=== PATIENT | male | born 1950 | race Caucasian/White ===

== ENCOUNTER 2019-02-23 10:05 | Outpatient (CLI) | payer MEDICARE, SELFPAY ==
[2019-02-23 10:24] LABS: Abs Immature Grans 0.06 k/cumm (0.0-0.09); HCT 46.5 % (40.0-50.0); HGB 15.5 g/dL (13.5-17.5); Mean Corp. HGB Concentration 33.3 g/dL (32.0-36.0); Mean Corpuscular Hemoglobin 32.2 pg (27.0-33.0); Mean Corpuscular Volume 96.5 fL (80-95); Mean Platelet Volume 10.8 fL (8.0-11.0); Platelet Count 166 x1000/uL (130-400); RBC 4.82 m/cumm (4.50-6.00); RBC Distribution Width 13.3 % (11.8-14.1)
[2019-02-23 10:48] LABS: ALT 29 U/L (12-78); AST 16 U/L (15-37); Albumin 3.5 g/dL (3.4-5.0); Alkaline Phosphatase 45 U/L (46-116); Anion Gap 8.6 mmol/L (3-11); BUN 14 mg/dL (7-18); Bilirubin, Total 0.4 mg/dL (0.2-1.0); CO2 28.4 mmol/L (21.0-32.0); CREATININE 1.06 mg/dL (0.70-1.30); Calcium 9.4 mg/dL (8.5-10.1); Chloride 103 mmol/L (98-107); Glucose 109 mg/dL (70-100); LDH 144 U/L (85-227); Potassium 4.2 mmol/L (3.5-5.1); Sodium 140 mmol/L (136-145); Total Protein 6.7 g/dL (6.4-8.2)
[2019-02-23 11:02] LABS: Absolute Eosinophil Count 0.74 k/cumm (0.0-0.7); Absolute Lymphocyte Count 16.06 k/cumm (1.2-3.4); Absolute Monocyte Count 1.48 k/cumm (0.11-0.7); Absolute Neutrophil Count 6.42 k/cumm (1.2-6.7); Atypical Lymphocytes % 3
[2019-02-23 11:03] LABS: Diff Comment Manual Differential; RBC Morphology Normal
== END 2019-02-23 10:25 ==
PROVIDERS: PCP Physician Assistant Medical; Visit Provider Internal Medicine Hematology & Oncology
DX: C91.90 Lymphoid leukemia, unspecified not having achieved remission (principal)
CPT/HCPCS: 36415; 80053; 83615; 85025

== ENCOUNTER 2020-03-28 11:28 | Outpatient (CLI) | payer MEDICARE, SELFPAY ==
[2020-03-28 11:53] LABS: Abs Immature Grans 0.11 k/cumm (0.0-0.09); HCT 46.6 % (40.0-50.0); HGB 15.7 g/dL (13.5-17.5); Mean Corp. HGB Concentration 33.7 g/dL (32.0-36.0); Mean Corpuscular Hemoglobin 32.3 pg (27.0-33.0); Mean Corpuscular Volume 95.9 fL (80-95); Mean Platelet Volume 10.2 fL (8.0-11.0); Platelet Count 249 x1000/uL (130-400); RBC 4.86 m/cumm (4.50-6.00); RBC Distribution Width 13.3 % (11.8-14.1)
[2020-03-28 12:13] LABS: ALT 35 U/L (16-63); AST 23 U/L (15-37); Albumin 3.5 g/dL (3.4-5.0); Alkaline Phosphatase 43 U/L (46-116); Anion Gap 7.9 mmol/L (3-11); BUN 13 mg/dL (7-18); Bilirubin, Total 0.4 mg/dL (0.2-1.0); CO2 28.1 mmol/L (21.0-32.0); CREATININE 1.34 mg/dL (0.70-1.30); Calcium 9.4 mg/dL (8.5-10.1); Chloride 103 mmol/L (98-107); Glucose 106 mg/dL (74-106); LDH 141 U/L (85-227); Sodium 139 mmol/L (136-145); Total Protein 6.7 g/dL (6.4-8.2)
[2020-03-28 12:14] LABS: Absolute Lymphocyte Count 22.16 k/cumm (1.2-3.4); Absolute Neutrophil Count 8.18 k/cumm (1.2-6.7)
[2020-03-28 12:15] LABS: Absolute Monocyte Count 2.05 k/cumm (0.11-0.7)
[2020-03-28 12:16] LABS: Diff Comment Manual Differential; Macrocytosis 1+
[2020-03-28 12:18] LABS: White Blood Cell Count 34.09 k/cumm (4.4-10.8)
[2020-03-29 10:01] LABS: IgA 183 mg/dL (85-499); IgG 393 mg/dL (610-1,616); IgM 32 mg/dL (35-242)
== END 2020-03-28 11:48 ==
PROVIDERS: Visit Provider Internal Medicine Hematology & Oncology
DX: C91.90 Lymphoid leukemia, unspecified not having achieved remission (principal)
CPT/HCPCS: 36415; 80053; 82784; 83615; 85025

== ENCOUNTER 2020-10-31 09:16 | Outpatient (CLI) | payer MEDICARE, SELFPAY ==
[2020-10-31 09:58] LABS: Abs Immature Grans 0.11 10^3/uL (0.0-0.06); Absolute Monocyte Count 2.37 10^3/uL (0.1-0.8); Basophils % 0.4; Eosinophils % 1.4; HCT 45.2 % (40.0-50.0); HGB 15.1 g/dL (13.5-17.5); Immature Grans % 0.3; MCHC 33.4 % (32.0-36.0); MCV 95.8 fL (80-95); MPV 10.4 fL (8.0-11.0); Monocytes % 7.1; Neutrophils % 18.6; Nucleated RBC 0 %; Platelet Count 195 10^3/uL (130-400); RBC 4.72 10^6/uL (4.36-5.78); RDW 13.3 % (11.8-14.1); RDW-SD 46.5 fL
[2020-10-31 10:02] LABS: Absolute Basophil Count 0.13 10^3/uL (0.0-0.2); Absolute Eosinophil Count 0.47 10^3/uL (0.0-0.7)
[2020-10-31 10:09] LABS: ALT 37 U/L (16-63); AST 22 U/L (15-37); Albumin 3.6 g/dL (3.4-5.0); Alkaline Phosphatase 52 U/L (46-116); Anion Gap 8.8 mmol/L (3-11); BUN 11 mg/dL (7-18); Bilirubin, Total 0.5 mg/dL (0.2-1.0); CO2 28.2 mmol/L (21.0-32.0); CREATININE 1.1 mg/dL (0.70-1.30); Calcium 9.3 mg/dL (8.5-10.1); Chloride 105 mmol/L (98-107); Glucose 110 mg/dL (74-106); LDH 155 U/L (85-227); Potassium 4.2 mmol/L (3.5-5.1); Sodium 142 mmol/L (136-145); Total Protein 6.5 g/dL (6.4-8.2)
[2020-10-31 10:32] LABS: Diff Comment Agrees w/ Instrument; RBC Morphology Normal
[2020-10-31 10:33] LABS: Lymphocytes % 72.2
[2020-10-31 10:39] LABS: WBC 33.38 10^3/uL (4.4-10.8)
[2020-10-31 10:40] LABS: Absolute Neutrophil Count 6.21 10^3/uL (1.2-6.7)
[2020-10-31 17:53] LABS: PSA, Screening 5.6 ng/mL (0.0-6.5)
[2020-11-01 09:07] LABS: IgA 186 mg/dL (85-499); IgG 428 mg/dL (610-1,616); IgM 34 mg/dL (35-242)
== END 2020-10-31 09:17 | disposition home or self-care (01) ==
LOC: LBO 09:19
PROVIDERS: PCP Physician Assistant Medical; Visit Provider Internal Medicine Hematology & Oncology
DX: C91.10 Chronic lymphocytic leukemia of B-cell type not having achieved remission (principal); Z12.5 Encounter for screening for malignant neoplasm of prostate
CPT/HCPCS: 36415; 80053; 82784; 84153; 83615; 85025

== ENCOUNTER 2024-11-02 01:17 | Outpatient (CLI) | payer MEDICARE, SELFPAY ==
--- OUTSIDE RECORDS SUMMARY | 2024-11-02 01:55 | XMS_ITS | Continuity of Care Document ---
Author Organization [facility] Address [address] [place] [address] Care Team Providers Care Forging Roll Operator Name Role Phone BRADLEY HYATT Primary Care Physician Encounter [facility] NBR [id number] Date(s): 09/02/22 - 09/02/[address] [address]- Discharge Disposition: Home or Self Care Attending Physician: Fabrizio Echavarria MD Admitting Physician: Fabrizio Echavarria MD Allergies, Adverse Reactions, Alerts No Known Allergies Assessment and Plan Future Scheduled Tests Radiology* MRI Shoulder w/o Contrast Left 09/02/22 Medications albuterol 0 Refill(s) Start Date: 09/02/22 Status: Ordered Allergy Relief 0 Refill(s) Start Date: 09/02/22 Status: Ordered calcium (as calcium citrate) 250 mg oral tablet 0 Refill(s) Start Date: 09/02/22 Status: Ordered diclofenac 0 Refill(s) Start Date: 09/02/22 Status: Ordered gabapentin 300 mg oral capsule 0 Refill(s) Start Date: 09/02/22 Status: Ordered losartan 0 Refill(s) Start Date: 09/02/22 Status: Ordered multivitamin adult, oral tablet 0 Refill(s) Start Date: 09/02/22 Status: Ordered omeprazole 0 Refill(s) Start Date: 09/02/22 Status: Ordered tamsulosin 0.4 mg oral capsule 0 Refill(s) Start Date: 09/02/22 Status: Ordered Trelegy Ellipta 0 Refill(s) Start Date: 09/02/22 Status: Ordered triamcinolone 0.025% topical cream 0 Refill(s) Start Date: 09/02/22 Status: Ordered Turmeric 0 Refill(s) Start Date: 09/02/22 Status: Ordered Vitamin D3 0 Refill(s) Start Date: 09/02/22 Status: Ordered Problem List Condition Confirmation Course Effective Dates Status Health St [facility] Informant Asthma Confirmed Active High blood pressure Confirmed Active Procedures Procedure Date Related Diagnosis Body Site Status Arthroscopy, shoulder, surgi augustina; biceps tenodesis Completed Results Radiology Reports * Exam Date Time Procedure Performing Provider Status 09/02/22 10:12 AM XR Shoulder Complete 2+ Views Left Coleman Dennison; Auth (Verified) Notes: (XR Shoulder Complete 2+ Views Left) Reason For Exam: Left shoulder pain XR Shoulder Complete 2+ Views Left EXAM DESCRIPTION: XR Shoulder Complete 2+ Views Left 09/02/2022 INDICATION: LEFT SHOULDER PAIN COMPARISON: None IMPRESSION: No acute fracture or dislocation AC joint osteoarthritic changes with joint space narrowing and osteophyte formation No focal lytic or sclerotic lesion. JOB #: [id number] Final Signed by: Roger Alvarez MD Signed (Electronic Signature): 09/02/2022 10:17 am Social History Social History Type Response Tobacco Never tobacco user T obacco Use:. Sex Male XR Shoulder - left GE 2 Views * Roger Alvarez MD: VERIFY, VERIFY Event Display: Report EXAM DESCRIPTION: XR Shoulder Complete 2+ Views Left 09/02/2022 INDICATION: LEFT SHOULDER PAIN COMPARISON: None IMPRESSION: No acute fracture or dislocation AC joint osteoarthritic changes with joint space narrowing and osteophyte formation No focal lytic or sclerotic lesion. JOB #: [id number] Final Signed by: Roger Alvarez MD Signed (Electronic Signature): 09/02/2022 10:17 am Patient Care team information Personnel Name: BRADLEY HYATT Address: Address: [address] [place] [id number]
--- OUTSIDE RECORDS SUMMARY | 2024-11-02 01:55 | XMS_ITS | Continuity of Care Document ---
Author Organization [facility] Address [address] [place] [address] Care Team Providers Care Cafe Cook Name Role Phone BRADLEY LANG Primary Care Physician Encounter [facility] NBR [id number] Date(s): 01/06/23 - 01/06/23 [facility] [address] [place] [address] [place] Encounter Diagnosis Biceps tendinitis of left shoulder(Discharge Diagnosis) - 01/07/23 Complete rotator cuff tear of left shoulder(Discharge Diagnosis) - 01/07/23 Subacromial impingement of left shoulder(Discharge Diagnosis) - 01/07/23 Discharge Disposition: Home or Self Care Attending Physician: MIHIR Ruffin Allergies, Adverse Reactions, Alerts No Known Allergies Assessment and Plan Future Appointments Future Scheduled Tests Radiology* MRI Shoulder w/o Contrast Left 09/02/22 Functional Status 01/06/23 Other exposure to Infectious Disease Non e Medications albuterol 0 Refill(s) Start Date: 09/02/22 Status: Ordered albuterol 90 mcg/inh aerosol inhaler INHALE 2 PUFFS BY MOUTH USING INHALER EVERY 4 TO 6 HOURS NEEDED Start Date: 11/03/22 Status: Ordered Allergy Relief 0 Refill(s) Start Date: 09/02/22 Status: Ordered aspirin 325 mg =, Oral, Daily, 0 Refill(s) Start Date: 11/25/22 Status: Ordered calcium (as calcium citrate) 250 mg oral tablet 0 Refill(s) Start Date: 09/02/22 Status: Ordered gabapentin 300 mg oral capsule TAKE 3 CAPSULES BY MOUTH AT BEDTIME Start Date: 11/03/22 Status: Ordered losartan 50 mg oral tablet TAKE 1 TABLET BY MOUTH ONCE DAILY Start Date: 11/03/22 Status: Ordered multivitamin adult, oral tablet 0 Refill(s) Start Date: 09/02/22 Status: Ordered omeprazole 20 mg =, Oral, Daily, 0 Refill(s) Start Date: 09/02/22 Status: Ordered tamsulosin 0.4 mg oral capsule TAKE 1 CAPSULE BY MOUTH AT BEDTIME Start Date: 11/03/22 Status: Ordered Trelegy Ellipta Inhale, Daily, 0 Refill(s) Start Date: 09/02/22 Status: Ordered triamcinolone 0.025% topical cream 0 Refill(s) Start Date: 09/02/22 Status: Ordered Turmeric 0 Refill(s) Start Date: 09/02/22 Status: Ordered Vitamin D3 0 Refill(s) Start Date: 09/02/22 Status: Ordered Problem List Condition Confirmation Course Effective Dates Status H ealth Status Informant Asthma Confirmed Active Claudication Confirmed Active CLL - Chronic lymphocytic leukemia Confirmed Active COPD - Chronic obstructive pulmonary disease Confirmed Active Diastasis recti Confirmed Active Eczema Confirmed Active Hearing impaired Confirmed Active Hemorrhoid management system Confirmed Active High blood pressure Confirmed Active History of syncope 1 Confirmed Active HLD - Hyperlipidemia Confirmed Active IgG subclass deficiency Confirmed Active Neuropathy 2 Confirmed Active Osteoarthritis Confirmed Active SVT - Supraventricular tachycardia 3 Confirmed Active 1x2 negative ziopatch 2bilat feet 3occ 5 beat runs on ziopatch Procedures Procedure Date Related Diagnosis Body Site Status Arthroscopy Shoulder with AD SLAP RCR (Left) 1 11/10/22 Completed Tenodesis Biceps (Left) 2 11/10/22 Completed Arthroscopy, shoulder, surgi augustina; biceps tenodesis Completed CTR - carpal tunnel release Completed Repair of bilateral inguinal hernias 3 Completed Reverse shoulder replacement 4 Completed 1auto-populated from documented surgical case 2auto-populated from documented surgical case 3with mesh 4with revision x2 Vital Signs Most recent to oldest [Reference Range]: 1 Peripheral Pulse Rate [60-100 bpm] 71 bp m (01/06/23 12:41 PM) Blood Pressure [90-140/60-90 mmHg] 108/7 0mmHg (01/06/23 12:41 PM) Social History Social History Type Response Tobacco Never tobacco user T obacco Use:. Sex Male Implantable Device List Procedure Provider Procedure Date Device Type Site Tenodesis of long tendon of biceps Fabrizio Echavarria MD 11/10/22 Non Biological Shoulder L Device Identifier Serial Number Lot or Batch Number Manufacturing Date Expiration Date Distinct Identification Code MRI Safety Implantable Status Assigning Authority Unknown Unknown [id number] Unknown 03/26/25 Unknown Unknown Active Unk nown Unknown Unknown [id number] Unknown 07/27/25 Unknown Unknown Active Un known Physician Outpatient Note * MIHIR Ruffin: PERFORM Event Display: Office Clinic Note Physician Authored Date: [id number] IMANI ROSS :1950 Age:72 years Sex:Male Visit Date:01/06/2023 Primary Care Physician: BRADLEY LANG Chief Complaint Left Shoulder History of Present Illness The patient comes in today status post surgery on 11/10/2022. ??He had a??left shoulder RCR, GRABIEL, arthroscopic biceps tenodesis,??and extensive debridement. ??He was wondering today if he can start on his diclofenac for his??arthritis in other joints,??mainly his foot.?? He is going to physical therapy. ??He has been wearing his sling. ??He denies any increased pain numbness or tingling. Review of Systems Unremarkable Physical Exam Vitals & Measurements HR:??71??(Peripheral)?? BP:??108/70?? SpO2:??95%?? General: Alert and oriented x3, pleasant cooperative, in no acute distress, appears to be their stated age, is generally fit appearing.? Left shoulder:??Range of motion with forward elevation is to about 160 degrees. ??External rotation is to 35.?? Internal rotation is to his PSIS. ??Well-healed postoperative incisions. ??Full range of motion of his elbow wrist and hand. ??Skin distally is pink warm and dry. Assessment/Plan 1.??Biceps tendinitis of left shoulder??M75.22 2.??Complete rotator cuff tear of left shoulder??M75.122 3.??Subacromial impingement of left shoulder??M75.42 The patient comes in today status post a forementioned procedure. ??I counseled him it would be best if should be able to wait for another 5 weeks before starting back on his diclofenac. ??He is in understanding of this. ??He can discontinue his full daily aspirin and go back to his baby aspirin.??He will continue with physical therapy and he can discontinue his sling. ??We will see him back in 6 weeks. Problem List/Past Medical History Ongoing Asthma Claudication CLL - Chronic lymphocytic leukemia COPD - Chronic obstructive pulmonary disease Diastasis recti Eczema Hearing impaired Hemorrhoid management system High blood pressure History of syncope HLD - Hyperlipidemia IgG subclass deficiency Neuropathy Osteoarthritis SVT - Supraventricular tachycardia Historical No qualifying data Procedure/Surgical History ???Arthroscopy Shoulder with GRABIEL SLAP RCR (Left) (11/10/2022)???Tenodesis Biceps (Left) (11/10/2022)???Arthroscopy, shoulder, surgical; biceps tenodesis???CTR - carpal tunnel release???Repair of bilateral inguinal hernias???Reverse shoulder replacement Medications albuterol albuterol 90 mcg/inh aerosol inhaler Allergy Relief aspirin, 325 mg, Oral, Daily calcium (as calcium citrate) 250 mg oral tablet gabapentin 300 mg oral capsule losartan 50 mg oral tablet multivitamin adult, oral tablet omeprazole, 20 mg, Oral, Daily tamsulosin 0.4 mg oral capsule Trelegy Ellipta, Inhale, Daily triamcinolone 0.025% topical cream Turmeric Vitamin D3 Allergies No Known Allergies No Known Medication Allergies Social History Alcohol Current, Beer- Comments: 2 -3 TIMES A WEEK Electronic Cigarette/Vaping Electronic Cigarette Use: Never. Employment/School Retired Substance Use Never Tobacco Never tobacco user Tobacco Use:. Electronically Signed on 01/07/23 07:24 AM MIHIR Ruffin Patient Care team information Care Team Personnel Name: BRADLEY LANG Position: No Access Member Role: Primary Care Physician Address: Address: [address] [place] [id number]- Care Team Related Persons Name: AHMET ROSS Address: Home [address] [facility] [place], [address] [facility]
--- OUTSIDE RECORDS SUMMARY | 2024-11-02 01:55 | XMS_ITS | Continuity of Care Document ---
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 Name Role Phone BRADLEY LANG Primary Care Physician Encounter [facility] NBR [id number] Date(s): 04/02/23 - 04/02/23 [facility] [address] [place] [address] [place] Encounter Diagnosis Biceps tendinitis of left shoulder(Discharge Diagnosis) - 04/02/23 Complete rotator cuff tear of left shoulder(Discharge Diagnosis) - 04/02/23 Subacromial impingement of left shoulder(Discharge Diagnosis) - 04/02/23 Discharge Disposition: Home or Self Care Attending Physician: MIHIR Ruffin Referring Physician: BRADLEY LANG Allergies, Adverse Reactions, Alerts No Known Allergies Assessment and Plan Future Appointments Future Scheduled Tests Radiology* MRI Shoulder w/o Contrast Left 09/02/22 Functional Status 04/02/23 Other exposure to Infectious Disease Non e Medications albuterol 0 Refill(s) Start Date: 09/02/22 Status: Ordered Albuterol (Eqv-Ventolin HFA) 90 mcg/inh inhalation aerosol 18 g, INHALE 2 PUFFS BY MOUTH USING INHALER EVERY 4 TO 6 HOURS NEEDED, 0 Refill(s) Start Date: 02/16/23 Status: Ordered albuterol 90 mcg/inh aerosol inhaler INHALE 2 PUFFS BY MOUTH USING INHALER EVERY 4 TO 6 HOURS NEEDED Start Date: 11/03/22 Status: Ordered Allergy Relief 0 Refill(s) Start Date: 09/02/22 Status: Ordered aspirin 325 mg =, Oral, Daily, 0 Refill(s) Start Date: 11/25/22 Status: Ordered calcium (as calcium citrate) 250 mg oral tablet 0 Refill(s) Start Date: 09/02/22 Status: Ordered cyclobenzaprine 5 mg oral tablet 20 EA, 0 Refill(s) Start Date: 02/16/23 Status: Ordered diclofenac potassium 50 mg oral tablet 180 EA, TAKE 1 TABLET BY MOUTH TWICE DAILY, 0 Refill(s) Start Date: 02/16/23 Status: Ordered gabapentin 300 mg oral capsule TAKE 3 CAPSULES BY MOUTH AT BEDTIME Start Date: 11/03/22 Status: Ordered losartan 50 mg oral tablet TAKE 1 TABLET BY MOUTH ONCE DAILY Start Date: 11/03/22 Status: Ordered multivitamin adult, oral tablet 0 Refill(s) Start Date: 09/02/22 Status: Ordered omeprazole 20 mg =, Oral, Daily, 0 Refill(s) Start Date: 09/02/22 Status: Ordered omeprazole 20 mg oral delayed release capsule 120 EA, TAKE 1 CAPSULE BY MOUTH TWICE DAILY FOR 2 MONTHS THEN DECREASE TO ONCE DAILY, 0 Refill(s) Start Date: 02/16/23 Status: Ordered oxyCODONE 5 mg oral tablet 20 EA, 0 Refill(s) Start Date: 02/16/23 Status: Ordered Phenergan 25 mg oral tablet 5 EA, 0 Refill(s) Start Date: 02/16/23 Status: Ordered sildenafil 100 mg oral tablet 12 EA, TAKE 1 TABLET BY MOUTH ONCE DAILY NEEDED IF NEEDED 1 HOUR PRIOR TO INTERCOURSE, 0 Refill(s) Start Date: 02/16/23 Status: Ordered tamsulosin 0.4 mg oral capsule [...] H ealth Status Informant Asthma Confirmed Active Biceps tendinitis of left shoulder Confirmed Active Claudication Confirmed Active CLL - Chronic lymphocytic leukemia Confirmed Active COPD - Chronic obstructive pulmonary disease Confirmed Active Diastasis recti Confirmed Active Eczema Confirmed Active Complete rotator cuff tear of left shoulder Confirmed Active Hearing impaired Confirmed Active Hemorrhoid management system Confirmed Active High blood pressure Confirmed Active History of syncope 1 Confirmed Active HLD - Hyperlipidemia Confirmed Active IgG subclass deficiency Confirmed Active Neuropathy 2 Confirmed Active Osteoarthritis Confirmed Active Subacromial impingement of left shoulder Confirmed Active SVT - Supraventricular tachycardia 3 [...] Range]: 1 Peripheral Pulse Rate [60-100 bpm] 76 bp m (04/02/23 1:52 PM) Blood Pressure [90-140/60-90 mmHg] 142/7 8mmHg *HI* (04/02/23 1:52 PM) Weight 99.79 kg (04/02/23 1:52 PM) Weight Measured (lbs) 219.999 lb (04/02/23 1:52 PM) Height 172.72 cm (04/02/23 1:52 PM) Height/Length Measured (inches) 68 inch (04/02/23 1:52 PM) BSA Measured 2.19 m2 (04/02/23 1:52 PM) Body Mass Index 33.45 kg/m2 (04/02/23 1:52 PM) Social History Social History Type Response Tobacco Never tobacco user T obacco Use:. Sex Male Implantable Device List Procedure Provider Procedure Date Device Type Site Tenodesis of long tendon of biceps Fabrizio Echavarria MD 11/10/22 Non Biological Shoulder L Device Identifier Serial Number Lot or Batch Number Manufacturing Date Expiration Date Distinct Identification Code MRI Safety Implantable Status Assigning Authority Unknown Unknown [id number] Unknown 03/26/25 Unknown Unknown Active Unk nown Unknown Unknown [id number] Unknown 07/27/25 Unknown Unknown Active Un known Physician Outpatient Note * MIHIR Ruffin: PERFORM Event Display: Office Clinic Note Physician Authored Date: [id number] IMANI ROSS :1950 Age:72 years Sex:Male Visit Date:04/02/2023 Primary Care Physician: BRADLEY LANG Chief Complaint LEFT SHOULDER History of Present Illness The patient comes in today??status post surgery on 11/10/2022. ??He had a right shoulder RCR, GRABIEL, arthroscopic bicep tenodesis, and debridement.?? He still little bit weak. ??He also has a catch when he forward elevates to about 120 degrees. ??He ran out of physical therapy visits. ??He states he is able to lift about 2 pounds at home. ??He is trying to do the exercises at home himself at this point. Review of Systems Other than the HPI is significant for GERD??and asthma. Physical Exam Vitals & Measurements HR:??76??(Peripheral)?? BP:??142/78?? SpO2:??99%?? HT:??172.72??cm?? WT:??99.79??kg?? BMI:??33.45?? BSA:??2.19?? General: Alert and oriented x3, pleasant cooperative, in no acute distress, appears to be their stated age, is generally fit appearing.? Left shoulder:??Full active motion although he catches about 120 degrees of forward elevation. ??External rotation is full. ??Internal rotation is lacking 2 vertebral levels.?? Positive Neer's andHawkins testing.?? 5- out of 5 strength of forward elevation. ??5-5 strength external and internal rotation. Assessment/Plan 1.??Biceps tendinitis of left shoulder??M75.22 2.??Complete rotator cuff tear of left shoulder??M75.122 3.??Subacromial impingement of left shoulder??M75.42 Patient is doing well status post the aforementioned procedure although is still in need of strengthening and conditioning. ??Unfortunately??his insurance will not allow him to continue to go??as he has reached his maximum number of visits.?? He will continue to do a prescribed home exercise program. ??We will see him back in 2 months for follow-up. ??If he is doing well at that point we will likely??see him back only as needed. Problem List/Past Medical History Ongoing Asthma Biceps tendinitis of left shoulder Claudication CLL - Chronic lymphocytic leukemia Complete rotator cuff tear of left shoulder COPD - Chronic obstructive pulmonary disease Diastasis recti Eczema Hearing impaired Hemorrhoid management system High blood pressure History of syncope HLD - Hyperlipidemia IgG subclass deficiency Neuropathy Osteoarthritis Subacromial impingement of left shoulder SVT - Supraventricular tachycardia Historical No qualifying data Procedure/Surgical History ???Arthroscopy Shoulder with GRABIEL SLAP RCR (Left) (11/10/2022)???Tenodesis Biceps (Left) (11/10/2022)???Arthroscopy, shoulder, surgical; biceps tenodesis???CTR - carpal tunnel release???Repair of bilateral inguinal hernias???Reverse shoulder replacement Medications albuterol Albuterol (Eqv-Ventolin HFA) 90 mcg/inh inhalation aerosol albuterol 90 mcg/inh aerosol inhaler Allergy Relief aspirin, 325 mg, Oral, Daily calcium (as calcium citrate) 250 mg oral tablet cyclobenzaprine 5 mg oral tablet diclofenac potassium 50 mg oral tablet gabapentin 300 mg oral capsule losartan 50 mg oral tablet multivitamin adult, oral tablet omeprazole, 20 mg, Oral, Daily omeprazole 20 mg oral delayed release capsule oxyCODONE 5 mg oral tablet Phenergan 25 mg oral tablet sildenafil 100 mg oral tablet tamsulosin 0.4 mg oral capsule Trelegy Ellipta, Inhale, Daily triamcinolone 0.025% topical cream Turmeric Vitamin D3 Allergies No Known Allergies No Known Medication Allergies Social History Alcohol Current, Beer- Comments: 2 -3 TIMES A WEEK Electronic Cigarette/Vaping Electronic Cigarette Use: Never. Employment/School Retired Substance Use Never Tobacco Never tobacco user Tobacco Use:. Electronically Signed on 04/02/23 03:23 PM MIHIR Ruffin Patient Care team information Care Team Personnel Name: BRADLEY LANG Position: No Access Member Role: Primary Care Physician Address: Address: [address] [place] [address]- Care Team Related Persons Name: AHMET ROSS Address: Home [address] [place], [address] [place]
--- OUTSIDE RECORDS SUMMARY | 2024-11-02 01:55 | XMS_ITS | Continuity of Care Document ---
Author Organization [facility] Address [address] [place] [address] Care Team Providers Care Button Sewer Name Role Phone BRADLEY HYATT Primary Care Physician Encounter [facility] NBR [id number] Date(s): 08/08/22 - 08/08/22 [facility] [address] [place] [address]- [place] Social History Social History Type Response Sex Male Patient Care team information Care Team Personnel Name: BRADLEY HYATT Position: No Access Member Role: Primary Care Physician Address: Address: [address] [place] [id number]
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
--- OUTSIDE RECORDS SUMMARY | 2024-11-02 01:55 | XMS_ITS | Continuity of Care Document ---
Author Organization [facility] Address [address] [place] [address] Care Team Providers Care Hot Metal Mixer Operator Name Role Phone BRADLEY LANG Primary Care Physician [phone] Encounter [facility] NBR [id number] Date(s): 05/26/23 - 05/26/23 [facility] [address] [place] [address] us Encounter Diagnosis Biceps tendinitis of left shoulder(Discharge Diagnosis) - 05/26/23 Subacromial impingement of left shoulder(Discharge Diagnosis) - 05/26/23 Complete rotator cuff tear of left shoulder(Discharge Diagnosis) - 05/26/23 Discharge Disposition: Home or Self Care Attending Physician: Fabrizio Echavarria MD Referring Physician: BRADLEY LANG Allergies, Adverse Reactions, [...] 0 Refill(s) Start Date: 02/16/23 Status: Ordered omeprazole 40 mg oral delayed release capsule 90 EA, 0 Refill(s), TAKE 1 CAPSULE BY MOUTH TWICE DAILY FOR 2 MONTHS, THEN DECREASE TO ONCE DAILY, 0 Refill(s) Start Date: 05/26/23 Status: Ordered oxyCODONE 5 mg oral tablet [...] Range]: 1 Peripheral Pulse Rate [60-100 bpm] 77 bp m (05/26/23 1:41 PM) Blood Pressure [90-140/60-90 mmHg] 145/8 5mmHg *HI* (05/26/23 1:41 PM) Weight 90.72 kg (05/26/23 1:41 PM) Weight Measured (lbs) 200.003 lb (05/26/23 1:41 PM) Height 172.72 cm (05/26/23 1:41 PM) Height/Length Measured (inches) 68 inch (05/26/23 1:41 PM) BSA Measured 2.09 m2 (05/26/23 1:41 PM) Body Mass Index 30.41 kg/m2 (05/26/23 1:41 PM) Social History Social History Type Response Tobacco Never tobacco user T obacco Use:. Sex Male Implantable Device List Procedure Provider Procedure Date Device Type Site Tenodesis of long tendon of biceps Fabrizio Echavarria MD 11/10/22 Non Biological Shoulder L Device Identifier Serial Number Lot or Batch Number Manufacturing Date Expiration Date Distinct Identification Code MRI Safety Implantable Status Assigning Authority Unknown Unknown [id number] Unknown 03/26/25 Unknown Unknown Active Unk nown Unknown Unknown [id number] Unknown 07/27/25 Unknown Unknown Active Un known Hospital Discharge Instructions Follow Up Care 04/02/2023 14:21:43 With:Patient to call as needed Address: When: Unknown Physician Outpatient Note * Fabrizio Echavarria MD: PERFORM Event Display: Office Clinic Note Physician Authored Date: [id number] IMANI ROSS :1950 Age:73 years Sex:Male Visit Date:05/26/2023 Primary Care Physician: BRADLEY LANG Chief Complaint LEFT SHOULDER History of Present Illness The patient presents for follow-up of his left shoulder status post RCR, GRABIEL, and arthroscopic biceps tenodesis on 11/10/2022. ??He finished physical therapy and has been working on an HEP.?? He states that he is doing well and has regained function of his left shoulder. ??He states that with abduction he has no pain, although he continues with pain with forward elevation terminally.?? He denies weakness. ??He has been using his left upper extremity in increasing fashion around the house. ??He denies numbness or tingling. ??His shoulder is??occasionally waking him at night??if he rolls onto it. ??He has been taking acetaminophen to address this. Physical Exam Vitals & Measurements HR:??77??(Peripheral)?? BP:??145/85?? SpO2:??98%?? HT:??172.72??cm?? WT:??90.72??kg?? BMI:??30.41?? Pain Score:??7?? BSA:??2.09?? The patient's left??upper??extremity is neurovascularly intact. ??Sensation and motor exam are intact distally. ??All digits are warm and pink.?? Surgical wounds are well-healed. ??No Mike deformity is present. ??Active range of motion is??full but with pain on terminal elevation. ??Neer and Bardales signs are mildly positive. ??Drop arm test negative. ??Strength is 5 out of 5 in all planes. ??No focal tenderness is present about the shoulder. Assessment/Plan 1.??Biceps tendinitis of left shoulder??M75.22 2.??Subacromial impingement of left shoulder??M75.42 3.??Complete rotator cuff tear of left shoulder??M75.122 The patient appears to be doing well status post the above procedure, albeit with??pain on terminalelevation which is felt to be secondary to persistent/recurrent inflammation. ??The treatment options were discussed with the patient??who believes he is gradually improving. ??I did discuss the possi bility of a corticosteroid injection but he would like to hold off for now. ??He will continue withhis HEP and agrees to be compliant with this. ??We had a discussion about??return to activities andminimization of risk of reinjury.?? The patient will contact us with any questions??or concerns, orif??he wishes to have a corticosteroid injection. ??Otherwise, we will see him on an as needed basis. ??All questions were answered. Follow Up Instructions With When Contact Information Patient to call as needed Additional Instructions: Problem List/Past Medical History Ongoing Asthma Biceps [...] omeprazole 20 mg oral delayed release capsule omeprazole 40 mg oral delayed release capsule oxyCODONE 5 [...] tobacco user Tobacco Use:. Electronically Signed on 05/26/23 02:26 PM Fabrizio Echavarria MD Patient Care team information Care Team Personnel Name: BRADLEY LANG Position: No Access Member Role: Primary Care Physician Address: Address: [address] [place] [id number]- Care Team Related Persons Name: AHMET ROSS Address: Home [address] [place] [address] [facility]
--- OUTSIDE RECORDS SUMMARY | 2024-11-02 01:55 | XMS_ITS | Continuity of Care Document ---
Author Organization [facility] Address [address] [place] [phone] Care Team Providers Care Customer Service Advocate Name Role Phone BRADLEY LANG Primary Care Physician [phone] Encounter [facility] NBR [id number] Date(s): 11/10/22 - 11/10/[address] [address] Encounter Diagnosis Biceps tendinitis of left shoulder(Discharge Diagnosis) - 11/05/22 Complete rotator cuff tear of left shoulder(Discharge Diagnosis) - 11/05/22 Left rotator cuff tear(Discharge Diagnosis) - 11/05/22 Discharge Disposition: Home f/u External Provider Attending Physician: Fabrizio Echavarria MD Admitting Physician: Fabrizio Echavarria MD Allergies, Adverse Reactions, Alerts No Known Allergies Assessment and Plan Future Appointments Future Scheduled Tests Radiology* MRI Shoulder w/o Contrast Left 09/02/22 Functional Status 11/10/22 Home Equipment Other: immobilibzer sling 11/10/22 Living Environment Home Environment No qualifying data available Prior ADL Status Independent Prior Mobility Status Independent Prior Instrumental ADL Level Independent Prior Cognitive-Communication Skills Ind ependent 11/10/22 Orthopedic/Preventive Devices Immobilize rs, Sling Orthopedic Device Cares Performed Yes 11/10/22 Anti-Embolism Device Activity: In place Anti-Embolism Site Condition: No complic ations 11/10/22 ADLs Independent Antiembolism Device Graduated compressio n stockings, knee high, bilateral, Intermittent pneumatic compression devices, knee high, bilat Other exposure to Infectious Disease Non e [...] Most recent to oldest [Reference Range]: 1 2 3 Temperature Temporal Artery [36-38 Deg C] 36.3 Deg C (11/10/22 5:00 PM) 36.8 Deg C (11/10/22 2:05 PM) 36 Deg C (11/10/22 1:48 PM) Temperature Temporal Artery (DegF) [97.3-100 Deg F] 97.34 Deg F (11/10/22 5:00 PM) 98.24 Deg F (11/10/22 2:05 PM) 96.8 Deg F *LOW* (11/10/22 1:48 PM) Peripheral Pulse Rate [60-100 bpm] 79 bpm (11/10/22 5:00 PM) 81 bpm (11/10/22 4:45 PM) 87 bpm (11/10/22 4:30 PM) Heart Rate Monitored [60-100 bpm] 66 bpm (11/10/22 9:05 AM) Respiratory Rate [12-24 br/min] 19 br/min (11/10/22 1:50 PM) 17 br/min (11/10/22 9:05 AM) Blood Pressure [90-140/60-90 mmHg] 142/89mmHg *HI* (11/10/22 5:00 PM) 143/72mmHg *HI* (11/10/22 4:45 PM) 124/87mmHg (11/10/22 4:30 PM) Mean Arterial Pressure, Cuff [65-140 mmHg] 107 mmHg (11/10/22 5:00 PM) 96 mmHg (11/10/22 4:45 PM) 99 mmHg (11/10/22 4:30 PM) Mean Arterial Pressure Cuff 105 mmHg (11/10/22 5:00 PM) 93 mmHg (11/10/22 4:45 PM) 99 mmHg (11/10/22 4:30 PM) Blood Pressure Location Right arm (11/10/22 1:50 PM) Weight 100.000 kg (11/05/22 10:06 AM) Weight Dosing 100.000 kg (11/05/22 10:06 AM) Height 173.000 cm (11/05/22 10:06 AM) Height/Length Dosing 173.000 cm (11/05/22 10:06 AM) Social History Social History Type Response Tobacco Never tobacco user T obacco Use:. Sex Male Implantable Device List Procedure Provider Procedure Date Device Type Site Tenodesis of long tendon of biceps Fabrizio Echavarria, MD 11/10/22 Non Biological Shoulder L Device Identifier Serial Number Lot or Batch Number Manufacturing Date Expiration Date Distinct Identification Code MRI Safety Implantable Status Assigning Authority Unknown Unknown [id number] Unknown 03/26/25 Unknown Unknown Active Unk nown Unknown Unknown [id number] Unknown 07/27/25 Unknown Unknown Active Un known Patient Care team information Care Team Personnel Name: BRADLEY LANG Position: No Access Member Role: Primary Care Physician Address: Address: [address] [place] [id number]- Care Team Related Persons Name: AHMET ROSS Address: Home [address] [facility] [address] [facility]
--- OUTSIDE RECORDS SUMMARY | 2024-11-02 01:55 | XMS_ITS | Continuity of Care Document ---
Author Organization [facility] Address [address] [place] [address] Care Team Providers Care Benefits Counselor Name Role Phone BRADLEY LANG Primary Care Physician [phone] Encounter [facility] NBR [id number] Date(s): 11/25/22 - 11/25/22 [facility] [address] [place] [address] us Encounter Diagnosis Biceps tendinitis of left shoulder(Discharge Diagnosis) - 11/25/22 Complete rotator cuff tear of left shoulder(Discharge Diagnosis) - 11/25/22 Left rotator cuff tear(Discharge Diagnosis) - 11/25/22 Discharge Disposition: Home or Self Care Attending Physician: MIHIR Ruffin Allergies, Adverse Reactions, Alerts No Known Allergies Assessment and Plan Future Appointments Future Scheduled Tests Radiology* MRI Shoulder w/o Contrast Left 09/02/22 Functional Status 11/25/22 Other exposure to Infectious Disease Non e [...] Pulse Rate [60-100 bpm] 77 bp m (11/25/22 12:29 PM) Blood Pressure [90-140/60-90 mmHg] 108/6 8mmHg (11/25/22 12:29 PM) Weight 99.34 kg (11/25/22 12:29 PM) Weight Measured (lbs) 219.007 lb (11/25/22 12:29 PM) Height 172.72 cm (11/25/22 12:29 PM) Height/Length Measured (inches) 68 inch (11/25/22 12:29 PM) BSA Measured 2.18 m2 (11/25/22 12:29 PM) Body Mass Index 33.3 kg/m2 (11/25/22 12:29 PM) Social History Social History Type Response Tobacco Never tobacco user T obacco Use:. Sex Male Implantable Device List Procedure Provider Procedure Date Device Type Site Tenodesis of long tendon of biceps Fabrizio Echavarria MD 11/10/22 Non Biological Shoulder L Device Identifier Serial Number Lot or Batch Number Manufacturing Date Expiration Date Distinct Identification Code MRI Safety Implantable Status Assigning Authority Unknown Unknown [id number] Unknown 03/26/25 Unknown Unknown Active Unk nown Unknown Unknown [id number] Unknown 07/27/25 Unknown Unknown Active Un known Physician Outpatient Note * MIHIR Ruffin: PERFORM Event Display: Office Clinic Note Physician Authored Date: [id number] CODYYULIA GREENEKARENA Oconnor :1950 Age:72 years Sex:Male Visit Date:11/25/2022 Primary Care Physician: BRADLEY LANG Chief Complaint LEFT SHOULDER 1ST POV History of Present Illness The patient comes in today with left shoulder pain status post surgery on 11/10/2022. ??He had a left shoulder RCR, GRABIEL,??arthroscopic biceps tenodesis, and extensive debridement.?? Overall he is doing well. ??He states he is not in need of any refills. ??He has been using Tylenol.?? He has been taking his aspirin and wearing his sling. ??He has been doing the exercises.?? The patient denies any fevers, chills, chest pain, shortness of breath, numbness or tingling.?? Physical Exam Vitals & Measurements HR:??77??(Peripheral)?? BP:??108/68?? SpO2:??93%?? HT:??172.72??cm?? WT:??99.34??kg?? BMI:??33.3?? BSA:??2.18?? General: AAOx3, in no acute distress, appears to be their stated age, is generally fit appearing ?? Left??shoulder: Mild effusion, mild edema. Well approximated incisions. No signs of bleeding, discharge or infection. Motor sensory reflex exam distally is intact. Range of motion of the elbow wrist and hand is full. Able do demonstrate exercises appropriately after counseling. Range of motion of the shoulder is passive FE to 70, ER to 10, IR to chest wall.?? Assessment/Plan 1.??Biceps tendinitis of left shoulder??M75.22 2.??Complete rotator cuff tear of left shoulder??M75.122 3.??Left rotator cuff tear??M75.102 The patient is doing well status post aforementioned procedure. ??I will send him to??physical therapy prior to his trip to [place]. ??He will return towards the end of November.?? I instructed him to stop every couple of hours to walk around and continue with his aspirin.?? I did certified alcohol drug counselor him on not taking any anti-inflammatories until 3 months postoperatively as it can inhibit healing.?? He will continue with Tylenol, ice, heat, his exercises,??and his aspirin. ??We will see him back in 6 [...] tobacco user Tobacco Use:. Electronically Signed on 11/25/22 12:47 PM MIHIR Ruffin Patient Care team information Care Team Personnel Name: BRADLEY LANG Position: No Access Member Role: Primary Care Physician Address: Address: [address] [place] [id number]- Care Team Related Persons Name: AHMET ROSS Address: Home [address] [facility], [address] [place]
--- OUTSIDE RECORDS SUMMARY | 2024-11-02 01:55 | XMS_ITS | Continuity of Care Document ---
Author Organization [facility] Address [address] [place] [address] Care Team Providers Care Pet Caretaker Name Role Phone BRADLEY LANG Primary Care Physician Encounter [facility] NBR [id number] Date(s): 02/17/23 - 02/17/23 [facility] [address] [place] [address] us Encounter Diagnosis Complete rotator cuff tear of left shoulder(Discharge Diagnosis) - 02/17/23 Subacromial impingement of left shoulder(Discharge Diagnosis) - 02/17/23 Biceps tendinitis of left shoulder(Discharge Diagnosis) - 02/17/23 Discharge Disposition: Home or Self Care Attending Physician: Fabrizio Echavarria MD Allergies, Adverse Reactions, Alerts No Known Allergies Assessment and Plan Future Appointments Future Scheduled Tests Radiology* MRI Shoulder w/o Contrast Left 09/02/22 Functional Status 02/17/23 Other exposure to Infectious Disease Non e [...] Pulse Rate [60-100 bpm] 76 bp m (02/17/23 12:02 PM) Blood Pressure [90-140/60-90 mmHg] 140/7 0mmHg (02/17/23 12:02 PM) Weight 95.25 kg (02/17/23 12:02 PM) Weight Measured (lbs) 209.99 lb (02/17/23 12:02 PM) Height 172.72 cm (02/17/23 12:02 PM) Height/Length Measured (inches) 68 inch (02/17/23 12:02 PM) BSA Measured 2.14 m2 (02/17/23 12:02 PM) Body Mass Index 31.93 kg/m2 (02/17/23 12:02 PM) Social History Social History Type Response Tobacco Never tobacco user T obacco Use:. Sex Male Implantable Device List Procedure Provider Procedure Date Device Type Site Tenodesis of long tendon of biceps Fabrizio Echavarria MD 11/10/22 Non Biological Shoulder L Device Identifier Serial Number Lot or Batch Number Manufacturing Date Expiration Date Distinct Identification Code MRI Safety Implantable Status Assigning Authority Unknown Unknown [id number] Unknown 03/26/25 Unknown Unknown Active Unk nown Unknown Unknown [id number] Unknown 07/27/25 Unknown Unknown Active Un known Hospital Discharge Instructions Follow Up Care 11/24/2022 09:00:51 With:Follow up with Orthopedic Address: When:Within 6 Week(s) Physician Outpatient Note * Fabrizio Echavarria MD: PERFORM Event Display: Office Clinic Note Physician Authored Date: [id number] IMANI ROSS :1950 Age:72 years Sex:Male Visit Date:02/17/2023 Primary Care Physician: BRADLEY LANG Chief Complaint LEFT SHOULDER 3RD POV History of Present Illness The patient presents for follow-up of his left shoulder status post RCR, GRABIEL,??arthroscopic bicepstenodesis, and debridement on 11/10/2022. ??He has been in physical therapy and has been working on strength. ??He feels that he is doing well??and has been using his left upper extremity and gradually increasing fashion around the house.?? He still has not achieved full active forward elevation secondary to weakness. ??When he performs his exercises he has experienced some lateral sided shoulder pain. ??He otherwise denies night pain, numbness, or tingling. ??He has been taking aspirin to address his shoulder as necessary. Physical Exam Vitals & Measurements HR:??76??(Peripheral)?? BP:??140/70?? SpO2:??98%?? HT:??172.72??cm?? WT:??95.25??kg?? BMI:??31.93?? BSA:??2.14?? The patient's left??upper??extremity is neurovascularly intact. ??Sensation and motor exam are intact distally. ??All digits are warm and pink.?? No Mike deformity is present. ??Surgical wounds arewell-healed. ??Active forward elevation lacks 20 degrees??of terminal??motion. ??Passively, he demonstrates full forward elevation and from this point is able to hold it in this position and lower??under control??to neutral.?? External rotation is to 20 degrees. ??Internal rotation behind the back??is to L3.?? Strength is 4 out of 5 to elevation, 5- out of 5 to external rotation, 5 out of 5 to internal rotation testing. ??No focal tenderness is present at the shoulder. Assessment/Plan 1.??Complete rotator cuff tear of left shoulder??M75.122 2.??Subacromial impingement of left shoulder??M75.42 3.??Biceps tendinitis of left shoulder??M75.22 The patient appears to be doing well status post the above procedure, albeit with??need for continued strengthening.?? The patient will continue with physical therapy and agrees to be compliant with his HEP. ??He was counseled to??increase use of his left upper extremity in??incremental fashion.?? The patient??was counseled to perform exercises in which he passively fully forward elevates his shoulder??and then slowly lowers it under control. ??The patient agreed to be compliant with this. ??I would like to see the patient in 6 weeks for follow-up??at which time if he is doing well we will consider discharging him. ??The patient verbalized understanding and agreed with the above plan. ??Allquestions were answered. Follow Up Instructions With When Contact Information Follow up with Orthopedic In 6 weeks Additional Instructions: Problem List/Past Medical History Ongoing [...] tobacco user Tobacco Use:. Electronically Signed on 02/17/23 12:18 PM Fabrizio Echavarria MD Patient Care team information Care Team Personnel Name: BRADLEY LANG Position: No Access Member Role: Primary Care Physician Address: Address: [address] [place] [address]- Care Team Related Persons Name: AHMET ROSS Address: Home [address] [facility] [address] [facility]
--- OUTSIDE RECORDS SUMMARY | 2024-11-02 01:55 | XMS_ITS | Continuity of Care Document ---
Author Organization [facility] Address [address] [place] [address] Care Team Providers Care Last Greaser Name Role Phone BRADLEY LANG Primary Care Physician Encounter [facility] NBR [id number] Date(s): 10/23/22 - 10/23/22 [facility] [address] [place] [address] us Encounter Diagnosis Subacromial impingement of left shoulder(Discharge Diagnosis) - 10/23/22 Complete rotator cuff tear of left shoulder(Discharge Diagnosis) - 10/23/22 Biceps tendinitis of left shoulder(Discharge Diagnosis) - 10/23/22 Discharge Disposition: Home or Self Care Attending Physician: MIHIR Ruffin Allergies, Adverse Reactions, Alerts No Known Allergies Assessment and Plan Future Appointments Future Scheduled Tests Radiology* MRI Shoulder w/o Contrast Left 09/02/22 Functional Status 10/23/22 Other exposure to Infectious Disease Non e [...] Arthroscopy, shoulder, surgi augustina; biceps tenodesis Completed Vital Signs Most recent to oldest [Reference Range]: 1 Peripheral Pulse Rate [60-100 bpm] 70 bp m (10/23/22 10:49 AM) Blood Pressure [90-140/60-90 mmHg] 132/7 2mmHg (10/23/22 10:49 AM) Weight 99.79 kg (10/23/22 10:49 AM) Weight Measured (lbs) 219.999 lb (10/23/22 10:49 AM) Height 172.72 cm (10/23/22 10:49 AM) Height/Length Measured (inches) 68 inch (10/23/22 10:49 AM) BSA Measured 2.19 m2 (10/23/22 10:49 AM) Body Mass Index 33.45 kg/m2 (10/23/22 10:49 AM) Social History Social History Type Response Tobacco Never tobacco user T obacco Use:. Sex Male Physician Outpatient Note * MIHIR Ruffin: PERFORM Event Display: Office Clinic Note Physician Authored Date: [id number] IMANI ROSS :1950 Age:72 years Sex:Male Visit Date:10/23/2022 Primary Care Physician: BRADLEY LANG Chief Complaint LEFT SHOULDER PAIN SX 2 History of Present Illness Patient comes in today??with left shoulder pain due to??chronic subacromial impingement syndrome, aknown??rotator cuff tear, and proximal biceps tendinitis.?? He has been through a course of nonoperative management. ??His??shoulder has increased pain,??weakness, and difficulty with ADLs. ??He has elected for left shoulder surgery. Physical Exam Vitals & Measurements HR:??70??(Peripheral)?? BP:??132/72?? SpO2:??94%?? HT:??172.72??cm?? WT:??99.79??kg?? BMI:??33.45?? BSA:??2.19?? General: Alert and oriented x3, pleasant cooperative, in no acute distress, appears to be their stated age, is generally fit appearing. ? Left shoulder:??The patient's left??upper??extremity is neurovascularly intact. ??Sensation and motor exam are intact distally. ??All digits are warm and pink.?? No Mike deformity or obvious atrophy is present. ??Active forward elevation is full but tentative to 155 degrees??at which point he experiences reproduction of pain. ??External rotation is to 35 degrees as compared with 30 degrees for the right side. ??Internal rotation behind the back is to L1??for the left side as compared with the PSIS for the right side. ??Neer and Bard[place] signs are positive. ??Drop arm test negative. ??Strength is 3 out of 5 to elevation and external rotation, and 4 out of 5 to internal rotation testing.?? The AC joint is hypertrophic but nontender. ??He has dramatic tenderness about the??the proximal bicipital groove. ??He has tenderness about the subacromial space and greater tuberosity.?? Assessment/Plan The patient demonstrates evidence of left shoulder pain and weakness secondary to chronic subacromial impingement syndrome,??a full-thickness??insertional tear of the supraspinatus and infraspinatus,and chronic proximal biceps tendinosis. ??As he has been on a course of nonoperative management, wediscussed surgery. ??This will include left shoulder arthroscopy, GRABIEL, RCR, and OBT.?? The benefits, risk, complications, and postoperative course were described at length to the patient. ??All of his questions were answered and he wishes to proceed. ?? We went over use of narcotics postoperatively. ??We will use the smallest dose for the shortest period of time for their acute postoperative pain only. ??This will be in addition to icing, Tylenol, physical therapy, and bracing. ??We will obtain consent and do a risk assessment tool. ??We will also need to check the PDMP as needed. Problem List/Past Medical History Ongoing Asthma High blood pressure Historical No qualifying data Procedure/Surgical History ???Arthroscopy, shoulder, surgical; biceps tenodesis Medications albuterol Allergy Relief calcium (as calcium citrate) 250 mg oral tablet diclofenac gabapentin 300 mg oral capsule losartan multivitamin adult, oral tablet omeprazole tamsulosin 0.4 mg oral capsule Trelegy Ellipta triamcinolone 0.025% topical cream Turmeric Vitamin D3 Allergies No Known Allergies No Known Medication Allergies Social History Alcohol Current, Beer- Comments: 2 -3 TIMES A WEEK Electronic Cigarette/Vaping Electronic Cigarette Use: Never. Employment/School Retired Tobacco Never tobacco user Tobacco Use:. Diagnostic Results Diagnostic Study Interpretation: MRI of the patient's left shoulder obtained on 09/02/2022 demonstrates a 22 x 20 mm U-shaped full-thickness rotator cuff tear involving the infraspinatus and into the supraspinatus insertion in the setting of a PASTA lesion.?? Tendinosis of the long head of the proximal biceps tendon is present.?? Advanced acromioclavicular osteoarthritis is present. ??Small??osteophytes are present about the humeral head. Electronically Signed on 10/23/22 02:32 PM MIHIR Ruffin Patient Care team information Personnel Name: OLENA ASH, BRADLEY Mott Address: Address: [address] [place] [address]
--- OUTSIDE RECORDS SUMMARY | 2024-11-02 01:55 | XMS_ITS | Continuity of Care Document ---
Author Organization [facility] Address [address] [place] [address] Care Team Providers Care Sales Commissions Analyst Name Role Phone BRADLEY KAUR Primary Care Physician Encounter [facility] NBR [id number] Date(s): 09/02/22 - 09/02/22 [facility] [address] [place], [place] [address] Encounter Diagnosis Subacromial impingement of left shoulder(Discharge Diagnosis) - 09/02/22 Osteoarthritis of left acromioclavicular joint(Discharge Diagnosis) - 09/02/22 Biceps tendinitis of left shoulder(Discharge Diagnosis) - 09/02/22 Discharge Disposition: Home or Self Care Attending Physician: Fabrizio Echavarria MD Allergies, Adverse Reactions, Alerts No Known Allergies Assessment and Plan Future Scheduled Tests Radiology* MRI Shoulder w/o Contrast Left 09/02/22 Functional Status 09/02/22 Other exposure to Infectious Disease Non e [...] Range]: 1 Peripheral Pulse Rate [60-100 bpm] 80 bp m (09/02/22 10:12 AM) Blood Pressure [90-140/60-90 mmHg] 140/7 0mmHg (09/02/22 10:12 AM) Weight 97.98 kg (09/02/22 10:12 AM) Weight Measured (lbs) 216.009 lb (09/02/22 10:12 AM) Height 172.72 cm (09/02/22 10:12 AM) Height/Length Measured (inches) 68 inch (09/02/22 10:12 AM) BSA Measured 2.17 m2 (09/02/22 10:12 AM) Body Mass Index 32.84 kg/m2 (09/02/22 10:12 AM) Social History Social History Type Response Tobacco Never tobacco user T obacco Use:. Sex Male Hospital Discharge Instructions Follow Up Care 08/25/2022 15:28:09 With:MRI Address: When: Unknown Physician Outpatient Note * Fabrizio Echavarria MD: PERFORM Event Display: Office Clinic Note Physician Authored Date: [id number] IMANI ROSS :1950 Age:72 years Sex:Male Visit Date:09/02/2022 Primary Care Physician: BRADLEY KAUR Chief Complaint left shoulder pain History of Present Illness Please send a copy of this note to Bradley Kaur PA-C. ?? 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 ??The patient states that a couple of months ago??he??slipped off a step ladder and caught his left shoulder.?? He states that he dislocated his shoulder at the time??but about a week or so later he felt it reduced. ??The patient has??since ??complained of anterior and lateral shoulder pain. ??He underwent??right shoulder replacement by Dr. Nelson at [facility] in 2014 which he states??did not go well.?? He believes that he has since??been overusing his left upper extremity and has had??some mild pain??until his incident a couple of months ago when his pain became dramatically worse.?? He is subjectively weak with lifting his shoulder.?? He??has not experienced recurrent instability since the incident. ??He has occasional numbness and tingling in the hand. ??His shoulder has been waking him, although he is careful to note that his right shoulder wakes him up more. ??He has been taking diclofenac to address the pain. Physical Exam Vitals & Measurements HR:??80??(Peripheral)?? BP:??140/70?? SpO2:??96%?? HT:??172.72??cm?? WT:??97.98??kg?? BMI:??32.84?? Pain Score:??4?? BSA:??2.17?? The patient's left??upper??extremity is neurovascularly intact. ??Sensation [...] tenderness about the subacromial space and greater tuberosity. Assessment/Plan 1.??Subacromial impingement of left shoulder??M75.42 Ordered: MRI Shoulder w/o Contrast Left, 09/02/22, Routine, Reason: Left shoulder pain and weakness status post traumatic dislocation, No, Yes, Transport Mode: Ambulatory, Subacromial impingement of left shoulder Osteoarthritis of left acromioclavicular joint Biceps tendinitis of left sh... ?? 2.??Osteoarthritis of left acromioclavicular joint??M19.012 Ordered: MRI Shoulder w/o Contrast Left, 09/02/22, Routine, Reason: Left shoulder pain and weakness status post traumatic dislocation, No, Yes, Transport Mode: Ambulatory, Subacromial impingement of left shoulder Osteoarthritis of left acromioclavicular joint Biceps tendinitis of left sh... ?? 3.??Biceps tendinitis of left shoulder??M75.22 Ordered: MRI Shoulder w/o Contrast Left, 09/02/22, Routine, Reason: Left shoulder pain and weakness status post traumatic dislocation, No, Yes, Transport Mode: Ambulatory, Subacromial impingement of left shoulder Osteoarthritis of left acromioclavicular joint Biceps tendinitis of left sh... ?? The patient demonstrates evidence of left shoulder pain and weakness secondary to??subacromial impingement syndrome,??proximal biceps pain, asymptomatic acromioclavicular osteoarthritis, and a??single episode of traumatic instability??without further instability??following??reduction.?? I am concerned that??he has a rotator cuff injury??and that??it may be large to massive??given his weakness in multiple planes.?? The treatment options were discussed with the patient and an MRI will be ordered.?? The patient verbalized understanding and agreed with the above plan. ??We will see the patient back for discussion of the results. ?? I personally reviewed the patient's referral, outside consultation notes, previous radiographic images and results, and relevant tests. ?? Thank you for the courtesy of this referral. Future Orders MRI Shoulder w/o Contrast Left, 09/02/22, Routine, Reason: Left shoulder pain and weakness status post traumatic dislocation, No, Yes, Transport Mode: Ambulatory, Subacromial impingement of left shoulder Osteoarthritis of left acromioclavicular joint Biceps tendinitis of left sh... Follow Up Instructions With When Contact Information MRI Additional Instructions: Problem List/Past Medical History Ongoing Asthma High [...] Allergies No Known Medication Allergies Social History Electronic Cigarette/Vaping Electronic Cigarette Use: Never. Tobacco Never tobacco user Tobacco Use:. Diagnostic Results Diagnostic Study Interpretation: Indication for study: Left shoulder pain and weakness Views: 3 views of the left shoulder ?? I personally viewed and interpreted the radiographs in the generation of this report. ?? Findings: No fracture or dislocation is observed. ??The glenohumeral joint is preserved. ??No osacromiale is present. ??A type III acromion is present. ??Severe AC DJD is present. ??Visualized portions of the left lung field demonstrate no evidence of discrete masses. Electronically Signed on 09/02/22 10:33 AM Fabrizio Echavarria MD Patient Care team information Personnel Name: BRADLEY KAUR Address: Address: [address] [place] [address] [address]
--- OUTSIDE RECORDS SUMMARY | 2024-11-02 01:55 | XMS_ITS | Continuity of Care Document ---
Author Organization [facility] Address [address] [place] [address] Care Team Providers Care Fine Artist Name Role Phone BRADLEY LANG Primary Care Physician [phone] Encounter [facility] NBR [id number] Date(s): 09/16/22 - 09/16/22 [facility] [address] [place] [address]- [place] Encounter Diagnosis Subacromial impingement of left shoulder(Discharge Diagnosis) - 09/16/22 Left rotator cuff tear(Discharge Diagnosis) - 09/16/22 Biceps tendinitis of left shoulder(Discharge Diagnosis) - 09/16/22 Instability of left shoulder joint(Discharge Diagnosis) - 09/16/22 Discharge Disposition: Home or Self Care Attending Physician: Fabrizio Echavarria MD Allergies, Adverse Reactions, Alerts No Known Allergies Assessment and Plan Future Scheduled Tests Radiology* MRI Shoulder w/o Contrast Left 09/02/22 Functional Status 09/16/22 Other exposure to Infectious Disease Non e [...] Pulse Rate [60-100 bpm] 70 bp m (09/16/22 9:24 AM) Blood Pressure [90-140/60-90 mmHg] 135/8 0mmHg (09/16/22 9:24 AM) Weight 102.06 kg (09/16/22 9:24 AM) Weight Measured (lbs) 225.004 lb (09/16/22 9:24 AM) Height 172.72 cm (09/16/22 9:24 AM) Height/Length Measured (inches) 68 inch (09/16/22 9:24 AM) BSA Measured 2.21 m2 (09/16/22 9:24 AM) Body Mass Index 34.21 kg/m2 (09/16/22 9:24 AM) Social History Social History Type Response Tobacco Never tobacco user T obacco Use:. Sex Male Hospital Discharge Instructions Follow Up Care 09/09/2022 10:30:00 With:Surgery Address: When: Unknown Physician Outpatient Note * Fabrizio Echavarria MD: PERFORM Event Display: Office Clinic Note Physician Authored Date: [id number] IMANI ROSS :1950 Age:72 years Sex:Male Visit Date:09/16/2022 Primary Care Physician: BRADLEY LANG Chief Complaint Left shoulder pain History of Present Illness The patient is a 72-year-old male who has been followed for left shoulder pain and weakness secondary to chronic subacromial impingement syndrome, proximal biceps pain, asymptomatic AC DJD, and possible rotator cuff tear. ??He also experienced a single episode of left shoulder instability without evidence of recurrence. ??He??reports??continued soreness about the lateral aspect of his shoulder that is worse with forward elevation and abduction type activities, particularly those above the horizontal.?? He has had occasional tingling into his left hand at night. ??His shoulder continues to wake him.?? He has been taking aspirin to address this. ??Because of??persistent symptoms despite a cons ervative course, an MRI was obtained and the patient now presents for follow-up. Physical Exam Vitals & Measurements HR:??70??(Peripheral)?? BP:??135/80?? SpO2:??98%?? HT:??172.72??cm?? WT:??102.06??kg?? BMI:??34.21?? BSA:??2.21?? The patient's left??upper??extremity is neurovascularly intact. ??Sensation [...] the subacromial space and greater tuberosity.?? Assessment/Plan 1.??Subacromial impingement of left shoulder??M75.42 2.??Left rotator cuff tear??M75.102 3.??Biceps tendinitis of left shoulder??M75.22 4.??Instability of left shoulder joint??M25.312 The patient demonstrates evidence of left shoulder pain and weakness secondary to chronic subacromial impingement syndrome,??a full-thickness??insertional tear of the supraspinatus and infraspinatus,and chronic proximal biceps tendinosis. ??This is in the setting of a single episode of??left shoulder glenohumeral instability without recurrence, asymptomatic acromioclavicular osteoarthritis,??andasymptomatic mild osteoarthritis of the glenohumeral joint. ??The treatment options were discussed with the patient who has been on a course of conservative treatment without relief.?? The patient opted to proceed with surgical management. ??The procedure of left shoulder arthroscopy, GRABIEL, RCR, and OBT was described in detail to the patient as well as the associated risks, benefits, alternatives, possible complications, and postoperative course. ??We will proceed with medical optimization. ??The patient verbalized understanding and all questions were answered. ?? We went over use of narcotics postoperatively. ??We will use the smallest dose for the shortest period of time for their acute postoperative pain only. ??This will be in addition to icing, Tylenol, physical therapy, and bracing. ??We will obtain consent and do a risk assessment tool. ??We will also need to check the PDMP as needed. Follow Up Instructions With When Contact Information Surgery Additional Instructions: Problem List/Past Medical History Ongoing [...] Tobacco Use:. Diagnostic Results Diagnostic Study Interpretation: is MRI of the patient's left shoulder obtained on 09/02/2022 demonstrates a 22 x 20 mm U-shaped full-thickness rotator cuff tear involving the infraspinatus and into the supraspinatus insertion in thesetting of a PASTA lesion.?? Tendinosis of the long head of the proximal biceps tendon is present.?? Advanced acromioclavicular osteoarthritis is present. ??Small??osteophytes are present about the humeral head. Electronically Signed on 09/16/22 04:18 PM Fabrizio Echavarria MD Patient Care team information Personnel Name: BRADLEY LANG Address: Address: [address] [place] [id number]
--- OUTSIDE RECORDS SUMMARY | 2024-11-02 01:55 | XMS_ITS | Encounter Summary ---
Author Organization [facility] [place] [address] Care Team Providers Care Envelope Machine Adjuster Name Role Phone Maria Victoria Kaur Primary Care Provider [phone] Reason for Visit * Reason Onset Date Comments Abnormal Lab 10/13/2023 Encounter Details Date Type Department Care Team (Late Contact Info) Description 10/13/2023 Telephone Hematology/Oncology at [address] [phone] Pascale Singh RN Abnormal Lab Social History Tobacco Use Types Packs/Day Years [...] on file documented as of this encounter Miscellaneous Notes * Telephone Encounter - Pascale Singh RN - 10/13/2023 11:06 AM EST Critical WBC 36.77 called from [facility] lab. Still doing the differential. FUV with Dr. Beck 11/04/23. documented in this encounter Plan of Treatment Upcoming Encounters Date Type Department Care Team (Late Contact Info) Description 11/02/2024 1:00 PM EST Office Visit Hematology/Oncology at [address] [phone] Gloria Beck MD [facility] HEMATOLOGY [place] [address] [address] Cisneros APRN [facility] HEMATOLOGY [place] [address] documented as of this encounter Visit Diagnoses Not on filedocumented in this encounter Care Teams Envelope Machine Adjuster Relationship Specialty Start Date End Date Maria Victoria Kaur PA [address] [place] [address] PCP - General Family Medicine 05/19/23 documented as of this encounter
--- OUTSIDE RECORDS SUMMARY | 2024-11-02 01:55 | XMS_ITS | Clinical Summary ---
Author Organization [facility] Address [facility] [place] [address] Care Team Providers Care Property Underwriter Name Role Phone Maria Victoria Kaur Primary Care Provider [phone] Allergies No known active allergies Medications Medication Sig Dispensed Refills Start Date End Date Status vitamin E 400 unit capsule Take 400 Units by mouth daily. Active omeprazole (PRILOSEC) 10 mg capsule Take 10 mg by mouth daily as needed. Active melatonin 5 mg Tablet Take 10 mg by mouth nightly. Active Calcium Carbonate 600 mg calcium (1,500 mg) Tablet Take 1 tablet by mouth daily. Active multivitamin (THERAGRAN) Tablet Take 1 tablet by mouth daily. Active UNABLE TO FIND Tumeric daily Active losartan (Cozaar) 25 mg Tablet Take 50 mg by mouth daily. Active albuteroL 90 mcg/actuation HFA Aerosol Inhaler Inhale 2 puffs into the lungs every 4 hours as needed for Wheezing. Use with spacer Active acetaminophen (Tylenol) 500 mg Tablet Take 500 mg by mouth every 6 hours as needed for Pain. Active fluticasone/umeclidin /vilanter (TRELEGY ELLIPTA INHL) Inhale into the lungs daily. Active diclofenac (VOLTAREN) 50 mg Tablet, Delayed Release (E.C.) Take 50 mg by mouth 2 times daily. Active potassium (POTASSIMIN ORAL) Take by mouth. Active psyllium husk (METAMUCIL ORAL) Take by mouth. Acti ve tamsulosin (Flomax) 0.4 mg Capsule Take 0.4 mg by mouth daily. Active vitamin D3-folic acid 125 mcg (5,000 unit)-1 mg Tablet Take by mouth. Act august gabapentin (Neurontin) 300 mg Capsule Take 300 mg by mouth 2 times daily. Active triamcinolone (KENALOG) 0.025 % Cream Apply topically 2 times daily. Active furosemide (Lasix) 20 mg tablet Take 1 tablet by mouth Daily at Noon. 09/08/2023 Active carbidopa-levodopa (Sinemet) 25-100 mg tablet 4 times daily. 09/07/2023 Active Active Problems Problem Noted Date Diagnosed Date CLL (chronic lymphocytic leukemia) 08/17/2016 Overview (10/31/2020): Dx incidentally in 05/2015, CD38 and zap 70 negative. Cytogenetics have not been done. 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 Overview (02/26/2015): Followed by neurosurgery at [facility], stable, no surgery Lymphocytosis 02/26/2015 Hand numbness 05/08/2014 Overview (02/26/2015): Carpal tunnel Glenohumeral arthritis 04/20/2014 Herniation of intervertebral disc between L4 and L5 Overview (03/17/2014): with surgical intervention Family History Medical History Relation Comments Coronary Artery Disease Father Alzheimer Disease Mother Heart Disease Sister Relation Status Comments Father Mother Sister Social History Tobacco Use Types Packs/Day Years Used Date Smoking Tobacco: Former Cigarettes Q uit: 08/06/2014 Cigars Smokeless Tobacco: Never Tobacco Cessation:Ready to Q uit: Yes; Counseling Given: Yes Alcohol Use Standard Drinks/Week Comments Yes 12 (1 standard drink = 0.6 oz pu re alcohol) weekly Sex and Gender Information Value Date Recorded Sex Assigned at Not on file Gender Identity Not on file Sexual Orientation Not on file Last Filed Vital Signs Vital Sign Reading [...] Mass Index 36.32 11/04/2023 11:49 AM EST Plan of Treatment Upcoming Encounters Date Type Department Care Team (Late st Contact Info) Description 11/02/2024 1:00 PM EST Office Visit Hematology/Oncology at [address] [phone] Gloria Beck MD [facility] DR HEMATOLOGY [place] [address] [address] APRN [facility] [place]EMATOLOGY [place] [address] Health Maintenance Due Date Last Done Comments CT Colonography 1950 Colonoscopy 1950 Colorectal Cancer Screening 1950 FIT DNA 1950 FIT 1950 Sigmoidoscopy (10 year) with FIT yearly 1950 Sigmoidoscopy 1950 Lipid Screening 1967 Pneumoccocal Vaccine: 50+ (1 of 2 - PCV) 1968 Tetanus/Diphtheria/Pertussis Vaccines (1 - Tdap) 04/17 Zoster vaccine (1 of 2) 1968 Advance Directive 2004 AAA Screen 2014 RSV Vaccine (1 - 1-dose 75+ series) 2024 Covid-19 Vaccine (1 - season) 2024 Influenza (Flu) vaccine (1 o f 1 - Influenza standard series) 05/29/2024 Hepatitis C Screening Completed 01/16/2015 Medical Devices Implanted Type Area Sand Hauler Device Identifier Shelf Expiration Date Model / Serial / Lot Plate,L,6h ([id number]) - [id number] Implanted:Qty : 1 on 03/22/2014 by Stephen Kinney MD at [facility] IMPLANTS N/A: Mouth DO NOT USE [employer] - [id number] / / Plate,Mf,L,10 0d,6h,8mm,Rt ([id number]) - [id number] Implanted:Qty : 1 on 03/22/2014 by Stephen Kinney MD at [facility] IMPLANTS DO NOT USE [employer] - [id number] / / Screw,David,Xp in,Stap,1.7x3 mm ([id number]) - [id number] Implanted:Qty : 5 on 03/22/2014 by Stephen Kinney MD at [facility] IMPLANTS N/A: Mouth DO NOT USE [employer] - [id number] / / Screw,David,Xp in,Stap,Er,1. 9x3 ([id number]) - [id number] Implanted:Qty : 1 on 03/22/2014 by Stephen Kinney MD at [facility] IMPLANTS N/A: Mouth DO NOT USE [employer] - [id number] / / Screw,David,Xp in,Stap,1.7x4 mm ([id number]) - [id number] Implanted:Qty : 5 on 03/22/2014 by Stephen Kinney MD at [facility] IMPLANTS N/A: Mouth DO NOT USE [employer] - [id number] / / Procedures Procedure Name Priority Date/Time Associated Diagnosis Comments HEPATITIS C ANTIBODY Routine 01/16/2015 10:40 AM EDT Liver lesion from Last 3 Months or Most Recently Relevant to Health Maintenance Results * Hepatitis C Antibody (01/16/2015 10:40 AM EDT) Hepatitis C Antibody Negative Negative [facility] Blood specimen (specimen) 01/16/2015 10:40 AM EDT 01/16/2015 10:53 AM EDT Narrative Resulting Agency Comment Spec In Lab Kaylee Heaton MD CHEMISTRY ORDERABLES [facility] [employer] [facility] from Last 3 Months or Most Recently Relevant to Health Maintenance Advance Directives * Full Code (Latest Code Status on File) Date Activated Date Inactivated Comments 03/17/2014 1:42 AM 03/17/2014 8:07 PM Question Answer Comments Order Status: Initial Order Does patient have decision m aking capacity? Yes, Order is based on Patients wishes. Care Teams Property Underwriter Relationship Specialty Start Date End Date Maria Victoria Kaur PA [address] [place] [address] PCP - General Family Medicine 05/19/23
--- OUTSIDE RECORDS SUMMARY | 2024-11-02 01:55 | XMS_ITS | Encounter Summary ---
Author Organization [facility] [place] [address] Care Team Providers Care Envelope Machine Adjuster Name Role Phone Maria Victoria Kaur Primary Care Provider [phone] Encounter Details Date Type Department Care Team (Latest Contact Info) Description 11/04/2023 Travel Social History Tobacco Use Types Packs/Day Years [...] on file documented as of this encounter Plan of Treatment Upcoming Encounters Date Type Department Care Team (Late st Contact Info) Description 11/02/2024 1:00 PM EST Office Visit Hematology/Oncology at [address] [phone] Gloria Beck MD [facility] DR HEMATOLOGY [place] [address] [address] Cisneros APRN [facility] HEMATOLOGY [place] [address] documented as of this encounter Visit Diagnoses Not on filedocumented in this encounter Care Teams Envelope Machine Adjuster Relationship Specialty Start Date End Date Maria Victoria Kaur PA [address] [place] [address] PCP - General Family Medicine 05/19/23 documented as of this encounter
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
--- OUTSIDE RECORDS SUMMARY | 2024-11-02 01:56 | XMS_ITS | Encounter Summary ---
Author Organization [facility] Address [facility] [place] [address] Care Team Providers Care Prorate Clerk Name Role Phone Nissa Wise MD Primary Care Provider [phone] Encounter Details Date Type Department Care Team (Late Contact Info) Description 06/18/2015 Orders Only [place] [address] Ramon Fitzgerald Jr., MD [facility] [address] [place] [address] CLL (chronic lymphocytic leukemia) Social History Tobacco Use Types Packs/Day Years Used Date Smoking Tobacco: Former Cigarettes Q uit: 08/06/2014 Cigars Smokeless Tobacco: Never Comments:started back lightl y Alcohol Use Standard Drinks/Week Comments Yes 12 [...] 1:00 PM EST Office Visit Hematology/Oncology at [address] [phone] Gloria Beck MD [facility] [address] [place] [address] [address] Cisneros APRN [facility] [address] [place] [address] Scheduled Orders Name Type Priority Associated Diagnoses Orde r Schedule CBC (with Diff) Lab STAT CLL (chronic lymphocytic leukemia) Expected: 10/12/2015 (Approximate), Expires: 06/18/2016 documented as of this encounter Results * Lactate Dehydrogenase (10/12/2015 2:20 PM EST) Lactate Dehydrogenase 145 110 - 220 unit/L CERNER MILLENNIUM Blood specimen (specimen) 10/12/2015 2:20 PM EST 10/12/2015 2:23 PM EST Narrative Resulting Agency Comment Spec In Lab Ramon Fitzgerald Jr., MD CHEMISTRY ORDERABLES CERNER MILLENNIUM * Comprehensive metabolic panel (non-fasting) (10/12/2015 2:20 PM EST) Glucose 111 65 - 199 mg/dL CERNER MILLENNIUM Comment:Diabetes: >=200 mg/d L plus symptoms Blood Urea Nitrogen 16 10 - 20 mg/dL CERNER MILLENNIUM Creatinine 0.97 0.80 - 1.50 mg/dL CERNER MILLENNIUM Comment: Please note that the pediatric reference intervals supplied above were not validated at [facility]. Results from pediatric patients should be interpreted in conjunction to the patient's age, height and muscle mass. Sodium 143 135 - 145 mmol/L CERNER MILLENNIUM Potassium 4.3 3.5 - 5.0 mmol/L CERNER MILLENNIUM Comment: Please note: ??Patients with WBC >100,000 may have falsely elevated Potassium levels. ??For accurate Potassium quantification in these patients send serum separator tube (gold top) for subsequent determinations. ??Contact the Clinical Chemistry Laboratory if there are any questions. Chloride 105 98 - 107 mmol/L CERNER MILLENNIUM Carbon Dioxide 25 22 - 31 mmol/L CERNER MILLENNIUM Anion Gap 13 5 - 15 mmol/L CERNER MILLENNIUM Calcium 9.5 8.5 - 10.5 mg/dL CERNER MILLENNIUM Protein, Total 7.0 6.1 - 8.0 gm/dL CERNER MILLENNIUM Albumin 4.2 3.2 - 5.2 gm/dL CERNER MILLENNIUM Aspartate Aminotransferase 18 0 - 39 unit/L CERNER MILLENNIUM Alanine Aminotransferase 13 0 - 55 unit/L CERNER MILLENNIUM Alkaline Phosphatase 52 40 - 120 unit/L CERNER MILLENNIUM Bilirubin, Total 0.4 0.2 - 1.3 mg/dL CERNER MILLENNIUM Bilirubin, Direct 0.1 0.0 - 0.3 mg/dL CERNER MILLENNIUM Est Glomerular Filtration Rate >60 >=60 CERNER MILLENNIUM Comment: This estimated GFR (eGFR) value was calculated using the MDRD equation which has been validated on patients between the ages of 18 and 70. The MDRD should not be used to assess kidney function in patients < 18 years of age or in patients with extremes of body mass, or in patients with acute kidney failure. This value should be multiplied by 1.2 for patients. For further information please copy and paste the following links into your internet browser. [email or web address] Blood specimen (specimen) 10/12/2015 2:20 PM EST 10/12/2015 2:23 PM EST Narrative Resulting Agency Comment Spec In Lab Ramon Fitzgerald Jr., MD [facility] documented in this encounter Visit Diagnoses Diagnosis CLL (chronic lymphocytic leukemia) Chronic lymphoid leukemia, without mention of having achieved remission documented in this encounter Care Teams Prorate Clerk Relationship Specialty Start Date End Date Nissa Wise MD [address] [place] [address] PCP - General 03/17/14 02/14/16 documented as of this encounter
--- OUTSIDE RECORDS SUMMARY | 2024-11-02 01:56 | XMS_ITS | Encounter Summary ---
Author Organization [facility] Address [facility] [place] [address] Care Team Providers Care Catalytic Case Operator Name Role Phone Maria Victoria Kaur Primary Care Provider [phone] Encounter Details Date Type Department Care Team (Latest Contact Info) Description 02/06/2022 9:19 PM EDT - 02/06/2022 11:59 PM EDT Hospital [place] [phone] Discharge Disposition: Home Social History Tobacco Use Types Packs/Day Years [...] on file documented as of this encounter Medications at Time of Discharge Medication Sig Dispensed Refills Start Date End Date tamsulosin (Flomax) 0.4 mg Capsule Take 0.4 mg by mouth daily. potassium (POTASSIMIN ORAL) Take by mouth. psyllium husk (METAMUCIL ORAL) Take by mouth. fluticasone/umeclidin/vi lanter (TRELEGY ELLIPTA INHL) Inhale into the lungs daily. diclofenac (VOLTAREN) 50 mg Tablet, Delayed Release (E.C.) Take 50 mg by mouth 2 times daily. UNABLE TO FIND Tumeric daily losartan (Cozaar) 25 mg Tablet Take 50 mg by mouth daily. albuteroL 90 mcg/actuation HFA Aerosol Inhaler Inhale 2 puffs into the lungs every 4 hours as needed for Wheezing. Use with spacer acetaminophen (Tylenol) 500 mg Tablet Take 500 mg by mouth every 6 hours as needed for Pain. Calcium Carbonate 600 mg calcium (1,500 mg) Tablet Take 1 tablet by mouth daily. multivitamin (THERAGRAN) Tablet Take 1 tablet by mouth daily. melatonin 5 mg Tablet Take 10 mg by mouth nightly. vitamin E 400 unit capsule Take 400 Units by mouth daily. omeprazole (PRILOSEC) 10 mg capsule Take 10 mg by mouth daily as needed. ergocalciferol, vitamin D2, (VITAMIN D ORAL) Take by mouth. 11/03 documented as of this encounter Plan of Treatment Upcoming Encounters Date Type Department Care Team (Late st Contact Info) Description 11/02/2024 1:00 PM EST Office Visit Hematology/Oncology at [address] [phone] Gloria Beck MD [facility] DR HEMATOLOGY [place] [address] Ave Cisneros, APRIL [facility] DR HEMATOLOGY [place] [address] documented as of this encounter Procedures Procedure Name Priority Date/Time Associated Diagnosis Comments SURGICAL PATHOLOGY REPORT Routine 02/06/2022 1:08 PM EDT documented in this encounter Results * Surgical Pathology Report (02/06/2022 1:08 PM EDT) Final Diagnosis [id number] ? Location: [facility] The signing pathologist has (i) examined the relevant preparation(s) for the specimen(s) and (ii) rendered or confirmed the diagnosis(es). . ?Surgical Pathology DIAGNOSIS A - RIGHT BASE LATERAL: ?- Benign prostatic tissue. B - RIGHT BASE: ?- Benign prostatic tissue. C - RIGHT MID LATERAL: ?- Benign prostatic tissue. D - RIGHT MID: ?- Benign prostatic tissue. E - RIGHT APEX LATERAL: ?- Benign prostatic tissue. F - RIGHT APEX: ?- Focal glandular atypia, favor benign atrophy. ??(see Discussion.) G - LEFT BASE LATERAL: ?- Benign prostatic tissue. H - LEFT BASE: ?- Benign prostatic tissue. I - LEFT MID LATERAL: ?- Benign prostatic tissue. J - LEFT MID: ?- Benign prostatic tissue. K - LEFT APEX LATERAL: ?- Benign prostatic tissue. L - LEFT APEX: ?- Benign prostatic tissue. Electronically signed by: ?MD Porter, Chong Shah Verified: ??02/13/2022 15:37 ??Pathologist Performed at: ??-[facility] Dept. of Pathology, [place], [place] DISCUSSION Part F - ??An immunostain cocktail for [id number], p63, and P504S is supportive of the diagnosis. ADDITIONAL STUDIES Whole slide scan: sales representative girls' apparel slide(s) SPECIMEN(S) SUBMITTED A - RIGHT BASE LATERAL B - RIGHT BASE . SPECIMEN(S) SUBMITTED C - RIGHT MID LATERAL D - RIGHT MID E - RIGHT APEX LATERAL F - RIGHT APEX G - LEFT BASE LATERAL H - LEFT BASE I - LEFT MID LATERAL J - LEFT MID K - LEFT APEX LATERAL L - LEFT APEX Referring Identifier: ??[id number] CLINICAL INFORMATION Elevated PSA SPECIMEN PROCESSING A - Labeled/Fixative: Right base lateral, formalin. Quantity/Size: Single, 1.1 x 0.1 cm Tissue Description: White needle core biopsy. Sections/Processi ng: Entirely submitted in 1 cassette labeled A1. B - Labeled/Fixative: Right base, formalin. Quantity/Size: Single, 1.7 x 0.1 cm Tissue Description: Richardson-white needle core biopsy. Sections/Processi ng: Entirely submitted in 1 cassette labeled B1. C - Labeled/Fixative: Right mid lateral, formalin. Quantity/Size: Two, 0.2 x 0.1 cm and 0.5 x 0.1 cm Tissue Description: Richardson-white needle core biopsies. Sections/Processi ng: Entirely submitted in 1 cassette labeled C1. D - Labeled/Fixative: Right mid, formalin. Quantity/Size: Single, 1.5 x 0.1 cm Tissue Description: Richardson needle core biopsy. Sections/Processi ng: Entirely submitted in 1 cassette labeled D1. E - Labeled/Fixative: Right apex lateral, formalin. Quantity/Size: Single, 0.8 x 0.1 cm Tissue Description: Richardson needle core biopsy. Sections/Processi ng: Entirely submitted in 1 cassette labeled 1. F - Labeled/Fixative: Right apex, formalin. Quantity/Size: Single, 1.5 x 0.1 cm Tissue Description: Richardson-white needle core biopsy. Sections/Processi ng: Entirely submitted in 1 cassette labeled F1. G - Labeled/Fixative: Left base lateral, formalin. . SPECIMEN PROCESSING Quantity/Size: Single, 1.6 x 0.1 cm Tissue Description: Richardson-white needle core biopsy. Sections/Processi ng: Entirely submitted in 1 cassette labeled G1. H - Labeled/Fixative: Left base, formalin. Quantity/Size: Single, 1.8 x 0.1 cm Tissue Description: Richardson needle core biopsy. Sections/Processi ng: Entirely submitted in 1 cassette labeled H1. I - Labeled/Fixative: Left mid lateral, formalin. Quantity/Size: Single, 1.9 x 0.1 cm Tissue Description: Richardson-white needle core biopsy. Sections/Processi ng: Entirely submitted in 1 cassette labeled I1. J - Labeled/Fixative: Left mid, formalin. Quantity/Size: Four, ranging from 0.2 x 0.1 cm to 1.5 x 0.1 cm Tissue Description: Richardson needle core biopsies. Sections/Processi ng: Entirely submitted in 2 cassettes labeled J1-J2. K - Labeled/Fixative: Left apex lateral, formalin. Quantity/Size: Single, 1.5 x 0.1 cm Tissue Description: Richardson needle core biopsy. Sections/Processi ng: Entirely submitted in 1 cassette labeled K1. L - Labeled/Fixative: Left apex, formalin. Quantity/Size: Single, 1.5 x 0.1 cm Tissue Description: Richardson needle core biopsy. Sections/Processi ng: Entirely submitted in 1 cassette labeled L1. ??sns 02/13/2022 3:37 PM EDT [facility] PROSTATIC STRUCTURE / Unknown 02/06/2022 1:08 PM EDT 02/06/2022 1:08 PM EDT PROSTATIC STRUCTURE / Unknown 02/06/2022 1:08 PM EDT 02/06/2022 1:08 PM EDT PROSTATIC STRUCTURE / Unknown 02/06/2022 1:08 PM EDT 02/06/2022 1:08 PM EDT PROSTATIC STRUCTURE / Unknown 02/06/2022 1:08 PM EDT 02/06/2022 1:08 PM EDT PROSTATIC STRUCTURE / Unknown 02/06/2022 1:08 PM EDT 02/06/2022 1:08 PM EDT PROSTATIC STRUCTURE / Unknown 02/06/2022 1:08 PM EDT 02/06/2022 1:08 PM EDT PROSTATIC STRUCTURE / Unknown 02/06/2022 1:08 PM EDT 02/06/2022 1:08 PM EDT PROSTATIC STRUCTURE / Unknown 02/06/2022 1:08 PM EDT 02/06/2022 1:08 PM EDT PROSTATIC STRUCTURE / Unknown 02/06/2022 1:08 PM EDT 02/06/2022 1:08 PM EDT PROSTATIC STRUCTURE / Unknown 02/06/2022 1:08 PM EDT 02/06/2022 1:08 PM EDT PROSTATIC STRUCTURE / Unknown 02/06/2022 1:08 PM EDT 02/06/2022 1:08 PM EDT PROSTATIC STRUCTURE / Unknown 02/06/2022 1:08 PM EDT 02/06/2022 1:08 PM EDT Narrative Resulting Agency Comment Spec In Lab / [facility] Corona Rosario MD PATHOLOGY/CYTOLOGY O RDERABLES [facility] [place] [address] documented in this encounter Visit Diagnoses Not on filedocumented in this encounter Care Teams Catalytic Case Operator Relationship Specialty Start Date End Date Maria Victoria Kaur PA PCP - General Family Medicine 02/15/16 05/18/23 documented as of this encounter
--- OUTSIDE RECORDS SUMMARY | 2024-11-02 01:56 | XMS_ITS | Encounter Summary ---
Author Organization [facility] [place] [place] [address] Care Team Providers Care Mica Washer Gluer Name Role Phone Maria Victoria Kaur Primary Care Provider [phone] Encounter Details Date Type Department Care Team (Latest Contact Info) Description 02/15/2016 2:35 PM EDT - 02/15/2016 11:59 PM EDT Hospital Encounter [place]ematology [place] [phone] Chronic lymphocytic leukemia not having achieved remission Discharge Disposition: Home Social History Tobacco Use Types Packs/Day Years Used Date Smoking Tobacco: Former Cigarettes Q uit: 08/06/2014 Cigars Smokeless Tobacco: Never Comments:started back smokes 1 pack every other day Alcohol Use Standard Drinks/Week Comments Yes 12 (1 standard drink = 0.6 oz pu re alcohol) weekly Sex and Gender Information Value Date Recorded Sex Assigned at Not on file Gender Identity Not on file Sexual Orientation Not on file documented as of this encounter Medications at Time of Discharge Medication Sig Dispensed Refills Start Date End Date melatonin 5 mg Tablet Take 10 mg by mouth nightly. vitamin E 400 unit capsule Take 400 Units by mouth daily. omeprazole (PRILOSEC) 10 mg capsule Take 10 mg by mouth daily as needed. aspirin 81 mg Tablet, Delayed Release (E.C.) Take 81 mg by mouth daily. 06/05/2021 fluticasone (FLONASE) 50 mcg/actuation [place], Suspension 1 spray as needed for Rhinitis. 03/28/2020 Ascorbic Acid 500 mg Chew Take by mouth daily. 02/23/2019 ibuprofen (ADVIL;MOTRIN) 200 mg tablet Take 200 mg by mouth every 6 hours as needed. 03/28/2020 documented as of this encounter Plan of Treatment Upcoming Encounters Date Type Department Care Team (Late st Contact Info) Description 11/02/2024 1:00 PM EST Office Visit Hematology/Oncology at [address] [phone] Gloria Beck MD [facility] HEMATOLOGY [place] [address] [address] Cisner[address] APRN [facility] HEMATOLOGY [place] [address] documented as of this encounter Procedures Procedure Name Priority Date/Time Associated Diagnosis Comments SCAN, PERIPHERAL BLOOD STAT 6 2:51 PM EDT HEMOGRAM STAT 02/15/2016 2:51 PM EDT Chronic lymphocytic leukemia not having achieved remission DIFFERENTIAL, AUTOMATED STAT 02/15/2016 2:51 PM EDT Chronic lymphocytic leukemia not having achieved remission CBC (WITH DIFF) STAT 02/15/2016 2:51 PM EDT Chronic lymphocytic leukemia not having achieved remission LACTATE DEHYDROGENASE Routine 02/15/2016 2:51 PM EDT Chronic lymphocytic leukemia not having achieved remission COMPREHENSIVE METABOLIC PANEL STAT 02/15/2016 2:51 PM EDT Chronic lymphocytic leukemia not having achieved remission documented in this encounter Results * Scan, Peripheral Blood (02/15/2016 2:51 PM EDT) Plat estimate Normal [facility] RBC Morphology Normal [facility] Smudge cell Present [facility] Blood specimen (specimen) 02/15/2016 2:51 PM EDT 02/15/2016 3:01 PM EDT Narrative Resulting Agency Comment Spec In Lab Ramon Fitzgerald Jr., MD HEMATOLOGY ORDERABLE S Performing Organization Address City/[facility]/ZIP Co de Phone Number [facility] [place] [address] * (ABNORMAL) Differential, Automated (02/15/2016 2:51 PM EDT) Neutrophil % 33.7 % [facility] Neutrophil Absolute 6.12 1.50 - 6.30 x10(3)/ L [facility] Lymph % 57.2 % [facility] Lymphocytes Abs 10.4(H) 1.0 - 3.6 x10(3)/[facility] Monocyte % 7.0 % [facility] Monocyte Abs 1.3(H) 0.2 - 1.0 x10(3)/[facility] Eos % 1.7 % [facility] Eosinophils Abs 0.3 0.0 - 0.5 x10(3)/[facility] Basophil % 0.2 % [facility] Baso Absolute 0.0 0.0 - 0.2 x10(3)/[facility] Immature Gran % 0.20 % [facility] Comment: Immature granulocytes(IG's)percentage and absolute count will include metamyelocytes, myelocytes, and promyelocytes. Blood smears from CBCs yielding IG's will be scanned manually for concordance. If this scan disagrees with the automated IG or if promyelocytes are noted, a manual differential will be performed. Immature Gran Absolute 0.04 0.00 - 0.05 x10(3)/ L [facility] Blood specimen (specimen) 02/15/2016 2:51 PM EDT 02/15/2016 3:01 PM EDT Narrative Resulting Agency Comment Spec In Lab Ramon Fitzgerald Jr., MD HEMATOLOGY ORDERABLE S Performing Organization Address City/[facility]/ZIP Co de Phone Number [facility] [place] [address] * (ABNORMAL) Hemogram (02/15/2016 2:51 PM EDT) White Blood Cell 18.1(H) 4.0 - 10.0 x10(3)/mc L [facility] Red Blood Cell 4.91 4.63 - 6.08 x10(6)/mc L [facility] Hemoglobin 15.8 13.7 - 17.5 gm/dL [facility] Hematocrit 46.4 40.0 - 51.0 % [facility] Mean Cell Volume 94.5(H) 79.0 - 92.0 fL [facility] Mean Cell Hemoglobin 32.2 25.6 - 32.2 pg [facility] Mean Cell Hemoglobin Concentration 34.1 32.0 - 36.5 gm/dL [facility] Platelet 256 145 - 370 x10(3)/mc L [facility] RDW Standard Deviation 49.5(H) 35.0 - 46.0 fL [facility] RDW coefficient of variation 14.4 10.9 - 14.4 % [facility] Mean Platelet Volume 10.8 9.0 - 12.0 fL [facility] Blood specimen (specimen) 02/15/2016 2:51 PM EDT 02/15/2016 3:01 PM EDT Narrative Resulting Agency Comment Spec In Lab Ramon Fitzgerald Jr., MD HEMATOLOGY ORDERABLE S [facility] [place] [address] * Lactate Dehydrogenase (02/15/2016 2:51 PM EDT) Lactate Dehydrogenase 126 110 - 220 unit/L [facility] Blood specimen (specimen) 02/15/2016 2:51 PM EDT 02/15/2016 3:01 PM EDT Narrative Resulting Agency Comment Spec In Lab Ramon Fitzgerald Jr., MD CHEMISTRY ORDERABLES [facility] [place] [address] * Comprehensive metabolic panel (non-fasting) (02/15/2016 2:51 PM EDT) Glucose 113 65 - 199 mg/dL [facility] Comment:Diabetes: >=200 mg/d L plus symptoms Blood Urea Nitrogen 13 10 - 20 mg/dL [facility] Creatinine 1.04 0.80 - 1.50 mg/dL [facility] Comment: Please note that the pediatric reference intervals supplied above were not validated at [facility]. Results from pediatric patients should be interpreted in conjunction to the patient's age, height and muscle mass. Sodium 139 135 - 145 mmol/L [facility] Potassium 4.2 3.5 - 5.0 mmol/L [facility] Comment: Please note: ??Patients with WBC >100,000 may have falsely elevated Potassium levels. ??For accurate Potassium quantification in these patients send serum separator tube (gold top) for subsequent determinations. ??Contact the Clinical Chemistry Laboratory if there are any questions. Chloride 102 98 - 107 mmol/L [facility] Carbon Dioxide 27 22 - 31 mmol/L [facility] Anion Gap 10 5 - 15 mmol/L [facility] Calcium 9.1 8.5 - 10.5 mg/dL [facility] Protein, Total 6.8 6.1 - 8.0 gm/dL [facility] Albumin 4.0 3.2 - 5.2 gm/dL [facility] Aspartate Aminotransferase 12 0 - 39 unit/L [facility] Alanine Aminotransferase 14 0 - 55 unit/L [facility] Alkaline Phosphatase 56 40 - 120 unit/L [facility] Bilirubin, Total 0.7 0.2 - 1.3 mg/dL [facility] Bilirubin, Direct 0.2 0.0 - 0.3 mg/dL [facility] Est Glomerular Filtration Rate >60 >=60 [facility] Comment: This estimated GFR (eGFR) value was [...] the following links into your internet browser. [email or web address] Blood specimen (specimen) 02/15/2016 2:51 PM EDT 02/15/2016 3:01 PM EDT Narrative Resulting Agency Comment Spec In Lab Ramon Fitzgerald Jr., MD CHEMISTRY ORDERABLES Performing Organization Address City/State/[facility] Co de Phone Number [facility] [place] [address] documented in this encounter Visit Diagnoses Diagnosis Chronic lymphocytic leukemia not having achieved remission documented in this encounter Care Teams Mica Washer Gluer Relationship Specialty Start Date End Date Maria Victoria Kaur PA PCP - General Family Medicine 02/15/16 05/18/23 documented as of this encounter
--- OUTSIDE RECORDS SUMMARY | 2024-11-02 01:56 | XMS_ITS | Encounter Summary ---
Author Organization [facility] [place] [address] Care Team Providers Care [employer] Science Teacher Name Role Phone Nissa Wise MD Primary Care Provider Encounter Details Date Type Department Care Team (Latest Contact Info) Description 10/12/2015 2:14 PM EST - 10/12/2015 11:59 PM EST Hospital Encounter [place]ology [place] [phone] CLL (chronic lymphocytic leukemia); Chronic lymphocytic leukemia not having achieved remission [...] mouth daily. 06/05/2021 fluticasone (FLONASE) 50 mcg/actuation [place], Suspension 1 spray as needed for Rhinitis. 03/28/2020 Ascorbic Acid 500 mg Chew Take by mouth daily. 02/23/2019 ibuprofen (ADVIL;MOTRIN) 200 mg tablet Take 200 mg by mouth every 6 hours as needed. 03/28/2020 documented as of this encounter Plan of Treatment Upcoming Encounters Date Type Department Care Team (Late st Contact Info) Description 11/02/2024 1:00 PM EST Office Visit Hematology/Oncology at [address] [phone] Gloria Beck MD [facility] DR HEMATOLOGY [place] [address] Ave Cisneros APRN [facility] HEMATOLOGY [place] [address] Scheduled Orders Name Type Priority Associated Diagnoses Orde r Schedule Comprehensive metabolic panel (non-fasting) Lab STAT Chronic lymphocytic leukemia not having achieved remission 1 Occurrences starting 10/12/2015 until 10/12/2015 Lactate Dehydrogenase Lab Routine Chronic lymphocytic leukemia not having achieved remission 1 Occurrences starting 10/12/2015 until 10/12/2015 CBC (with Diff) Lab STAT CLL (chronic lymphocytic leukemia) 1 Occurrences starting 10/12/2015 until 10/12/2015 documented as of this encounter Procedures Procedure Name Priority Date/Time Associated Diagnosis Comments SCAN, PERIPHERAL BLOOD STAT 6 2:20 PM EST HEMOGRAM STAT 10/12/2015 2:20 PM EST Chronic lymphocytic leukemia not having achieved remission DIFFERENTIAL, AUTOMATED STAT 10/12/2015 2:20 PM EST Chronic lymphocytic leukemia not having achieved remission CBC (WITH DIFF) STAT 10/12/2015 2:20 PM EST Chronic lymphocytic leukemia not having achieved remission LACTATE DEHYDROGENASE STAT 10/12/2015 2:20 PM EST CLL (chronic lymphocytic leukemia) COMPREHENSIVE METABOLIC PANEL STAT 10/12/2015 2:20 PM EST CLL (chronic lymphocytic leukemia) documented in this encounter Results * Scan, Peripheral Blood (10/12/2015 2:20 PM EST) Plat estimate Normal CERNER MILLENNIUM RBC Morphology Normal CERNE R MILLENNIUM Blood specimen (specimen) 10/12/2015 2:20 PM EST 10/12/2015 2:23 PM EST Narrative Resulting Agency Comment Spec In Lab Ramon Fitzgerald Jr., MD HEMATOLOGY ORDERABLE S CERNER MILLENNIUM * (ABNORMAL) Differential, Automated (10/12/2015 2:20 PM EST) Neutrophil % 27.2 % CERNER MILLENNIUM Neutrophil Absolute 5.13 1.50 - 6.30 x10(3)/mc L CERNER MILLENNIUM Lymph % 64.1 % CERNER MILLENNIUM Lymphocytes Abs 12.1(H) 1.0 - 3.6 x10(3)/mc L CERNER MILLENNIUM Monocyte % 5.8 % CERNER MILLENNIUM Monocyte Abs 1.1(H) 0.2 - 1.0 x10(3)/mc L CERNER MILLENNIUM Eos % 2.4 % CERNER MILLENNIUM Eosinophils Abs 0.5 0.0 - 0.5 x10(3)/mc L CERNER MILLENNIUM Basophil % 0.2 % CERNER MILLENNIUM Baso Absolute 0.0 0.0 - 0.2 x10(3)/mc L CERNER MILLENNIUM Immature Gran % 0.30 % CERN ER MILLENNIUM Comment: Immature granulocytes(IG's)percentage and absolute count will include metamyelocytes, myelocytes, and promyelocytes. Blood smears from CBCs yielding IG's will be scanned manually for concordance. If this scan disagrees with the automated IG or if promyelocytes are noted, a manual differential will be performed. Immature Gran Absolute 0.05 0.00 - 0.05 x10(3)/mc L CERNER MILLENNIUM Blood specimen (specimen) 10/12/2015 2:20 PM EST 10/12/2015 2:23 PM EST Narrative Resulting Agency Comment Spec In Lab Ramon Fitzgerald Jr., MD HEMATOLOGY ORDERABLE S Performing Organization Address [facility] de Phone Number CERNER PETERENNIUM * (ABNORMAL) Hemogram (10/12/2015 2:20 PM EST) White Blood Cell 18.9(H) 4.0 - 10.0 x10(3)/mc L CERNER MILLENNIUM Red Blood Cell 5.41 4.63 - 6.08 x10(6)/mc L CERNER MILLENNIUM Hemoglobin 16.9 13.7 - 17.5 gm/dL CERNER MILLENNIUM Hematocrit 49.5 40.0 - 51.0 % CERNER MILLENNIUM Mean Cell Volume 91.5 79.0 - 92.0 fL CERNER MILLENNIUM Mean Cell Hemoglobin 31.2 25.6 - 32.2 pg CERNER MILLENNIUM Mean Cell Hemoglobin Concentration 34.1 32.0 - 36.5 gm/dL CERNER MILLENNIUM Platelet 259 145 - 370 x10(3)/mc L CERNER MILLENNIUM RDW Standard Deviation 53.6(H) 35.0 - 46.0 fL CERNER MILLENNIUM RDW coefficient of variation 16.1(H) 10.9 - 14.4 % CERNER MILLENNIUM Mean Platelet Volume 11.2 9.0 - 12.0 fL CERNER MILLENNIUM Blood specimen (specimen) 10/12/2015 2:20 PM EST 10/12/2015 2:23 PM EST Narrative Resulting Agency Comment Spec In Lab Ramon Fitzgerald Jr., MD HEMATOLOGY ORDERABLE S Performing Organization Address [facility] Phone Number CERCORRINA GREENENNIUM * Lactate Dehydrogenase (10/12/2015 2:20 PM EST) Lactate Dehydrogenase 145 110 - 220 unit/L CERNER MILLENNIUM Blood specimen (specimen) 10/12/2015 2:20 PM EST 10/12/2015 2:23 PM EST Narrative Resulting Agency Comment Spec In Lab Ramon Fitzgerald Jr., MD CHEMISTRY ORDERABLES Performing Organization Address [facility] Co de Phone Number CERCORRINA GREENENNIUM * Comprehensive metabolic panel (non-fasting) (10/12/2015 2:20 PM EST) [facility] Glucose 111 65 - 199 mg/dL CERNER MILLENNIUM Comment:Diabetes: >=200 mg/d L plus symptoms Blood Urea Nitrogen 16 10 - 20 mg/dL CERNER MILLENNIUM Creatinine 0.97 0.80 - 1.50 mg/dL CERNER MILLENNIUM Comment: Please note that the pediatric reference intervals supplied above were not validated at [facility]. Results from pediatric patients should be interpreted [...] the following links into your internet browser. [email or web address] Blood specimen (specimen) 10/12/2015 2:20 PM EST 10/12/2015 2:23 PM EST Narrative Resulting Agency Comment Spec In Lab Ramon Fitzgerald Jr., MD CHEMISTRY ORDERABLES Performing Organization Address City/State/[facility] Co [place] Phone Number [facility] documented in this encounter Visit Diagnoses Diagnosis CLL (chronic lymphocytic leukemia) Chronic lymphoid leukemia, without mention of having achieved remission Chronic lymphocytic leukemia not having achieved remission documented in this encounter Care Teams [employer] Science Teacher Relationship Specialty Start Date End Date Nissa Wise MD [address] [place] [address] PCP - General 03/17/14 02/14/16 documented as of this encounter
--- OUTSIDE RECORDS SUMMARY | 2024-11-02 01:56 | XMS_ITS | Encounter Summary ---
Author Organization [facility] Address [facility] [place] [place] [address] Care Team Providers Care Carrier Washer Name Role Phone Maria Victoria Kaur Primary Care Provider Reason for Referral * Consultation (Routine) - Closed Specialty Diagnoses / Procedures Referred By Cristy lujan Referred To Contact Dermatology Diagnoses CLL (chronic lymphocytic leukemia) AK (actinic keratosis) Gloria Beck MD [facility] [address] [place] [address] [facility] Dermatology [address] [place] [address] Referral ID Status Reason Start Date Expiration Date V isits Requested Visits Authorized [id number] Closed Consult, Test & Treat 06/05/2021 06/05/2022 1 1 Encounter Details Date Type Department Care Team (Late st Contact Info) Description 06/05/2021 2:30 PM EDT Office Visit Hematology/Oncology at [address] [phone] Gloria Beck MD [facility] [address] [place] [address] CLL (chronic lymphocytic leukemia); AK (actinic keratosis) Social History Tobacco Use Types Packs/Day Years [...] Sign Reading Time Taken Comments Blood Pressure 134/79 06/05/2021 1:57 PM EDT Pulse 81 06/05/2021 1:57 PM EDT Temperature 36.8 ??C (98.2 ??F) 06/05/2021 1:57 PM ED T Respiratory Rate 16 06/05/2021 1:57 PM EDT Oxygen Saturation 96% 06/05/2021 1:57 PM EDT Inhaled Oxygen Concentration - - Weight 100.7 kg (222 lb) 06/05/2021 1:57 PM EDT Height 172.7 cm (5' 7.99) 06/05/2021 1:57 PM ED T Body Mass Index 33.76 06/05/2021 1:57 PM EDT documented in this encounter Progress Notes * Gloria Beck MD - 06/05/2021 2:30 PM EDT Images from the original note were not included. Hematology Follow-Up Note Patient prefers to be called: Don Spouse/Partner: Kailey Other support: CC: 71 y.o. man previously seen for lymphocytosis and diagnosed with CLL. He now returns for scheduled follow up. Mr Elizondo was referred from Dr. Fitzgerald. Dr Fitzgerald followed him for a couple years for a relatively indolent CLL. He has more recently been followed at [facility]. He's doing well major findings. 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 Notes improvement in sx.Overall less fatique since last visit. Denies B symptoms, adenopathy. R carpal tunnel repaired w/ resolution of finger/hand numbness They had to cancel their trip across country b/c of COVID. Cancer: Presentation:?? 12/2014 incidentally discovered elevated WBC [...] pain and numbness. 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 Tree hit him in shoulder and needed R shoulder repair. Retired at age 60. X 10 years, Kailey. First at 45 from breast CA. 2 children. 3 grandchildren in [place] and [place]. Drinks a couple beers and a drink or 2 each evening'.More active in past. Encouraged less alcohol and TV and more exercise. Review of Systems: Gen - no fevers, chills, sweats, weight loss, +fatigue Eyes- no vision changes, pain or redness [...] urine, or inability to void. Skin - + suspicious lesions on face MS - arthritis Neuro - no focal weakness, no numbness or tingling Heme - no bleeding, bruising, or lymphadenopathy Insomnia - poor sleep and sounds like poor sleep habits. Allergies: Patient has no known allergies. Medications: Current Outpatient Medications on File Prior to Visit Medication Sig Dispense Refill ??? fluticasone/umeclidin/vilanter (TRELEGY ELLIPTA INHL) Inhale into the lungs daily. ??? diclofenac (VOLTAREN) 50 mg Tablet, Delayed Release (E.C.) Take 50 mg by mouth 2 times daily. ??? ergocalciferol, vitamin D2, (VITAMIN D ORAL) Take by mouth. ??? UNABLE TO FIND Tumeric daily ??? losartan (Cozaar) 25 mg Tablet Take 50 mg by mouth daily. ??? albuteroL 90 mcg/actuation HFA Aerosol Inhaler Inhale 2 puffs into the lungs every 4 hours as needed for Wheezing. Use with spacer ??? Psyllium Seed-Sucrose (0) Powder Take by mouth. ??? acetaminophen (Tylenol) 500 mg Tablet Take 500 mg by mouth every 6 hours as needed for Pain. ??? Calcium Carbonate (CALCIUM 600) 600 mg calcium (1,500 mg) Tablet Take 1 tablet by mouth daily. ??? multivitamin (THERAGRAN) Tablet Take 1 tablet by mouth daily. ??? melatonin 5 mg Tablet Take 10 mg by mouth nightly. ??? vitamin E 400 unit capsule Take 400 Units by mouth daily. ??? omeprazole (PRILOSEC) 10 mg capsule Take 10 mg by mouth daily as needed. ??? [DISCONTINUED] aspirin 81 mg Tablet, Delayed Release (E.C.) Take 81 mg by mouth daily. No current facility-administered medications on file prior to visit. Physical exam: Vital Signs- BP 134/79 (Patient Position: Sitting) Pulse 81 Temp 36.8 ??C (98.2 ??F) (Temporal) Resp 16 Ht 172.7 cm (5' 7.99) Wt 100.7 kg (222 lb) SpO2 96% BMI 33.76 kg/m?? Gen - alert and oriented, no [...] - no rash or lesions Heme - only one [address] in R axilla. No other palpable LN. LABS: Recent Results (from the past 72 hour(s)) CBC (with Diff) Result Value Ref Range WBC 31.19 Hemoglobin 14.4 Hematocrit 44.6 Platelets 205 Neutr Abs (ANC) 4.31 CBC (with Diff) Result Value Ref Range WBC 31.19 Hemoglobin 14.4 Hematocrit 44.6 Platelets 205 Neutr Abs (ANC) 4.31 Creatinine 1.23 LDH 134 date wbc anc hgb hct plat ldh 02/11/16 18.1 15.8 46.4 256 07/2016 23.6 15.1 45.4 215 02/25/17 20.4 3.0 15.4 45.1 209 Creat 1.2 08/26/17 26.2 6.5 15.3 46.5 205 Creat 1.1 140 LFT normal 02/24/18 25.8 6.2 14.7 44.2 200 Creat 1.3 133 LFT normal 02/23/19 24.7 6.4 15.5 46.5 166 Creat 1.0 144 LFT normal; IgG 420 03/28/20 34.0 8.1 15.7 46.6 249 Creat 1.34 141 LFT normal Assessment: 71 y.o. man with CLL and continues to have not indciations to treat (infections, cytopenias, or lymph adenopathy). Will have patient return to clinic in 6 months. Mr Mikhail is CD38 and zap 70 negative both a good markers. Cytogenetics have not been done. His CLL seems to be very quiescent/indolent and is very possible that he will not need treatment within his lifetime. His counts remain stable since about 2013, so in 2018 we extended the visit interval toannual visits in the future. Fatique - unlikely to be related to CLL. His CLL is stable and very early disease. He continues to complain of fatiqe which I suspect is multifactorial. He is going to ask his PCP re checking thyroid. He is going to discuss with his primary physician. 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 IVIG supplementation only if frequent or severe infections. No antiotics prescribed in the last 6 mos. Skin - he has some skin lesions on face and ear that looks like AK or possibly early BCC versus SCC. We know that patients with CLL have an increased incidence of nonmelanoma skin cancers. I will refer him to dermatology at [facility], as I know the wait to get into Dr. Shelby at [place] can be months. Plan: 1. No CLL intervention currently indicated. 2. RTC in Oct 6 mos with cbc, cmp, ldh, quant ig. 3. Refer to dermatology for management of suspected precancerous skin lesions on face I discussed all of the above with the patient and all of his questions were answered. Support and counseling given as appropriate. documented in this encounter Plan of Treatment Upcoming Encounters Date Type Department Care Team (Late st Contact Info) Description 11/02/2024 1:00 PM EST Office Visit Hematology/Oncology at [address] [phone] Gloria Beck MD [facility] [address] [place] [address] [address] Cisneros APRN [facility] [place] [address] Scheduled Referrals Name Type Priority Associated Diagnoses Orde r Schedule Referral to Dermatology Outpatient Referral Routine CLL (chronic lymphocytic leukemia) AK (actinic keratosis) Ordered: 06/05/2021 documented as of this encounter Procedures Procedure Name Priority Date/Time Associated Diagnosis Comments CBC (WITH DIFF) Routine 06/04/2021 documented in this encounter Results * CBC (with Diff) (06/04/2021) White Blood Cell 31.19 Hemoglobin 14.4 Hematocrit 44.6 Platelet 205 Neutrophil Absolute (ANC) - Automated 4.31 Creatinine 1.23 Lactate Dehydrogenase 134 Blood 06/04/2021 Historical Provider HEMATOLOGY ORDERA BLES documented in this encounter Visit Diagnoses Diagnosis CLL (chronic lymphocytic leukemia) Chronic lymphoid leukemia, without mention of having achieved remission AK (actinic keratosis) Actinic keratosis documented in this encounter Care Teams Carrier Washer Relationship Specialty Start Date End Date Maria Victoria Kaur PA PCP - General Family Medicine 02/15/16 05/18/23 documented as of this encounter
--- OUTSIDE RECORDS SUMMARY | 2024-11-02 01:56 | XMS_ITS | Encounter Summary ---
Author Organization [facility] Address [facility] [place] [address] Care Team Providers Care Cost Control Supervisor Name Role Phone Maria Victoria Kaur Primary Care Provider [phone] Encounter Details Date Type Department Care Team (Late st Contact Info) Description 02/23/2019 12:00 PM EDT Office Visit Hematology/Oncology at [address] [phone] Gloria Beck MD [facility] DR [place] [address] CLL (chronic lymphocytic leukemia) Social History Tobacco [...] Sign Reading Time Taken Comments Blood Pressure 127/88 02/23/2019 11:49 AM EDT Pulse 73 02/23/2019 11:49 AM EDT Temperature 36.8 ??C (98.2 ??F) 02/23/2019 11:49 AM E DT Respiratory Rate 16 02/23/2019 11:49 AM EDT Oxygen Saturation 98% 02/23/2019 11:49 AM EDT Inhaled Oxygen Concentration - - Weight 97.1 kg (214 lb) 02/23/2019 11:49 AM EDT Height 173 cm (5' 8.11) 02/23/2019 11:49 AM EDT Body Mass Index 32.43 02/23/2019 11:49 AM EDT documented in this encounter Progress Notes * Gloria Beck MD - 02/23/2019 12:00 PM EDT Images from the original note were not included. Hematology Follow-Up Note Patient prefers to be called: Don Spouse/Partner: Kailey Other support: CC: 67 year old man previously seen for lymphocytosis and diagnosed with CLL. He now returns for scheduled follow up. It was a pleasure to see Mr Elizondo who was referred from Dr. Fitzgerald. Dr Fitzgerald followed him for a couple years for a relatively indolent CLL. He has more recently been followed at [facility]. He's doing well major findings. No B symptoms. No palpable adenopathy. He had a spot on his lung Seen at [facility]. Thought to be benign. He notes that he has been tired for a few months. He wonders if it is the lisinopril. Started lisinopril 10mg bid several mos ago. BP a bit low today - he has f/u soon. 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 B symptoms, adenopathy. - numbness in R arm thought to be secondary to R shoulder replacement that required 3 revisions in 2014. They had to cancel their trip across country this summer for a few months to [place] and possibly [place] - b/c of bronchitis all winter Three courses of ATB. Treated by his PCP. Cancer: Presentation:?? 12/2014 incidentally discovered elevated WBC [...] pain and numbness. 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 Tree hit him in shoulder and needed R shoulder repair. Retired at age 60. X 10 years, Kailey. First at 45 from breast CA. 2 children. 3 grandchildren in [place] and [place]. Drinks a couple beers and a drink [...] to Visit Medication Sig Dispense Refill ??? Calcium Carbonate (CALCIUM 600) 600 mg calcium (1,500 mg) Tablet Take 1 tablet by mouth daily. ??? multivitamin (THERAGRAN) Tablet Take 1 tablet by mouth daily. ??? lisinopril (PRINIVIL;ZESTRIL) 10 mg Tablet Take 5 mg by mouth daily. ??? aspirin 81 mg Tablet, Delayed Release (E.C.) Take 81 mg by mouth daily. ??? melatonin 5 mg Tablet Take 10 mg by mouth nightly. ??? vitamin E 400 unit capsule Take 400 Units by mouth daily. ??? ibuprofen (ADVIL;MOTRIN) 200 mg tablet Take 200 mg by mouth every 6 hours as needed. ??? fluticasone (FLONASE) 50 mcg/actuation [place], Suspension 1 spray as needed for Rhinitis. ??? omeprazole (PRILOSEC) 10 mg capsule Take 10 mg by mouth daily as needed. ??? [DISCONTINUED] Ascorbic Acid 500 mg Chew Take by mouth daily. No current facility-administered medications on file prior to visit. Physical exam: Vital Signs- BP 127/88 (Patient Position: Sitting) Pulse 73 Temp 36.8 ??C (98.2 ??F) (Oral) Resp 16 Ht 173 cm (5' 8.11) Wt 97.1 kg (214 lb) SpO2 98% BMI 32.43 kg/m?? Gen - alert and oriented, no [...] R axilla. No other palpable LN. LABS: date wbc anc hgb hct plat ldh 02/11/16 18.1 15.8 46.4 256 07/2016 23.6 15.1 45.4 215 02/25/17 20.4 3.0 15.4 45.1 209 Creat 1.2 08/26/17 26.2 6.5 15.3 46.5 205 Creat 1.1 140 LFT normal 02/24/18 25.8 6.2 14.7 44.2 200 Creat 1.3 133 LFT normal 02/23/19 24.7 6.4 15.5 46.5 166 Creat 1.0 144 LFT normal Assessment: 65 year old man [...] interval to annual visits in the future. Infectious Disease - bronchitis X 3 over the winter. I will check his IgG level just to be sure it is OK. If IgG is low then giving IVIG prn for severe infections might be helpful in the future. Fatique - unlikely to be related to CLL. His CLL is stable and very early disease. He feels this fatique is worse in last 6 mos. He is going to ask his PCP re checking thyroid. Don really feels a bitthe onset of his extreme fatigue was coincident with the initiation of his lisinopril. He is going to discuss whether the dose of lisinopril can be lowered. Today's blood pressure is in good control with a systolic pressure of 113. There are some patients that feel worse when her blood pressures are too low. He is going to discuss with his primary physician. Insomnia - due to shoulder discomfort Plan: 1. No CLL intervention currently indicated. 2. RTC in one year with cbc, cmp, and ldh 3. Quant Ig's at [facility] within the next week. Addendum: IgG = 420. Would only supplement with IVIG for severe infections. I discussed all of the above with the patient and all of his questions were answered. Support and counseling given as appropriate. documented in this encounter Plan of Treatment Upcoming Encounters Date Type Department Care Team (Late st Contact Info) Description 11/02/2024 1:00 PM EST Office Visit Hematology/Oncology at [address] [phone] Gloria Beck MD [facility] [place] [address] [address] Cisneros APRN [facility] [place] [address] documented as of this encounter Visit Diagnoses Diagnosis CLL (chronic lymphocytic leukemia) Chronic lymphoid leukemia, without mention of having achieved remission documented in this encounter Care Teams Cost Control Supervisor Relationship Specialty Start Date End Date Maria Victoria Kaur PA PCP - General Family Medicine 02/15/16 05/18/23 documented as of this encounter
--- OUTSIDE RECORDS SUMMARY | 2024-11-02 01:56 | XMS_ITS | Encounter Summary ---
Author Organization [facility] [place] [address] Care Team Providers Care Bioinformaticist Name Role Phone Maria Victoria Kaur Primary Care Provider [phone] Reason for Visit * Reason Onset Date Comments Labs Only 03/02/2019 Lab Tracking Encounter Details Date Type Department Care Team (Late Contact Info) Description 03/02/2019 Telephone Hematology/Oncology at [address] [phone] Raven Christopher RN Labs Only (Lab Tracking) Social History Tobacco Use Types Packs/Day Years [...] encounter Miscellaneous Notes * Telephone Encounter - Raven Christopher RN - 03/02/2019 2:10 PM EDT Pt had immunoglobulins done at [facility] 02/24/19. Entered into eD. Reviewed by Dr Beck. documented in this encounter Plan of Treatment Upcoming Encounters Date Type Department Care Team (Late Contact Info) Description 11/02/2024 1:00 PM EST Office Visit Hematology/Oncology at [address] [phone] Gloria Beck MD [facility] HEMATOLOGY [place] [address] [address]is[address] APRN [facility] HEMATOLOGY [place] [address] documented as of this encounter Procedures Procedure Name Priority Date/Time Associated Diagnosis Comments IMMUNOGLOBULINS, QUANTITATIVE Routine 02/24/2019 documented in this encounter Results * Immunoglobulins, Quantitative (02/24/2019) IgG 420 IgA 175 IgM 34 Blood specimen (specimen) 02/24/2019 Gloria Beck MD CHEMISTRY ORDERA BLES documented in this encounter Visit Diagnoses Not on filedocumented in this encounter Care Teams Bioinformaticist Relationship Specialty Start Date End Date Maria Victoria Kaur PA PCP - General Family Medicine 02/15/16 05/18/23 documented as of this encounter
--- OUTSIDE RECORDS SUMMARY | 2024-11-02 01:56 | XMS_ITS | Encounter Summary ---
Author Organization [facility] Address [facility] [place] [address] Care Team Providers Care Scrap Drop Operator Name Role Phone Nissa Wise MD Primary Care Provider Encounter Details Date Type Department Care Team (Latest Contact Info) Description 06/08/2015 12:11 PM EDT - 06/08/2015 11:59 PM EDT Hospital Encounter Hematology and Oncology at [place] [phone] CLINIC, DR ALBERT Fitzgerald, Ramon Sneed Jr., MD [facility] HEMATOLOGY [place] [address] Discharge Disposition: Home Social History Tobacco Use [...] Sig Dispensed Refills Start Date End Date vitamin E 400 unit capsule Take 400 Units by mouth daily. omeprazole (PRILOSEC) 10 mg capsule Take 10 mg by mouth daily as needed. fluticasone (FLONASE) 50 mcg/actuation [place], Suspension 1 spray as needed for Rhinitis. 03/28/2020 Ascorbic Acid 500 mg Chew Take by mouth daily. 02/23/2019 ibuprofen (ADVIL;MOTRIN) 200 mg tablet Take 200 mg by mouth every 6 hours as needed. 03/28/2020 documented as of this encounter Plan of Treatment Upcoming Encounters Date Type Department Care Team (Late st Contact Info) Description 11/02/2024 1:00 PM EST Office Visit Hematology/Oncology at [address] [phone] Gloria Beck MD [facility] [place] [address] [address] Cisneros APRN [facility] [place] [address] documented as of this encounter Visit Diagnoses Not on filedocumented in this encounter Care Teams Scrap Drop Operator Relationship Specialty Start Date End Date Nissa Wise MD [address] [place] [address] PCP - General 03/17/14 02/14/16 documented as of this encounter
--- OUTSIDE RECORDS SUMMARY | 2024-11-02 01:56 | XMS_ITS | Encounter Summary ---
Author Organization [facility] Address [facility] [place] [address] Care Team Providers Care Furniture Painter Name Role Phone Maria Victoria Kaur Primary Care Provider [phone] Encounter Details Date Type Department Care Team (Latest Contact Info) Description 08/15/2016 1:19 PM EST - 08/15/2016 11:59 PM [facility] [[email or web address] Hospital Encounter [place]ematology [place] [phone] Chronic lymphocytic leukemia not having achieved remission [...] mouth daily. 06/05/2021 fluticasone (FLONASE) 50 mcg/actuation [place], Suspension 1 spray as needed for Rhinitis. 03/28/2020 Ascorbic Acid 500 mg Chew Take by mouth daily. 02/23/2019 ibuprofen (ADVIL;MOTRIN) 200 mg tablet Take 200 mg by mouth every 6 hours as needed. 03/28/2020 documented as of this encounter Plan of Treatment Upcoming Encounters Date Type Department Care Team (Late st Contact Info) Description 11/02/2024 1:00 PM EST Office Visit Hematology/Oncology at [address] [phone] Gloria Beck MD [facility] [place] [address] [address] Cisneros APRN [facility] [place] [address] documented as of this encounter Procedures Procedure Name Priority Date/Time Associated Diagnosis Comments IMMUNOGLOBULINS, QUANTITATIVE Routine 08/15/2016 1:25 PM EST Chronic lymphocytic leukemia not having achieved remission SCAN, PERIPHERAL BLOOD STAT 6 1:25 PM EST HEMOGRAM STAT 08/15/2016 1:25 PM EST Chronic lymphocytic leukemia not having achieved remission DIFFERENTIAL, AUTOMATED STAT 08/15/2016 1:25 PM EST Chronic lymphocytic leukemia not having achieved remission CBC (WITH DIFF) STAT 08/15/2016 1:25 PM EST Chronic lymphocytic leukemia not having achieved remission LACTATE DEHYDROGENASE Routine 08/15/2016 1:25 PM EST Chronic lymphocytic leukemia not having achieved remission COMPREHENSIVE METABOLIC PANEL STAT 08/15/2016 1:25 PM EST Chronic lymphocytic leukemia not having achieved remission documented in this encounter Results * Scan, Peripheral Blood (08/15/2016 1:25 PM EST) Plat estimate Normal [facility] RBC Morphology Normal [facility] Blood specimen (specimen) 08/15/2016 1:25 PM EST 08/15/2016 1:34 PM EST Narrative Resulting Agency Comment Spec In Lab Ramon Fitzgerald Jr., MD HEMATOLOGY ORDERABLE S [facility] [place] [address] * (ABNORMAL) Differential, Automated (08/15/2016 1:25 PM EST) Neutrophil % 24.7 % [facility] Neutrophil Absolute 5.80 1.70 - 6.10 x10(3)/ L [facility] Lymph % 68.2 % [facility] Lymphocytes Abs 16.1(H) 0.9 - 3.2 x10(3)/ L [facility] Monocyte % 4.8 % [facility] Monocyte Abs 1.1(H) 0.3 - 0.9 x10(3)/ L [facility] Eos % 1.7 % [facility] Eosinophils Abs 0.4 0.0 - 0.4 x10(3)/[facility] Basophil % 0.3 % [facility] Baso Absolute 0.1 0.0 - 0.1 x10(3)/ L [facility] Immature Gran % 0.30 % [facility] Comment: Immature granulocytes(IG's)percentage and absolute count will include metamyelocytes, myelocytes, and promyelocytes. Blood smears from CBCs yielding IG's will be scanned manually for concordance. If this scan disagrees with the automated IG or if promyelocytes are noted, a manual differential will be performed. Immature Gran Absolute 0.08(H) 0.00 - 0.04 x10(3)/ L [facility] Blood specimen (specimen) 08/15/2016 1:25 PM EST 08/15/2016 1:34 PM EST Narrative Resulting Agency Comment Spec In Lab Ramon Fitzgerald Jr., MD HEMATOLOGY ORDERABLE S [facility] [place] [address] * (ABNORMAL) Hemogram (08/15/2016 1:25 PM EST) [facility] White Blood Cell 23.6(H) 4.0 - 9.5 x10(3)/[facility] Red Blood Cell 4.77 4.58 - 5.54 x10(6)/[facility] Hemoglobin 15.1 13.7 - 16.5 gm/dL [facility] Hematocrit 45.4 40.5 - 48.5 % [facility] Mean Cell Volume 95.2(H) 82.9 - 93.1 fL [facility] Mean Cell Hemoglobin 31.7 27.5 - 32.1 pg [facility] Mean Cell Hemoglobin Concentration 33.3 32.0 - 35.7 gm/dL [facility] Platelet 215 145 - 357 x10(3)/[facility] RDW Standard Deviation 44.1 36.0 - 45.0 [facility] RDW coefficient of variation 12.6 11.4 - 13.8 % [facility] Mean Platelet Volume 10.4 7.6 - 12.9 fL [facility] NRBC% auto 0.2 % [facility] NRBC Absolute 0.050(H) 0.000 - 0.000 x10(3)/[facility] Blood specimen (specimen) 08/15/2016 1:25 PM EST 08/15/2016 1:34 PM EST Narrative Resulting Agency Comment Spec In Lab Ramon Fitzgerald Jr., MD HEMATOLOGY ORDERABLE S [facility] [place] [address] * (ABNORMAL) Immunoglobulins, Quantitative (08/15/2016 1:25 PM EST) IgG 502(L) 700 - 1,600 mg/dL [facility] IgA 210 70 - 400 mg/dL [facility] IgM 45 40 - 230 mg/dL [facility] Blood specimen (specimen) 08/15/2016 1:25 PM EST 08/15/2016 1:34 PM EST Narrative Resulting Agency Comment Spec In Lab Ramon Fitzgerald Jr., MD CHEMISTRY ORDERABLES Performing Organization Address [facility] Co de Phone Number [facility] [place] [address] * Lactate Dehydrogenase (08/15/2016 1:25 PM EST) Pathologist [facility] Lactate Dehydrogenase 154 110 - 220 unit/L [facility] Blood specimen (specimen) 08/15/2016 1:25 PM EST 08/15/2016 1:34 PM EST Narrative Resulting Agency Comment Spec In Lab Ramon Fitzgerald Jr., MD CHEMISTRY ORDERABLES Performing Organization Address [facility] Co de Phone Number [facility] [place] [address] * Comprehensive metabolic panel (non-fasting) (08/15/2016 1:25 PM EST) Pathologist [facility] Glucose 133 65 - 199 mg/dL [facility] Comment:Diabetes: >=200 mg/d L plus symptoms Blood Urea Nitrogen 15 10 - 20 mg/dL [facility] Creatinine 1.19 0.80 - 1.50 mg/dL [facility] Comment: Please note that the pediatric reference intervals supplied above were not validated at [facility]. Results from pediatric patients should be interpreted in conjunction to the patient's age, height and muscle mass. Sodium 141 135 - 145 mmol/L [facility] Potassium 4.3 3.5 - 5.0 mmol/L [facility] Comment: Please note: ??Patients with WBC >100,000 may have falsely elevated Potassium levels. ??For accurate Potassium quantification in these patients send serum separator tube ([facility] top) for subsequent determinations. ??Contact the Clinical Chemistry Laboratory if there are any questions. Chloride 101 98 - 107 mmol/L [facility] Carbon Dioxide 25 22 - 31 mmol/L [facility] Anion Gap 15 5 - 15 mmol/L [facility] Calcium 9.3 8.5 - 10.5 mg/dL [facility] Protein, Total 6.5 6.1 - 8.0 gm/dL [facility] Albumin 4.2 3.2 - 5.2 gm/dL [facility] Aspartate Aminotransferase 27 0 - 39 unit/L [facility] Alanine Aminotransferase 25 0 - 55 unit/L [facility] Alkaline Phosphatase 42 40 - 120 unit/L [facility] Bilirubin, Total 0.3 0.2 - 1.3 mg/dL [facility] Bilirubin, Direct 0.1 0.0 - 0.3 mg/dL [facility] Est Glomerular Filtration Rate >60 >=60 [facility] Comment: This estimated GFR (eGFR) [...] the following links into your internet browser. [email or web address] Blood specimen (specimen) 08/15/2016 1:25 PM EST 08/15/2016 1:34 PM EST Narrative Resulting Agency Comment Spec In Lab Ramon Fitzgerald Jr., MD CHEMISTRY ORDERABLES [facility] [place] [address] documented in this encounter Visit Diagnoses Diagnosis Chronic lymphocytic leukemia not having achieved remission documented in this encounter Care Teams Furniture Painter Relationship Specialty Start Date End Date Maria Victoria Kaur PA PCP - General Family Medicine 02/15/16 05/18/23 documented as of this encounter
--- OUTSIDE RECORDS SUMMARY | 2024-11-02 01:56 | XMS_ITS | Encounter Summary ---
Author Organization [facility] Address [facility] [place] [address] Care Team Providers Care Corporate Executive Chef Name Role Phone Maria Victoria Kaur Primary Care Provider [phone] Reason for Visit * Reason Comments Skin Lesion * Consultation (Routine) - Closed Specialty Diagnoses / Procedures Referred By Cristy lujan Referred To Contact Dermatology Diagnoses CLL (chronic lymphocytic leukemia) AK (actinic keratosis) Gloria Beck MD [facility] DR HEMATOLOGY [place] [address] [facility] Dermatology [address] [place] [address] Referral ID Status Reason Start Date Expiration Date V isits Requested Visits Authorized [id number] Closed Consult, Test & Treat 06/05/2021 06/05/2022 1 1 Encounter Details Date Type Department Care Team (Late st Contact Info) Description 07/25/2021 3:20 PM EDT Office Visit Dermatology at [address] [place] [address] Dilia Fraser MD AK (actinic keratosis); Seborrheic keratosis Social History Tobacco Use Types Packs/Day Years [...] on file documented as of this encounter Progress Notes * Dilia Fraser MD - 07/25/2021 3:20 PM EDT Images from the original note were not included. DEPARTMENT OF DERMATOLOGY Medical Dermatology Clinic Note Provider: Dilia Fraser MD Patient's preferred name Blas Preferred contact method for results []Phone []myD-H [x]Letter Detailed phone message OK? Are there any other people with whom we may discuss your care? , Lucia Past Medical History Date, location, treatment Melanoma N Dysplastic nevi N SCC N BCC N AKs N UV Exposure & Protection N Other relevant past medical history RA CLL Family History Details Melanoma N NMSC N Other relevant family history N Social History Occupation: Retired Pre-Procedure Questions Details Allergy to lidocaine, epinephrine, Dermabond, chlorhexidine, or adhesives N Bleeding disorder or blood thinners N Implanted devices (Pacemaker, defibrillator, deep brain stimulator, cochlear implant) N History of Present Illness: Blas Elizondo is a 71 y.o. Patient is referred to the clinic at [facility] for actinic keratosis on the face. These spot have been there for about a year and are itchy. They can bleed when he shaves. Reports 1 lesion of concern on his back that was previously treated with LN2, now recurred. Denies pain, pruritus, and bleeding. Review of Systems: General: Feeling well. Skin: No other skin concerns. Medications: Reviewed in eD-H Allergies: Reviewed in eD-H Skin Examination: Focused skin examination of the face and back was normal with the exception of the findings below. Assessment/Plan #. Actinic Keratosis EXAM: 0.2-0.3cm scaly irregular pink papule on the right cheek (x1), right eyebrow (x1), left preauricular (x1), left cheek (x1), left antihelix (x1), left lateral neck (x1) - Discussed the natural history and etiology of actinic keratoses including the premalignant potential of these lesions. -Discussed treatment options. Procedure Note: Procedure: Destruction of lesion(s) with cryotherapy. Number: 6 Location: as above Discussed procedure and expectations including risks (including risk of hypopigmentation) and benefits. Verbal consent obtained. Frozen with LN2, 15-30 second thaw time, TWICE. There were no complications; the patient tolerated the procedure well. Post-procedure expectations and wound care were reviewed. #. Seborrheic keratoses Exam: Scattered horn to brown stuck on plaque on the back - lesion of concern to patient, previously treated with LN2, now recurred -benign nature of lesions discussed -patient reassured Other: ??? Sun protection discussed (protective clothing and SPF30+ broad-spectrum sunscreen) RTC: 1 year for annual FBSE []Note routed to bilingual secretary [x]Recall placed in scheduling system []Appointment scheduled at checkout Scribe attestation: Jsesica Arriaga has performed the documentation for this encounter in the presence of and acting as a scribe for Dilia Fraser MD. I performed the above scribed service and agree with the accuracy of the documentation in this encounter. Reviewed and signed by: Dilia Fraser MD Dermatology [facility] Patient seen and evaluated with staff training designer: Rocky Gabriel MD Department of Dermatology [facility] * Rocky Gabriel MD - 07/25/2021 3:20 PM EDT I directly supervised Dr. Fraser in the care of this patient. I saw and evaluated this patient with Dr. Fraser She presented the history and physical exam details tome, then we saw the patient together and I confirmed these findings. I agree with details as written. My physical examination confirms her findings. The assessment and plan were formulated in discussion with me at the time of visit and I agree withthem as documented. Rocky Gabriel MD FAAD Staff Physician Department of Dermatology documented in this encounter Plan of Treatment Upcoming Encounters Date Type Department Care Team (Late st Contact Info) Description 11/02/2024 1:00 PM EST Office Visit Hematology/Oncology at [address] [phone] Gloria Beck MD [facility] DR HEMATOLOGY [place] [address] [address] Cisneros APRN [facility] HEMATOLOGY [place] [address] documented as of this encounter Visit Diagnoses Diagnosis AK (actinic keratosis) Actinic keratosis Seborrheic keratosis Other seborrheic keratosis documented in this encounter Care Teams Corporate Executive Chef Relationship Specialty Start Date End Date Maria Victoria Kaur PA PCP - General Family Medicine 02/15/16 05/18/23 documented as of this encounter
--- OUTSIDE RECORDS SUMMARY | 2024-11-02 01:56 | XMS_ITS | Encounter Summary ---
Author Organization [facility] Address [facility] [place] [address] Care Team Providers Care Picker Tender Name Role Phone Maria Victoria Kaur Primary Care Provider [phone] Encounter Details Date Type Department Care Team (Late Contact Info) Description 04/05/2021 Orders Only Hematology/Oncology at [address] [phone] Gloria Beck MD [facility] HEMATOLOGY [place] [address] CLL (chronic lymphocytic leukemia) Social History Tobacco [...] 1:00 PM EST Office Visit Hematology/Oncology at [address] [phone] Gloria Beck MD [facility] HEMATOLOGY [place] [address] [address]isner[address] APRN [facility] DR HEMATOLOGY [place] [address] documented as of this encounter Visit Diagnoses Diagnosis CLL (chronic lymphocytic leukemia) Chronic lymphoid leukemia, without mention of having achieved remission documented in this encounter Care Teams Picker Tender Relationship Specialty Start Date End Date Maria Victoria Kaur PA PCP - General Family Medicine 02/15/16 05/18/23 documented as of this encounter
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
--- OUTSIDE RECORDS SUMMARY | 2024-11-02 01:56 | XMS_ITS | Encounter Summary ---
Author Organization [facility] Address [facility] [place] [address] Care Team Providers Care Publishing Systems Analyst Name Role Phone Maria Victoria Kaur Primary Care Provider [phone] Encounter Details Date Type Department Care Team (Late st Contact Info) Description 03/28/2020 1:30 PM EDT Office Visit Hematology/Oncology at [address] [phone] Gloria Beck MD [facility] [place] [address] CLL (chronic lymphocytic leukemia) Social History Tobacco [...] Sign Reading Time Taken Comments Blood Pressure 146/80 03/28/2020 1:29 PM EDT Pulse 77 03/28/2020 1:29 PM EDT Temperature 36.5 ??C (97.7 ??F) 03/28/2020 1:29 PM ED T Respiratory Rate 16 03/28/2020 1:29 PM EDT Oxygen Saturation 97% 03/28/2020 1:29 PM EDT Inhaled Oxygen Concentration - - Weight 99.8 kg (220 lb) 03/28/2020 1:29 PM EDT Height 173 cm (5' 8.11) 03/28/2020 1:29 PM EDT Body Mass Index 33.34 03/28/2020 1:29 PM EDT documented in this encounter Progress Notes * Gloria Beck MD - 03/28/2020 1:30 PM EDT Images from the original note [...] He has more recently been followed at [facility]. He's doing well major findings. No Bsymptoms. No palpable adenopathy. He notes that he has been tired for a few months. His BP meds were recently adjusted. Tires mid afternoon. Drives less b/c of the steveDiamond T. Livestock - his drives. Using albuterol nebs. 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 B symptoms, adenopathy. R carpal tunnel repaired w/ resolution of finger/hand numbness They had to cancel their trip across country this summer for a few months to [place] and possibly [place] b/c of [place]. Cancer: Presentation:?? 12/2014 incidentally discovered elevated WBC [...] pain and numbness. 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 Tree hit him in shoulder and needed R shoulder repair. Retired at age 60. X 10 years, [place]. First at 45 from breast CA. 2 children. 3 grandchildren in [place] and [place]. Drinks a couple beers and a drink [...] to Visit Medication Sig Dispense Refill ??? UNABLE TO FIND Tumeric daily ??? losartan (Cozaar) 25 mg Tablet Take 25 mg by mouth daily. ??? tiotropium Br/olodaterol HCl (STIOLTO RESPIMAT INHL) Inhale into the lungs. ??? albuteroL 90 mcg/actuation HFA Aerosol Inhaler Inhale 2 puffs into the lungs every 4 hours as needed for Wheezing. Use with spacer ??? Psyllium Seed-Sucrose (0) Powder Take by mouth. ??? acetaminophen (Tylenol) 500 mg Tablet Take 500 mg by mouth every 6 hours as needed for Pain. ??? cetirizine (ZyrTEC) 10 mg Tablet Take 10 mg by mouth daily. ??? Calcium Carbonate (CALCIUM 600) 600 mg calcium (1,500 mg) Tablet Take 1 tablet by mouth daily. ??? multivitamin (THERAGRAN) Tablet Take 1 tablet by mouth daily. ??? aspirin 81 mg Tablet, Delayed Release (E.C.) Take 81 mg by mouth daily. ??? melatonin 5 mg Tablet Take 10 mg by mouth nightly. ??? vitamin E 400 unit capsule Take 400 Units by mouth daily. ??? omeprazole (PRILOSEC) 10 mg capsule Take 10 mg by mouth daily as needed. ??? [DISCONTINUED] lisinopril (PRINIVIL;ZESTRIL) 10 mg Tablet Take 5 mg by mouth daily. ??? [DISCONTINUED] fluticasone (FLONASE) 50 mcg/actuation [place], Suspension 1 spray as needed for Rhinitis. ??? [DISCONTINUED] ibuprofen (ADVIL;MOTRIN) 200 mg tablet Take 200 mg by mouth every 6 hours as needed. No current facility-administered medications on file prior to visit. Physical exam: Vital Signs- BP 146/80 (Patient Position: Sitting) Pulse 77 Temp 36.5 ??C (97.7 ??F) (Temporal) Resp 16 Ht 173 cm (5' 8.11) Wt 99.8 kg (220 lb) SpO2 97% BMI 33.34 kg/m?? Gen - alert and oriented, no [...] (with Diff) Result Value Ref Range WBC 34.09 Hemoglobin 15.7 Hematocrit 46.6 Platelets 249 Neutr Abs (ANC) 8.18 Creatinine 1.34 date wbc anc hgb hct plat ldh [...] 249 Creat 1.34 141 LFT normal Assessment: 69 y.o. man with CLL and continues to [...] visit interval toannual visits in the future. Infectious Disease - [...] supplementation only if frequent or severe infections. Plan: 1. No CLL intervention currently indicated. 2. RTC in Oct 2020 with cbc, cmp, ldh, quant ig. I discussed all of the above with the patient and all of his questions were answered. Support and counseling given as appropriate. documented in this encounter Plan of Treatment Upcoming Encounters Date Type Department Care Team (Late st Contact Info) Description 11/02/2024 1:00 PM EST Office Visit Hematology/Oncology at [address] [phone] Gloria Beck MD [facility] [place] [address] [address] Cisneros APRN [facility] [place] [address] documented as of this encounter Procedures Procedure Name Priority Date/Time Associated Diagnosis Comments CBC (WITH DIFF) Routine 03/28/2020 documented in this encounter Results * CBC (with Diff) (03/28/2020) White Blood Cell 34.09 Hemoglobin 15.7 Hematocrit 46.6 Platelet 249 Neutrophil Absolute (ANC) - Automated 8.18 Creatinine 1.34 Blood specimen (specimen) 03/28/2020 Historical Provider HEMATOLOGY ORDERA BLES documented in this encounter Visit Diagnoses Diagnosis CLL (chronic lymphocytic leukemia) Chronic lymphoid leukemia, without mention of having achieved remission documented in this encounter Care Teams Publishing Systems Analyst Relationship Specialty Start Date End Date Maria Victoria Kaur PA PCP - General Family Medicine 02/15/16 05/18/23 documented as of this encounter
--- OUTSIDE RECORDS SUMMARY | 2024-11-02 01:56 | XMS_ITS | Encounter Summary ---
Author Organization [facility] [place] [address] Care Team Providers Care Distance Education Director Name Role Phone Maria Victoria Kaur Primary Care Provider [phone] Reason for Visit * Reason Comments Follow-up Encounter Details Date Type Department Care Team (Late st Contact Info) Description 10/29/2022 1:00 PM EST Office Visit Hematology/Oncology at [address] [phone] [address] Cisneros APRN [facility] DR HEMATOLOGY [place] [address] CLL (chronic lymphocytic leukemia); Chronic fatigue; Elevated PSA Social History Tobacco Use Types Packs/Day Years [...] Sign Reading Time Taken Comments Blood Pressure 154/91 10/29/2022 12:47 PM EST Pulse 59 10/29/2022 12:47 PM EST Temperature 36.5 ??C (97.7 ??F) 10/29/2022 12:[address] Respiratory Rate 18 10/29/2022 12:47 PM EST Oxygen Saturation 97% 10/29/2022 12:47 PM EST Inhaled Oxygen Concentration - - Weight 104.3 kg (230 lb) 10/29/2022 12:47 PM EST Height 172.7 cm (5' 7.99) 10/29/2022 12:47 PM E Body Mass Index 34.98 10/29/2022 12:47 PM EST documented in this encounter Progress Notes * Ave Cisneros, AIRPORT OPERATIONS MANAGER - 10/29/2022 3:30 PM EST Images from the original note were not included. Hematology Follow-Up Note Patient prefers to be called: Sumanth Spouse/Partner: Kailey Other support: CC: 72 y.o. man previously seen for lymphocytosis and diagnosed with CLL. He now returns for scheduled follow up. Interim History of Present Illness: Mr Elizondo was referred from Dr. Fitzgerald who followed him for a couple years for a relatively indolent CLL. He has more recently been followed in [facility] for convenience and proximity to his home.Blas was last seen in clinic ~8 months ago. Since last seen, he denies changes to his baseline health. In particular, no fevers, chills, recurrent infections or intercurrent illnesses. No drenching sweats, unintentional weight loss or palpable adenopathy. His energy is low. He putters around his garage doing small tasks. Shoveling is difficult, too strenuous. He continues to do his physical therapy exercises for arthritis most bothersome in his feet, particularly at night. R carpal tunnel repaired w/ resolution of finger/hand numbness. Cancer: Presentation:?? 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 Tree hit him in shoulder and needed R shoulder repair. Retired at age 60. X 10 years, [employer]iley. First at 45 from breast CA. 2 children. 3 grandchildren in [place] and [place]. Drinks a couple beers and a drink [...] in urine, or inability to void. Skin -no rashes or suspicious lesions [sees Rocky Gabriel in Dermatology- last visit was 06/2021 for treatment of SK, AK] MS - arthritic pain as noted above Neuro - no focal weakness, no numbness or tingling Heme - no bleeding, bruising, or lymphadenopathy Insomnia - poor sleep and sounds like poor sleep habits [chronic] Allergies: Patient has no known allergies. Medications: Current Outpatient Medications Medication Instructions ??? acetaminophen (TYLENOL) 500 mg, Oral, EVERY 6 HOURS PRN ??? albuteroL 90 mcg/actuation HFA Aerosol Inhaler 2 puffs, Inhalation, EVERY 4 HOURS PRN, Use withspacer ??? Calcium Carbonate 600 mg calcium (1,500 mg) Tablet 1 tablet, Oral, DAILY ??? diclofenac (VOLTAREN) 50 mg, Oral, 2 TIMES DAILY ??? ergocalciferol, vitamin D2, (VITAMIN D ORAL) Oral ??? fluticasone/umeclidin/vilanter (TRELEGY ELLIPTA INHL) Inhalation, DAILY ??? gabapentin (NEURONTIN) 300 mg, Oral, 2 TIMES DAILY ??? losartan (COZAAR) 50 mg, Oral, DAILY ??? melatonin 10 mg, Oral, NIGHTLY ??? multivitamin (THERAGRAN) Tablet 1 tablet, Oral, DAILY ??? omeprazole (PRILOSEC) 10 mg, DAILY PRN ??? potassium (POTASSIMIN ORAL) Oral ??? psyllium husk (METAMUCIL ORAL) Oral ??? tamsulosin (FLOMAX) 0.4 mg, Oral, DAILY ??? triamcinolone (KENALOG) 0.025 % Cream Topical (Top), 2 TIMES DAILY ??? UNABLE TO FIND Tumeric daily ??? vitamin D3-folic acid 125 mcg (5,000 unit)-1 mg Tablet Oral ??? vitamin E 400 Units, DAILY Physical exam: Vital Signs- BP (!) 154/91 (Patient Position: Sitting) Pulse 59 Temp 36.5 ??C (97.7 ??F) (Temporal) Resp 18 Ht 172.7 cm (5' 7.99) Wt 104.3 kg (230 lb) SpO2 97% BMI 34.98 kg/m?? Gen - alert and oriented, no [...] on today's exam Labs: Labs obtained on 10/20/22 at [facility] in anticipation of this visit which show the following; WBC: 29.65 ANC: 9191 A,011 Hgb: 14.8 plt count: 192,000 Lytes: normal BUN/creatinine: 16/1.38 LFTs: unremarkable LDH: 120 Assessment/Plan: 72 y.o. man with CLL, CD38 and zap [...] of fatigue which I suspect is multifactorial. He also reports DILLON with activity around the house. He is going to discuss with his primary physician. Insomnia - due to shoulder discomfort for which he is having surgery on left shoulder on 11/10/22 [facility] Hypogammaglobulinemia - not tested on recent labs but has been reported in the 400s in the past. IVIG supplementation indicated only if frequent or severe infections. Prostate- reports that he has an elevated PSA of about 6. Prostate biopsy was normal but continues to follow PSA Skin - he has had some skin lesions on face and ear that looks like AK or possibly early BCC versusSCC. We know that patients with CLL have an increased incidence of nonmelanoma skin cancers. It hasbeen > 1 year since he was last seen by Derm. Will contact their office and ask that annual skincheck scheduled. Plan: 1. No CLL intervention currently indicated. 2. RTC in 1 year with labs and a visit. 3. Refer back to Derm for annual skin exam given increased incidence of skin cancer the in the setting of CLL 4. Blas was reminded that we remain available in the interim should questions/concerns arise. General medical care and age appropriate health screening remain under the direction of MIHIR Jorge, MSN, AIRPORT OPERATIONS MANAGER Nurse practitioner Section of Hematology [facility] Cc: MIHIR Jorge . documented in this encounter Plan of Treatment Upcoming Encounters Date Type Department Care Team (Late st Contact Info) Description 11/02/2024 1:00 PM EST Office Visit Hematology/Oncology at [address] [phone] Gloria Beck MD [facility] HEMATOLOGY [place] [address] [address] Cisneros APRN [facility] HEMATOLOGY [place] [address] documented as of this encounter Procedures Procedure Name Priority Date/Time Associated Diagnosis Comments CBC (WITH DIFF) Routine 10/20/2022 COMPREHENSIVE METABOLIC PANEL Routine 10/20/2022 documented in this encounter Results * Comprehensive metabolic panel (non-fasting) (10/20/2022) Creatinine 1.38 Potassium 4.1 Bilirubin, Total 0.8 Aspartate Aminotransferase 16 Alanine Aminotransferase 19 Lactate Dehydrogenase 120 Blood 10/20/2022 Historical Provider CHEMISTRY ORDERAB LES * CBC (with Diff) (10/20/2022) White Blood Cell 29.65 Hemoglobin 14.8 Hematocrit 47.0 Platelet 192 Neutrophil Absolute (ANC) - Automated 8.9 Blood 10/20/2022 Historical Provider HEMATOLOGY ORDERA BLES documented in this encounter Visit Diagnoses Diagnosis CLL (chronic lymphocytic leukemia) Chronic lymphoid leukemia, without mention of having achieved remission Chronic fatigue Other malaise and fatigue Elevated PSA Elevated prostate specific antigen (PSA) documented in this encounter Care Teams Distance Education Director Relationship Specialty Start Date End Date Maria Victoria Kaur PA PCP - General Family Medicine 02/15/16 05/18/23 documented as of this encounter
--- OUTSIDE RECORDS SUMMARY | 2024-11-02 01:56 | XMS_ITS | Encounter Summary ---
Author Organization [facility] Address [facility] [place] [address] Care Team Providers Care Bdr Name Role Phone Maria Victoria Kaur Primary Care Provider [phone] Encounter Details Date Type Department Care Team (Latest Contact Info) Description 03/10/2020 9:52 AM EDT - 03/10/2020 11:59 PM EDT [place] [address] Discharge Disposition: Home Social History Tobacco Use [...] Sig Dispensed Refills Start Date End Date Calcium Carbonate 600 mg calcium (1,500 mg) Tablet Take 1 tablet by mouth daily. multivitamin (THERAGRAN) Tablet Take 1 tablet by mouth daily. melatonin 5 mg Tablet Take 10 mg by mouth nightly. vitamin E 400 unit capsule Take 400 Units by mouth daily. omeprazole (PRILOSEC) 10 mg capsule Take 10 mg by mouth daily as needed. lisinopril (PRINIVIL;ZESTRIL) 10 mg Tablet Take 5 mg by mouth daily. 03/28/2020 aspirin 81 mg Tablet, Delayed Release (E.C.) Take 81 mg by mouth daily. 06/05/2021 fluticasone (FLONASE) 50 mcg/actuation [place], Suspension 1 spray as needed for Rhinitis. 03/28/2020 ibuprofen (ADVIL;MOTRIN) 200 mg tablet Take 200 mg by mouth every 6 hours as needed. 03/28/2020 documented as of this encounter Plan of Treatment Upcoming Encounters Date Type Department Care Team (Late st Contact Info) Description 11/02/2024 1:00 PM EST Office Visit Hematology/Oncology at [address] [phone] Gloria Beck MD [facility] DR HEMATOLOGY [place] [address] Ave Cisneros APRN [facility] HEMATOLOGY [place] [address] documented as of this encounter Procedures Procedure Name Priority Date/Time Associated Diagnosis Comments COVID-19 PCR Routine 03/10/2020 1:09 PM EDT documented in this encounter Results * COVID-19 PCR (03/10/2020 1:09 PM EDT) SARS-CoV-[address] Not Detect[address] [facility] Comment: This result should be interpreted in combination with the clinical observations, patient history and epidemiological information. For testing of asymptomatic individuals, assay performance characteristics and clinical utility have not been evaluated. Testing for SARS-CoV-2 (Severe acute respiratory syndrome coronavirus 2, formerly known as 2019 novel coronavirus or 2019-nCoV) to aid in the diagnosis of COVID-19 is performed using the Aptima SARS Co-V-2 Assay on the Sawerly System ([employer] as authorized by the FDA issued Emergency Use Authorization (EUA). This assay is intended for In-vitro Diagnostic (IVD) use with nasopharyngeal swabs collected from individuals meeting the CDC criteria for testing. The assay is performed based on the instructions for use and additional guidance provided by the FDA. Testing is performed in the Microbiology Laboratory within the Department of Pathology and Laboratory Medicine at [facility], certified under the Clinical Laboratory Improvement Amendments of 1988 (CLIA), 42 U.S.C. section 263a, to perform high-complexity tests. Assay performance has been verified according to clinical laboratory regulatory requirements. Test results are provided above. A result of Not Detected indicates that the viral RNA target is not present but does not preclude SARS-CoV-2 infection. False negative results may occur if a specimen is improperly collected, transported or handled; if amplification inhibitors are present; or if inadequate numbers of viral particles are present in the specimen. A result of Detected suggests a current or recent infection and the patient is presumed to be infected. Positive and negative predictive values for this test are highly dependent on disease prevalence. A result of Invalid indicates the inability to conclusively determine the presence or absence of SARS-CoV-2 RNA in the sample which can be due to a variety of factors. ??Collection of a new sample for repeat testing is recommended in the case of an invalid result. CDC COVID-19 criteria for testing on human specimens and clinical management guidance information are available at the CDC Coronavirus Disease 2019 (COVID-19) webpage under Information for Healthcare Professionals (https://www.cdc.gov/coronavirus/2019-ncov/hcp/index.html). SARS-CoV-2 RNA Source TOBACCO PRIMER MACHINE OPERATOR Swab [facility] Nasopharyngeal swab (specimen) Other / Unknown 03/10/2020 1:09 PM EDT 03/12/2020 3:34 PM EDT Narrative Resulting Agency Comment Spec In Lab / [facility] Americo Jimenez TEST EQUIPMENT MECHANIC MOLECULAR ORDERABLE S [facility] [place] [address] documented in this encounter Visit Diagnoses Not on filedocumented in this encounter Care Teams Bdr Relationship Specialty Start Date End Date Maria Victoria Kaur PA PCP - General Family Medicine 02/15/16 05/18/23 documented as of this encounter
--- OUTSIDE RECORDS SUMMARY | 2024-11-02 01:56 | XMS_ITS | Encounter Summary ---
Author Organization [facility] [place] [address] Care Team Providers Care Mill Operator Name Role Phone Maria Victoria Kaur Primary Care Provider [phone] Encounter Details Date Type Department Care Team (Latest Contact Info) Description 12/31/2022 Travel Social History Tobacco Use Types Packs/Day [...] 1:00 PM EST Office Visit Hematology/Oncology at [address] [phone] Gloria Beck MD [facility] DR [place] [address] [address]is[address] APRN [facility] [place] [address] documented as of this encounter Visit Diagnoses Not on filedocumented in this encounter Care Teams Mill Operator Relationship Specialty Start Date End Date Maria Victoria Kaur PA PCP - General Family Medicine 02/15/16 05/18/23 documented as of this encounter
--- OUTSIDE RECORDS SUMMARY | 2024-11-02 01:56 | XMS_ITS | Encounter Summary ---
Author Organization [facility] Address [facility] [place] [place] [address] Care Team Providers Care Culinary Arts Teacher Name Role Phone Maria Victoria Kaur Primary Care Provider [phone] Encounter Details Date Type Department Care Team (Late Contact Info) Description 02/15/2016 Orders Only Hematology [place] [address] Ramon Fitzgerald Jr., MD [facility] [place] [address] Chronic lymphocytic leukemia not having achieved remission [...] 1:00 PM EST Office Visit Hematology/Oncology at [address] [phone] [facility] DR [place] [address] [facility] [address] [place] [address] documented as of this encounter Results * Lactate Dehydrogenase (02/15/2016 2:51 PM EDT) Lactate Dehydrogenase 126 110 - 220 unit/L [facility] Blood specimen (specimen) 02/15/2016 2:51 PM EDT 02/15/2016 3:01 PM EDT Narrative Resulting Agency Comment Spec In Lab Ramon Fitzgerald Jr., MD CHEMISTRY ORDERABLES [facility] [place] [address] * Comprehensive metabolic panel (non-fasting) (02/15/2016 2:51 PM EDT) Pathologist [facility] [place] Glucose 113 65 - 199 mg/dL [facility] Comment:Diabetes: >=200 mg/d L plus symptoms Blood Urea Nitrogen 13 10 - 20 mg/dL [facility] Creatinine 1.04 0.80 - 1.50 mg/dL [facility] Comment: Please note that the pediatric reference intervals supplied above were not validated at [facility]. Results from pediatric patients should be interpreted in conjunction to the patient's age, height and muscle mass. Sodium 139 135 - 145 mmol/L [facility] Potassium 4.2 3.5 - 5.0 mmol/L [facility] Comment: Please note: ??Patients with WBC >100,000 may have falsely elevated Potassium levels. ??For accurate Potassium quantification in these patients send serum separator tube (gold top) for subsequent determinations. ??Contact the Clinical Chemistry Laboratory if there are any questions. Chloride 102 98 - 107 mmol/L [facility] Carbon Dioxide 27 22 - 31 mmol/L [facility] Anion Gap 10 5 - 15 mmol/L [facility] Calcium 9.1 8.5 - 10.5 mg/dL [facility] Protein, Total 6.8 6.1 - 8.0 gm/dL [facility] Albumin 4.0 3.2 - 5.2 gm/dL [facility] Aspartate Aminotransferase 12 0 - 39 unit/L [facility] Alanine Aminotransferase 14 0 - 55 unit/L [facility] Alkaline Phosphatase 56 40 - 120 unit/L [facility] Bilirubin, Total 0.7 0.2 - 1.3 mg/dL [facility] Bilirubin, Direct 0.2 0.0 - 0.3 mg/dL [facility] Est Glomerular Filtration Rate >60 >=60 [facility] Comment: This estimated GFR (eGFR) [...] the following links into your internet browser. [email or web address] Blood specimen (specimen) 02/15/2016 2:51 PM EDT 02/15/2016 3:01 PM EDT Narrative Resulting Agency Comment Spec In Lab Ramon Fitzgerald Jr., MD CHEMISTRY ORDERABLES [facility] [place] [address] documented in this encounter Visit Diagnoses Diagnosis Chronic lymphocytic leukemia not having achieved remission documented in this encounter Care Teams Culinary Arts Teacher Relationship Specialty Start Date End Date Maria Victoria Kaur PA PCP - General Family Medicine 02/15/16 05/18/23 documented as of this encounter
--- OUTSIDE RECORDS SUMMARY | 2024-11-02 01:56 | XMS_ITS | Encounter Summary ---
Author Organization [facility] Address [facility] [place] [address] Care Team Providers Care Accounts Receivable Representative Name Role Phone Maria Victoria Kaur Primary Care Provider [phone] Encounter Details Date Type Department Care Team (Late st Contact Info) Description 02/24/2018 11:00 AM EDT Office Visit Hematology/Oncology at [address] [phone] Gloria Beck MD [facility] DR HEMATOLOGY [place] [address] Tisha Rosales, APRIL CLL (chronic lymphocytic leukemia) Social History Tobacco [...] Sign Reading Time Taken Comments Blood Pressure 113/69 02/24/2018 11:22 AM EDT Pulse 69 02/24/2018 11:22 AM EDT Temperature 36.6 ??C (97.9 ??F) 02/24/2018 11:22 AM E DT Respiratory Rate 16 02/24/2018 11:22 AM EDT Oxygen Saturation 97% 02/24/2018 11:22 AM EDT Inhaled Oxygen Concentration - - Weight 93 kg (205 lb) 02/24/2018 11:22 AM EDT Height 173 cm (5' 8.11) 02/24/2018 11:22 AM EDT Body Mass Index 31.07 02/24/2018 11:22 AM EDT documented in this encounter Progress Notes * Gloria Beck MD - 02/24/2018 11:00 AM EDT Images from the original note were not included. Hematology Follow-Up Note Patient prefers to be called: Don Spouse/Partner: Kailey Other support: CC: 67 year old man previously seen for lymphocytosis and diagnosed with CLL. He now returns for scheduled follow up. It was a pleasure to see Mr Elizondo who was referred from Dr. Fitzgerald, when he stopped seeing outpatients and only sees inpatients now. Dr Fitzgerald followed him for a couple years for a relatively indolentCLL. He has more recently been followed at [facility]. He's doing well major findings. No B symptoms. No palpable adenopathy. He had a spot on his lung Seen at [facility]. Thought to be benign. He notes that he has been tired for a few months. He wonders if it is the lisinopril. Started lisinopril 10mg bid several mos ago. BP a bit low today - he has f/u soon. 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 No infections, B symptoms, adenopathy. - numbness in R arm thought to be secondary to R shoulder replacement that required 3 revisions in 2014. just retired and they are going across country this summer for a few months to [place] and possibly [employer]! Cancer: Presentation:?? 12/2014 incidentally discovered elevated WBC [...] pain and numbness. 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 Tree hit him in shoulder and needed R shoulder repair. Retired at age 60. X 10 years, Kailey. First at 45 from breast CA. 2 children. 3 grandchildren in [place] and [place]. Drinks a couple beers and a drink [...] mouth nightly. ??? fluticasone (FLONASE) 50 mcg/actuation [place], Suspension 1 spray as needed for Rhinitis. [...] to visit. Physical exam: Vital Signs- BP 113/69 (Patient Position: Sitting) Pulse 69 Temp 36.6 ??C (97.9 ??F) (Oral) Resp 16 Ht 173 cm (5' 8.11) Wt 93 kg (205 lb) SpO2 97% BMI 31.07 kg/m2 Gen - alert and oriented, no [...] 44.2 200 Creat 1.3 133 LFT normal Assessment: 65 year old man [...] counts remain stable since about 2013, so we will extend the visit interval to annual visits in the future. Fatique - unlikely to be related to CLL. His CLL is stable and very early disease. He feels this fatique is wofse in last 6 mos. He is going [...] No CLL intervention currently indicated. 2.RTC in one year with cbc, cmp, and ldh I discussed all of the above with the patient and all of his questions were answered. Support and counseling given as appropriate. documented in this encounter Plan of Treatment Upcoming Encounters Date Type Department Care Team (Late st Contact Info) Description 11/02/2024 1:00 PM EST Office Visit Hematology/Oncology at [address] [phone] Gloria Beck MD [facility] DR HEMATOLOGY [place] [address] Ave Cisneros, TAXI CAB DRIVER [facility] DR HEMATOLOGY [place] [address] documented as of this encounter Visit Diagnoses Diagnosis CLL (chronic lymphocytic leukemia) Chronic lymphoid leukemia, without mention of having achieved remission documented in this encounter Care Teams Accounts Receivable Representative Relationship Specialty Start Date End Date Maria Victoria Kaur PA PCP - General Family Medicine 02/15/16 05/18/23 documented as of this encounter
--- OUTSIDE RECORDS SUMMARY | 2024-11-02 01:56 | XMS_ITS | Encounter Summary ---
Author Organization [facility] Address [facility] [place] [address] Care Team Providers Care Heavy Equipment Diesel Mechanic Name Role Phone Maria Victoria Kaur Primary Care Provider [phone] Reason for Visit * Reason Comments Skin Check Encounter Details Date Type Department Care Team ([facility] st Contact Info) Description 12/31/2022 1:20 PM EDT Office Visit Dermatology at [facility] [address] [place] [phone] Dilia Fraser MD [place] (actinic keratosis); Seborrheic keratosis; Xerosis of skin; Seborrheic keratosis, inflamed; Squamous cell carcinoma in situ (SCCIS) Social History Tobacco Use Types Packs/Day Years [...] Progress Notes * Dilia Fraser MD - 12/31/2022 1:20 PM EDT Images from the original note were not included. DEPARTMENT OF DERMATOLOGY Medical Dermatology Clinic Provider: Dilia Fraser MD Patient's preferred name Blas Preferred contact method for results []?Phone []?myD-H [x]?Letter Detailed phone message OK? ?? Are there any other people with whom we may discuss your care? , Lucia ?? Past Medical History Date, location, treatment Melanoma N Dysplastic nevi N SCC N BCC N AKs N UV Exposure & Protection N Other relevant past medical history RA CLL Family History Details Melanoma N NMSC N Other relevant family history N Social History Occupation: Retired ?? Pre-Procedure Questions Details Allergy to lidocaine, epinephrine, Dermabond, chlorhexidine, or adhesives N Bleeding disorder or blood thinners N Implanted devices (Pacemaker, defibrillator, deep brain stimulator, cochlear implant) N History of Present Illness: Blas Elizondo is a 72 y.o. Patient returns to clinic today for fullskin exam including some dry, raised patches on the face he believes is more keratosis. Last visit at Dermatology: 07/25/2021 Last visit with this provider: 07/25/2021 Medications: Reviewed in eD-H Allergies: Reviewed in eD-H Skin Examination: Full skin examination: Patient asked to undress to their comfort level. Verbalized that the provider???s preference is that the patient remove all clothing and that the provider will not examine areas patient elects to keep covered. Patient elects to keep underwear on and have the following examined: scalp, hair, face, ears, neck, chest, axillae, abdomen, back, and upper and lower extremities. Genitalia and buttocks were not examined. Assessment/Plan #. 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 Treated as NMSC with LN2 - Discussed favored etiology and treatment options with patient - Joint decision to pursue LN2 x 2 to lesion. Advised to return if lesion(s) do not resolve. Procedure: Destruction of lesion(s) with cryotherapy. Location(s): As noted above Number: 1 Discussed procedure and expectations including risks and benefits. Verbal consent obtained. Treatedwith LN2. There were no complications. Patient tolerated the procedure well. Post-procedure expectations and wound care were reviewed. #. Actinic Keratosis - Scaly irregular pink papules located on right superior forehead x1, right nasal sidewall x1, left mid helix x1, left lateral canthus x1 - Discussed etiology and treatment options with patient - Joint decision to pursue LN2 x 2 to lesion. Advised to return if lesion(s) do not resolve. Procedure Note: Procedure: Destruction of lesions with cryotherapy. Number: 4 Location: as above Discussed procedure and expectations including risks (including risk of hypopigmentation) and benefits. Verbal consent obtained. Frozen with LN2, 15-30 second thaw time, TWICE. There were no complications; the patient tolerated the procedure well. Post-procedure expectations and wound care were reviewed. #. Seborrheic Dermatitis - Erythematous plaques with greasy scale involving the scalp - Discussed the pathogenesis of this condition which is thought to involve an inflammatory responseto Malasezzia furfur yeast - Due to not being bothered by symptoms, patient declines any treatment #. Seborrheic Keratoses - Scattered brown and flesh colored waxy stuck on plaques located on the trunk and extremities - Reassured of benign nature #. Xerosis Cutis - Diffuse xerosis and scaling of the extremities - Recommend moisturizer twice daily, within minutes of bathing. Recommended Cerave, Cetaphil or Vanicream or Amlactin Rapid Relief Lotion Discussed importance of sun protection (protective clothing and SPF 30+ broad- spectrum sunscreen) and sun avoidance strategies. Figure 1 Photo(s) taken and charted with patient's verbal consent. Other: ??? Reviewed and/or interpreted test results ??? Sun protection discussed (protective clothing and SPF30+ broad-spectrum sunscreen) ??? OTC skin products discussed RTC: 1 year for FSE []Note routed to press secretary [x]Recall placed in scheduling system []Appointment scheduled at checkout Scribe attestation: HERVE Barbosa has performed the documentation for this encounter inthe presence of and acting as a scribe for Dilia Fraser MD. I performed the above scribed service and agree with the accuracy of the documentation in this encounter. Reviewed and signed by: Dilia Fraser MD Dermatology [facility] Patient seen and evaluated with staff windows systems architect: Juliette Velasquez MD Dermatology [facility] * Juliette Velasquez MD - 12/31/2022 1:20 PM EDT I directly supervised the resident during this office visit. The resident physician presented the history and physical exam to me. I then saw and examined this patient with the resident. We reviewed the history and pertinent details and I confirmed the physical exam findings. I agree with the details of the history and physical exam as documented in the resident physician's note. Juliette Velasquez MD Staff Physician [facility] Dermatology documented in this encounter Plan of Treatment Upcoming Encounters Date Type Department Care Team (Late st Contact Info) Description 11/02/2024 1:00 PM EST Office Visit Hematology/Oncology at [address] [phone] Gloria Beck MD [facility] DR HEMATOLOGY [place] [address] Ave Cisneros, APRIL [facility] DR HEMATOLOGY [place] [address] documented as of this encounter Visit Diagnoses Diagnosis [place] (actinic keratosis) Actinic keratosis Seborrheic keratosis Other seborrheic keratosis Xerosis of skin Other specified disease of sebaceous glands Seborrheic keratosis, inflamed Inflamed seborrheic keratosis Squamous cell carcinoma in situ (SCCIS) documented in this encounter Care Teams Heavy Equipment Diesel Mechanic Relationship Specialty Start Date End Date Maria Victoria Kaur PA PCP - General Family Medicine 02/15/16 05/18/23 documented as of this encounter
--- OUTSIDE RECORDS SUMMARY | 2024-11-02 01:56 | XMS_ITS | Encounter Summary ---
Author Organization [facility] [place] [address] Care Team Providers Care Lard Refiner Name Role Phone Maria Victoria Kaur Primary Care Provider [phone] Encounter Details Date Type Department Care Team (Late Contact Info) Description 02/15/2016 Orders Only Hematology [place] [address] Ramon Fitzgerald Jr., MD [facility] DR HEMATOLOGY [place] [address] Social History Tobacco Use Types Packs/Day Years [...] 1:00 PM EST Office Visit Hematology/Oncology at [address] [phone] Gloria Beck MD [facility] DR HEMATOLOGY [place] [address] Ave Cisneros APRN [facility] DR HEMATOLOGY [place] [address] documented as of this encounter Visit Diagnoses Not on filedocumented in this encounter Care Teams Lard Refiner Relationship Specialty Start Date End Date Maria Victoria Kaur PA PCP - General Family Medicine 02/15/16 05/18/23 documented as of this encounter
--- OUTSIDE RECORDS SUMMARY | 2024-11-02 01:56 | XMS_ITS | Encounter Summary ---
Author Organization [facility] [place] [address] Care Team Providers Care Preschool Director Name Role Phone Maria Victoria Kaur Primary Care Provider [phone] Encounter Details Date Type Department Care Team (Latest Contact Info) Description 05/19/2023 Travel Social History Tobacco Use Types Packs/Day [...] 1:00 PM EST Office Visit Hematology/Oncology at [address] [phone] Gloria Beck MD [facility] [address] [place] [address] [address] Cisneros APRN [facility] [place] [address] documented as of this encounter Visit Diagnoses Not on filedocumented in this encounter Care Teams Preschool Director Relationship Specialty Start Date End Date Maria Victoria Kaur PA [address] [place] [address] PCP - General Family Medicine 05/19/23 documented as of this encounter
--- OUTSIDE RECORDS SUMMARY | 2024-11-02 01:56 | XMS_ITS | Encounter Summary ---
Author Organization [facility] [place] [address] Care Team Providers Care Charger Tester Name Role Phone Maria Victoria Kaur Primary Care Provider [phone] Encounter Details Date Type Department Care Team (Late Contact Info) Description 08/26/2017 Telephone Radiation Oncology at [address] [phone] Raina Rodriguez RN Social History Tobacco Use Types Packs/Day Years [...] encounter Miscellaneous Notes * Telephone Encounter - Raina Rodriguez RN - 08/26/2017 11:35 AM EST Critical labs taken and read back from [facility] lab by Precious Elizabeth RN which were reported to this rewriter. WBC - 26.27 ANC- 6.[address] Beck in person. Patient has appointment to see her today. documented in this encounter Plan of Treatment Upcoming Encounters Date Type Department Care Team (Late Contact Info) Description 11/02/2024 1:00 PM EST Office Visit Hematology/Oncology at [address] [phone] Gloria Beck MD [facility] DR HEMATOLOGY [place] [address] [address] C[address] APRN [facility] [place] [address] documented as of this encounter Visit Diagnoses Not on filedocumented in this encounter Care Teams Charger Tester Relationship Specialty Start Date End Date Maria Victoria Kaur PA PCP - General Family Medicine 02/15/16 05/18/23 documented as of this encounter
--- OUTSIDE RECORDS SUMMARY | 2024-11-02 01:56 | XMS_ITS | Encounter Summary ---
Author Organization [facility] Address [facility] [place] [address] Care Team Providers Care Linen Manager Name Role Phone Maria Victoria Kaur Primary Care Provider [phone] Reason for Visit * Reason Comments Follow-up Encounter Details Date Type Department Care Team (Late st Contact Info) Description 08/15/2016 4:00 PM EST Office Visit Hematology and Oncology at [place] [phone] Ramon Fitzgerald Jr., MD [facility] DR HEMATOLOGY [place] [address] Fawad Hurt MD [facility] HEMATOLOGY/[place] [address] CLL (chronic lymphocytic leukemia) Social History Tobacco [...] Sign Reading Time Taken Comments Blood Pressure 144/79 08/15/2016 4:13 PM EST Pulse 65 08/15/2016 4:13 PM EST Temperature 36.4 ??C (97.5 ??F) 08/15/2016 4:13 PM ES T Respiratory Rate 17 08/15/2016 4:13 PM EST Oxygen Saturation 97% 08/15/2016 4:13 PM EST Inhaled Oxygen Concentration - - Weight 93.8 kg (206 lb 12.8 oz) 08/15/2016 4:13 PM EST Height 175 cm (5' 8.9) 08/15/2016 4:13 PM EST Body Mass Index 30.63 08/15/2016 4:13 PM EST documented in this encounter Progress Notes * Fawad Hurt T - 08/15/2016 4:00 PM EST Images from the original note were not included. Hematology Follow-Up Note CC: 65 year old man previously seen for lymphocytosis and diagnosed with CLL. He now returns for scheduled follow up. Interval History: -he was seen 6 months ago and no issues -no recent infections -no lymph adenopathy Cancer: Presentation:?? 12/2014 incidentally discovered elevated WBC [...] surgery held off due to high wbc Review of Systems: Gen - no fevers, [...] mouth nightly. ??? fluticasone (FLONASE) 50 mcg/actuation [place], Suspension 1 spray as needed for Rhinitis. [...] to visit. Physical exam: Vital Signs- BP 144/79 (Patient Position: Sitting) Pulse 65 Temp 36.4 ??C (97.5 ??F) (Temporal) Resp 17 Ht 175 cm (5' 8.9) Wt 93.8 kg (206 lb 12.8 oz) SpO2 97% BMI 30.63 kg/m2 Gen - alert and oriented, no [...] lesions Heme - no palpable lymphadenopathy Labs: WBC 23K Hgb 15s PLTs 215 IgG level 520 BMP an FTs WNL Assessment: 65 year old man with CLL and continues to have not indciations to treat (infections, cytopenias, or lymph adenopathy). Will have patient return to clinic in 6 months. Plan: 1. No CLL intervention currently indicated. 2.RTC in 6 months * Ramon Fitzgerald MD - 08/15/2016 4:00 PM EST Hematology Staff Addendum- I have seen and examined the patient and reviewed all clinical, laboratory and radiographic data with Dr. Hurt. I concur with the findings, assessment and plan as outlined in his note from this date.Blas continues to manifest stable CLL, with no current change in status per assessment today to warrant intervention. We have reassured him, and he will RTC in 6 months for his next scheduled follow up. He knows to call in the interim for any noted status change. ENRIKE Fitzgerald MD Heme/Onc Section documented in this encounter Plan of Treatment Upcoming Encounters Date Type Department Care Team (Late st Contact Info) Description 11/02/2024 1:00 PM EST Office Visit Hematology/Oncology at [address] [phone] Gloria Beck MD [facility] DR HEMATOLOGY [place] [address] [address] Cisneros APRN [facility] DR [place] [address] documented as of this encounter Visit Diagnoses Diagnosis CLL (chronic lymphocytic leukemia) Chronic lymphoid leukemia, without mention of having achieved remission documented in this encounter Care Teams Linen Manager Relationship Specialty Start Date End Date Maria Victoria Kaur PA PCP - General Family Medicine 02/15/16 05/18/23 documented as of this encounter
--- OUTSIDE RECORDS SUMMARY | 2024-11-02 01:56 | XMS_ITS | Encounter Summary ---
Author Organization [facility] [place] [address] Care Team Providers Care Unified Communications Engineer Name Role Phone Maria Victoria Kaur Primary Care Provider [phone] Encounter Details Date Type Department Care Team (Latest Contact Info) Description 10/29/2022 Travel Social History Tobacco Use Types Packs/Day [...] 1:00 PM EST Office Visit Hematology/Oncology at [address] [phone] Gloria Beck MD [facility] DR HEMATOLOGY [place] [address] [address]is[address] APRN [facility] HEMATOLOGY [place] [address] documented as of this encounter Visit Diagnoses Not on filedocumented in this encounter Care Teams Unified Communications Engineer Relationship Specialty Start Date End Date Maria Victoria Kaur PA PCP - General Family Medicine 02/15/16 05/18/23 documented as of this encounter
--- OUTSIDE RECORDS SUMMARY | 2024-11-02 01:56 | XMS_ITS | Encounter Summary ---
Author Organization [facility] Address [facility] [place] [address] Care Team Providers Care Layout Designer Name Role Phone Nissa Wise MD Primary Care Provider Reason for Visit * Reason Comments Schedule Office Case Encounter Details Date Type Department Care Team (Late st Contact Info) Description 10/12/2015 4:00 PM EST Office Visit Hematology [place] [phone] Ramon Fitzgerald Jr., MD [facility] DR HEMATOLOGY [place] [address] Chronic lymphocytic leukemia not having achieved remission [...] Sign Reading Time Taken Comments Blood Pressure 138/75 10/12/2015 3:48 PM EST Pulse 69 10/12/2015 3:48 PM EST Temperature 36.9 ??C (98.4 ??F) 10/12/2015 3 :48 PM EST Respiratory Rate 18 10/12/2015 3:48 PM EST Oxygen Saturation 96% 10/12/2015 3:4 8 PM EST Inhaled Oxygen Concentration - - Weight 89.2 kg (196 lb 10.4 oz) 016 3:48 PM EST with shoes Height 173 cm (5' 8.11) 10/12/2015 3:4 8 PM EST Body Mass Index 29.8 10/12/2015 3:48 PM EST documented in this encounter Progress Notes * Ramon Fitzgerald MD - 10/12/2015 5:03 PM EST Images from the original note were not included. Hematology Follow-Up Note CC: 65 year old man previously seen for lymphocytosis and diagnosed with CLL. He now returns for scheduled follow up. Problem List: Patient Active Problem List Diagnosis ??? Syrinx of spinal cord Followed by neurosurgery at [facility], stable, no surgery ??? Lymphocytosis ??? Hand [...] he subsequently underwent this procedure without noted complications per his account today. In other respects since his last visit, he denies any recurrent sino-pulmonary or other infections, drenching night sweats, unexplained weight loss, adenopathy or early satiety. No constitutional symptoms, and he has remained overall in good health. Review of Systems: [...] to Visit Medication Sig Dispense Refill ??? fluticasone (FLONASE) 50 mcg/actuation [place], Suspension 1 spray as needed for Rhinitis. [...] to visit. Physical exam: Vital Signs- BP 138/75 mmHg Pulse 69 Temp(Src) 36.9 ??C (98.4 ??F) (Temporal) Resp 18 Ht 173 cm (5' 8.11) Wt 89.2 kg (196 lb 10.4 oz) BMI 29.80 kg/m2 SpO2 96% Gen - alert and oriented, no distress, conversant Eyes - pupils equal and reactive to light, no conjunctival injection or discharge Mouth - oropharynx clear, no mucositis, normal tongue and lips Neck - no cervical lymphadenopathy, masses, or stiffness Heart - RRR, no murmurs or rubs, no palpable thrill, normal pulses Lungs - clear to auscultation bilaterally, no wheezes or crackles, breathing symmetrical with no retractions or accessory muscle use Abdomen - no hepatosplenomegaly, no masses, soft, non-tender, non-distended, normal bowel sounds Extremities - no LE edema, normal perfusion, no clubbing or cyanosis Musculoskeletal - normal (5/5) strength and tone in arms and legs, normal gait, mobile with normal range of motion of joints Neuro - normal cranial nerves, no sensory or cerebellar deficits noted Skin - no rashes or lesions on visible skin, warm and dry Heme - no lymphadenopathy in cervical, axillary or groin; no petechiae or bruising Labs: Ref. Range 10/12/2015 14:20 WBC Latest Ref Range: 4.0-10.0 x10(3)/mcL 18.9 (H) RBC Latest Ref Range: 4.63-6.08 x10(6)/mcL 5.41 Hemoglobin Latest Ref Range: 13.7-17.5 gm/dL 16.9 Hematocrit Latest Ref Range: 40.0-51.0 % 49.5 MCV Latest Ref Range: 79.0-92.0 fL 91.5 MCH Latest Ref Range: 25.6-32.2 pg 31.2 MCHC Latest Ref Range: 32.0-36.5 gm/dL 34.1 RDWSD Latest Ref Range: 35.0-46.0 fL 53.6 (H) RDWCV Latest Ref Range: 10.9-14.4 % 16.1 (H) Platelets Latest Ref Range: 145-370 x10(3)/mcL 259 MPV Latest Ref Range: 9.0-12.0 fL 11.2 Neutr Abs (ANC) Latest Ref Range: 1.50-6.30 x10(3)/mcL 5.13 Neutrophils % Latest Units: % 27.2 Immature Gran % Latest Units: % 0.30 Lymphocytes % Latest Units: % 64.1 Monocytes % Latest Units: % 5.8 Eosinophils % Latest Units: % 2.4 Basophils % Latest Units: % 0.2 Amberly Gran Abs Latest Ref Range: 0.00-0.05 x10(3)/mcL 0.05 Lymphocytes Abs Latest Ref Range: 1.0-3.6 x10(3)/mcL 12.1 (H) Monocyte Abs Latest Ref Range: 0.2-1.0 x10(3)/mcL 1.1 (H) Eosinophils Abs Latest Ref Range: 0.0-0.5 x10(3)/mcL 0.5 Basophils Abs Latest Ref Range: 0.0-0.2 x10(3)/mcL 0.0 Plat Estimate Unknown Normal RBC Morphology Unknown Normal Sodium Latest Ref Range: 135-145 mmol/L 143 Potassium Latest Ref Range: 3.5-5.0 mmol/L 4.3 Chloride Latest Ref Range: 98-107 mmol/L 105 CO2 Latest Ref Range: 22-31 mmol/L 25 Anion Gap Latest Ref Range: 5-15 mmol/L 13 BUN Latest Ref Range: 10-20 mg/dL 16 Creatinine Latest Ref Range: 0.80-1.50 mg/dL 0.97 Estimated GFR Latest Ref Range: >=60 >60 Glucose Lvl Latest Ref Range: 65-199 mg/dL 111 Calcium Latest Ref Range: 8.5-10.5 mg/dL 9.5 Total Protein Latest Ref Range: 6.1-8.0 gm/dL 7.0 Albumin Latest Ref Range: 3.2-5.2 gm/dL 4.2 Total Bilirubin Latest Ref Range: 0.2-1.3 mg/dL 0.4 Bili, Direct Latest Ref Range: 0.0-0.3 mg/dL 0.1 Alk Phos Latest Ref Range: 40-120 unit/L 52 AST Latest Ref Range: 0-39 unit/L 18 ALT Latest Ref Range: 0-55 unit/L 13 LDH Latest Ref Range: 110-220 unit/L 145 Assessment: 65 year old man with CLL and no noted status change since his last visit. He is overallwell, and there is no indication for CLL therapy at this point in time. Based on Don's status todayhe will return in another 4 months, and he knows to call in the interim for any noted status change. Plan: 1. No CLL intervention currently indicated. 2. RTC in 4 months with repeat labs, exam and review of overall status. If no status change at the January 2016 and May 2016 visits, will increase f/u interval to 6 months. 3. Follow up sooner as nec. Ramon Fitzgerald Jr., M.D. Section of Hematology/Oncology CC: Nissa Wise M.D. (PCP) documented in this encounter Plan of Treatment Upcoming Encounters Date Type Department Care Team (Late st Contact Info) Description 11/02/2024 1:00 PM EST Office Visit Hematology/Oncology at [address] [phone] Gloria Beck MD [facility] DR HEMATOLOGY [place] [address] [address]isner[address] APRN [facility] DR HEMATOLOGY [place] [address] documented as of this encounter Visit Diagnoses Diagnosis Chronic lymphocytic leukemia not having achieved remission documented in this encounter Care Teams Layout Designer Relationship Specialty Start Date End Date Nissa Wise MD [address] [place] [address] PCP - General 03/17/14 02/14/16 documented as of this encounter
--- OUTSIDE RECORDS SUMMARY | 2024-11-02 01:56 | XMS_ITS | Encounter Summary ---
Author Organization [facility] Address [facility] [place] [address] Care Team Providers Care Produce Weigher Name Role Phone Maria Victoria Kaur Primary Care Provider [phone] Encounter Details Date Type Department Care Team (Late Contact Info) Description 01/03/2019 Orders Only Hematology/Oncology at [address] [phone] Gloria Beck MD [facility] [place] [address] CLL (chronic lymphocytic leukemia) Social History Tobacco [...] 1:00 PM EST Office Visit Hematology/Oncology at [address] [phone] Gloria Beck MD [facility] [place]OLOG[place] [address] [address] Cisneros APRN [facility] DR [place] [address] documented as of this encounter Visit Diagnoses Diagnosis CLL (chronic lymphocytic leukemia) Chronic lymphoid leukemia, without mention of having achieved remission documented in this encounter Care Teams Produce Weigher Relationship Specialty Start Date End Date Maria Victoria Kaur PA PCP - General Family Medicine 02/15/16 05/18/23 documented as of this encounter
--- OUTSIDE RECORDS SUMMARY | 2024-11-02 01:56 | XMS_ITS | Encounter Summary ---
Author Organization [facility] [place] [address] Care Team Providers Care Primary Products Inspectors Name Role Phone Maria Victoria Kaur Primary Care Provider [phone] Encounter Details Date Type Department Care Team (Late Contact Info) Description 06/04/2021 Telephone Hematology/Oncology at [address] [phone] Pascale Singh RN Social History Tobacco Use Types Packs/Day [...] Telephone Encounter - Pascale Singh RN - 06/04/2021 3:32 PM EDT Critical WBC called from [facility] 31.19. slightly lower than last WBC. Labs entered and Dr. Beck/Tisha Rosales APRN updated by this note. documented in this encounter Plan of Treatment Upcoming Encounters Date Type Department Care Team (Late Contact Info) Description 11/02/2024 1:00 PM EST Office Visit Hematology/Oncology at [address] [phone] Gloria Beck MD [facility] DR HEMATOLOGY [place] [address] [address] Cisneros, SEISMOGRAPHER [facility] HEMATOLOGY [place] [address] documented as of this encounter Procedures Procedure Name Priority Date/Time Associated Diagnosis Comments CBC (WITH DIFF) Routine 06/04/2021 documented in this encounter Results * CBC (with Diff) (06/04/2021) White Blood Cell 31.19 Hemoglobin 14.4 Hematocrit 44.6 Platelet 205 Neutrophil Absolute (ANC) - Automated 4.31 Blood 06/04/2021 Gloria Beck MD HEMATOLOGY ORDER CHASE documented in this encounter Visit Diagnoses Not on filedocumented in this encounter Care Teams Primary Products Inspectors Relationship Specialty Start Date End Date Maria Victoria Kaur PA PCP - General Family Medicine 02/15/16 05/18/23 documented as of this encounter
--- OUTSIDE RECORDS SUMMARY | 2024-11-02 01:56 | XMS_ITS | Encounter Summary ---
Author Organization [facility] [place] [address] Care Team Providers Care Director Risk Name Role Phone Maria Victoria Kaur Primary Care Provider [phone] Reason for Visit * Diagnostic Test (Routine) - Closed Specialty Diagnoses / Procedures Referred By Cristy lujan Referred To Contact Radiology Diagnoses Unspecified abnormalities of gait and mobility Procedures NM Brain Imaging for Parkinsons Disease Sanford James MD [address] [place] [address] [place] [address] Referral ID Status Reason Start Date Expiration Date V isits Requested Visits Authorized [id number] Closed Specialty Service Requested 03/17/2023 09/16/2024 1 1 Encounter Details Date Type Department Care Team (Latest Contact Info) Description 05/19/2023 12:08 PM EDT - 05/19/2023 11:59 PM EDT Hospital Encounter [place] [address] Sanford James MD [address] [place] [address] [place] [address] Discharge Disposition: Home Social History Tobacco Use [...] Dispensed Refills Start Date End Date vitamin D3-folic acid 125 mcg (5,000 unit)-1 mg Tablet Take by mouth. gabapentin (Neurontin) 300 mg Capsule Take 300 mg by mouth 2 times daily. triamcinolone (KENALOG) 0.025 % Cream Apply topically 2 times daily. tamsulosin (Flomax) 0.4 mg Capsule Take 0.4 [...] 10 mg by mouth daily as needed. documented as of this encounter Plan of Treatment Upcoming Encounters Date Type Department Care Team (Late st Contact Info) Description 11/02/2024 1:00 PM EST Office Visit Hematology/Oncology at [address] [phone] Gloria Beck MD [facility] HEMATOLOGY [place] [address] [address] Cisneros APRN [facility] DR HEMATOLOGY [place] [address] documented as of this encounter Procedures Procedure Name Priority Date/Time Associated Diagnosis Comments NM BRAIN IMAGING FOR PARKINSONS DISEASE Routine 05/19/2023 3:30 PM EDT Unspecified abnormalities of gait and mobility documented in this encounter Results * NM Brain Imaging for Parkinsons Disease (05/19/2023 3:30 PM EDT) Anatomical Region Laterality Modality Nuclear Medicine Impressions 05/19/2023 4:07 PM EDT Findings consistent with Parkinsonian syndrome. I have personally reviewed the image(s) and the resident's interpretation and agree with the findings, Kenan Encinas MD at 05/19/2023 4:07 PM Thank you for letting us participate in the care of this patient. ??If you are a health care provider and have any questions regarding this report, please contact the number below. ??For patients who have questions please contact the health career coordinator that requested your imaging first. ? Narrative 05/19/2023 4:07 PM EDT EXAMINATION: NM BRAIN IMAGING FOR PARKINSONS DISEASE CLINICAL HISTORY: unspecified abnormalities of gait and mobility TECHNIQUE: Pretreatment with oral potassium iodide was given. Following this, I-123 ioflupane was administered intravenously in a dose of 4.3 mCi. Four hours later, tomographic imaging of the brain was performed with images reconstructed in the axial, sagittal and coronal planes COMPARISON: None FINDINGS: Severely decreased metabolic activity within the putamen and caudate bilaterally. Procedure Note Kenan Encinas MD - 05/19/2023 EXAMINATION: NM BRAIN IMAGING FOR PARKINSONS DISEASE CLINICAL HISTORY: unspecified abnormalities of gait and mobility TECHNIQUE: Pretreatment with oral potassium iodide was given. Followingthis, I-123 ioflupane was administered intravenously in a dose of 4.3 mCi. Fourhours later, tomographic imaging of the brain was performed with imagesreconstructed in the axial, sagittal and coronal planes COMPARISON: None FINDINGS: Severely decreased metabolic activity within the putamen and caudate bilaterally. IMPRESSION Findings consistent with Parkinsonian syndrome. I have personally reviewed the image(s) and the resident's interpretationand agree with the findings, Kenan Encinas MD at 05/19/2023 4:07 PM Thank you for letting us participate in the care of this patient. If youare a health care provider and have any questions regarding this report,please contact the number below. For patients who have questions please contactthe health career coordinator that requested your imaging first. Sanford James MD [facility] [place] ORDERABLES documented in this encounter Visit Diagnoses Not on filedocumented in this encounter Care Teams Director Risk Relationship Specialty Start Date End Date Maria Victoria Kaur PA [address] [place] [address] PCP - General Family Medicine 05/19/23 documented as of this encounter
--- OUTSIDE RECORDS SUMMARY | 2024-11-02 01:56 | XMS_ITS | Encounter Summary ---
Author Organization [facility] Address [facility] [place] [address] Care Team Providers Care Acupuncture Physician Name Role Phone Maria Victoria Kaur Primary Care Provider [phone] Encounter Details Date Type Department Care Team (Late st Contact Info) Description 01/15/2022 11:30 AM EDT Office Visit Hematology/Oncology at [address] [phone] Gloria Beck MD [facility] DR HEMATOLOGY [place] [address] [address] Cisneros APRN [facility] [address] HEMATOLOGY [place] [address] CLL (chronic lymphocytic leukemia) Social History Tobacco [...] Sign Reading Time Taken Comments Blood Pressure 146/84 01/15/2022 11:35 AM EDT Pulse 74 01/15/2022 11:35 AM EDT Temperature 37.2 ??C (99 ??F) 01/15/2022 11:35 AM EDT Respiratory Rate 16 01/15/2022 11:35 AM EDT Oxygen Saturation 97% 01/15/2022 11:35 AM EDT Inhaled Oxygen Concentration - - Weight 103 kg (227 lb) 01/15/2022 11:35 AM EDT Height 172.7 cm (5' 7.99) 01/15/2022 11:35 AM E DT Body Mass Index 34.52 01/15/2022 11:35 AM EDT documented in this encounter Progress Notes * Gloria Beck MD - 01/15/2022 11:30 AM EDT Images from the original note [...] He has more recently been followed at [facility]. He's doing well major findings. 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 Notes improvement in sx.Overall less fatique since last visit. Denies B symptoms, adenopathy. R carpal tunnel repaired w/ resolution of finger/hand numbness Reports progressive fatigue. He reports that his PSA was elevated and he has a biopsy next week. [facility] continues to struggle with his arthritis. CLL is extremely stable with preserved hemoglobin, and his white count has been stable for the last 2 to 3 years in the 30k range. I doubt that his fatigue is related to his CLL, as this remains quite early stage. Cancer: Presentation:?? 12/2014 incidentally discovered elevated WBC [...] pain and numbness. 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 Tree hit him in shoulder and needed R shoulder repair. Retired at age 60. X 10 years, [place]. First at 45 from breast [place]. 2 children. 3 grandchildren in [place] and [place]. Drinks a couple beers and a drink or 2 each evening'.More active in past. Encouraged less alcohol and TV and more exercise. Review of Systems: Gen - no fevers, chills, sweats, weight loss, +fatigue gettting worse Eyes- no vision changes, pain or redness [...] in urine, or inability to void. Skin -negative (has seen derm) MS - arthritis Neuro - no focal weakness, no numbness or tingling Heme - no bleeding, bruising, or lymphadenopathy Insomnia - poor sleep and sounds like poor sleep habits. Allergies: Patient has no known allergies. Medications: Current Outpatient Medications on File Prior to Visit Medication Sig Dispense Refill ??? tamsulosin (Flomax) 0.4 mg Capsule Take 0.4 mg by mouth daily. ??? potassium (POTASSIMIN ORAL) Take by mouth. ??? psyllium husk (METAMUCIL ORAL) Take by mouth. ??? fluticasone/umeclidin/vilanter (TRELEGY ELLIPTA INHL) Inhale into [...] needed for Wheezing. Use with spacer ??? Calcium Carbonate 600 mg calcium (1,500 mg) Tablet Take 1 tablet by mouth daily. ??? multivitamin (THERAGRAN) Tablet Take 1 tablet by mouth daily. ??? melatonin 5 mg Tablet Take 10 mg by mouth nightly. ??? vitamin E 400 unit capsule Take 400 Units by mouth daily. ??? omeprazole (PRILOSEC) 10 mg capsule Take 10 mg by mouth daily as needed. ??? acetaminophen (Tylenol) 500 mg Tablet Take 500 mg by mouth every 6 hours as needed for Pain. ??? [DISCONTINUED] Psyllium Seed-Sucrose (0) Powder Take by mouth. No current facility-administered medications on file prior to visit. Physical exam: Vital Signs- BP 146/84 (Patient Position: Sitting) Pulse 74 Temp 37.2 ??C (99 ??F) (Temporal) Resp 16 Ht172.7 cm (5' 7.99) Wt 103 kg (227 lb) SpO2 97% BMI 34.52 kg/m?? Gen - alert and oriented, no [...] rash or lesions Heme - no palpable LN. LABS: No results found for this or any previous visit (from the past 72 hour(s)). 01/06/22 00:00 WBC 32.8 (E) Hemoglobin 15.0 (E) Hematocrit 46.1 (E) Platelets 202 (E) Neutr Abs (ANC) 4.32 (E) Creatinine 1.47 (E) date wbc anc hgb hct plat ldh [...] man with CLL and continues to have no indciations to treat (infections, cytopenias, or lymph [...] fatiqe which I suspect is multifactorial. He also reports DILLON with activity around the house. I wonder if he is depressed as well. He is going to discuss with his primary physician. 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 IVIG supplementation only if frequent or severe infections. No antiotics prescribed in the last 6 mos. Prostate- reports that he has an elevated PSA of about 6. He is scheduled for prostate biopsy in the near future. Skin - he has some skin lesions on face and ear that looks like AK or possibly early BCC versus SCC. We know that patients with CLL have an increased incidence of nonmelanoma skin cancers. He sees derm regularly now at [facility]. Given that his CLL has been so stable for the last 3 years, I think we can extend the interval of his appointments to which 8- 9 months. If his CLL remains stable, I think we can consider extending his visits to every 12 months after we see him next. Plan: 1. No CLL intervention currently indicated. 2. RTC in 8-9 mos with cbc, cmp, ldh, quant ig. I discussed all of the above with the patient and all of his questions were answered. Support and counseling given as appropriate. documented in this encounter Plan of Treatment Upcoming Encounters Date Type Department Care Team (Late st Contact Info) Description 11/02/2024 1:00 PM EST Office Visit Hematology/Oncology at [address] [phone] Gloria Beck MD [facility] DR HEMATOLOGY [place] [address] [address] Cisneros APRN [facility] HEMATOLOGY [place] [address] documented as of this encounter Visit Diagnoses Diagnosis CLL (chronic lymphocytic leukemia) Chronic lymphoid leukemia, without mention of having achieved remission documented in this encounter Care Teams Acupuncture Physician Relationship Specialty Start Date End Date Maria Victoria Kaur PA PCP - General Family Medicine 02/15/16 05/18/23 documented as of this encounter
--- OUTSIDE RECORDS SUMMARY | 2024-11-02 01:56 | XMS_ITS | Encounter Summary ---
Author Organization [facility] [place] [address] Care Team Providers Care Livestock Caretaker Name Role Phone Maria Victoria Kaur Primary Care Provider [phone] Reason for Visit * Diagnostic Test (Routine) - Closed Specialty Diagnoses / Procedures Referred By Cristy lujan Referred To Contact Radiology Diagnoses Unspecified abnormalities of gait and mobility Procedures NM Brain Imaging for Parkinsons Disease Sanford James MD [address] [place] [address] [place] [address] Referral ID Status Reason Start Date Expiration Date V isits Requested Visits Authorized [id number] Closed Specialty Service Requested 03/17/2023 09/16/2024 1 1 Encounter Details Date Type Department Care Team (Latest Contact Info) Description 05/19/2023 8:57 AM EDT - 05/19/2023 12:07 PM EDT Hospital Encounter [place] [address] Sanford James MD [address] [place] [address] [place] [address] Discharge Disposition: Home Social History Tobacco Use [...] 1:00 PM EST Office Visit Hematology/Oncology at [address] [phone] Gloria Beck MD [facility] [place] [address] [address] Cisneros APRN [facility] DR [place] [address] documented as of this encounter Procedures Procedure Name Priority Date/Time Associated Diagnosis Comments NM BRAIN IMAGING FOR PARKINSONS DISEASE Routine 05/19/2023 3:30 PM EDT Unspecified abnormalities of gait and mobility documented in this encounter Visit Diagnoses Not on filedocumented in this encounter Administered Medications Inactive Administered Medications - up to 3 most recent administrations Medication Order MAR Action Action Date Dose Rate Site ioflupane (I-123) (DATSCAN) injection 0-6 mCi 0-6 mCi, Intravenous, ONCE PRN, 1 dose, Starting on Thu05/19/23 at 1057, Until Thu05/19/23 at 1055, Per Protocol, Radiology Contrast, Routine Given 05/19/2023 10:55 AM EDT 4.3 mCi Right Arm documented in this encounter Care Teams Livestock Caretaker Relationship Specialty Start Date End Date Maria Victoria Kaur PA [address] [place] [address] PCP - General Family Medicine 05/19/23 documented as of this encounter
--- OUTSIDE RECORDS SUMMARY | 2024-11-02 01:56 | XMS_ITS | Encounter Summary ---
Author Organization [facility] Address [facility] [place] [address] Care Team Providers Care Photographic Processor Name Role Phone Maria Victoria Kaur Primary Care Provider [phone] Encounter Details Date Type Department Care Team (Late st Contact Info) Description 10/31/2020 10:30 AM EST Office Visit Hematology/Oncology at [address] [phone] Gloria Beck MD [facility] DR HEMATOLOGY [place] [address] Tisha Rosales, APRIL CLL (chronic lymphocytic leukemia) [...] Sign Reading Time Taken Comments Blood Pressure 160/84 10/31/2020 10:41 AM EST Pulse 83 10/31/2020 10:41 AM EST Temperature 36.7 ??C (98.1 ??F) 10/31/2020 1 0:41 AM EST Respiratory Rate 20 10/31/2020 10:4 1 AM EST Oxygen Saturation 96% 10/31/2020 10: 41 AM EST Inhaled Oxygen Concentration - - Weight 103.1 kg (227 lb 3.2 oz) 021 10:41 AM EST Height 172.7 cm (5' 8) 10/31/2020 10:4 1 AM EST Body Mass Index 34.55 10/31/2020 10:41 AM EST documented in this encounter Progress Notes * Tisha Rosales, MANAGER LIFE - 10/31/2020 10:30 AM EST Subjective: Patient ID: Blas Elizondo is a 70 y.o. male here for f/u of CLL Patient Active Problem List Diagnosis ??? CLL (chronic lymphocytic leukemia) Dx incidentally in 05/2015, CD38 and zap 70 negative. Cytogenetics have not been done. No treatment thus far ??? Syrinx of spinal cord Followed by neurosurgery at [facility], stable, no surgery ??? Lymphocytosis ??? Hand numbness Carpal tunnel ??? Glenohumeral arthritis ??? Herniation of intervertebral disc between L4 and L5 with surgical intervention HPI Blas is doing OK - he was recently diagnosed with arthritis. He is being treated with a new pill that he takes once a day. He does think it is helping. He is not sure what it is called. He still istired at times. It is about the same as it has been. His sleep varies. He does nap when he needs it. 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 He believes he had 1 infection since he was last seen which was treated with abx. He also has a new inhaler. Denies any new lumps or bumps, no drenching night sweats. Review of Systems Constitutional: Negative. HENT: Negative. Eyes: Negative. Respiratory: Negative. Negative for cough and shortness of breath. Cardiovascular: Negative. Negative for chest pain, palpitations and leg swelling. Gastrointestinal: Negative. Negative for constipation, diarrhea, nausea and vomiting. Genitourinary: Negative. Musculoskeletal: Positive for arthralgias. As above Skin: Negative. Neurological: Negative. Negative for weakness and numbness. Hematological: Negative. Psychiatric/Behavioral: Negative. Objective: Physical Exam Constitutional: General: He is not in acute distress. Appearance: He is well-developed. Comments: He has gained some weight which he attributes to COvid 19 restrictions and less overall activity HENT: Mouth/Throat: Pharynx: No oropharyngeal exudate. Eyes: Conjunctiva/sclera: Conjunctivae normal. Pupils: Pupils are equal, round, and reactive to light. Neck: Musculoskeletal: Normal range of motion and neck supple. Cardiovascular: Rate and Rhythm: Normal rate and regular rhythm. Heart sounds: Normal heart sounds. No murmur. Pulmonary: Effort: Pulmonary effort is normal. Breath sounds: Normal breath sounds. No wheezing or rales. Abdominal: General: Bowel sounds are normal. Palpations: Abdomen is soft. There is no mass. Tenderness: There is no guarding or rebound. Musculoskeletal: Normal range of motion. Lymphadenopathy: Cervical: No cervical adenopathy. Upper Body: Right upper body: No supraclavicular adenopathy. Left upper body: No supraclavicular adenopathy. Skin: General: Skin is warm and dry. Neurological: Mental Status: He is alert and oriented to person, place, and time. Recent Results (from the past 72 hour(s)) CBC (with Diff) Result Value Ref Range WBC 33.38 Hemoglobin 15.1 Hematocrit 45.2 Platelets 195 Neutr Abs (ANC) 6.21 Creatinine 1.1 BP 160/84 (Patient Position: Sitting) Pulse 83 Temp 36.7 ??C (98.1 ??F) (Temporal) Resp 20 Ht 172.7 cm (5' 8) Wt 103.1 kg (227 lb 3.2 oz) SpO2 96% BMI 34.55 kg/m?? Assessment and Plan: Blas is a 70 year old man with CLL - diagnosed incidentally in 2014. No treatment to date. Countsstable, No worrisome or symptomatic adenoapthy. No B symptoms, ALC doubling time is approx 6 years., No recurrent infections, no signs of AIHA or ITP. No concern for transformation. No indication for treatment at this time. Reviewed CLL and indications for therapy, Also reviewed inherent increase risk for infection. Influenza = UTD Pneumococcal - UTD He is scheduled for his first COVID 19 vaccine next month! Plan: We will continue to monitor in hematology clinic. Reviewed CLL and indications for treatment.Blas will return to hematology in 6 months. he will call if there are any problems before then. documented in this encounter Plan of Treatment Upcoming Encounters Date Type Department Care Team (Late st Contact Info) Description 11/02/2024 1:00 PM EST Office Visit Hematology/Oncology at [address] [phone] Gloria Beck MD [facility] HEMATOLOGY [place] [address] [address] Cisneros APRN [facility] HEMATOLOGY [place] [address] documented as of this encounter Procedures Procedure Name Priority Date/Time Associated Diagnosis Comments CBC (WITH DIFF) Routine 10/31/2020 documented in this encounter Results * CBC (with Diff) (10/31/2020) White Blood Cell 33.38 Hemoglobin 15.1 Hematocrit 45.2 Platelet 195 Neutrophil Absolute (ANC) - Automated 6.21 Creatinine 1.1 Blood 10/31/2020 Historical Provider HEMATOLOGY ORDERA BLES documented in this encounter Visit Diagnoses Diagnosis CLL (chronic lymphocytic leukemia) Chronic lymphoid leukemia, without mention of having achieved remission documented in this encounter Care Teams Photographic Processor Relationship Specialty Start Date End Date Maria Victoria Kaur PA PCP - General Family Medicine 02/15/16 05/18/23 documented as of this encounter
--- OUTSIDE RECORDS SUMMARY | 2024-11-02 01:56 | XMS_ITS | Encounter Summary ---
Author Organization [facility] Address [facility] [place] [address] Care Team Providers Care Electrical Assembler Name Role Phone Maria Victoria Kaur Primary Care Provider [phone] Encounter Details Date Type Department Care Team (Late st Contact Info) Description 02/25/2017 12:00 PM EDT Office Visit Hematology/Oncology at [address] [phone] Gloria Beck MD [facility] DR [place] [address] CLL (chronic lymphocytic leukemia) Social History Tobacco [...] Sign Reading Time Taken Comments Blood Pressure 138/87 02/25/2017 11:56 AM EDT Pulse 74 02/25/2017 11:56 AM EDT Temperature 36.5 ??C (97.7 ??F) 02/25/2017 11:56 AM E DT Respiratory Rate 16 02/25/2017 11:56 AM EDT Oxygen Saturation 98% 02/25/2017 11:56 AM EDT Inhaled Oxygen Concentration - - Weight 94.3 kg (208 lb) 02/25/2017 11:56 AM EDT Height 175 cm (5' 8.9) 02/25/2017 11:56 AM EDT Body Mass Index 30.81 02/25/2017 11:56 AM EDT documented in this encounter Progress Notes * Gloria Beck MD - 02/25/2017 12:00 PM EDT Images from the original note were not included. Hematology Follow-Up Note CC: 65 year old man previously seen for lymphocytosis and diagnosed with CLL. He now returns for scheduled follow up. It was a pleasure to meet Mr Elizondo who was referred from Dr. Fitzgerald, when he stopped seeing outpatients and only sees inpatients now. Feels followed him for a couple years for a relatively indolent CLL. He comes in Today for his first visit [facility]. He's doing well major findings. No B symptoms. No palpable adenopathy. Interval History: -he was seen 6 months ago and no issues -no recent infections -no lymph adenopathy - [...] pain and numbness. 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 Tree hit him in shoulder and needed R shoulder repair. Retired at age 60. X 10 years, [employer]. First at 45 from breast [place]. 2 children. 3 grandchildren in [place] and [place]. Drinks a couple beers and a drink [...] mouth nightly. ??? fluticasone (FLONASE) 50 mcg/actuation [place], Suspension 1 spray as needed for Rhinitis. [...] to visit. Physical exam: Vital Signs- BP 138/87 (Patient Position: Sitting) Pulse 74 Temp 36.5 ??C (97.7 ??F) (Oral) Resp 16 Ht 175 cm (5' 8.9) Wt 94.3 kg (208 lb) SpO2 98% BMI 30.81 kg/m2 Gen - alert and oriented, no [...] LABS: date wbc anc hgb hct plat 02/10/17 18.1 15.8 46.4 256 07/2016 23.6 15.1 45.4 215 02/25/17 20.4 3.0 15.4 45.1 209 Creat 1.2 Assessment: 65 year old man with CLL and continues to have not indciations to treat (infections, cytopenias, or lymph adenopathy). Will have patient return to clinic in 6 months. We discussed the fact that he is CD38 and zap 70 negative both a good markers. Cytogenetics not been done. His CLL seems to be very quiescent/indolent and is very possible that he will not need treatment within his lifetime. We will continue follow him every 6 months. If his counts remain stable asthey are now, we may consider extending that annual visits in the future. Arm pain - unlikely to be related to CLL Insomnia - Plan: 1. No CLL intervention currently indicated. 2.RTC in 6 months I discussed all of the above with the patient and all of his questions were answered. Support and counseling given as appropriate. documented in this encounter Plan of Treatment Upcoming Encounters Date Type Department Care Team (Late st Contact Info) Description 11/02/2024 1:00 PM EST Office Visit Hematology/Oncology at [address] [phone] Gloria Beck MD [facility] HEMATOLOGY [place] [address] [address] Cisneros APRN [facility] HEMATOLOGY [place] [address] documented as of this encounter Visit Diagnoses Diagnosis CLL (chronic lymphocytic leukemia) Chronic lymphoid leukemia, without mention of having achieved remission documented in this encounter Care Teams Electrical Assembler Relationship Specialty Start Date End Date Maria Victoria Kaur PA PCP - General Family Medicine 02/15/16 05/18/23 documented as of this encounter
--- OUTSIDE RECORDS SUMMARY | 2024-11-02 01:56 | XMS_ITS | Encounter Summary ---
Author Organization [facility] Address [facility] [place] [address] Care Team Providers Care Cook Pickled Meat Name Role Phone Nissa Wise MD Primary Care Provider [phone] Encounter Details Date Type Department Care Team (Late Contact Info) Description 10/09/2015 Orders Only Hematology [place] [address] Ramon Fitzgerald Jr., MD [facility] DR HEMATOLOGY [place] [address] Chronic lymphocytic leukemia not having achieved remission [...] 1:00 PM EST Office Visit Hematology/Oncology at [address] [phone] Gloria Beck MD [facility] DR HEMATOLOGY [place] [address] [address] Cisneros APRN [facility] DR HEMATOLOGY [place] [address] Scheduled Orders Name Type Priority Associated Diagnoses Orde r Schedule Comprehensive metabolic panel (non-fasting) Lab STAT Chronic lymphocytic leukemia not having achieved remission Expected: 10/12/2015, Expires: 10/09/2016 Lactate Dehydrogenase Lab Routine Chronic lymphocytic leukemia not having achieved remission Expected: 10/12/2015, Expires: 10/08/2016 documented as of this encounter Visit Diagnoses Diagnosis Chronic lymphocytic leukemia not having achieved remission documented in this encounter Care Teams Cook Pickled Meat Relationship Specialty Start Date End Date Nissa Wise MD [address] [place] [address] PCP - General 03/17/14 02/14/16 documented as of this encounter
--- OUTSIDE RECORDS SUMMARY | 2024-11-02 01:56 | XMS_ITS | Encounter Summary ---
[place] [address] Care Team Providers Care Master Naval Parachutist Name Role Phone Maria Victoria Kaur Primary Care Provider [phone] Reason for Referral * Diagnostic Test (Routine) - Closed Specialty Diagnoses / Procedures Referred By Contac t Referred To Contact Radiology Diagnoses Unspecified abnormalities of gait and mobility Procedures NM Brain Imaging for Parkinsons Disease Sanford James MD [address] [place] [address] [place] [address] Referral ID Status Reason Start Date Expiration Date V isits Requested Visits Authorized [id number] Closed Specialty Service Requested 03/17/2023 09/16/2024 1 1 Reason for Visit * Diagnostic Test (Routine) - Closed Specialty Diagnoses / Procedures Referred By Contac t Referred To Contact Radiology Diagnoses Unspecified abnormalities of gait and mobility Procedures NM Brain Imaging for Parkinsons Disease Sanford James MD [address] [place] [address] [place] [address] Referral ID Status Reason Start Date Expiration Date V isits Requested Visits Authorized [id number] Closed Specialty Service Requested 03/17/2023 09/16/2024 1 1 Encounter Details Date Type Department Care Team (Latest Contact Info) Description 05/19/2023 8:56 AM EDT Hospital Encounter [place] [address] Sanford James MD [address] [place] [address] [place] [address] Unspecified abnormalities of gait and mobility Discharge Disposition: Home Social History Tobacco Use [...] PM EST Office Visit Hematology/Oncology at [address] [phone] Gloria Beck MD [facility] DR HEMATOLOGY [place] [address] [address] Cisneros APRN [facility] [place]ATOLOGY [place] [address] documented as of this encounter Procedures Procedure [...] who have questions please contact the health nurse healthcare manager that requested your imaging first. ? Narrative [...] patients who have questions please contactthe health nurse healthcare manager that requested your imaging first. Sanford James MD [facility] NM ORDERABLES documented in this encounter Visit Diagnoses Diagnosis Unspecified abnormalities of gait and mobility documented in this encounter Administered Medications Inactive Administered Medications - up to 3 most recent administrations Medication Order MAR Action Action Date Dose Rate Site strong iodine (Lugols) 5% oral liquid 0.8 mL 0.8 mL, Oral, ONCE, 1 dose, On Thu05/19/23 at 1015, Radiology Contrast, Routine Given 05/19/2023 9:48 AM EDT 0.8 mLs documented in this encounter Care Teams Master Naval Parachutist Relationship Specialty Start Date End Date Maria Victoria Kaur PA [address] [place] [address] PCP - General Family Medicine 05/19/23 documented as of this encounter
--- OUTSIDE RECORDS SUMMARY | 2024-11-02 01:56 | XMS_ITS | Encounter Summary ---
Author Organization Formerly [facility] [place] [address] Care Team Providers Care Ship Yard Electrical Person Name Role Phone Maria Victoria Kaur Primary Care Provider [phone] Reason for Visit * Reason Onset Date Comments Abnormal Lab 01/06/2022 Critical WBC Encounter Details Date Type Department Care Team (Late st Contact Info) Description 01/06/2022 Telephone Hematology/Oncology at [address] [phone] Mague Wagner RN Abnormal Lab (Critical WBC) Social History Tobacco Use Types Packs/Day Years [...] encounter Miscellaneous Notes * Telephone Encounter - Mague Wagner RN - 01/06/2022 2:04 PM EDT Pt with critical WBC of 32.8. (last WBC in 05/2021 was 31.19). he is being seen in clinic on 01/15/22. Reviewed with Dr. Beck nothing to do at this time. documented in this encounter Plan of Treatment Upcoming Encounters Date Type Department Care Team (Late st Contact Info) Description 11/02/2024 1:00 PM EST Office Visit Hematology/Oncology at [address] [phone] Gloria Beck MD [facility] HEMATOLOGY [place] [address] Ave Cisneros APRN [facility] HEMATOLOGY [place] [address] documented as of this encounter Procedures Procedure Name Priority Date/Time Associated Diagnosis Comments WBC Routine 01/06/2022 documented in this encounter Results * WBC (01/06/2022) White Blood Cell 32.8 Hemoglobin 15.0 Hematocrit 46.1 Platelet 202 Neutrophil Absolute (ANC) - Automated 4.32 Creatinine 1.47 Blood 01/06/2022 Historical Provider HEMATOLOGY ORDERA BLES documented in this encounter Visit Diagnoses Not on filedocumented in this encounter Care Teams Ship Yard Electrical Person Relationship Specialty Start Date End Date Maria Victoria Kaur PA PCP - General Family Medicine 02/15/16 05/18/23 documented as of this encounter
--- OUTSIDE RECORDS SUMMARY | 2024-11-02 01:56 | XMS_ITS | Encounter Summary ---
Author Organization [facility] Address [facility] [place] [address] Care Team Providers Care Sulfate Drier Machine Operator Name Role Phone Maria Victoria Kaur Primary Care Provider [phone] Encounter Details Date Type Department Care Team (Late Contact Info) Description 08/15/2016 Orders Only [place] [address] Ramon Fitzgerald Jr., MD [facility] HEMATOLOGY [place] [address] Chronic lymphocytic leukemia not having achieved remission [...] PM EST Office Visit Hematology/Oncology at [address] [phone] Gloria Beck MD [facility] DR HEMATOLOGY [place] [address] Ave Cisneros APRN [facility] DR HEMATOLOGY [place] [address] documented as of this encounter Results * (ABNORMAL) Immunoglobulins, Quantitative (08/15/2016 1:25 PM EST) IgG 502(L) 700 - 1,600 mg/dL [facility] IgA 210 70 - 400 mg/dL [facility] IgM 45 40 - 230 mg/dL [facility] Blood specimen (specimen) 08/15/2016 1:25 PM EST 08/15/2016 1:34 PM EST Narrative Resulting Agency Comment Spec In Lab Ramon Fitzgerald Jr., MD CHEMISTRY ORDERABLES Performing Organization Address [facility] Co de Phone Number [facility] [place] [address] * Lactate Dehydrogenase (08/15/2016 1:25 PM EST) Lactate Dehydrogenase 154 110 - 220 unit/L [facility] Blood specimen (specimen) 08/15/2016 1:25 PM EST 08/15/2016 1:34 PM EST Narrative Resulting Agency Comment Spec In Lab Ramon Fitzgerald Jr., MD CHEMISTRY ORDERABLES Performing Organization Address [facility]/ZIP Co de Phone Number [facility] [place] [address] * Comprehensive metabolic panel (non-fasting) (08/15/2016 1:25 PM EST) Glucose 133 65 - 199 mg/dL [facility] Comment:Diabetes: >=200 mg/d L plus symptoms Blood Urea Nitrogen 15 10 - 20 mg/dL [facility] Creatinine 1.19 0.80 - 1.50 mg/dL [facility] Comment: Please note that the pediatric reference intervals supplied above were not validated [place] [facility] Results from pediatric patients should be interpreted in conjunction to the patient's age, height and muscle mass. Sodium 141 135 - 145 mmol/L [facility] Potassium 4.3 3.5 - 5.0 mmol/L [facility] Comment: Please note: ??Patients with WBC >100,000 may have falsely elevated Potassium levels. ??For accurate Potassium quantification in these patients send serum separator tube (gold top) for subsequent determinations. ??Contact the Clinical Chemistry Laboratory if there are any questions. Chloride 101 98 - 107 mmol/L [facility] Carbon Dioxide 25 22 - 31 mmol/L [facility] Anion Gap 15 5 - 15 mmol/L [facility] Calcium 9.3 8.5 - 10.5 mg/dL [facility] Protein, Total 6.5 6.1 - 8.0 gm/dL [facility] Albumin 4.2 3.2 - 5.2 gm/dL [facility] Aspartate Aminotransferase 27 0 - 39 unit/L [facility] Alanine Aminotransferase 25 0 - 55 unit/L [facility] Alkaline Phosphatase 42 40 - 120 unit/L [facility] Bilirubin, Total 0.3 0.2 - 1.3 mg/dL [facility] Bilirubin, Direct 0.1 0.0 - 0.3 mg/dL [facility] Est Glomerular Filtration Rate >60 >=60 [facility] Comment: This estimated GFR (eGFR) value [...] the following links into your internet browser. [email or web address] Blood specimen (specimen) 08/15/2016 1:25 PM EST 08/15/2016 1:34 PM EST Narrative Resulting Agency Comment Spec In Lab Ramon Fitzgerald Jr., MD CHEMISTRY ORDERABLES Performing Organization Address City/State/[facility] Co de Phone Number [facility] [place] [address] documented in this encounter Visit Diagnoses Diagnosis Chronic lymphocytic leukemia not having achieved remission documented in this encounter Care Teams Sulfate Drier Machine Operator Relationship Specialty Start Date End Date Maria Victoria Kaur PA PCP - General Family Medicine 02/15/16 05/18/23 documented as of this encounter
--- OUTSIDE RECORDS SUMMARY | 2024-11-02 01:57 | XMS_ITS | Encounter Summary ---
Author Organization Formerly [facility] [place] [address] Care Team Providers Care Straw Hat Presser Name Role Phone Nissa Wise MD Primary Care Provider [phone] Encounter Details Date Type Department Care Team (Late Contact Info) Description 12/13/2014 Orders [place] [address] Carmen Elias, RN Liver lesion Social History Tobacco Use Types Packs/Day Years [...] 1:00 PM EST Office Visit Hematology/Oncology at [address] [phone] Gloria Beck MD [facility] [place] [address] Ave Csineros, WADER BOOT TOP ASSEMBLER [facility] [place] [address] documented as of this encounter Results * MRI abdomen with/WO contrast (01/16/2015 1:05 PM EDT) Anatomical Region Laterality Modality Abdomen Magnetic Resonan ce 01/16/2015 1:05 PM EDT Impressions 01/16/2015 2:18 PM EDT IMPRESSION: 2.8 cm solitary liver lesion with overlying capsular retraction. Finding is calcified, and does not represent a typical hepatic hemangioma. The differential for this finding includes calcified hematoma related to prior trauma, secondary to prior, healed hepatic abscess, prior iatrogenic procedure such as liver biopsy complicated by hemorrhage, or prior radiofrequency ablation. A solitary hypervascular metastasis cannot be absolutely excluded, however, given stability in size over a 10 month interval and given the lack of target appearance or any enhancement, this is felt to be less likely. Clinical correlation is needed. Narrative 01/16/2015 2:18 PM EDT EXAMINATION: MR ABDOMEN W/WO GADO CLINICAL HISTORY: liver lesion TECHNIQUE: MRI of the abdomen was performed prior to and following intravenous administration of 9mL of Gadavist. COMPARISON: 03/16/2014 and 01/09/2015 CT scans. FINDINGS: The liver is normal in size with a smooth contour. There is a lesion in the subcapsular posterior segment of the right lobe. Overlying this, there is focal capsular retraction. This lesion is ill-defined, and minimally T2 hyperintense, T1 hypointense, and contains focal signal void compatible with known calcification as seen on prior CTs. Postcontrast, there is no enhancement within or surrounding the lesion. Lesion measures 2.8 x 2.8 x 2.5 cm in size, overall unchanged from priors. No restricted diffusion is present. Spleen, adrenal glands, and pancreas are normal in signal intensity without focal lesions. Kidneys demonstrate normal size. There are T2 hyperintense, lobular, nonenhancing cysts within the upper pole left kidney measuring 13 mm and mid left kidney measuring 9 mm. Gallbladder normal in size and signal intensity and there is no intra or extrahepatic biliary ductal dilatation. No lymphadenopathy, ascites, or basilar pleural effusion. No focal marrow signal abnormality. Procedure Note Anjali Ventura MD - 01/16/2015 EXAMINATION: MR ABDOMEN W/WO GADO CLINICAL HISTORY: liver lesion TECHNIQUE: MRI of the abdomen was performed prior to and followingintravenous administration of 9mL of Gadavist. COMPARISON: 03/16/2014 and 01/09/2015 CT scans. FINDINGS: The liver is normal in size with a smooth contour. There is a lesion inthe subcapsular posterior segment of the right lobe. Overlying this, there isfocal capsular retraction. This lesion is ill-defined, and minimally G5ncmsebnltfho, T1 hypointense, and contains focal signal void compatible with known calcification as seen on prior CTs. Postcontrast, there is no enhancementwithin or surrounding the lesion. Lesion measures 2.8 x 2.8 x 2.5 cm in size,overall unchanged from priors. No restricted diffusion is present. Spleen, adrenal glands, and pancreas are normal in signal intensitywithout focal lesions. Kidneys demonstrate normal size. There are T2 hyperintense, lobular, nonenhancing cysts within the upper pole left kidney measuring 13 mm andmid left kidney measuring 9 mm. Gallbladder normal in size and signal intensity and there is no intra or extrahepatic biliary ductal dilatation. No lymphadenopathy, ascites, or basilar pleural effusion. No focal marrowsignal abnormality. IMPRESSION IMPRESSION: 2.8 cm solitary liver lesion with overlying capsular retraction. Findingis calcified, and does not represent a typical hepatic hemangioma. Thedifferential for this finding includes calcified hematoma related to prior trauma,secondary to prior, healed hepatic abscess, prior iatrogenic procedure such asliver biopsy complicated by hemorrhage, or prior radiofrequency ablation. Asolitary hypervascular metastasis cannot be absolutely excluded, however, givenstability in size over a 10 month interval and given the lack of target appearanceor any enhancement, this is felt to be less likely. Clinical correlation isneeded. Kaylee Heaton MD IMG MRI ORDERABLES * AFP tumor marker (01/16/2015 10:40 AM EDT) Alpha Fetoprotein 5.1 <=8.3 ng/mL [facility] GU[facility] Blood specimen (specimen) 01/16/2015 10:40 AM EDT 01/16/2015 10:53 AM EDT Narrative Resulting Agency Comment Spec In Lab Kaylee Heaton MD CHEMISTRY ORDERABLES [facility]ERNIE CRISTINAIUM * Prothrombin Time (01/16/2015 10:40 AM EDT) Prothrombin Time 13.4 12.5 - 15.5 sec [facility]ER MILLENNIUM Comment: Transfusion Committee Guidelines: INR less than 2.0, PTT less than OR equal to 43.5 seconds, or Fibrinogen greater than or equal to 100 mg/dl indicate adequate procoagulant activity for hemostasis in patients without underlying bleeding disorders. International Normalization Ratio 1.0 0.9 - 1.1 [facility]ER MILLENNIUM Blood specimen (specimen) 01/16/2015 10:40 AM EDT 01/16/2015 10:53 AM EDT Narrative Resulting Agency Comment Spec In Lab Kaylee Heaton MD HEMATOLOGY ORDERABLE S BERNIE GUERRA * Comprehensive metabolic panel (non-fasting) (01/16/2015 10:40 AM EDT) Glucose 101 60 - 199 mg/dL [facility] Comment:Diabetes: >=200 mg/d L plus symptoms Blood Urea Nitrogen 13 10 - 20 mg/dL [facility] Creatinine 1.17 0.80 - 1.50 mg/dL [facility] MILLEN[facility] Comment: Please note that the pediatric reference intervals supplied above were not validated at [facility]. Results from pediatric patients should be interpreted in conjunction to the patient's age, height and muscle mass. Sodium 139 135 - 145 mmol/L [facility] MILLENNIUM Potassium 4.2 3.5 - 5.0 mmol/L [facility] MILLENNIUM Comment: Please note: ??Patients with WBC >100,000 may have falsely elevated Potassium levels. ??For accurate Potassium quantification in these patients send serum separator tube (gold top) for subsequent determinations. ??Contact the Clinical Chemistry Laboratory if there are any questions. Chloride 103 98 - 107 mmol/L [facility] MILLENNIUM Carbon Dioxide 22 22 - 31 mmol/L [facility] MILLENNIUM Anion Gap 14 5 - 15 mmol/L [facility] MILLENNIUM Calcium 9.3 8.5 - 10.5 mg/dL [facility] MILLENNIUM Protein, Total 6.9 6.1 - 8.0 gm/dL [facility] MILLENNIUM Albumin 4.0 3.2 - 5.2 gm/dL [facility] MILLENNIUM Aspartate Aminotransferase 18 0 - 39 unit/L [facility] MILLENNIUM Alanine Aminotransferase 18 0 - 55 unit/L [facility] MILLENNIUM Alkaline Phosphatase 50 40 - 120 unit/L [facility] MILLENNIUM Bilirubin, Total 0.3 0.2 - 1.3 mg/dL [facility] MILLENNIUM Bilirubin, [...] the following links into your internet browser. [email or web address] Blood specimen (specimen) 01/16/2015 10:40 AM EDT 01/16/2015 10:53 AM EDT Narrative Resulting Agency Comment Spec In Lab Kaylee Heaton MD CHEMISTRY ORDERABLES [facility] documented in this encounter Visit Diagnoses Diagnosis Liver lesion Other specified disorders of liver Liver lesion Other specified disorders of liver documented in this encounter Care Teams Straw Hat Presser Relationship Specialty Start Date End Date Nissa Wise MD [address] [place] [address] PCP - General 03/17/14 02/14/16 documented as of this encounter
--- OUTSIDE RECORDS SUMMARY | 2024-11-02 01:57 | XMS_ITS | Encounter Summary ---
Author Organization [facility] [place] [address] Care Team Providers Care Assistant Professor In Family Studies Name Role Phone Nissa Wise MD Primary Care Provider Encounter Details Date Type Department Care Team (Late Contact Info) Description 12/13/2014 Orders Only [place] [address] Teresa Blank Social History Tobacco Use Types Packs/Day Years [...] PM EST Office Visit Hematology/Oncology at [address] [phone] Gloria Beck MD [facility] [place] [address] Ave Cisneros, [facility] [place] [address] documented as of this encounter Visit Diagnoses Not on filedocumented in this encounter Care Teams Assistant Professor In Family Studies Relationship Specialty Start Date End Date Nissa Wise MD [address] [place] [address] PCP - General 03/17/14 02/14/16 documented as of this encounter
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
--- OUTSIDE RECORDS SUMMARY | 2024-11-02 01:57 | XMS_ITS | Encounter Summary ---
Author Organization [facility] Address [facility] [place] [place] [address] Care Team Providers Care Knife Setter Grinder Machine Name Role Phone Nissa Wise MD Primary Care Provider Reason for Visit * Reason Comments Follow-up 2 month- Right ear r inging Encounter Details Date Type Department Care Team (Late st Contact Info) Description 06/14/2014 1:45 PM EDT [place] [phone] Stephen Kinney MD [facility] [place] [address] Acquired nasal deformity; Facial trauma, subsequent encounter Discharge Disposition: Home Social History Tobacco Use [...] Sign Reading Time Taken Comments Blood Pressure 139/95 06/14/2014 2:01 PM EDT Pulse 90 06/14/2014 2:01 PM EDT Temperature - - Respiratory Rate - - Oxygen Saturation - - Inhaled Oxygen Concentration - - Weight 83.9 kg (185 lb) 06/14/2014 2:01 PM EDT Height 172.7 cm (5' 8) 06/14/2014 2:01 PM EDT Body Mass Index 28.13 06/14/2014 2:01 PM EDT documented in this encounter Progress Notes * Stephen Kinney MD - 06/22/2014 11:17 AM EDT The patient's clinical history is reviewed and a complete examination is accomplished. The physicalfindings are confirmed. The resident's assessment and plan was formulated with my guidance and approval. * Areli Gomez MD - 06/14/2014 2:07 PM EDT HPI: Blas Elizondo is here in follow up status post ORIF maxillary fracture. Doing well overall. Occlusion good. Tolerating most foods. Planning to see dentist. Significant right nasal obstruction since the injury. Reports ringing in his right ear which is new. Has known hearing loss. System review: the ENT system is thoroughly reviewed for any changes. Pertinent positives are listed in the HPI. Physical Exam: Vital signs: Filed Vitals: 06/14/14 1401 BP: 139/95 Pulse: 90 General: the patient is alert and cooperative with the exam Palate stable. Occlusion good. Chin lac healed, poor cosmetic result as anticipated Nasal fracture evident with gross deviation to the right and buckled septal deviation to the right. Impression / Plan: Discussed open septorhinoplasty and risks including persistent nasal deformity. Pt would like to proceed and consent was signed. Will also plan revision of the submental scar at that time. If right tinnitus persists, will get an audiogram after his other surgical issues are addressed. ARELI GOMEZ MD 06/14/2014 documented in this encounter Plan of Treatment Upcoming Encounters Date Type Department Care Team (Late st Contact Info) Description 11/02/2024 1:00 PM EST Office Visit Hematology/Oncology at [address] [phone] Gloria Beck MD [facility] [place] [address] [address] Cisneros APRN [facility] [place] [address] documented as of this encounter Procedures Procedure Name Priority Date/Time Associated Diagnosis Comments REPAIR COMPLEX, 1.1 - 2.5CM, CHIN Routine 06/14/2014 2:23 PM EDT Facial trauma, subsequent encounter RHINOPLASTY, COMPLETE W/ SEPTAL REPAIR Routine 06/14/2014 2:23 PM EDT Acquired nasal deformity documented in this encounter Visit Diagnoses Diagnosis Acquired nasal deformity Acquired deformity of nose Facial trauma, subsequent encounter documented in this encounter Care Teams Knife Setter Grinder Machine Relationship Specialty Start Date End Date Nissa Wise MD [address] [place] [address] PCP - General 03/17/14 02/14/16 documented as of this encounter
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
--- OUTSIDE RECORDS SUMMARY | 2024-11-02 01:57 | XMS_ITS | Encounter Summary ---
Author Organization [facility] Address [facility] [place] [place] [address] Care Team Providers Care Second Rigger Name Role Phone Nissa Wise MD Primary Care Provider [phone] Reason for Visit * Reason Comments Follow-up Encounter Details Date Type Department Care Team (Late st Contact Info) Description 06/08/2015 2:00 PM EDT Follow-Up [place] [phone] Ramon Fitzgerald Jr., MD [facility] [address] HEMATOLOGY [place] [address] Chronic lymphocytic leukemia not having achieved remission [...] Sign Reading Time Taken Comments Blood Pressure 134/86 06/08/2015 2:30 PM EDT Pulse 70 06/08/2015 2:30 PM EDT Temperature 36.7 ??C (98.1 ??F) 06/08/2015 2:30 PM ED T Respiratory Rate 18 06/08/2015 2:30 PM EDT Oxygen Saturation 96% 06/08/2015 2:30 PM EDT Inhaled Oxygen Concentration - - Weight 86.6 kg (190 lb 14.7 oz) 06/08/2015 2:30 PM EDT Height 173 cm (5' 8.11) 06/08/2015 2:30 PM EDT Body Mass Index 28.94 06/08/2015 2:30 PM EDT documented in this encounter Progress Notes * Ramon Fitzgerald MD - 06/08/2015 2:58 PM EDT Images from the original note were not included. Hematology Follow-Up Note CC: 65 year old man previously seen for lymphocytosis and diagnosed with CLL. He now returns for scheduled follow up. Problem List: Patient Active Problem List Diagnosis ??? Syrinx of spinal cord Followed by neurosurgery at [facility] [place], stable, no surgery [...] Dispense Refill ??? fluticasone (FLONASE) 50 mcg/actuation [place], Suspension 1 spray as needed for Rhinitis. [...] to visit. Physical exam: Vital Signs- BP 134/86 mmHg Pulse 70 Temp(Src) 36.7 ??C (98.1 ??F) (Temporal) Resp 18 Ht 173 cm (5' 8.11) Wt 86.6 kg (190 lb 14.7 oz) BMI 28.94 kg/m2 SpO2 96% Gen - alert and [...] no petechiae or bruising Labs: Ref. Range 06/08/2015 12:18 WBC Latest Range: 4.0-10.0 x10(3)/mcL 20.1 (H) RBC Latest Range: 4.63-6.08 x10(6)/mcL 4.66 Hemoglobin Latest Range: 13.7-17.5 gm/dL 14.8 Hematocrit Latest Range: 40.0-51.0 % 44.7 MCV Latest Range: 79.0-92.0 fL 95.9 (H) MCH Latest Range: 25.6-32.2 pg 31.8 MCHC Latest Range: 32.0-36.5 gm/dL 33.1 RDWSD Latest Range: 35.0-46.0 fL 50.0 (H) RDWCV Latest Range: 10.9-14.4 % 14.3 Platelets Latest Range: 145-370 x10(3)/mcL 295 MPV Latest Range: 9.0-12.0 fL 10.9 Neutr Abs (ANC) Latest Range: 1.50-6.30 x10(3)/mcL 7.40 (H) Neutrophils % No range found 37.0 Immature Gran % No range found 0.30 Lymphocytes % No range found 53.9 Monocytes % No range found 6.9 Eosinophils % No range found 1.7 Basophils % No range found 0.2 Amberly Gran Abs Latest Range: 0.00-0.05 x10(3)/mcL 0.06 (H) Lymphocytes Abs Latest Range: 1.0-3.6 x10(3)/mcL 10.8 (H) Monocyte Abs Latest Range: 0.2-1.0 x10(3)/mcL 1.4 (H) Eosinophils Abs Latest Range: 0.0-0.5 x10(3)/mcL 0.4 Basophils Abs Latest Range: 0.0-0.2 x10(3)/mcL 0.0 Plat Estimate No range found Normal RBC Morphology No range found Normal Smudge Cells No range found Present Sodium Latest Range: 135-145 mmol/L 142 Potassium Latest Range: 3.5-5.0 mmol/L 4.2 Chloride Latest Range: 98-107 mmol/L 104 CO2 Latest Range: 22-31 mmol/L 24 Anion Gap Latest Range: 5-15 mmol/L 14 BUN Latest Range: 10-20 mg/dL 10 Creatinine Latest Range: 0.80-1.50 mg/dL 1.04 Estimated GFR Latest Range: >=60 >60 Glucose Lvl Latest Range: 65-199 mg/dL 111 Calcium Latest Range: 8.5-10.5 mg/dL 9.5 Total Protein Latest Range: 6.1-8.0 gm/dL 6.6 Albumin Latest Range: 3.2-5.2 gm/dL 4.2 Total Bilirubin Latest Range: 0.2-1.3 mg/dL 0.3 Bili, Direct Latest Range: 0.0-0.3 mg/dL 0.1 Alk Phos Latest Range: 40-120 unit/L 55 AST Latest Range: 0-39 unit/L 14 ALT Latest Range: 0-55 unit/L 13 LDH Latest Range: 110-220 unit/L 143 Assessment: 65 y.o. man with CLL and no noted status change since his last visit. He is overall well, and there is no indication for CLL therapy at this point in time. Based on Don's status today he will return in another 4 months, and he knows to call in the interim for any noted status change. Plan: 1. No CLL intervention currently indicated. 2. RTC in 4 months with repeat labs, exam and review of overall status. If no status change at nextvisit, will increase f/u interval to 6 months. 3. Follow up sooner as nec. Ramon Fitzgerald Jr., M.D. Section of Hematology/Oncology CC: Nissa Wise M.D. (PCP) documented in this encounter Plan of Treatment Upcoming Encounters Date Type Department Care Team (Late st Contact Info) Description 11/02/2024 1:00 PM EST Office Visit Hematology/Oncology at [address] [phone] Gloria Beck MD [facility] HEMATOLOGY [place] [address] [address] Cis[address], APRIL [facility] DR HEMATOLOGY [place] [address] documented as of this encounter Procedures Procedure Name Priority Date/Time Associated Diagnosis Comments SCAN, PERIPHERAL BLOOD STAT 5 12:18 PM EDT HEMOGRAM STAT 06/08/2015 12:18 PM EDT Chronic lymphocytic leukemia not having achieved remission DIFFERENTIAL, AUTOMATED STAT 06/08/2015 12:18 PM EDT Chronic lymphocytic leukemia not having achieved remission CBC (WITH DIFF) STAT 06/08/2015 12:18 PM EDT Chronic lymphocytic leukemia not having achieved remission LACTATE DEHYDROGENASE Routine 06/08/2015 12:18 PM EDT Chronic lymphocytic leukemia not having achieved remission COMPREHENSIVE METABOLIC PANEL STAT 06/08/2015 12:18 PM EDT Chronic lymphocytic leukemia not having achieved remission documented in this encounter Results * Scan, Peripheral Blood (06/08/2015 12:18 PM EDT) Plat estimate Normal [facility] RBC Morphology Normal CERNE R MILLENNIUM Smudge cell Present [facility] Blood specimen (specimen) 06/08/2015 12:18 PM EDT 06/08/2015 12:33 PM EDT Narrative Resulting Agency Comment Spec In Lab Ramon Fitzgerald Jr., MD HEMATOLOGY ORDERABLE S [facility] * (ABNORMAL) Differential, Automated (06/08/2015 12:18 PM EDT) Neutrophil % 37.0 % [facility] Neutrophil Absolute 7.40(H) 1.50 - 6.30 x10(3)/mc L [facility] Lymph % 53.9 % [facility] Lymphocytes Abs 10.8(H) 1.0 - 3.6 x10(3)/mc L [facility] Monocyte % 6.9 % [facility]ILL[facility] Monocyte Abs 1.4(H) 0.2 - 1.0 x10(3)/mc L [facility] Eos % 1.7 % [facility] Eosinophils Abs 0.4 0.0 - 0.5 x10(3)/mc L [facility]ILLENNI[facility] [...] differential will be performed. Immature Gran Absolute 0.06(H) 0.00 - 0.05 x10(3)/mc L [facility] Blood specimen (specimen) 06/08/2015 12:18 PM EDT 06/08/2015 12:33 PM EDT Narrative Resulting Agency Comment Spec In Lab Ramon Fitzgerald Jr., MD HEMATOLOGY ORDERABLE S [facility] * (ABNORMAL) Hemogram (06/08/2015 12:18 PM EDT) White Blood Cell 20.1(H) 4.0 - 10.0 x10(3)/mc L [facility] Red Blood Cell 4.66 4.63 - 6.08 x10(6)/mc L [facility] Hemoglobin 14.8 13.7 - 17.5 gm/dL [facility] Hematocrit 44.7 40.0 - 51.0 % [facility] MILLENNI[facility] Mean Cell Volume 95.9(H) 79.0 - 92.0 fL [facility] Mean Cell Hemoglobin 31.8 25.6 - 32.2 pg [facility]ILL[facility] Mean Cell Hemoglobin Concentration 33.1 32.0 - 36.5 gm/dL [facility]ILL[facility] Platelet 295 145 - 370 x10(3)/mc L [facility]ILL[facility] RDW Standard Deviation 50.0(H) 35.0 - 46.0 fL [facility] RDW coefficient of variation 14.3 10.9 - 14.4 % [facility]ILL[facility] Mean Platelet Volume 10.9 9.0 - 12.0 fL [facility] Blood specimen (specimen) 06/08/2015 12:18 PM EDT 06/08/2015 12:33 PM EDT Narrative Resulting Agency Comment Spec In Lab Ramon Fitzgerald Jr., MD HEMATOLOGY ORDERABLE S Performing Organization Address [facility] Co de Phone Number [facility] * Lactate Dehydrogenase (06/08/2015 12:18 PM EDT) Pathologist [facility] Lactate Dehydrogenase 143 110 - 220 unit/L [facility] MILLEN[facility] Blood specimen (specimen) 06/08/2015 12:18 PM EDT 06/08/2015 12:33 PM EDT Narrative Resulting Agency Comment Spec In Lab Ramon Fitzgerald Jr., MD CHEMISTRY ORDERABLES Performing Organization Address [facility] Co de Phone Number [facility] * Comprehensive metabolic panel (non-fasting) (06/08/2015 12:18 PM EDT) Pathologist [facility] Glucose 111 65 - 199 mg/dL [facility] Comment:Diabetes: >=200 mg/d L plus symptoms Blood Urea Nitrogen 10 10 - 20 mg/dL [facility] MILLENNIUM Creatinine 1.04 0.80 - 1.50 mg/dL [facility] Comment: Please note that the pediatric reference intervals supplied above were not validated at [facility] [facility]. Results from pediatric patients should be interpreted in conjunction to the patient's age, height and muscle mass. Sodium 142 135 - 145 mmol/L [facility] MILLENNIUM Potassium 4.2 3.5 - 5.0 mmol/L [facility] MILLENNIUM Comment: Please note: ??Patients with WBC >100,000 may have falsely elevated Potassium levels. ??For accurate Potassium quantification in these patients send serum separator tube (gold top) for subsequent determinations. ??Contact the Clinical Chemistry Laboratory if there are any questions. Chloride 104 98 - 107 mmol/L [facility] Carbon Dioxide 24 22 - 31 mmol/L [facility]ILL[facility] Anion Gap 14 5 - 15 mmol/L [facility] Calcium 9.5 8.5 - 10.5 mg/dL [facility] Protein, Total 6.6 6.1 - 8.0 gm/dL [facility] Albumin 4.2 3.2 - 5.2 gm/dL [facility] Aspartate Aminotransferase 14 0 - 39 unit/L [facility] Alanine Aminotransferase 13 0 - 55 unit/L [facility] Alkaline Phosphatase 55 40 - 120 unit/L [facility] Bilirubin, [...] the following links into your internet browser. [email or web address] Blood specimen (specimen) 06/08/2015 12:18 PM EDT 06/08/2015 12:33 PM EDT Narrative Resulting Agency Comment Spec In Lab Ramon Fitzgerald Jr., MD CHEMISTRY ORDERABLES [facility] documented in this encounter Visit Diagnoses Diagnosis Chronic lymphocytic leukemia not having achieved remission documented in this encounter Care Teams Second Rigger Relationship Specialty Start Date End Date Nissa Wise MD [address] [place] [address] PCP - General 03/17/14 02/14/16 documented as of this encounter
--- OUTSIDE RECORDS SUMMARY | 2024-11-02 01:57 | XMS_ITS | Encounter Summary ---
Author Organization [facility] [place] [address] [place] [address] Care Team Providers Care Chemicals Fermentation Operator Name Role Phone Nissa Wise MD Primary Care Provider Encounter Details Date Type Department Care Team (Late st Contact Info) Description 03/29/2014 Telephone [place] [phone] Bhumi Gaines RN Social History Tobacco Use Types Packs/Day Years Used Date Smoking Tobacco: Former Cigarettes Cigars Sex and Gender Information Value Date Recorded Sex Assigned at Not on file Gender Identity Not on file Sexual Orientation Not on file documented as of this encounter Miscellaneous Notes * Telephone Encounter - Bhumi Gaines RN - 03/29/2014 9:32 AM EDT Asked to call this patient by Dr. Reeves to f/u after palatal repair. He reports he is tolerating a soft diet fine, adding nutritional shakes occasionally. He feels his palate is stable. He is changing the packing in his chin wound daily, reports that it takes less packing material each day. Reports no foul smelling drainage, no erythema. He will continue as he is doing. Follow up appointment in one week. documented in this encounter Plan of Treatment Upcoming Encounters Date Type Department Care Team (Late st Contact Info) Description 11/02/2024 1:00 PM EST Office Visit Hematology/Oncology at [address] [phone] Gloria Beck MD [facility] [place] [address] [address] Cisner[address] APRN [facility] [place] [address] documented as of this encounter Visit Diagnoses Not on filedocumented in this encounter Care Teams Chemicals Fermentation Operator Relationship Specialty Start Date End Date Nissa Wise MD [address] [place] [address] PCP - General 03/17/14 02/14/16 documented as of this encounter
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
--- OUTSIDE RECORDS SUMMARY | 2024-11-02 01:57 | XMS_ITS | Encounter Summary ---
Author Organization [facility] [place] [address] Care Team Providers Care Shaft Sinker Name Role Phone Nissa Wise MD Primary Care Provider Encounter Details Date Type Department Care Team (Late st Contact Info) Description 01/16/2015 10:50 AM EDT - 01/16/2015 11:59 PM EDT Hospital Encounter MRI at [facility] [place] [address] CLINIC, DR PRICE Liver lesion Social History Tobacco Use Types [...] Sign Reading Time Taken Comments Blood Pressure - - Pulse - - Temperature - - Respiratory Rate - - Oxygen Saturation - - Inhaled Oxygen Concentration - - Weight 86.2 kg (190 lb) 01/16/2015 12:47 PM EDT Height - - Body Mass Index 28.89 08/18/2014 9:50 AM EST documented in this encounter Medications at Time [...] PM EST Office Visit Hematology/Oncology at [address] [phone] Gloria Beck MD [facility] [place] [address] Ave Cisneros APRN [facility] [place] [address] documented as of this encounter Procedures Procedure Name Priority Date/Time Associated Diagnosis Comments MRI ABDOMEN WWO CONTRAST Routine 01/16/2015 1:05 PM EDT Liver lesion documented in this encounter Results * MRI abdomen with/WO [...] retraction. This lesion is ill-defined, and minimally [id number], T1 hypointense, and contains focal signal void [...] isneeded. Kaylee Heaton MD IMG MRI ORDERABLES documented in this encounter Visit Diagnoses Diagnosis Liver lesion Other specified disorders of liver documented in this encounter Administered Medications Inactive Administered Medications - up to 3 most recent administrations Medication Order MAR Action Action Date Dose Rate Site gadobutrol (GADAVIST) 1 mMol/mL injection 8.62 mL 8.62 mL (0.1 mL/kg/dose ? 86.2 kg), Intravenous, ONCE PRN, 1 dose, Starting on 01/16/15 at 1246, Until 01/16/15 at 1252, Per Protocol, Routine Given 01/16/2015 12:52 PM EDT 9 mLs documented in this encounter Care Teams Shaft Sinker Relationship Specialty Start Date End Date Nissa Wise MD [address] [place] [address] PCP - General 03/17/14 02/14/16 documented as of this encounter
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
--- OUTSIDE RECORDS SUMMARY | 2024-11-02 01:57 | XMS_ITS | Encounter Summary ---
Author Organization [facility] [place] [address] Care Team Providers Care Dump Motor Operator Name Role Phone Nissa Wise MD Primary Care Provider Encounter Details Date Type Department Care Team (Late st Contact Info) Description 09/25/2014 Telephone [place] [phone] Pennie Murphy, RN Social History Tobacco Use Types Packs/Day [...] encounter Miscellaneous Notes * Telephone Encounter - Pennie Murphy, RN - 09/25/2014 2:10 PM EST Pts dentist Dr. Paniagua calling ( [phone]). Pt is in need of tooth extraction and dentist wondersif ok to proceed since s/p Septorhinoplasty on 08/10. Since Dr. Kinney not in office spoke with Dr. Garcia who said that would be fine and that it should not affect his surgery. Relayed this information to Dr. Paniagua. documented in this encounter Plan of Treatment Upcoming Encounters Date Type Department Care Team (Late st Contact Info) Description 11/02/2024 1:00 PM EST Office Visit Hematology/Oncology at [address] [phone] Gloria Beck MD [facility] [place] [address] Ave Cisneros APRN [facility] [place] [address] documented as of this encounter Visit Diagnoses Not on filedocumented in this encounter Care Teams Dump Motor Operator Relationship Specialty Start Date End Date Nissa Wise MD [address] [place] [address] PCP - General 03/17/14 02/14/16 documented as of this encounter
--- OUTSIDE RECORDS SUMMARY | 2024-11-02 01:57 | XMS_ITS | Encounter Summary ---
Author Organization [facility] [place] [address] Care Team Providers Care Digital Cartographer Name Role Phone Nissa Wise MD Primary Care Provider Encounter Details Date Type Department Care Team (Late Contact Info) Description 03/20/2015 Orders [place] [address] Teresa Blank Social History Tobacco Use Types [...] PM EST Office Visit Hematology/Oncology at [address] [phone] [facility] [place] [address] Ave Cisneros, CEMETERY WORKER [facility] [place] [address] documented as of this encounter Visit Diagnoses Not on filedocumented in this encounter Care Teams Digital Cartographer Relationship Specialty Start Date End Date Nissa Wise MD [address] [place] [address] PCP - General 03/17/14 02/14/16 documented as of this encounter
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
--- OUTSIDE RECORDS SUMMARY | 2024-11-02 01:57 | XMS_ITS | Encounter Summary ---
Author Organization [facility] Address [facility] [place] [address] Care Team Providers Care Printed Circuit Photographer Name Role Phone Nissa Wise MD Primary Care Provider Encounter Details Date Type Department Care Team (Late Contact Info) Description 06/05/2015 Orders Only Hematology [place] [address] Ramon Fitzgerald Jr., MD [facility] HEMATOLOGY [place] [address] Chronic lymphocytic leukemia not having achieved remission [...] 1:00 PM EST Office Visit Hematology/Oncology at [address] [phone] Gloria Beck MD [facility] DR HEMATOLOGY [place] [address] Ave Cisneros, APRIL [facility] HEMATOLOGY AND ONCOLOGY [place], [place] [phone] documented as of this encounter Results * Lactate Dehydrogenase (06/08/2015 12:18 PM EDT) Lactate Dehydrogenase 143 110 - 220 unit/L CERNER MILLENNIUM Blood specimen (specimen) 06/08/2015 12:18 PM EDT 06/08/2015 12:33 PM EDT Narrative Resulting Agency Comment Spec In Lab Ramon Fitzgerald Jr., MD CHEMISTRY ORDERABLES CERNER MILLENNIUM * Comprehensive metabolic panel (non-fasting) (06/08/2015 12:18 PM EDT) Glucose 111 65 - 199 mg/dL CERNER MILLENNIUM Comment:Diabetes: >=200 mg/d L plus symptoms Blood Urea Nitrogen 10 10 - 20 mg/dL CERNER MILLENNIUM Creatinine 1.04 0.80 - 1.50 mg/dL CERNER MILLENNIUM Comment: Please note that the pediatric reference intervals supplied above were not validated at [facility]. Results from pediatric patients should be interpreted in conjunction to the patient's age, height and muscle mass. Sodium 142 135 - 145 mmol/L CERNER MILLENNIUM Potassium [...] the following links into your internet browser. [email or web address] Blood specimen (specimen) 06/08/2015 12:18 PM EDT 06/08/2015 12:33 PM EDT Narrative Resulting Agency Comment Spec In Lab Ramon Fitzgerald Jr., MD CHEMISTRY ORDERABLES BERNIE GUERRA documented in this encounter Visit Diagnoses Diagnosis Chronic lymphocytic leukemia not having achieved remission documented in this encounter Care Teams Printed Circuit Photographer Relationship Specialty Start Date End Date Nissa Wise MD [address] [place] [address] PCP - General 03/17/14 02/14/16 documented as of this encounter
--- OUTSIDE RECORDS SUMMARY | 2024-11-02 01:57 | XMS_ITS | Encounter Summary ---
Author Organization [facility] [place] [address] Care Team Providers Care Stagecraft Teacher Name Role Phone Nissa Wise MD Primary Care Provider [phone] Reason for Visit * Reason Onset Date Comments Bumped Appointment 04/19/2014 Encounter Details Date Type Department Care Team (Late st Contact Info) Description 04/19/2014 [place] [phone] Ramon Lau MD Bumped Appointment Social History Tobacco Use Types Packs/Day Years Used Date Smoking Tobacco: Former Cigarettes Cigars Sex and Gender Information Value Date Recorded Sex Assigned at Not on file Gender Identity Not on file Sexual Orientation Not on file documented as of this encounter Miscellaneous Notes * Telephone Encounter - Purvi Pierer - 04/19/2014 3:18 PM EDT Patient Scheduled * Telephone Encounter - Purvi Pierre - 04/19/2014 2:55 PM EDT Patient's appointment was bumped. Left message for them to call back and reschedule. documented in this encounter Plan of Treatment Upcoming Encounters Date Type Department Care Team (Late st Contact Info) Description 11/02/2024 1:00 PM EST Office Visit Hematology/Oncology at [address] [phone] Gloria Beck MD [facility] [place] [address] [address] Cisneros APRN [facility] [place] [address] documented as of this encounter Visit Diagnoses Not on filedocumented in this encounter Care Teams Stagecraft Teacher Relationship Specialty Start Date End Date Nissa Wise MD [address] [place] [address] PCP - General 03/17/14 02/14/16 documented as of this encounter
--- OUTSIDE RECORDS SUMMARY | 2024-11-02 01:57 | XMS_ITS | Encounter Summary ---
Author Organization Formerly [facility] [place] [place] [address] Care Team Providers Care Sr. Social Media & Mobile Manager Name Role Phone Nissa Wise MD Primary Care Provider [phone] Reason for Visit * Reason Comments Right Shoulder Pain Encounter Details Date Type Department Care Team (Late st Contact Info) Description 05/08/2014 3:40 PM EDT Office [place] [address] Christel Lima PA [facility] [place] [address] Hand numbness Discharge Disposition: Home Social History Tobacco Use [...] as of this encounter Progress Notes * Christel Lima PA - 05/08/2014 4:10 PM EDT PATIENT NAME: Blas Elizondo AGE: 64 y.o. MR#: [id number] DATE OF VISIT: 05/08/2014 DATE OF INJURY/ONSET: Chronic STAFF: Dr. Doss CHIEF COMPLAINT: follow up for R>L hand numbness HISTORY OF PRESENT ILLNESS: Mr. Elizondo is a 64 y.o. year old male who comes into clinic today forfollow up regarding the right hand. I last evaluated this patient last month for right shoulder pain. He does not have glenohumeral arthritis on x-ray. He has since had a fluoroscopy guided glenohumeral cortisone injection and states that his shoulder symptoms have improved significantly. During that visit he was also noted to have numbness and tingling into his hands. His symptoms are worse on the right, but he does have bilateral symptoms. He has since had nerve conduction studies and presents today in followup. He states his hand numbness remains about the same. PHYSICAL EXAM: Mr. Elizondo is alert and oriented. He appears in no acute discomfort and is restingcomfortably in the exam room. Inspection: No erythema, ecchymosis, or swelling involving the patient's bilateral hands. Palpation: He reports diffuse tenderness throughout the wrists, but he attributes this to wear and tear over the years. No specific point tenderness or triggering is appreciated. ROM/Strength: FDS, FDP, EPL, FPL tendons are intact. Wrist and finger range of motion remains grossly intact. No intrinsic weakness is noted. Orthopedic testing: Positive Tinel's over the carpal tunnel bilaterally. Positive Phalen's and Leslie compression on the right, negative on the left. Neurovascular: At baseline he reports paresthesias into all of his fingertips, worse on the right than left. After testing I was able to reproduce more focused median nerve symptoms. Good distal perfusion. RADIOLOGICAL STUDIES: Nerve conduction studies from today showed a right median motor nerve latencyof 8.8 ms. The left wrist was not tested. No evidence of radiculopathy was noted. ASSESSMENT: Severe right carpal tunnel syndrome PLAN: I reviewed the nerve conduction studies with the patient today. We discussed treatment ranging from night splinting to carpal tunnel surgery. During his neurology evaluation it was noted that he also had hyperreflexia. In light of his recent head and neck trauma they are planning on proceeding with a cervical spine MRI. He is scheduled to followup with neurology after this study. He was given a prescription for night splints today. He would like to give splinting and try since he would beunable to proceed with carpal tunnel surgery at this time. He does have fairly advanced median nerve compression and we discussed that he may require more definitive treatment in the form of surgery i f splinting is not adequate. He will schedule a followup in orthopedics after he has had his followup neurology consultation. The patient understands to contact us if they have any other questions orconcerns. The above documentation was completed using [employer] voice recognition software. documented in this encounter Plan of Treatment Upcoming Encounters Date Type Department Care Team (Late st Contact Info) Description 11/02/2024 1:00 PM EST Office Visit Hematology/Oncology at [address] [phone] Gloria Beck MD [facility] DR HEMATOLOGY [place] [address] [address] Cisneros APRN [facility] DR [place]EMATOLOGY [place] [address] documented as of this encounter Visit Diagnoses Diagnosis Hand numbness Disturbance of skin sensation documented in this encounter Care Teams Sr. Social Media & Mobile Manager Relationship Specialty Start Date End Date Nissa Wise MD [address] [place] [id number] PCP - General 03/17/14 02/14/16 documented as of this encounter
--- OUTSIDE RECORDS SUMMARY | 2024-11-02 01:57 | XMS_ITS | Encounter Summary ---
Author Organization [facility] Address [facility] [place] [place] [address] Care Team Providers Care Study Manager Name Role Phone Nissa Wise MD Primary Care Provider Reason for Visit * Reason Comments Follow Up Surgery 08/10/14- Rhinoplast y Encounter Details Date Type Department Care Team (Late st Contact Info) Description 08/18/2014 9:30 AM EST Office [place] [phone] Stephen Kinney MD [facility] [address] Postop check Discharge Disposition: Home Social History Tobacco Use [...] Sign Reading Time Taken Comments Blood Pressure 123/78 08/18/2014 9:50 AM EST Pulse 69 08/18/2014 9:50 AM EST Temperature 36.5 ??C (97.7 ??F) 08/18/2014 9:50 AM ES T Respiratory Rate - - Oxygen Saturation - - Inhaled Oxygen Concentration - - Weight 83.9 kg (185 lb) 08/18/2014 9:50 AM EST Height 172.7 cm (5' 8) 08/18/2014 9:50 AM EST Body Mass Index 28.13 08/18/2014 9:50 AM EST documented in this encounter Progress Notes * Stephen Kinney MD - 08/18/2014 10:26 AM EST HPI: Blas Elizondo is here in follow up status post Septorhinoplasty for nasal airway obstruction 2 weeks ago. This was through an external rhinoplasty approach. He is doing quite well. No significant pain. No bleeding. Slight drainage No dizziness System review: the ENT system is thoroughly reviewed for any changes. Pertinent positives are listed in the HPI. Physical Exam: Vital signs: Filed Vitals: 08/18/14 0950 BP: 123/78 Pulse: 69 Temp: 36.5 ??C (97.7 ??F) General: the patient is alert and cooperative with the exam The external splint is removed. Slight nasal dorsal deformity or remains. The intranasal splints are removed. Septum is healed nicely in the midline. The sutures from the columella were removed as well as from the chin. Both these sites are healing well. Impression / Plan:Good result status post surgery. Advised him to use saline nasal spray on a regular basis. Followup in 6 weeks. documented in this encounter Plan of Treatment Upcoming Encounters Date Type Department Care Team (Late st Contact Info) Description 11/02/2024 1:00 PM EST Office Visit Hematology/Oncology at [address] [phone] Gloria Beck MD [facility] [place] [address] [address] Cisneros APRN [facility] [place] [address] documented as of this encounter Visit Diagnoses Diagnosis Postop check Follow-up examination, following unspecified surgery documented in this encounter Care Teams Study Manager Relationship Specialty Start Date End Date Nissa Wise MD [address] [place] [address] PCP - General 03/17/14 02/14/16 documented as of this encounter
--- OUTSIDE RECORDS SUMMARY | 2024-11-02 01:57 | XMS_ITS | Encounter Summary ---
Author Organization [facility] [place] [place] [address] Care Team Providers Care Housing Liaison Name Role Phone Nissa Wise MD Primary Care Provider Reason for Referral * Consultation (Routine) - Complete-Ref Provider Notified Specialty Diagnoses / Procedures Referred By Cristy lujan Referred To Contact Neurology Diagnoses Hand numbness Christel Lima PA [facility] [place] [address] [facility] Neu[facility] [address] [place] [address] Referral ID Status Reason Start Date Expiration Date Visits Requested Visits Authorized [id number] Complete-Ref Provider Notified Consult, Test & Treat 04/20/2014 10/17/2014 1 1 Reason for Visit * Reason Comments Right Shoulder Pain Encounter Details Date Type Department Care Team (Latest Contact Info) Description 04/20/2014 8:00 AM EDT Office [place] [phone] Christel Lima PA [facility] [place] [address] Osteoarthrosis involving shoulder region, right (Primary Dx); Hand numbness; Glenohumeral arthritis, right Discharge Disposition: Home Social History Tobacco Use Types Packs/Day Years Used Date Smoking Tobacco: Every Day Cigarettes Cigars Smokeless Tobacco: Never Alcohol Use Standard Drinks/Week Comments Yes 0 (1 standard drink = 0.6 oz pur e alcohol) Sex and Gender Information Value Date Recorded Sex Assigned at Not on file Gender Identity Not on file Sexual Orientation Not on file documented as of this encounter Last Filed Vital Signs Vital Sign Reading Time Taken Comments Blood Pressure 149/92 04/20/2014 8:01 AM EDT Pulse 70 04/20/2014 8:01 AM EDT Temperature - - Respiratory Rate - - Oxygen Saturation - - Inhaled Oxygen Concentration - - Weight 85.3 kg (188 lb) 04/20/2014 8:01 AM EDT Height 172.7 cm (5' 8) 04/20/2014 8:01 AM EDT Body Mass Index 28.59 04/20/2014 8:01 AM EDT documented in this encounter Progress Notes * Christel Lima PA - 04/20/2014 8:21 AM EDT PATIENT NAME: Blas Elizondo AGE: 64 y.o. MR#: [id number] DATE OF VISIT: 04/20/2014 DATE OF INJURY/ONSET: Chronic STAFF: Dr. Lau CHIEF COMPLAINT: Right shoulder pain, hand numbness HISTORY OF PRESENT ILLNESS: Mr. Elizondo is a right hand dominant 64 y.o. male who comes into clinic today for evaluation of the right shoulder. He was referred to [facility] Ortho by Nissa Wise. He has had right shoulder pain for approximately 6 months. He sustained an injury recently when he was hit by a falling tree. He also sustained significant facial trauma at the time of this injury and loss consciousness. He underwent surgery for his multiple facial fractures. X-rays of the shoulder andclavicle were performed and were negative for fracture. He continues to have pain over the anterioraspect of the shoulder. He also has difficulty sleeping at night because of pain. In addition to his shoulder pain he also has hand numbness that will wake him from sleep. His hand numbness also occurs when he is driving. Treatment to date has included oral anti-inflammatories with little improvement. He states that he was prescribed Celebrex at one point, but needed to discontinue this medication because of an adverse reaction. He has not had any cortisone injections or surgeries. Medications and Allergies were reviewed in eD-H PAST MEDICAL HX: Past Medical History Diagnosis Date ??? Arthritis Right shoulder ??? Gastric reflux ??? Herniation of intervertebral disc between L4 and L5 with surgical intervention PAST SURGICAL HX: Past Surgical History Procedure Date ??? Open treat dental ridge fx 03/22/2014 OPEN TREATMENT MANDIBULAR\MAXILLARY ALVEOLAR RIDGE FX performed by Stephen Kinney MD at [facility] MA[facility] OR SOCIAL HX: Social History Occupational History ??? 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 Smoking status: Current Every Day Smoker -- 0.2 packs/day Types: Cigars ??? Smokeless tobacco: Never Used ??? Alcohol Use: Yes ??? Drug Use: No ??? Sexually Active: Not on file ROS: Constitutional: neg HEENT: neg Cardiac: neg Pulmonary: neg GI/: neg Endocrine: neg Skin: neg Musculoskeletal: see HPI PHYSICAL EXAM: Mr. Elizondo is a 64 y.o. male who is alert and oriented. He appears in no acute discomfort and is resting comfortably in the exam room. Inspection: No erythema, ecchymosis, or swelling involving the patient's right shoulder. Palpation: Tender over the anterior aspect of the shoulder with palpable crepitus. Nontender over the deltoid. Nontender over the scapula. ROM: Forward Flexion: 160?? active Abduction: 140?? active External Rotation: 70?? active Internal Rotation: Reaches to L5 Strength: 5/5 rotator cuff strength in all planes including empty can Orthopedic testing: Negative impingement testing. Negative horizontal abduction. Unable to assess O'Briens because of pain. Negative speeds and Yergason's. Negative Spurling's, but he does have limited C-spine range of motion. Positive Tinel's at the carpal tunnel. Positive Phalen's and Leslie compression. Neurovascular: Normal motor function of the radial, median, ulnar, axillary and musculocutaneous nerves. Normal sensation along radial, median, ulnar, axillary, and lateral antebrachial cutaneous nerve distributions. Good hand perfusion. After testing I was able to reproduce symptoms into the median nerve distribution on the right. RADIOLOGICAL STUDIES: X-rays of the shoulder show no evidence of fracture or dislocation. There is evidence of glenohumeral arthritis with significant joint space narrowing. ASSESSMENT: Symptomatic right shoulder glenohumeral arthritis, hand numbness suggestive of possiblecarpal tunnel syndrome PLAN: Mr. Elizondo and I discussed his radiologic findings and physical exam findings. I reviewed the x-rays with the patient today. We discussed treatment options for glenohumeral arthritis to include oral anti-inflammatories, cortisone injections, and shoulder replacement. Since he has not had adequate improvement with oral anti-inflammatories he would like to proceed with a fluoroscopy guided glenohumeral cortisone injection. We discussed that if these are effective he could consider repeating these injections up to 3 times per year. If he were to continue to remain symptomatic than shoulder replacement to be an option. We will also proceed with nerve conduction studies to evaluate his hand numbness. He will follow up after the nerve conduction studies. The patient understands to contact us if they have any other questions or concerns. The above documentation was completed using [employer] voice recognition software. documented in this encounter Plan of Treatment Upcoming Encounters Date Type Department Care Team (Late st Contact Info) Description 11/02/2024 1:00 PM EST Office Visit Hematology/Oncology at [address] [phone] Gloria Beck MD [facility] DR HEMATOLOGY [place] [address] [address] Cisneros APRN [facility] DR HEMATOLOGY [place] [address] Scheduled Referrals Name Type Priority Associated Diagnoses Orde r Schedule Referral to Neurology Outpatient Referral Routine Hand numbness Ordered: 04/20/2014 documented as of this encounter Results * XR Fluoro injection FL drain large JT (04/20/2014 10:29 AM EDT) Anatomical Region Laterality Modality N/A Radiographic Deepthi ging 04/20/2014 10:2 9 AM EDT Impressions 04/20/2014 4:08 PM EDT IMPRESSION: ?? Uneventful right shoulder injection under fluoroscopy. ? Attending: ?? I, MARIAM MCCLAIN MD , was present for the entire ?? procedure and I performed the procedure. ?; ?? {CR} ?? Narrative 04/20/2014 4:08 PM EDT ?Pre-procedure Diagnoses ?; ?; ?? {CR} ? ; ? 1. Shoulder pain, right ?? [719.41] ?; ?? {CR} ? ; ?? {CR} ? ; ? Procedures ?; ?? {CR} ? ; ? 1. ARTHROCENTESIS,DRAIN/INJECT ?? JOINT/BURSA [[id number]] ?; ?? {CR} ? ; ?? {CR} ? ; ? Blas ?? N [facility] [id number] ?HISTORY: ?? right shoulder Pain ?right ?? shoulder INJECTION UNDER FLUOROSCOPY ?TECHNIQUE: ?? After an extensive conversation with the patient regarding risks and ?? benefits, oral and written consent were obtained. A pre- procedural time-out ?? was performed as per [facility] protocol. ?The ?? patient was placed supine on the fluoroscopic table. The right shoulder ?? was prepped and draped in the usual aseptic manner. 1% Lidocaine was used to ?? achieve local anesthesia. Under fluoroscopic guidance, 22 gauge spinal needle was advanced into the joint space. Small amount of ?? air was injected to the document needle placement. A mixture of Ropivacaine and triamcinolone acetonide ?? was injected. All needles removed at end of procedure. ?FINDINGS: ?1. ?? Small amount of injected air in the right shoulder joint space. ?2. ?? PAIN SCORE: ?Before: ?? 6 /10 ? After: ?3. ?? Fluoroscopy time: 8 sec ?4. ?? Medications: ? Lidocaine ?? 1% - <5 ml, for subcutaneous anesthesia ?Ropivacaine HCL ?? 0.5% - 2ml, ?Triamciolone Acetonide ?? - 30 mg, ?COMPLICATIONS: ?? None immediate. ? POST-PROCEDURE ?? CARE: Information regarding monitor of infection, post- ?? procedural pain and management of steroid flare were reviewed with patient. ? Procedure Note Mariam Mcclain MD - 04/20/2014 Pre-procedure Diagnoses ; ; {CR} ; 1. Shoulder pain, right [719.41] ; {CR} ; {CR} ; Procedures ; {CR} ; 1. ARTHROCENTESIS,DRAIN/INJECT JOINT/BURSA [[id number]] ; {CR} ; {CR} ; Blas Oconnor [facility] [id number] HISTORY: right shoulder Pain right shoulder INJECTION UNDER FLUOROSCOPYTECHNIQUE: After an extensive conversation with the patient regarding risks and benefits, oral and written consent were obtained. A pre- proceduraltime-out was performed as per [facility] protocol. The patient was placed supine onthe fluoroscopic table. The right shoulder was prepped and draped in theusual aseptic manner. 1% Lidocaine was used to achieve local anesthesia. Under fluoroscopic guidance, 22 gauge spinal needle was advanced into the joint space. Small amount of air was injected to the document needleplacement. A mixture of Ropivacaine and triamcinolone acetonide was injected. Allneedles removed at end of procedure. FINDINGS: 1. Small amount of injectedair in the right shoulder joint space. 2. PAIN SCORE: Before: 6 /10 After: 3. Fluoroscopy time: 8 sec 4. Medications: Lidocaine 1% - <5 ml, for subcutaneous anesthesia Ropivacaine HCL0.5% - 2ml, Triamciolone Acetonide - 30 mg, COMPLICATIONS: Noneimmediate. POST-PROCEDURE CARE: Information regarding monitor of infection, post- procedural pain and management of steroid flare were reviewed withpatient. IMPRESSION IMPRESSION: Uneventful right shoulder injection under fluoroscopy. Attending: I, MARIAM MCCLAIN MD , was present for the entireprocedure and I performed the procedure. ; {CR} Ramon Lua MD IMG FLUORO ORDERABLE S documented in this encounter Visit Diagnoses Diagnosis Osteoarthrosis involving shoulder region, right- Primary Hand numbness Disturbance of skin sensation Glenohumeral arthritis, right Osteoarthrosis involving shoulder region, right documented in this encounter Care Teams Housing Liaison Relationship Specialty Start Date End Date Nissa Wise MD [address] [place] [address] PCP - General 03/17/14 02/14/16 documented as of this encounter
--- OUTSIDE RECORDS SUMMARY | 2024-11-02 01:57 | XMS_ITS | Encounter Summary ---
Author Organization [facility] Address [facility] [place] [address] Care Team Providers Care Ditch Digger Name Role Phone Nissa Wise MD Primary Care Provider [phone] Encounter Details Date Type Department Care Team (Late st Contact Info) Description 08/10/2014 9:15 AM EST - 08/10/2014 1:40 PM EST Surgery [place] [phone] Stephen Kinney MD [facility] [place] [address] RHINOPLASTY, COMPLETE W/ SEPTAL REPAIR (WRVU 16.9) Social History Tobacco Use Types Packs/Day Years [...] Pressure 141/88 08/10/2014 1:30 PM EST Pulse 66 08/10/2014 1:30 PM EST Temperature 37.6 ??C (99.7 ??F) 08/10/2014 12:[address] Respiratory Rate 18 08/10/2014 1:30 PM EST Oxygen Saturation 94% 08/10/2014 1:30 PM EST Inhaled Oxygen Concentration - - [...] closest emergency room or call the hospital break and load operator at [phone] and ask for physician non profit financial controller covering for your physician. Questions or problems after 5pm or on a weekend: Call the [facility] break and load operator at and ask for the physician non profit financial controller covering for your doctor. * Patient Instructions* [...] Operative Note Patient Name: Blas Elizondo : [id number] MR#: [id number] Case Date: 08/10/2014 Surgeon: Surgeon(s) and Role: [...] Kinney MD - 08/10/2014 9:58 AM EST [facility] Operative Note Patient Name: Blas Elizondo : [id number] MR#: [id number] Case Date: 08/10/2014 Surgeon: Surgeon(s) and Role: [...] 1:00 PM EST Office Visit Hematology/Oncology at [address] [phone] Gloria Beck MD [facility] [place] [address] [address] Cisneros, APRIL [facility] [place] [address] documented as of this encounter Procedures Procedure Name Priority Date/Time Associated Diagnosis Comments REPAIR COMPLEX, 1.1 - 2.5CM, CHIN (VU 3.73) 08/10/2014 9:21 AM EST Acquired nasal deformity Facial trauma, subsequent encounter RHINOPLASTY, COMPLETE W/ SEPTAL REPAIR (WRVU 16.9) 08/10/2014 9:21 AM EST Acquired nasal deformity Facial trauma, subsequent encounter documented in this encounter Visit Diagnoses Diagnosis Acquired nasal deformity Acquired deformity of nose Facial trauma, subsequent encounter documented in this encounter Administered Medications Inactive Administered Medications - up to 3 most recent administrations Medication Order MAR Action Action Date Dose Rate Site acetaminophen (TYLENOL) tablet 1,000 mg 1,000 mg, Oral, EVERY 8 HOURS, First dose on Kami 08/10/14 at 1230, Until Discontinued, Not to exceed 4,000 mg acetaminophen from all sources per 24 hours. Begin oral analgesics when FOOD ASSEMBLER KITCHEN is discontinued., Routine Given 08/10/2014 1:34 PM EST 1,000 mg cocaine 4 % external solution ONCE PRN, Starting on Kami 08/10/14 at 0952, Until Kami 08/10/14 at 1529, Intra-Operative (Intra-Procedure) Given 08/10/2014 9:52 AM EST 1 Bottle 19- Surgical Site HYDROmorphone (DILAUDID) 0.2 mg/mL 10mL Syringe (IR [...] 8:24 AM EST 1,000 mLs 100 mL/hr lidocaine-EPINEPHrine 1 %-1:200,000 injection ONCE PRN, Starting on Kami 08/10/14 at 0952, Until Kami 08/10/14 at 1529, Intra-Operative (Intra-Procedure), Routine Given 08/10/2014 9:52 AM EST 4 mLs oxyCODONE (ROXICODONE) immediate release tablet 5 mg 5 mg, Oral, EVERY 4 HOURS PRN, Starting on Kami 08/10/14 at 1207, Until Kami 08/10/14 at 1830, Pain, moderate pain, May repeat 5 mg dose once in 30 minutes if pain not relieved. Begin oral analgesics when FOOD ASSEMBLER KITCHEN is discontinued., Routine Given 08/10/2014 1:37 PM EST 5 mg oxymetazoline (AFRIN) 0.05 % nasal spray Administer over 3 Days, ONCE PRN, Starting on Kami 08/10/14 at 0953, Until Kami 08/10/14 at 1529, Intra-Operative (Intra-Procedure), Routine Given 08/10/2014 9:53 AM EST 3 sprays documented in this encounter Active and Recently Administered Medications Times are shown in EST. Scheduled Medication Order 08/08/2014 08/09/2014 08/10/2014 acetaminophen (TYLENOL) tablet 1,000 mg (CANCELED) 1,000 mg, Oral, EVERY 8 HOURS, First dose on Kami 08/10/14 at 1230, Until Discontinued, Not to exceed 4,000 mg acetaminophen from all sources per 24 hours. Begin oral analgesics when FOOD ASSEMBLER KITCHEN is discontinued., Routine 1334 (Given - Provid [...] Starting on Kami 08/10/14 at 0952, Until Akmi 08/10/14 at 1529, Intra-Operative (Intra-Procedure) 09 (Given - Provid er: Stephen Kinney MD [...] Kami 08/10/14 at 1529, Intra-Operative (Intra-Procedure), Routine 09 (Given - Provid er: Stephen Kinney MD) oxyCODONE (ROXICODONE) immediate release tablet 5 mg (CANCELED) 5 mg, Oral, EVERY 4 HOURS PRN, Starting on Kami 08/10/14 at 1207, Until Kami 08/10/14 at 1830, Pain, moderate pain, May repeat 5 mg dose once in 30 minutes if pain not relieved. Begin oral analgesics when FOOD ASSEMBLER KITCHEN is discontinued., Routine 1337 (Given - Provid er: Ave Lopez RN) oxymetazoline (AFRIN) 0.05 % nasal spray (CANCELED) Administer over 3 Days, ONCE PRN, Starting on Kami 08/10/14 at 0953, Until Kami 08/10/14 at 1529, Intra-Operative (Intra-Procedure), Routine 0953 (Given - Provid er: Stephen Kinney MD - Comment: on neuro patties) documented in this encounter Care Teams Ditch Digger Relationship Specialty Start Date End Date Nissa Wise MD [address] [place] [address] PCP - General 03/17/14 02/14/16 documented as of this encounter
--- OUTSIDE RECORDS SUMMARY | 2024-11-02 01:57 | XMS_ITS | Encounter Summary ---
Author Organization [facility] [place] [place] [address] Care Team Providers Care President Commercial Bank Name Role Phone Nissa Wise MD Primary Care Provider [phone] Reason for Visit * Reason Onset Date Comments Labs Only 03/05/2015 Encounter Details Date Type Department Care Team (Late Contact Info) Description 03/05/2015 Telephone Hematology [place] [phone] Concha Lund Labs Only Social History Tobacco Use Types Packs/Day Years [...] encounter Miscellaneous Notes * Telephone Encounter - Concha Lund RN - 03/05/2015 11:28 AM EDT ThuMarch 05, 2015 10:47 AM To: Concha Lund RN Message Hello, Patient called to get the results of his labs. Please call him when you have a moment. Returned call to the patient and messaged left. documented in this encounter Plan of Treatment Upcoming Encounters Date Type Department Care Team (Late Contact Info) Description 11/02/2024 1:00 PM EST Office Visit Hematology/Oncology at [address] [phone] Gloria Beck MD [facility] [place] [address] Ave Cisneros APRN [facility] [place] [address] documented as of this encounter Visit Diagnoses Not on filedocumented in this encounter Care Teams President Commercial Bank Relationship Specialty Start Date End Date Nissa Wise MD [address] [place] [address] PCP - General 03/17/14 02/14/16 documented as of this encounter
--- OUTSIDE RECORDS SUMMARY | 2024-11-02 01:57 | XMS_ITS | Encounter Summary ---
Author Organization [facility] Address [facility] [place] [address] Care Team Providers Care Farm Assistant Name Role Phone Nissa Wise MD Primary Care Provider Encounter Details Date Type Department Care Team (Latest Contact Info) Description 04/12/2014 11:04 AM EDT - 04/12/2014 11:59 PM EDT Hospital Encounter XRay at [address] [place] [phone] Pain in right shoulder Social History Tobacco [...] 1:00 PM EST Office Visit Hematology/Oncology at [address] [phone] Gloria Beck MD [facility] [place] [address] Ave Cisneros APRN [facility] [place] [address] documented as of this encounter Procedures Procedure Name Priority Date/Time Associated Diagnosis Comments XR SHOULDER STAT 04/12/2014 11:31 AM EDT Pain in right shoulder documented in this encounter Results * XR shoulder (04/12/2014 [...] of the right shoulder. Roger Munroe MD IMG DX ORDERABLES documented in this encounter Visit Diagnoses Diagnosis Pain in right shoulder Pain in joint, shoulder region documented in this encounter Care Teams Farm Assistant Relationship Specialty Start Date End Date Nissa Wise MD [address] [place] [address] PCP - General 03/17/14 02/14/16 documented as of this encounter
--- OUTSIDE RECORDS SUMMARY | 2024-11-02 01:57 | XMS_ITS | Encounter Summary ---
Author Organization [facility] [place] [place] [address] Care Team Providers Care It Investment/Portfolio Manager Name Role Phone Nissa Wise MD Primary Care Provider Encounter Details Date Type Department Care Team (Late st Contact Info) Description 08/10/2014 9:19 AM EST Anesthesia Event Outpatient [place] [address] Gio Snyder MD [facility] [place] [address] Magdi Cain MD Anesthesia Record Procedure Summary Procedure Name Responsible Anesthesiologist Anesthesia Start Time Anesthesia Stop Time RHINOPLASTY, COMPLETE W/ SEPTAL REPAIR (WRVU 16.9) (Nose) Gio Snyder MD 08/10/14 0919 08/10/14 1240 Events Date Time Event Comment 08/10/2014 0919 Start 0922 AN Verify 0923 An Start Data 0924 An Induction 0928 An Intubation 0934 Anesthesia Ready 1224 Extubation/LMA Out 1227 an stop data 1240 Stop 1418 Meds Name Total Midazolam 2 mg fentaNYL 200 mcg IV Lidocaine 40 mg Propofol 200 mg Rocuronium 50 mg Ondansetron 8 mg Dexamethasone 8 mg Propofol INF 857.88 mg ceFAZolin 2 g ePHEDrine 10 mg HYDROmorphone 0.6 mg lactated ringers infusion 1,000 mL 1,300 mL * Agents Name O2 Air N2O Sevoflurane (et) * Blood No blood administrations on file. Lines, Drains, and Airways Type Details Placement Removal Wound chest; abrasion; 05/26/22 (LDA cleanup utility RA#[id number]); 1715 (LDA cleanup utility RA#[id number]) 03/17/14 0211 by 05/26/22 1715 by Maribel Dwyer Wound chin; laceration; 05/26/22 (LDA cleanup utility RA#[id number]); 1715 (LDA cleanup utility RA#[id number]) 03/17/14 0212 by 05/26/22 1715 by Maribel Dwyer Incision 03/22/14; other (see comments) (buccal.); 05/26/22 (LDA cleanup utility RA#[id number]); 1715 (LDA cleanup utility RA#[id number]) 03/22/14 0000 by Dedra Contreras, GARDE MANAGER 05/26/22 1715 by Maribel Dwyer Incision 08/10/14; nose; 04/29 06/19 (LDA cleanup utility RA#[id number]); 1715 (LDA cleanup utility RA#[id number]) 08/10/14 0000 by Dedra Altamirano RN 05/26/22 1715 by Maribel Dwyer Incision 08/10/14; chin; 04/29 06/19 (LDA cleanup utility RA#[id number]); 1715 (LDA cleanup utility RA#[id number]) 08/10/14 0000 by Dedra Altamirano RN 05/26/22 1715 by Maribel Dwyer (RETIRED) Peripheral IV Line - Single Lumen 08/10/14; 822; median cubital vein right (antecubital fossa); [id number] catheter system; 20 gauge; VALDO Dawson; intradermal injection; 08/10/14; 1528 08/10/14 08 by Shannon Brooks RN 08/10/[address] RN ETT Mask Ventilation: Adjunct (2); ETT Type: Cuffed, Oral, LEANDRO; ETT Size: 7.5 mm; Mac Blade: 3; Attempts: 1; Laryngoscopy Grade: 1; ETT Placement Verified By: Auscultation, Capnometry; Secured at Teeth: 22 cm; Inserted by: Christian CERON; Removal Date: 08/10/14; Removal Time: 1224 08/10/14 0928 by Nava Gonzales CRNA 08/10/14 1224 by Nava Gonzales CRNA documented in this encounter Social History Tobacco Use Types Packs/Day Years Used Date Smoking Tobacco: Every Day Cigarettes Cigars Smokeless Tobacco: Never Alcohol Use Standard Drinks/Week Comments Yes 12 (1 standard drink = 0.6 oz pu re alcohol) weekly Sex and Gender Information Value Date Recorded Sex Assigned at Not on file Gender Identity Not on file Sexual Orientation Not on file documented as of this encounter OR Notes * Anesthesia Postprocedure Evaluation - Gio Snyder MD - 08/10/2014 2:17 PM EST Patient: Blas Elizondo Procedure(s) Performed: Procedure(s): RHINOPLASTY, COMPLETE W/ SEPTAL REPAIR REPAIR COMPLEX, 1.1 - 2.5CM, CHIN Actual Anesthetic: No value filed. Patient location: PACU Post-op pain: Adequate analgesia Post-op nausea: no nausea or vomiting Last Vitals: Filed Vitals: 08/10/14 1400 BP: Pulse: 79 Temp: Resp: 20 Post-op cardiovascular and respiratory status: is stable Level of consciousness: awake, alert and oriented Complications: no apparent complications and tolerated the procedure well Fluid Status: normal * Anesthesia Preprocedure Evaluation - Gio Snyder MD - 08/09/2014 3:26 PM EST Images from the original note were not included. Pre-Anesthesia Evaluation for: Blas Elizondo a 64 y.o. male. Procedure(s): RHINOPLASTY, COMPLETE W/ SEPTAL REPAIR REPAIR COMPLEX, 1.1 - 2.5CM, CHIN Patient Active Problem List Diagnosis ??? Hand numbness ??? Glenohumeral arthritis ??? Herniation of intervertebral disc between L4 and L5 with surgical intervention Past Medical History Diagnosis Date ??? Arthritis Right shoulder ??? Gastric reflux ??? Herniation of intervertebral disc between L4 and L5 with surgical intervention Past Surgical History Procedure Laterality Date ??? Open treat dental ridge fx 03/22/2014 OPEN TREATMENT MANDIBULAR\MAXILLARY ALVEOLAR RIDGE FX performed by Stephen Kinney MD at [facility] OR History Substance Use Topics ??? Smoking status: Current Every Day Smoker -- 1.00 packs/day Types: Cigars, Cigarettes ??? Smokeless tobacco: Never Used ??? Alcohol Use: 7.2 oz/week 12 Cans of beer per week Comment: weekly History Drug Use No No Known Allergies Medications: MAR and/or home medications have been reviewed. Physical Exam: There were no vitals filed for this visit. There is no weight on file to calculate BMI. Airway Assessment: Mallampati: III TM distance: >3 FB Cardiovascular Assessment: cardiovascular exam normal Pulmonary Assessment: pulmonary exam normal Dental Assessment: - normal exam Misc Assessment: IV access: Peripheral line Anesthesia Plan: ASA 3 general, with a(n) intravenous induction 64yoM with h/o maxiallry fracture for septoplasty. PMH/PSH significant for neck pain, lumbar spine surgery, ongoing tobacco/EtOH. Chronic cough. Regular GERD symptoms after eating, taking pills dailywith good relief. No recent change in health, no URI/PNA/SOB. Able to climb stairs. Not on chronic pain meds but does regularily have neck pain and shooting pains/tingling down both arms; no weaknessor persisting numbness. See recent neurosurgery note for more details (small syrinx on MRI). Plan: GETA. The patient verbalized understanding of the anesthesia plan including risks and alternatives and agreed to proceed. All questions were answered. Alecia Snyder MD. Region - Other Informed Consent: Anesthetic plan and risks discussed with patient. Plan discussed with NETWORK ARCHITECT and attending. Misc. Assessment: documented in this encounter Plan of Treatment Upcoming Encounters Date Type Department Care Team (Late st Contact Info) Description 11/02/2024 1:00 PM EST Office Visit Hematology/Oncology at [address] [phone] Gloria Beck MD [facility] HEMATOLOGY [place] [address] [address] Cisner[address] APRN [facility] [address] [place]Y [place] [address] documented as of this encounter Visit Diagnoses Not on filedocumented in this encounter Administered Medications Inactive Administered Medications - up to 3 most recent administrations Medication Order MAR Action Action Date Dose Rate Site ceFAZolin (ANCEF) 1g in dextrose 5% 50mL PRN, Starting on Kami 08/10/14 at 0937, Until Thu08/11/14 at 1513, Administer over 30 Minutes, Anesthesia Intra-op Given 08/10/2014 9:37 AM EST 2 g dexamethasone (DECADRON) injection PRN, Starting on Thu08/10/14 at 0948, Until Thu08/11/14 at 1513, Anesthesia Intra-op, Routine Given 08/10/2014 9:48 AM EST 8 mg ePHEDrine Sulfate in sodium chloride 0.9% (PF) 50 mg/10 mL (5 mg/mL) injection Syrg PRN, Starting on Thu08/10/14 at 0953, Until Thu08/11/14 at 1513, Anesthesia Intra-op Given 08/10/2014 9:53 AM EST 10 mg fentaNYL 50mcg/mL injection PRN, Starting on Kami 08/10/14 at 0921, Until Thu08/11/14 at 1513, Pain, Anesthesia Intra-op, Routine Given 08/10/2014 11:32 AM EST 25 mcg Given 08/10/2014 11:18 AM EST 25 mcg Given 08/10/2014 10:43 AM EST 25 mcg HYDROmorphone (DILAUDID) injection PRN, Starting on Thu08/10/14 at 1155, Until Thu08/11/14 at 1513, Pain, Anesthesia Intra-op, Routine Given 08/10/2014 12:07 PM EST 0.2 mg Given 08/10/2014 11:55 AM EST 0.2 mg Given 08/10/2014 11:50 AM EST 0.2 mg lactated ringers infusion 1,000 mL 1,000 mL, at 100 mL/hr, Intravenous, CONTINUOUS, Starting on Kami 08/10/14 at 0830, Until Thu08/10/14 at 1529, Day of Surgery (Day of Procedure) New Bag 08/10/2014 10:45 AM EST New Bag 08/10/2014 8:24 AM EST 1,000 mLs 100 mL/hr lidocaine (PF) (XYLOCAINE) 100 mg/5 mL (2 %) injection PRN, Starting on Kami 08/10/14 at 0924, Until Thu08/11/14 at 1513, Anesthesia Intra-op, Routine Given 08/10/2014 9:24 AM EST 40 mg midazolam (PF) (VERSED) 1 mg/mL injection PRN, Starting on Kami 08/10/14 at 0919, Until Thu08/11/14 at 1513, Sleep, Anesthesia Intra-op, Routine Given 08/10/2014 9:19 AM EST 2 mg ondansetron (ZOFRAN) injection PRN, Starting on Kami 08/10/14 at 1156, Until Thu08/11/14 at 1513, Nausea, Anesthesia Intra-op, Routine Given 08/10/2014 11:56 AM EST 8 mg propofol (DIPRIVAN) 10 mg/mL bolus injection (Anesthesia) PRN, Starting on Kami 08/10/14 at 0924, Until Thu08/11/14 at 1513, Anesthesia Intra-op Given 08/10/2014 9:24 AM EST 200 mg propofol (DIPRIVAN) infusion CONTINUOUS PRN, Starting on Kami 08/10/14 at 0940, Until Thu08/11/14 at 1513, Anesthesia Intra-op, Routine Rate/Dose Change 08/10/2014 11:41 AM EST 75 mcg/kg/min 37.8 mL/hr Rate/Dose Change 08/10/2014 11:05 AM EST 50 mcg/kg/min 25. 2 mL/hr Rate/Dose Change 08/10/2014 10:03 AM EST 75 mcg/kg/min 37. 8 mL/hr rocuronium (ZEMURON) injection PRN, Starting on Kami 08/10/14 at 0926, Until Thu08/11/14 at 1513, Anesthesia Intra-op, Routine Given 08/10/2014 9:26 AM EST 50 mg documented in this encounter Care Teams It Investment/Portfolio Manager Relationship Specialty Start Date End Date Nissa Wise MD [address] [place] [address] PCP - General 03/17/14 02/14/16 documented as of this encounter
--- OUTSIDE RECORDS SUMMARY | 2024-11-02 01:57 | XMS_ITS | Encounter Summary ---
Author Organization [facility] [place] [address] Care Team Providers Care Stone Lathe Operator Name Role Phone Nissa Wise MD Primary Care Provider Encounter Details Date Type Department Care Team (Latest Contact Info) Description 01/25/2015 12:57 PM EDT - 01/25/2015 11:59 PM EDT Hospital Encounter MRI at [facility] [place] [address] CLINIC, DR ALBERT Nieto of spinal cord Social History Tobacco Use Types Packs/Day Years [...] PM EST Office Visit Hematology/Oncology at [address] [phone] Gloria Beck MD [facility] DR HEMATOLOGY [place] [address] [address] Cisneros APRN [facility] HEMATOLOGY [place] [address] documented as of this encounter Procedures Procedure Name Priority Date/Time Associated Diagnosis Comments MRI CERVICAL SPINE WO CONTRAST Routine 01/25/2015 1:54 PM EDT Syrinx of spinal cord documented in this encounter Results * MRI [...] study. 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
--- OUTSIDE RECORDS SUMMARY | 2024-11-02 01:57 | XMS_ITS | Encounter Summary ---
Author Organization [facility] [place] [address] Care Team Providers Care Director For [employer] Name Role Phone Nissa Wise MD Primary Care Provider [phone] Reason for Visit * Reason Comments Other Encounter Details Date Type Department Care Team ([facility] Contact Info) Description 03/12/2015 Telephone Hematology [place] [address] Concha Lund Social History Tobacco Use Types Packs/Day Years [...] Telephone Encounter - Concha Lund RN - 03/12/2015 10:35 AM EDT S/O: 64 y.o. man with persistent lymphocytosis asking for lab results from last visit. Reviewed with the pt CBC. He is aware of his absolute lymphocyte result which is down from previousvalue. He is wondering if bone marrow byiopsy is planned. A/P: 64 y.o. man with persistent lymphocytosis. Triage will forward note to providers with request call from a provider to the pt for plan of care. documented in this encounter Plan of Treatment Upcoming Encounters Date Type Department Care Team (Late st Contact Info) Description 11/02/2024 1:00 PM EST Office Visit Hematology/Oncology at [address] [phone] Gloria Beck MD [facility] DR [place]EMATOLOG[place] [address] [address] Cisner[address] APRN [facility] [place] [address] documented as of this encounter Visit Diagnoses Not on filedocumented in this encounter Care Teams Director For [employer] Relationship Specialty Start Date End Date Nissa Wise MD [address] [place] [address] PCP - General 03/17/14 02/14/16 documented as of this encounter
--- OUTSIDE RECORDS SUMMARY | 2024-11-02 01:57 | XMS_ITS | Encounter Summary ---
Author Organization [facility] [place] [address] Care Team Providers Care Shop Worker Name Role Phone Nissa Wise MD Primary Care Provider [phone] Reason for Visit * Reason Comments Advice Only Encounter Details Date Type Department Care Team (Latest Contact Info) Description 02/26/2015 1:00 PM EDT Office Visit [place] [address] Josue Merchant Jr., MD [facility] DR HEMATOLOGY [place] [address] Lymphocytosis Discharge Disposition: Home Social History Tobacco Use [...] Sign Reading Time Taken Comments Blood Pressure 142/86 02/26/2015 12:49 PM EDT Pulse 75 02/26/2015 12:49 PM EDT Temperature 36.9 ??C (98.4 ??F) 02/26/2015 12:49 PM E DT Respiratory Rate 18 02/26/2015 12:49 PM EDT Oxygen Saturation 98% 02/26/2015 12:49 PM EDT Inhaled Oxygen Concentration - - Weight 86.3 kg (190 lb 4.1 oz) 02/26/2015 12:49 PM EDT Height 172.8 cm (5' 8.02) 02/26/2015 12:49 PM E DT Body Mass Index 28.91 02/26/2015 12:49 PM EDT documented in this encounter Progress Notes * Josue Merchant MD - 03/05/2015 8:16 AM EDT Heme Staff Addendum- I reviewed all clinical, laboratory and radiographic data and saw this patient in conjunction with Dr. Amato, including the relevant elements of Mr. Ross's history, physical exam and CLL-relateddiscussion. I agree with the findings, assessment and plan as outlined in his comprehensive note from today. PB flow cytometry findings are, indeed, c/w CLL, and no treatment is currently indicated. Once treatment parameters suggest that intervention is warranted, consideration of cytogenetic risk may be a higher priority, depending on the patient's age and overall status at that time. Based on this current assessment, he is cleared to proceed with shoulder surgery from a hematologic standpoint. ENRIKE Merchant MD Heme/Onc Section * Bon Amato MD - 02/26/2015 12:56 PM EDT Images from the original note were not included. Outpatient Hematology/Oncology New Patient Attending Physician: Dr. Josue Merchant CC: Lymphocytosis HPI: 64 y.o. man sent by PCP (Nissa Wise and others in clinic) to see us about his elevated lymphocyte count. He went for rotator cuff surgery in December 2014, but it was cancelled due to high WBC count. It was rescheduled, but WBC count has been persistently elevated. He has not had the surgery yet as WBC still elevated. Reviewing back, his WBC count was elevated here at [facility] [place]. At that time, he had facial trauma and was having ENT surgery. He has not had a problem with this before then. He has not had any CBCs in [facility] system before 2013.He has a single CBC in 2008 from PCP with normal CBC (WBC 11). He has not had recurrent infections - pneumonia, sinusitis, other bacterial infections. No constitutional symptoms. Otherwise in good health. Rarely sees a doctor. Main problems are musculoskeletal. Review of Systems: Gen - no fevers, [...] Heme - no bleeding, bruising, or lymphadenopathy Past Medical History: Patient Active Problem List Diagnosis ??? Syrinx of spinal cord Followed by neurosurgery at [facility], stable, no surgery ??? Hand numbness Carpal tunnel ??? Glenohumeral [...] surgery held off due to high wbc Allergies: Review of patient's allergies indicates no known allergies. Medications: Current Outpatient Prescriptions on File Prior to Visit Medication Sig Dispense Refill ??? Ascorbic Acid [...] facility-administered medications on file prior to visit. Social History: History Social History Narrative Current smoker at / ppd. He started in his 20s, smoked for 15, quit for 15 years, now smoking again. He smokes out of habit. He drinks about 30 beers a week. 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 He has had benzene and asbestos exposure. He is (second marriage after first ). He has 2 children and 2 grandchildren. Family History: Family History Problem Relation Age of Onset ??? Alzheimer Disease Mother 85 ??? Coronary Artery Disease Father 67 ??? Heart Disease Sister No blood disorders or cancers in the family Vital Signs: BP 142/86 Pulse 75 Temp(Src) 36.9 ??C (98.4 ??F) (Temporal) Resp 18 Ht 172.8 cm (5' 8.02) Wt 86.3 kg (190 lb 4.1 oz) BMI 28.90 kg/m2 SpO2 98% Physical exam: Gen - alert and oriented, no distress, [...] or groin; no petechiae or bruising Labs: Results for IMANI ROSS ( ) as of 02/26/2015 13:03 Ref. Range 03/16/2014 21:35 03/17/2014 06:54 01/16/2015 10:40 WBC Latest Range: 4.0-10.0 x10(3)/mcL 22.1 (H) 15.8 (H) 21.0 (H) RBC Latest Range: 4.63-6.08 x10(6)/mcL 4.78 4.33 (L) 4.88 Hemoglobin Latest Range: 13.7-17.5 gm/dL 16.0 14.1 16.1 Hematocrit Latest Range: 40.0-51.0 % 46.9 42.4 46.6 MCV Latest Range: 79.0-92.0 fL 98.1 (H) 97.9 (H) 95.5 (H) MCH Latest Range: 25.6-32.2 pg 33.5 (H) 32.6 (H) 33.0 (H) MCHC Latest Range: 32.0-36.5 gm/dL 34.1 33.3 34.5 RDWSD Latest Range: 35.0-46.0 fL 46.9 (H) 47.8 (H) 45.4 RDWCV Latest Range: 10.9-14.4 % 13.2 13.4 13.1 Platelets Latest Range: 145-370 x10(3)/mcL 204 192 242 Results for IMANI ROSS ( ) as of 02/26/2015 13:03 Ref. Range 03/16/2014 21:35 03/17/2014 06:54 01/16/2015 10:40 Neutr Abs (ANC) Latest Range: 1.50-6.30 x10(3)/mcL 11.17 (H) 7.60 (H) 6.62 (H) Amberly Gran Abs Latest Range: 0.00-0.05 x10(3)/mcL 0.09 (H) 0.03 0.05 Lymphocytes Abs Latest Range: 1.0-3.6 x10(3)/mcL 9.1 (H) 6.8 (H) 13.1 (H) Monocyte Abs Latest Range: 0.2-1.0 x10(3)/mcL 1.6 (H) 1.2 (H) 0.9 Eosinophils Abs Latest Range: 0.0-0.5 x10(3)/mcL 0.2 0.1 0.3 Basophils Abs Latest Range: 0.0-0.2 x10(3)/mcL 0.0 0.0 0.0 Reviewed outside labs from [facility]: 01/08/15: WBC 18.6, Hgb 15.5, Plt 221, Lymph 10.8 07/14/2009: WBC 11, Hgb 15.5, Plt 212, Lymph 5.4 Assessment/Plan: 64 y.o. man with persistent lymphocytosis over the past year. It does not appear rapidly progressive and he does not have lymphadenopathy or splenomegaly and he is asymptomatic. Thisis likely a chronic lymphoma or leukemia, like CLL. We can most likely make the diagnosis with a flow cytometry study. If not diagnostic, we would then consider a bone marrow biopsy. Depending on these results and final diagnosis, we can then give a prognosis and treatment plan. Most likely it will be a good prognosis and he will not need treatment at this time. We will send these labs today and then call him with results. He can then follow up in about 2-3 months. 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 Assessment: His flow cytometry is consistent with CLL. I called and reviewed this diagnosis with him. I do not think that he needs further studies or bone marrow biopsy at this time. His disease appears quiescent and does not need treatment any time soon. He is also not having any current complications from the disease. We will follow up with him periodically in hematology clinic, every 3 months initially then every 6months or so. We would initiate treatment when disease progressing and causing complications. Prognosis is very good. He reports that his shoulder pain continues to bother him. He is hoping to get his shoulder replacement soon, but it is on hold due to the leukocytosis. We can now reassure his PCP and surgeon that we now know why he has leukocytosis (due to CLL) and it should not cause him any problems nor should it preclude him from getting surgery. They should move forward with surgery plans right away. The onl y potential mild risk is slightly increased risk for infection with CLL (so be more liberal with antibiotics) and slightly increased risk for DVT (more aggressive with DVT prophylaxis regimen). Otherwise, treatment should proceed as per average patient. Bon Amato MD documented in this encounter Miscellaneous Notes * Addendum Note - Bon Amato MD - 03/12/2015 11:51 AM EDTAddended by: BON AMATO on: 03/12/2015 11:51 AM Modules accepted: Level of Service * Addendum Note - Josue Merchant MD - 03/05/2015 8:20 AM EDTAddended by: JOSUE MERCHANT on: 03/05/2015 08:20 AM Modules accepted: Level of Service documented in this encounter Plan of Treatment Upcoming Encounters Date Type Department Care Team (Late st Contact Info) Description 11/02/2024 1:00 PM EST Office Visit Hematology/Oncology at [address] [address] Gloria Beck MD [facility] HEMATOLOGY [place] [address] [address] Cisneros APRN [facility] HEMATOLOGY [place] [address] documented as of this encounter Procedures Procedure Name Priority Date/Time Associated Diagnosis Comments IMMUNOPHENOTYPING FLOW CYTOMETRY (BLOOD) Routine 02/26/2015 2:19 PM EDT Lymphocytosis FLOW CYTOMETRY REPORT Routine 02/26/2015 2:19 PM EDT DIFFERENTIAL, MANUAL Routine 02/26/2015 2:19 PM EDT HEMOGRAM Routine 02/26/2015 2:19 PM EDT Lymphocytosis CBC (WITH DIFF) Routine 02/26/2015 2:19 PM EDT Lymphocytosis LACTATE DEHYDROGENASE Routine 02/26/2015 2:19 PM EDT Lymphocytosis COMPREHENSIVE METABOLIC PANEL Routine 02/26/2015 2:19 PM EDT Lymphocytosis documented in this encounter Results * Flow Cytometry Report (02/26/2015 2:19 PM EDT) Pathologist [facility] Flow Cytometry Report ? [facility] ? Provider: ?? JOSUE MERCHANT JR ? Pt. Name: ?? IMANI ROSS ? Acc #: ?[id number] ? Pt. ? Col Date: ?? 02/26/2015 ?/Sex: ?1950,(64 years),Male ? Rec Date: ?? 02/26/2015 ?LOC: ?3K ? ANALYTICAL CELL PATHOLOGY ? ---Clinical Information--- ? lymphocytosis ? ---Preparation--- ? FCM: [id number] ? [id number] ? ---Markers--- ? Cells for immunophenotypic analysis were derived from peripheal blood. ? CD45 vs side scatter gating was utilized to identify a lymphoid analysis ? region that comprises approximately 45-54% of all cells. ? The following markers were assesed: CD2, CD3, CD4, CD5, CD7, CD8, CD10, ? CD19, CD20, CD23, CD38, CD45, CD56, CD79b, FMC7, kappa light chain lambda ? light chain and (C)ZAP-70. ? ---Interpretation--- ? The T-lymphocytes, CD56+ NK cells and B- lymphocytes comprise approx 26%, ? 4%, 70% of the gated population, respectively. ? The CD19+/CD20+ (dim) B-lymphocytes express CD5(dim), CD23 and are negative ? for CD10, FMC7. They show kappa Ig light chain ( dim/partial) restriction. ? The ZF57-[id number] B-lymphocytes are negative for CD38 and Zap70. ? The T-lymphocytes are an admixture of CD4+ and CD8+ T lymphocytes (ratio of ? 4.2). No loss or atypical intensity distributions are seen for any solis T ? antigen (CD2, 3, 4+8, 5, 7). ? No distinct blast cluster is seen on CD45 vs. right light scatter (SSC), ? nor loss of SSC on the maturing granulocytes. ? Diagnosis: Immunophenotype compatible with CD38 neg, Zap70 neg Chronic ? Lymphocytic Leukemia. see Note. ? Note: There has been considerable literature regarding the distinction of ? CLL from monoclonal B cell lymphocytosis (MBL), a low level of circulating ? B cells with a CLL immunophenotype that may never become a clinically ? significant CLL. The cellular equivalent of monoclonal gammopathy. This has ? led to a change in the definition of CLL from an absolute lymphocytosis of ? greater than 5000/microliter to an absolute B cell count of greater than ? 5K. Clinical correlation is recommended for definite diagnosis. ? [facility] ? Provider: ?? SHONDA LOVETT, JOSUE Sneed ? Pt. Name: ?? IMANI ROSS ? Acc #: ?[id number] ? Pt. ? Col Date: ?? 02/26/2015 ?/Sex: ?1950,(64 years),Male ? Rec Date: ?? 02/26/2015 ?LOC: ?3K ? ANALYTICAL CELL PATHOLOGY ? References: ? 1. Scarlett, et al Blood, 2008, 111: [phone] ? 2. Risa et al [facility], 2008, [phone]:[id number] ? 3. Florencia, et al, Blood, 2009, [id number] ? 02/27/15 ? BDB ? 02/27/15 Verified by: ? Roxane LERNER, Yovany ? Hematopathologist ? (Electronic Signature) ? ---Comment--- ?Flow analysis is an ancillary study. A definite diagnosis requires ? correlation with the morphologic features of this process and if necessary, ? correlation with other ancillary studies like immunohistochemistry , enzyme ? cytochemistry and/or cyto/molecular genetics. ?This test was developed and its performance characteristics determined ? by the Clinical Flow Cytometry Laboratory at [facility]. It has not been cleared or approved by the U.S. Food and Drug ? Administration. ??The FDA has determined that such clearance or approval is ? not necessary. ??This test is used for clinical purposes. ??It should not be ? regarded as investigational or for research. ??This laboratory is certified ? under the Clinical Laboratory Improvement Act of 1988 (CLIA) as qualified ? to perform high complexity clinical laboratory testing. CERNER MILLENNIUM 02/26/2015 2:19 PM EDT Josue Merchant Jr., MD PATHOLOGY/CYTOLOGY O RDERABLES CERNER MILLENNIUM * (ABNORMAL) Differential, Manual (02/26/2015 2:19 PM EDT) Neutrophil % Manual 28 % CERNER MILLENNIUM Lymphocyte Manual 65 % CERNER MILLENNIUM Monocyte Manual 5 % CERN ER MILLENNIUM Eosinophil Manual 1 % CERNER MILLENNIUM Basophil Manual 1 % CERN ER MILLENNIUM Neutrophil Absolute (ANC) - Manual 5.1 1.5 - 6.3 x10(3)/mcL CERNER MILLENNIUM Neutrophil Absolute (ANC) - Automated 5.10 1.50 - 6.30 x10(3)/mcL CERNER MILLENNIUM Lymph Absolute Manual 11.8(H) 1.0 - 3.6 x10(3)/mcL CERNER MILLENNIUM Monocyte Absolute Manual 0.9 0.2 - 1.0 x10(3)/mcL CERNER MILLENNIUM Eos Absolute Manual 0.2 0.0 - 0.5 x10(3)/mcL CERNER MILLENNIUM Baso Absolute Manual 0.2 0.0 - 0.2 x10(3)/mcL CERNER MILLENNIUM Total Cells Ct 100 CERNE R MILLENNIUM Plat estimate Normal CERNER MILLENNIUM RBC Morphology Normal CERNE R MILLENNIUM Smudge cell Present CERNER MILLENNIUM Blood specimen (specimen) 02/26/2015 2:19 PM EDT 02/26/2015 2:25 PM EDT Narrative Resulting Agency Comment Spec In Lab Josue Merchant Jr., MD HEMATOLOGY ORDERABLE S CERNER MILLENNIUM * (ABNORMAL) Hemogram (02/26/2015 2:19 PM EDT) White Blood Cell 18.2(H) 4.0 - 10.0 x10(3)/mc L CERNER MILLENNIUM Red Blood Cell 4.91 4.63 - 6.08 x10(6)/mc L CERNER MILLENNIUM Hemoglobin 15.9 13.7 - 17.5 gm/dL CERNER MILLENNIUM Hematocrit 47.1 40.0 - 51.0 % CERNER MILLENNIUM Mean Cell Volume 95.9(H) 79.0 - 92.0 fL CERNER MILLENNIUM Mean Cell Hemoglobin 32.4(H) 25.6 - 32.2 pg CERNER MILLENNIUM Mean Cell Hemoglobin Concentration 33.8 32.0 - 36.5 gm/dL CERNER MILLENNIUM Platelet 234 145 - 370 x10(3)/mc L CERNER MILLENNIUM RDW Standard Deviation 46.8(H) 35.0 - 46.0 fL CERNER MILLENNIUM RDW coefficient of variation 13.5 10.9 - 14.4 % CERNER MILLENNIUM Mean Platelet Volume 10.5 9.0 - 12.0 fL [facility] Blood specimen (specimen) 02/26/2015 2:19 PM EDT 02/26/2015 2:25 PM EDT Narrative Resulting Agency Comment Spec In Lab Josue Merchant Jr., MD HEMATOLOGY ORDERABLE S Performing Organization Address [facility] de Phone Number [facility] * Lactate Dehydrogenase (02/26/2015 2:19 PM EDT) Lactate Dehydrogenase 130 110 - 220 unit/L [facility] Blood specimen (specimen) 02/26/2015 2:19 PM EDT 02/26/2015 2:25 PM EDT Narrative Resulting Agency Comment Spec In Lab Josue Merchant Jr., MD CHEMISTRY ORDERABLES Performing Organization Address [facility] Phone Number [facility] * Immunophenotyping Flow Cytometry (02/26/2015 2:19 PM EDT) Immunophenotyping Flow See Comment [facility] Comment: When completed by the Pathologist, the Flow Cytometry Report ([id number]) will display under the Pathology Results section within eD. Specimen of unknown material (specimen) 02/26/2015 2:19 PM EDT 02/26/2015 2:25 PM EDT Narrative Resulting Agency Comment Spec In Lab Josue Merchant Jr., MD HEMATOLOGY ORDERABLE S Performing Organization Address [facility] Co de Phone Number [facility] * Comprehensive metabolic panel (non-fasting) (02/26/2015 2:19 PM EDT) Glucose 91 65 - 199 mg/dL [facility] Comment:Diabetes: >=200 mg/d L plus symptoms Blood Urea Nitrogen 13 10 - 20 mg/dL [facility] Creatinine 0.97 0.80 - 1.50 mg/dL [facility] Comment: Please note that the pediatric reference intervals supplied above were not validated at [facility]. Results from pediatric patients should be interpreted in conjunction to the patient's age, height and muscle mass. Sodium 141 135 - 145 mmol/L CERNER MILLENNIUM Potassium 4.3 3.5 - 5.0 mmol/L CERNER MILLENNIUM Comment: Please note: ??Patients with WBC >100,000 may have falsely elevated Potassium levels. ??For accurate Potassium quantification in these patients send serum separator tube (gold top) for subsequent determinations. ??Contact the Clinical Chemistry Laboratory if there are any questions. Chloride 103 98 - 107 mmol/L CERNER MILLENNIUM Carbon Dioxide 27 22 - 31 mmol/L CERNER MILLENNIUM Anion Gap 11 5 - 15 mmol/L CERNER MILLENNIUM Calcium 9.6 8.5 - 10.5 mg/dL CERNER MILLENNIUM Protein, Total 6.6 6.1 - 8.0 gm/dL CERNER MILLENNIUM Albumin 4.1 3.2 - 5.2 gm/dL CERNER MILLENNIUM Aspartate Aminotransferase 20 0 - 39 unit/L CERNER MILLENNIUM Alanine Aminotransferase 16 0 - 55 unit/L CERNER MILLENNIUM Alkaline Phosphatase 46 40 - 120 unit/L CERNER MILLENNIUM Bilirubin, [...] the following links into your internet browser. [email or web address] Blood specimen (specimen) 02/26/2015 2:19 PM EDT 02/26/2015 2:25 PM EDT Narrative Resulting Agency Comment Spec In Lab Josue Merchant Jr., MD CHEMISTRY ORDERABLES [facility] documented in this encounter Visit Diagnoses Diagnosis Lymphocytosis Lymphocytosis (symptomatic) documented in this encounter Care Teams Shop Worker Relationship Specialty Start Date End Date Nissa Wise MD [address] [place] [address] PCP - General 03/17/14 02/14/16 documented as of this encounter
--- OUTSIDE RECORDS SUMMARY | 2024-11-02 01:57 | XMS_ITS | Encounter Summary ---
Author Organization [facility] Address [facility] [place] [address] Care Team Providers Care Performance Analyst Name Role Phone Nissa Wise MD Primary Care Provider [phone] Encounter Details Date Type Department Care Team (Late st Contact Info) Description 01/25/2015 3:00 PM EDT Follow-Up Neurosurgery at [facility] [place] [address] Vivian Mesa APRN [facility] [place] [address] [place] [address] Syrinx of spinal cord Discharge Disposition: Home Social History Tobacco Use [...] Sign Reading Time Taken Comments Blood Pressure 136/95 01/25/2015 2:51 PM EDT Pulse 77 01/25/2015 2:51 PM EDT Temperature - - Respiratory Rate - - Oxygen Saturation - - Inhaled Oxygen Concentration - - Weight 86.2 kg (190 lb) 01/25/2015 2:51 PM EDT Height 172.7 cm (5' 8) 01/25/2015 2:51 PM EDT Body Mass Index 28.89 01/25/2015 2:51 PM EDT documented in this encounter Progress Notes * Vivian Abel, OVEN DAUBER - 01/25/2015 3:35 PM EDT Patient returns in followup to the Neurosurgery Clinic. He was last seen on July 12, 2014, by Dr. Barnes. He was seen for neck pain with a history of occasional shocklike pain in his neck, which was worsened after a trauma last summer. He was also having paresthesias in his arms that were intermittent and mostly nocturnal. An MRI of the cervical spine was obtained and showed a very small cervical spine syrinx as well as some diffuse degenerative changes. His syrinx ran from C6 to T1. He returns today for repeat MRI and scheduled followup. The patient reports no change in symptoms since his last visit. The shocklike pains have improved. He continues to have tingling and numbness in his forearms and hands while sleeping, which resolves with position change. He is primarily troubled at the moment with right shoulder pain that has been evaluated and discovered to be due to degenerative joint disease for which he is scheduled for a shoulder joint replacement surgery in about two weeks' time. He denies any kind of radicular pain in the upper and lower extremities. He has sensation of crepitus in his neck but denies pain. He denies difficulty with fine coordination, gait, or balance. He denies any kind of difficulty with bowel or bladder function including any issues with urinary retention. On exam, the patient appears well. He is alert and oriented with a bright affect. His upper extremity strength is 5/5 with the exception of the right deltoid, which gives way presumably due to pain (the patient has a prior history of a rotator cuff injury on the right side). His lower extremity strength is 5/5. Light-touch sensation is intact in upper and lower extremities. His right upper extremity reflexes are 3+ at biceps and brachioradialis. Left biceps and brachioradialis are 2+. Right patellar reflex is 3+, as is the ankle reflex. His right patella and ankle reflexes are 2+. His gait is narrow-based and balanced. He is able to toe and heel walk. His tandem walk is likewise steady. Patient returns in followup with an MRI of the cervical spine. This was reviewed by me and shows a similarly sized syrinx as well as stable degenerative changes in cervical spine alignment. He has no new symptoms. He does get upper extremity paresthesias, which are positional and nocturnal and more likely may represent compression of the median nerve. Given that his clinical exam as well as his imaging is stable, I expect that we will not require further followup. I will discuss this with Dr. Barnes and contact the patient with a plan. In any case, I have asked the patient to contact us with any worsening of his symptoms or reappearance of previous neck pain and shocklike symptoms. We specifically discussed motor or sensory loss, incoordination or gait difficulties, bowel or bladder difficulties, or radicular pains. He states understanding and agreement with the plan. 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
--- OUTSIDE RECORDS SUMMARY | 2024-11-02 01:57 | XMS_ITS | Encounter Summary ---
Author Organization [facility] Address [facility] [place] [address] Care Team Providers Care It Solutions Architect Name Role Phone Nissa Wise MD Primary Care Provider Encounter Details Date Type Department Care Team (Latest Contact Info) Description 04/16/2015 8:41 PM EDT - 04/16/2015 11:59 PM EDT Hospital En[place] [address] Alpesh Nelson MD Discharge Disposition: Home Social History Tobacco Use [...] daily as needed. fluticasone (FLONASE) 50 mcg/actuation [place], Suspension 1 spray as needed for Rhinitis. 03/28/2020 Ascorbic Acid 500 mg Chew Take by mouth daily. 02/23/2019 ibuprofen (ADVIL;MOTRIN) 200 mg tablet Take 200 mg by mouth every 6 hours as needed. 03/28/2020 documented as of this encounter Plan of Treatment Upcoming Encounters Date Type Department Care Team (Late st Contact Info) Description 11/02/2024 1:00 PM EST Office Visit Hematology/Oncology at [address] [phone] Gloria Beck MD [facility]AT[facility] [place] [address] [address] Cisneros APRN [facility]AT[facility] [place] [address] documented as of this encounter Procedures Procedure Name Priority Date/Time Associated Diagnosis Comments SURGICAL PATHOLOGY REPORT Routine 04/16/2015 1:56 PM EDT documented in this encounter Results * Surgical Pathology Report (04/16/2015 1:56 PM EDT) Final Diagnosis ? [facility] ? Provider: ?? ALPESH NELSON ?Pt. Name: ?? IMANI ROSS N ? Acc #: ?[id number] ?Pt. ? Col Date: ?? 04/16/2015 ? /Sex: ?1950,(65 years),Male ? Rec Date: ?? 04/16/2015 ? LOC: ?[facility] ? SURGICAL PATHOLOGY ? ---Pathologic Diagnosis--- ? Right humeral head, osteoarthritis. ?Gross surgical pathology examination. ? CR-0 ? 04/17/15 ? SNS ? 04/23/15 Verified by: ? Raman DO, Angelica C. ? Pathologist ? (Electronic Signature) ? The attending pathologist whose signature appears on this report has ? reviewed all diagnostic slides and has edited the gross and/or ? microscopic portion of the report in rendering the final pathologic ? diagnosis. ? ---Gross Description--- ? A - Labeled/Fixative: Right humeral head, formalin. ? Quantity/Size: Single, 6.0 x 5.5 x 4.0 cm. ? Specimen Description: Intact humeral head with a 0.8 cm length of detached ? neck. ? Margin: Smooth, red bone. ? Articular surface: Red, granular and pitted. ?Eburnation: Present. ?Osteophytes: Present. ? Cut surface: Yellow trabecular bone. ?Subchondral Sclerosis: Present. ?Subchondral Cysts: Present. ? Sections/Processi ng: ??No sections are submitted. ??sns ? ---Clinical Information--- ? Specimen Submitted: ? A - Right humeral head ? Clinical History: ? Right shoulder osteoarthritis ? Clinical Diagnosis: ? Same ? Referring Identifier: ??[id number] 04/23/2015 8:32 AM EDT [facility] BONE STRUCTURE / Unknown 04/16/2015 1:56 PM EDT 04/16/2015 1:56 PM EDT Aplesh Nelson MD PATHOLOGY/CYTOLOGY O RDERABLES Performing Organization Address [facility]/State/[facility] Co de Phone Number [facility] [place] [address] documented in this encounter Visit Diagnoses Not on filedocumented in this encounter Care Teams It Solutions Architect Relationship Specialty Start Date End Date Nissa Wise MD [address] [place] [address] PCP - General 03/17/14 02/14/16 documented as of this encounter
--- OUTSIDE RECORDS SUMMARY | 2024-11-02 01:57 | XMS_ITS | Encounter Summary ---
Author Organization [facility] [place] [address] Care Team Providers Care Wheel Assembler Name Role Phone Nissa Wise MD Primary Care Provider Encounter Details Date Type Department Care Team (Late Contact Info) Description 12/11/2014 Orders [place] [address] Teresa Blank Social History Tobacco Use Types [...] PM EST Office Visit Hematology/Oncology at [address] [phone] Gloria Beck MD [facility]EMATOLOG[facility] AND [place] [address] [address] Cisneros, INDUSTRIAL RELATIONS DIRECTOR [facility]EMAT[facility] AND [place] [address] documented as of this encounter Visit Diagnoses Not on filedocumented in this encounter Care Teams Wheel Assembler Relationship Specialty Start Date End Date Nissa Wise MD [address] [place] [address] PCP - General 03/17/14 02/14/16 documented as of this encounter
--- OUTSIDE RECORDS SUMMARY | 2024-11-02 01:57 | XMS_ITS | Encounter Summary ---
Author Organization [facility] Address [facility] [place] [address] Care Team Providers Care Arborer Name Role Phone Nissa Wise MD Primary Care Provider Encounter Details Date Type Department Care Team (Latest Contact Info) Description 04/20/2014 8:35 AM EDT - 04/20/2014 11:59 PM EDT Hospital Encounter XRay at [address] [place] [address] Osteoarthrosis involving shoulder region, right Social History Tobacco Use Types Packs/Day Years [...] needed. 03/28/2020 documented as of this encounter Procedure Notes * Phylicia Mcclain MD - 04/20/2014 3:40 PM EDTProcedure(s): ARTHROCENTESIS,DRAIN/INJECT JOINT/BURSA Pre-Procedure Diagnose(s): Shoulder pain, right [facility] [id number] HISTORY: right shoulder Pain right shoulder INJECTION UNDER FLUOROSCOPY TECHNIQUE: After an extensive conversation with the patient regarding risks and benefits, oral and written consent were obtained. A pre- procedural time-out was performed as per [facility] protocol. The patient was placed supine on the fluoroscopic table. The right shoulder was prepped and draped in the usual aseptic manner. 1% Lidocaine was used to achieve local anesthesia. Under fluoroscopic guidance, 22 gauge spinal needle was advanced into the joint space. Small amount of air was injected to the document needle placement. A mixture of Ropivacaine and triamcinolone acetonide was injected.All needles removed at end of procedure. FINDINGS: 1. Small amount of injected air in the right shoulder joint space. 2. PAIN SCORE: Before: 6 /10 After: /10 3. Fluoroscopy time: 8 sec 4. Medications: Lidocaine 1% - <5 ml, for subcutaneous anesthesia Ropivacaine HCL 0.5% - 2ml, Triamciolone Acetonide - 30 mg, COMPLICATIONS: None immediate. POST-PROCEDURE CARE: Information regarding monitor of infection, post- procedural pain and management of steroid flare were reviewed with patient. IMPRESSION: Uneventful right shoulder injection under fluoroscopy. Attending: PHYLICIA Cain MD , was present for the entire procedure and I performed the procedure. documented in this encounter Miscellaneous Notes * Miscellaneous - Provider, Scanning - 04/25/2014 9:31 AM EDT * Miscellaneous - Provider, Scanning - 04/25/2014 9:12 AM EDT documented in this encounter Plan of Treatment Upcoming Encounters Date Type Department Care Team (Late st Contact Info) Description 11/02/2024 1:00 PM EST Office Visit Hematology/Oncology at [address] [phone] Gloria Beck MD [facility] [place] [address] [address] Cisneros APRN [facility] [place] [address] documented as of this encounter Procedures Procedure Name Priority Date/Time Associated Diagnosis Comments XR FLUORO INJECTION FL DRAIN LARGE JT Routine 04/20/2014 10:29 AM EDT Osteoarthrosis involving shoulder region, right documented in this encounter Results * XR Fluoro injection FL drain large JT (04/20/2014 10:29 AM EDT) Anatomical Region Laterality Modality N/A Radiographic Deepthi ging 04/20/2014 10:2 9 AM EDT Impressions 04/20/2014 4:08 PM EDT IMPRESSION: ?? Uneventful right shoulder injection under fluoroscopy. ? Attending: ?? I, PHYLICIA MCCLAIN MD , was present for the entire ?? procedure and I performed the procedure. ?; ?? {CR} ?? Narrative 04/20/2014 4:08 PM EDT ?Pre-procedure Diagnoses ?; ?; ?? {CR} ? ; ? 1. Shoulder pain, right ?? [719.41] ?; ?? {CR} ? ; ?? {CR} ? ; ? Procedures ?; ?? {CR} ? ; ? 1. ARTHROCENTESIS,DRAIN/INJECT ?? JOINT/BURSA [EYJ559] ?; ?? {CR} ? ; ?? {CR} ? ; ? Blas [facility] [id number] ?HISTORY: ?? right shoulder Pain ?right ?? shoulder INJECTION UNDER FLUOROSCOPY ?TECHNIQUE: ?? After an extensive conversation with the patient regarding risks and ?? benefits, oral and written consent were obtained. A pre- procedural time-out ?? was performed as per [facility] protocol. ?The ?? patient was placed supine [...] SCORE: ?Before: ?? 6 /10 ? After: ?? /10 ?3. ?? Fluoroscopy time: 8 sec ?4. ?? Medications: ? Lidocaine ?? 1% - <5 ml, for subcutaneous anesthesia ?Ropivacaine HCL ?? 0.5% - 2ml, ?Triamciolone Acetonide ?? - 30 mg, ?COMPLICATIONS: ?? None immediate. ? POST-PROCEDURE ?? CARE: Information regarding monitor of infection, post- ?? procedural pain and management of steroid flare were reviewed with patient. ? Procedure Note Phylicia Mcclain MD - 04/20/2014 Pre-procedure Diagnoses ; ; {CR} ; 1. Shoulder pain, right [719.41] ; {CR} ; {CR} ; Procedures ; {CR} ; 1. ARTHROCENTESIS,DRAIN/INJECT JOINT/BURSA [FFH666] ; {CR} ; {CR} ; Blas [facility] [id number] HISTORY: right shoulder Pain right shoulder INJECTION UNDER FLUOROSCOPYTECHNIQUE: After an extensive conversation with the patient regarding risks and benefits, oral and written consent were obtained. A pre- proceduraltime-out was performed as per [facility] protocol. The patient was placed supine onthe [...] 2. PAIN SCORE: Before: 6 /10 After: /10 3. Fluoroscopy time: 8 sec 4. Medications: Lidocaine 1% - <5 ml, for subcutaneous anesthesia Ropivacaine HCL0.5% - 2ml, Triamciolone Acetonide - 30 mg, COMPLICATIONS: Noneimmediate. POST-PROCEDURE CARE: Information regarding monitor of infection, post- procedural pain and management of steroid flare were reviewed withpatient. IMPRESSION IMPRESSION: Uneventful right shoulder injection under fluoroscopy. Attending: PHYLICIA Cain MD , was present for the entireprocedure and I performed the procedure. ; {CR} Ramon Lau MD IMG FLUORO ORDERABLE S documented in this encounter Visit Diagnoses Diagnosis Osteoarthrosis involving shoulder region, right documented in this encounter Administered Medications Inactive Administered Medications - up to 3 most recent administrations Medication Order MAR Action Action Date Dose Rate Site ROpivacaine (PF) 5 mg/mL (0.5 %) 4 mL with triamcinolone acetonide 40 mg injection Intra-articular, ONCE, 1 dose, On Kami 04/20/14 at 1045 Given 04/20/2014 10:30 AM EDT documented in this encounter Care Teams Arborer Relationship Specialty Start Date End Date Nissa Wise MD [address] [place] [address] PCP - General 03/17/14 02/14/16 documented as of this encounter
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
--- OUTSIDE RECORDS SUMMARY | 2024-11-02 01:57 | XMS_ITS | Encounter Summary ---
Author Organization [facility] [place] [address] Care Team Providers Care Electric Motor Repairer Name Role Phone Nissa Wise MD Primary Care Provider Encounter Details Date Type Department Care Team (Late Contact Info) Description 01/11/2015 Orders Only [place] [address] Carmen Elias, RN Liver lesion Social History [...] 1:00 PM EST Office Visit Hematology/Oncology at [address] [phone] Gloria Beck MD [facility] [place]EMATOLOGY [place] [address] [address] Cisneros, TRANSMISSION LINE ENGINEER [facility] [place]EMATOLOGY [place] [address] documented as of this encounter Results * Hepatitis C Antibody (01/16/2015 10:40 AM EDT) Hepatitis C Antibody Negative Negative [facility] Blood specimen (specimen) 01/16/2015 10:40 AM EDT 01/16/2015 10:53 AM EDT Narrative Resulting Agency Comment Spec In Lab Kaylee Heaton MD CHEMISTRY ORDERABLES Performing Organization Address [facility] de Phone Number [facility] * Hepatitis B Core Antibody, Total (01/16/2015 10:40 AM EDT) Hepatitis B Core Antibody Negative Negative [facility] Blood specimen (specimen) 01/16/2015 10:40 AM EDT 01/16/2015 10:53 AM EDT Narrative Resulting Agency Comment Spec In Lab Kaylee Heaton MD CHEMISTRY ORDERABLES Performing Organization Address [facility] de Phone Number [facility] * Hepatitis B Surface Antigen (01/16/2015 10:40 AM EDT) Hepatitis B Surface Antigen Negative Negative [facility] Blood specimen (specimen) 01/16/2015 10:40 AM EDT 01/16/2015 10:53 AM EDT Narrative Resulting Agency Comment Spec In Lab Kaylee Heaton MD CHEMISTRY ORDERABLES Performing Organization Address [facility] de Phone Number [facility] * Hepatitis B Surface Antibody (01/16/2015 10:40 AM EDT) Hepatitis B Surface Antibody Negative [facility] Comment: Expected Results: Vaccinated: Positive Unvaccinated: Negative [...] Heaton MD CHEMISTRY ORDERABLES Performing Organization Address [facility] Co de Phone Number [facility] * Hepatitis A Antibody, Total (01/16/2015 10:40 AM EDT) Hepatitis A ANTIBODY, TOTAL Negative Negative [facility] Blood specimen (specimen) 01/16/2015 10:40 AM EDT 01/16/2015 10:53 AM EDT Narrative Resulting Agency Comment Spec In Lab Kaylee Heaton MD CHEMISTRY ORDERABLES Performing Organization Address [facility] Co de Phone Number [facility] documented in this encounter Visit Diagnoses Diagnosis Liver lesion Other specified disorders of liver documented in this encounter Care Teams Electric Motor Repairer Relationship Specialty Start Date End Date Nissa Wise MD [address] [place] [address] PCP - General 03/17/14 02/14/16 documented as of this encounter
--- OUTSIDE RECORDS SUMMARY | 2024-11-02 01:57 | XMS_ITS | Encounter Summary ---
Author Organization [facility] [place] [address] Care Team Providers Care Convenience Recycle Center Tech Name Role Phone Nissa Wise MD Primary Care Provider Reason for Referral * Surgical (Routine) - Closed Specialty Diagnoses / Procedures Referred By Cristy t Referred To Contact Neurosurgery Diagnoses Cervical spine disease Mandi Sinclair DO [facility] [place] [address] Alton Barnes MD [facility] [place] [address] Referral ID Status Reason Start Date Expiration Date V isits Requested Visits Authorized [id number] Closed Consult, Test & Treat 06/06/2014 12/03/2014 1 1 Encounter Details Date Type Department Care Team (Late st Contact Info) Description 06/06/2014 9:15 AM EDT Follow-Up Neurology at [place] [phone] Bogdan Bonilla MD [facility] [place] [address] Mandi Sinclair DO Cervical spine disease (Primary Dx) Discharge Disposition: Home Social History [...] Sign Reading Time Taken Comments Blood Pressure 133/89 06/06/2014 9:10 AM EDT Pulse 90 06/06/2014 9:10 AM EDT Temperature - - Respiratory Rate - - Oxygen Saturation - - Inhaled Oxygen Concentration - - Weight 83.9 kg (185 lb) 06/06/2014 9:10 AM EDT Height 172.7 cm (5' 8) 06/06/2014 9:10 AM EDT Body Mass Index 28.13 06/06/2014 9:10 AM EDT documented in this encounter Progress Notes * Bogdan Bonilla MD - 06/06/2014 4:28 PM EDT I saw and evaluated the patient with Dr. Sinclair . I have reviewed the resident's history during the visit and I agree with the details as written. My neurological examination confirms the resident's findings. The assessment and plan were formulated in discussion with me at the time of the visit and I agree with them as documented. Discussed at length with patient about diagnostic considerations. Explained diagnosis and treatment.Patient understands and accepts our plan. If there are any questions or problems, they will call..Bogdan Bonilla MD * Mandi Sinclair MD - 06/06/2014 9:22 AM EDT [facility] [place] [address] Neurology Clinic Follow-up: 06/06/2014 Patient name: Blas Elizondo Date of : 1950 06/06/2014 Patient ID: Blas Elizondo is a 64 y.o. year old male followed in the neurology clinic for likely median neuropathy Patient Active Problem List Diagnosis ??? Hand numbness ??? Glenohumeral arthritis ??? Herniation of intervertebral disc between L4 and L5 with surgical intervention Subjective: wearing splint at night. Numbness also improved, but only about 10%. MRI of the cervical spine shows severe foraminal narrowing. Some neck pain, but was at the chiropractor and was adjusted. Chiropractor is aware of the results of the MRI. Meds: Outpatient Encounter Prescriptions as of 06/06/2014 Medication Sig Dispense Refill ??? Ascorbic Acid 500 mg Chew Take by mouth. ??? vitamin E 400 unit capsule Take by mouth. ??? ibuprofen (ADVIL;MOTRIN) 200 mg tablet Take 200 mg by mouth every 6 hours as needed. ??? omeprazole (PRILOSEC) 10 mg capsule Take 10 mg by mouth daily as needed. Review of systems: Constitutional: No fevers or chills Eyes: No vision changes, no diplopia, no blurry vision ENT: No rhinorrhea or pharyngitis, no meningismus CV: No chest pain or palpitations Resp: No cough, no shortness of breath GI: No nausea, vomiting, diarrhea or constipation : No dysuria, no incontinence Heme: No bleeding or bruising Endo: No diabetes or thyroid disease Neuro: See HPI Psych: No depression, normal sleep [x] Review of systems otherwise negative Objective: Filed Vitals: 06/06/14 0910 BP: 133/89 Pulse: 90 Constitutional: Patient of apparent stated age, well nourished, well developed, no acute distress Neuro: Constitutional: Patient of apparent stated age, well [...] intact and symmetric Gait: Stable, steady Labs: None. Diagnostic Tests and Images: MRI cervical spine: Impression 1. Cervical spondylosis most advanced at C5-6 and C6-7 where there is severe bilateral neural foraminal stenosis. 2. 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 In terms of his CTS, he states he is about 10% improved. He is not enthusiastic about undergoing CTS release, as he did not see much improvement from the previous done on his left. However as his improvement is slow despite the use ofthe splint, will fwd this note over to hand clinic to see if they would like to see him for possible surgical intervention. In terms of his neck, he is reporting vague neck pain but without rafy radicular complaints. 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 Whether this is congenital or trauma related is unclear to us. We have made a referral for him to see our neurosurgery colleagues (Dr. Barnes) here to opine on this and whether he believes there is indication for surgical intervention. We would also like to obtain a f/u MRI of the cervical spine in a 6 months to a year to assess for progression of this lesion. We arealso concerned about him seeing a chiropractor for manipulation of his cervical spine. We will f/u with him after his evaluations as listed above. Chelo Sinclair DO Clinical Neurophysiology Fellow documented in this encounter Plan of Treatment Upcoming Encounters Date Type Department Care Team (Late st Contact Info) Description 11/02/2024 1:00 PM EST Office Visit Hematology/Oncology at [address] [phone] Gloria Beck MD [facility] [place] [address] [address] Cisneros, BIRD TRAPPER [facility] [place] [address] Scheduled Referrals Name Type Priority Associated Diagnoses Order Schedule Referral to Neurosurgery Outpatient Referral Routine Cervical spine disease Ordered: 06/06/2014 documented as of this encounter Visit Diagnoses Diagnosis Cervical spine disease- Primary Unspecified musculoskeletal disorders and symptoms referable to neck documented in this encounter Care Teams Con[employer]ience [employer] Tech Relationship Specialty Start Date End Date Nissa Wise MD [address] [place] [address] PCP - General 03/17/14 02/14/16 documented as of this encounter
--- OUTSIDE RECORDS SUMMARY | 2024-11-02 01:57 | XMS_ITS | Encounter Summary ---
Author Organization [facility] [place] [address] Care Team Providers Care Pre Sales Network Engineer Name Role Phone Nissa Wise MD Primary Care Provider Encounter Details Date Type Department Care Team (Late Contact Info) Description 06/29/2014 [place] [phone] Anna Hernandez Social History Tobacco Use Types Packs/Day Years [...] encounter Miscellaneous Notes * Telephone Encounter - Anna Hernandez - 06/29/2014 11:18 AM EDT Booked surgery with patient on phone, confirmed surgery date of 08/10/14, instruction packet mailed, follow up mailed. documented in this encounter Plan of Treatment Upcoming Encounters Date Type Department Care Team (Late Contact Info) Description 11/02/2024 1:00 PM EST Office Visit Hematology/Oncology at [address] [phone] Gloria Beck MD [facility] DR HEMATOLOGY [place] [address] [address] Cisneros APRN [facility] DR [place]EMATOLOGY [place] [address] documented as of this encounter Visit Diagnoses Not on filedocumented in this encounter Care Teams Pre Sales Network Engineer Relationship Specialty Start Date End Date Nissa Wise MD [address] [place] [address] PCP - General 03/17/14 02/14/16 documented as of this encounter
--- OUTSIDE RECORDS SUMMARY | 2024-11-02 01:57 | XMS_ITS | Encounter Summary ---
Author Organization [facility] [place] [address] Care Team Providers Care Transformer Tester Name Role Phone Nissa Wise MD Primary Care Provider Encounter Details Date Type Department Care Team (Late Contact Info) Description 05/09/2014 External [place] [address] Bogdan Bonilla MD [facility] [place] [address] Social History Tobacco Use Types Packs/Day Years [...] 1:00 PM EST Office Visit Hematology/Oncology at [address] [phone] Gloria Beck MD [facility] DR HEMATOLOGY [place] [address] [address] Cisneros, QUALITY SYSTEMS TECHNICIAN [facility] DR HEMATOLOGY [place] [address] documented as of this encounter Procedures Procedure Name Priority Date/Time Associated Diagnosis Comments EMG SCAN Routine 05/08/2014 documented in this encounter Results * Scan Doc: EMG (05/08/2014) Bogdan Bonilla MD MEDIA MGR SCAN EXT O RDR/RSLT documented in this encounter Visit Diagnoses Not on filedocumented in this encounter Care Teams Transformer Tester Relationship Specialty Start Date End Date Nissa Wise MD [address] [place] [address] PCP - General 03/17/14 02/14/16 documented as of this encounter
--- OUTSIDE RECORDS SUMMARY | 2024-11-02 01:57 | XMS_ITS | Encounter Summary ---
Author Organization [facility] [place] [address] Care Team Providers Care Inventory Assistant Name Role Phone Nissa Wise MD Primary Care Provider [phone] Encounter Details Date Type Department Care Team (Late Contact Info) Description 04/06/2014 Telephone [place] [address] Maryana Davis Social History Tobacco Use Types Packs/Day Years Used Date Smoking Tobacco: Former Cigarettes Cigars Sex and Gender Information Value Date Recorded Sex Assigned at Not on file Gender Identity Not on file Sexual Orientation Not on file documented as of this encounter Miscellaneous Notes * Telephone Encounter - Maryana Davis - 04/06/2014 3:08 PM EDT Called and left message on home and cell of the time change documented in this encounter Plan of Treatment Upcoming Encounters Date Type Department Care Team (Late Contact Info) Description 11/02/2024 1:00 PM EST Office Visit Hematology/Oncology at [address] [phone] Gloria Beck MD [facility] [address] [place] [address] [address] Cisneros APRN [facility] [address] [place] [address] documented as of this encounter Visit Diagnoses Not on filedocumented in this encounter Care Teams Inventory Assistant Relationship Specialty Start Date End Date Nissa Wise MD [address] [place] [address] PCP - General 03/17/14 02/14/16 documented as of this encounter
--- OUTSIDE RECORDS SUMMARY | 2024-11-02 01:58 | XMS_ITS | Clinical Summary ---
Author Organization [facility] Address [address] [place] [address] Care Team Providers Care Sex Offender Treatment Professional Name Role Phone Unavailable Primary Care Provider Unavailabl e Social History Tobacco Use Types Packs/Day Years Used Date Smoking Tobacco: Never Assessed Sex and Gender Information Value Date Recorded Sex Assigned at Not on file Legal Sex Male 17:53 EST Gender Identity Not on file Sexual Orientation Not on file Plan of Treatment Health Maintenance Due Date Last Done Comments Hepatitis C Screen 1950 Fall Risk Screening 2014 RSV Immunization ( o r 60+ Years) (1 - 1-dose 75+ series) 2024 COVID-19 Vaccine ( season) 2024
--- OUTSIDE RECORDS SUMMARY | 2024-11-02 01:58 | XMS_ITS | Encounter Summary ---
Author Organization [facility] [place] [address] Care Team Providers Care Group Director Name Role Phone Maria Victoria Kaur Primary Care Provider [phone] Encounter Details Date Type Department Care Team (Late Contact Info) Description 03/17/2014 Notes Only [place] [address] Todd Mullins, DALJIT [facility] [place] [address] Social History Tobacco Use Types Packs/Day Years [...] PM EST Office Visit Hematology/Oncology at [address] [phone] Gloria Beck MD [facility] HEMATOLOGY [place] [address] [address] Cisneros, [employer] GUIDE [facility] HEMATOLOGY [place] [address] documented as of this encounter Visit Diagnoses Not on filedocumented in this encounter Care Teams Group Director Relationship Specialty Start Date End Date Maria Victoria Kaur PA [address] [place] [address] PCP - General Family Medicine 05/19/23 documented as of this encounter
--- OUTSIDE RECORDS SUMMARY | 2024-11-02 01:58 | XMS_ITS | Encounter Summary ---
Author Organization [facility] Address [facility] [place] [place] [address] Care Team Providers Care Senior Investigator Name Role Phone Nissa Wise MD Primary Care Provider Encounter Details Date Type Department Care Team (Late st Contact Info) Description 03/22/2014 12:30 PM EDT - 03/22/2014 1:58 PM EDT Surgery [place] [address] Stephen Renae MD [facility] [place] [address] OPEN TREATMENT MANDIBULAR\MAXILLARY ALVEOLAR RIDGE FX (WRVU 6.26) Social History Tobacco Use Types Packs/Day Years Used Date Smoking Tobacco: Former Cigarettes Cigars Sex and Gender Information Value Date Recorded Sex Assigned at Not on file Gender Identity Not on file Sexual Orientation Not on file documented as of this encounter Last Filed Vital Signs Vital Sign Reading Time Taken Comments Blood Pressure 144/89 03/22/2014 12:22 PM EDT Pulse 66 03/22/2014 12:22 PM EDT Temperature 36.4 ??C (97.5 ??F) 03/22/2014 12:22 PM E DT Respiratory Rate 20 03/22/2014 12:22 PM EDT Oxygen Saturation 100% 03/22/2014 12:22 PM EDT Inhaled Oxygen Concentration - - Weight 88.5 kg (195 lb) 03/22/2014 12:16 PM EDT Height 172.7 cm (5' 8) 03/22/2014 12:16 PM EDT Body Mass Index 29.65 03/22/2014 12:16 PM EDT documented in this encounter Discharge Instructions * Discharge Instructions* Concetta Dotson RN - 03/22/2014 3:23 PM EDT POST ANESTHESIA INSTRUCTIONS Go home, rest, use caution on stairs. Change positions slowly. Do not smoke if you are alone. Diet light to regular as tolerated today. If nausea occurs start with clear liquids and progress slowly. No driving, operating machinery, alcoholic beverages and no important decisions for 24 hours. Monitor IV site for signs and symptoms of infection: increasing redness, swelling, foul drainage, if occurs contact M.D. Patients who have had endotrachial tubes (this tube, used by anesthesia department, is passed down your throat after you are asleep, to ensure safe air passage during your operation). A sore throat is normal due to the tube. Cold liquids or soothing lozenges will help ease the discomfort. The generalized muscle aches are due to the medication given to you just before the tube is inserted. As the medication wears off, you may develop muscle soreness, which usually goes away in 12-24 hours. * Patient Instructions* Nora Reeves - 03/22/2014 3:15 PM EDT Discharge Instructions CALL YOUR PHYSICIAN IF: You have a fever greater than 101 degrees Farenheit You have worsening pain, not controlled with your pain medication. You develop redness, swelling, or new drainage from your wound. You develop drooling, respiratory distress or shortness of breath Prescriptions*: -You have been prescribed narcotic pain medications (such as Percocet, Vicodin, Oxycodone or Dilaudid) to control your discomfort after surgery. DO NOT use alcohol, drive, or operate heavy or complex machinery while taking these medications. Narcotic pain medications may cause constipation. Stool softeners, such as Colace; mild laxatives, such as Milk of Magnesia, Sennakot, or Ducolax tabs; or enemas may be used if needed and are nisq-jqx-[id number] (OTC) medications available at most local pharmacies. Prunes or prune juice, taken daily, can also be helpful for constipation treatment or p revention and are available at most [employer] [employer]. Driving Restrictions*: - No driving while using prescription pain medications Activities: As tolerated Diet: Liquid diet. Drink Boost, Ensure, or other high protein shakes with each meal to maintain nutrition. This will assist with wound healing. Wound Care: Peridex rinses after meals and all oral intake. Sutures removed from chin. Small area packed with strip gauze inferiorly. Change guaze once daily as tolerated. Pack loosely. Keep incision moist with bacitracin. Clean crusting twice daily. Comfort: Some incision soreness can be expected. Take your pain medication as needed and prescribed. Taper use of pain medication as pain lessens. Follow-up Appointments: A Follow-up appointment will be scheduled with the [facility]- Care Provider . You will recieve a letter in the mail and/or a phone call with information about this appointment. Please call [phone] (clinic number for appointments) to confirm date and time of your appointment, or if you do not receive information about your appointment in a timely manner. For any medical concerns the Otolaryngology nurse can be reached at and can answer any questions you may have during the day. The [facility] tunneling machine operator can be reached at and can connect you with a resident tong setter if necessary after hours. Future Appointments Date Time Provider Department Center 04/11/2014 11:00 AM Fallon Villasenor APRN [facility] 04/28/2014 9:00 AM Lucia Martin APRN [facility] documented in this encounter Medications at Time of Discharge Medication Sig Dispensed Refills Start Date End Date vitamin E 400 unit capsule Take 400 Units by mouth daily. omeprazole (PRILOSEC) 10 mg capsule Take 10 mg by mouth daily as needed. clindamycin (CLEOCIN) 75 mg/5 mL solution Take 20 mLs by mouth 3 times daily for 7 days. 420 mL 0 03/22/2014 03/29/2014 oxyCODONE (ROXICODONE) 5 mg immediate release tablet [...] 03/17/2014 04/20/2014 documented as of this encounter Progress Notes * Dilia Jewell RN - 03/22/2014 4:55 PM EDT Kailey at bedside. Pt c/o severe pain take the six before and add six more, ice pack to chin. 1710 Tolerated sips of water. Talking about his stupid dreams under anesthesia. Dr. Reeves at bedside. Pt given dressing supplies for home. REviewed written and verbal discharge instructions with pt and . 1914 Hygiene of face done. Up to BR. Dressing independently. Ready for discharge home. documented in this encounter Miscellaneous Notes * Miscellaneous - Provider, Scanning - 03/22/2014 9:31 PM EDT * Op Note - Nora Reeves - 03/22/2014 7:23 PM EDT Images from the original note were not included. [facility] Operative Note Patient Name: Blas Elizondo : [id number] MR#: [id number] Case Date: 03/22/2014 Surgeon: Surgeon(s) and Role: * Stephen eRnae MD - Primary * Nora Reeves MD Preoperative diagnosis: palate fracture Postoperative diagnosis: palate fracture Procedure(s): OPEN TREATMENT MANDIBULAR\MAXILLARY ALVEOLAR RIDGE FX Anesthesia: General Estimated Blood Loss: 20 mL Drains: none Disposition: awakened from anesthesia, extubated and taken to the recovery room in a stable condition, having suffered no apparent untoward event. Condition: doing well without problems (Please see the Surgical Encounter Summary for any Implant and Specimen details pertinent to this patient.) HPI/Surgical Indications: We have been asked to see Blas Elizondo by his primary team. History obtained through patient interview, review of relevant records, and/or discussion with referring provider. Blas Elizondo is a 63 y.o. male with chin laceration and multiple facial fractures. Floating palatal segment and continued malocclusion. Plan for OR for ORIF of alveolar ridge fracture and removal of sutures Procedure Description: After informed consent was obtained, the patient was brought to the operating room and placed in a supine position. After induction of general anesthesia, the patient was orally intubated without difficulty. A time out was called and the patient, procedure, and site were confirmed. The incision wascarefully planned in the maxillary labial buccal sulcus. Local anesthetic lidocaine with epinephrine was infiltrated into the planned incision site. The patient was prepped and draped in the usual sterile fashion. The gums, teeth, and tongue were brushed with betadine and the oral cavity was irrigated. The left side was approached first. A 3 cm incision was made with a 15 blade scalpel through the mucosa and carried down to bone. Hemostasis was achieved with monopolar cautery. A [place] elevator was used to elevate the periostium and expose the fracture site. A 1.7 mm L plate was molded and loosely placed across the fracture using 3 mm and 4 mm screws. The right side was then approached in a similar fashion, leaving a small portion of intact mucosa in the midline. Both fractures were visualized and confirmed to be in good position. Another L shaped mini plate was then placed on the right using a combination of 3 and 4 mm screws and secured. See diagram below. Additional screws were placed on the left to secure plate. Hemostasis was reconfirmed. The muscular layer was closed with interrupted vicryl sutures bilaterally. The mucosa was then closed with running chromic sutures. The oralcavity was irrigated and the stomach was suctioned with OG tube. Sutures were removed from the chinlaceration and necrotic tissue debrided. Inferior portion of incision was packed with iodoform strip gauze and covered with bacitracin. The patient was then returned to anesthesia, allowed to awaken, and taken out of the operating room in good condition. The patient tolerated the procedure well without complication. Findings: Two 1.7 mm plates used to stabilize fractures. Palate in good position and non mobile Chin laceration with necrotic tissue and small area of dehiscence inferiorly. Packed with iodoform gauze. * OR Attestation - Stephen Renae MD - 03/22/2014 3:06 PM EDT Attestation: Case Date: 03/22/2014 I was present and I participated during the entire procedure (does not need to include opening and closing). STEPHEN RENAE MD 03/23/2014 * Miscellaneous - ProviderChante - 03/22/2014 1:36 PM EDT documented in this encounter Plan of Treatment Upcoming Encounters Date Type Department Care Team (Late st Contact Info) Description 11/02/2024 1:00 PM EST Office Visit Hematology/Oncology at [address] [phone] Gloria Beck MD [facility] DR [place] [address] [address] Cisneros APRN [facility] [place] [address] documented as of this encounter Procedures Procedure Name Priority Date/Time Associated Diagnosis Comments OPEN TREATMENT MANDIBULAR\MAXILLARY ALVEOLAR RIDGE FX (WRVU 6.26) 03/22/2014 1:19 PM EDT 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, with nonunion, subsequent encounter documented in this encounter Visit Diagnoses Diagnosis 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 Maximum dose: 250 mcg over one hour., PACU Recovery Given 03/22/2014 3:57 PM EDT 25 mcg Given 03/22/2014 3:45 PM EDT 50 mcg HYDROmorphone (DILAUDID) 0.2 mg/mL 10mL Syringe 0.2-0.4 mg, Intravenous, EVERY 5 MIN PRN, Pain, Starting on Thu03/22/14 at 1530, Until Thu03/22/14 at 2208, For moderate pain give: 0.2 mg every 5 minute prn For severe pain give: 0.4 mg every 5 minutes prn Maximum dose: 4 mg per hour Hold for respiratory rate less than 10 per minute., PACU Recovery Given 03/22/2014 4:58 PM EDT 0.4 mg Given 03/22/2014 4:49 PM EDT 0.4 mg Given 03/22/2014 4:41 PM EDT 0.4 mg lidocaine-EPINEPHrine 1 %-1:200,000 injection ONCE PRN, Starting on Thu03/22/14 at 1400, Until Thu03/22/14 at 2208, Intra-Operative (Intra-Procedure), Routine Given 03/22/2014 2:00 PM EDT 4.5 mLs 19- Surgical Site oxyCODONE-acetaminophen (PERCOCET) 5-325 mg per tablet 1-2 tablet 1-2 tablet, Oral, EVERY 4 HOURS PRN, Pain, Starting on Thu03/22/14 at 1522, Until Thu03/22/14 at 2208, Maximum dose of acetaminophen is 4000 mg from all sources in 24 hours. Given 03/22/2014 5:23 PM EDT 1 tablet documented in this encounter Active and Recently Administered Medications Times are shown in EDT. Scheduled Medication Order 03/20/2014 03/21/2014 03/22/2014 ampicillin-sulbactam (UNASYN) 3 g vial attach to sodium chloride 0.9% 100 mL Mini-Bag Plus (CANCELED) 3 g, Intravenous, EVERY 6 HOURS SCHEDULED, First dose on Thu03/22/14 at 1230, Until Discontinued, Administer over 30 Minutes, Indication for (Active or Suspected): Prophylaxis 1230 (Due)1343 (Give n - Provider: Sandra Em CRNA)1800 (Due) PRN Medication Order 03/20/2014 03/21/2014 03/22/2014 fentaNYL (PF) 50 mcg/mL 2mL syringe (CANCELED) 25-50 mcg, Intravenous, EVERY 5 MIN PRN, Pain, for breakthrough pain, Starting on Thu03/22/14 at 1530, Until Thu03/22/14 at 2208, Hold for respiratory rate less than 10 per minute. Maximum dose: 250 mcg over one hour., PACU Recovery 1545 (Given - Provid er: Concetta Dotson RN)1557 (Given - Provider: Concetta Dotson RN) HYDROmorphone (DILAUDID) 0.2 mg/mL 10mL Syringe (CANCELED) 0.2-0.4 mg, Intravenous, EVERY 5 MIN PRN, Pain, Starting on Thu03/22/14 at 1530, Until Thu03/22/14 at 2208, For moderate pain give: 0.2 mg every 5 minute prn For severe pain give: 0.4 mg every 5 minutes prn Maximum dose: 4 mg per hour Hold for respiratory rate less than 10 per minute., PACU Recovery 1602 (Given - Provid er: Concetta Dotson RN)1623 (Given - Provider: Concetta Dotson RN)1631 (Given - Provider: Dilia Jewell, VALDO)1641 (Given - Provider: Dilia Jewell, RN)1649 (Given - Provider: Dilia Jewell, RN)1658 (Given - Provider: Dilia Jewell, RN) lidocaine-EPINEPHrine 1 %-1:200,000 injection (CANCELED) ONCE PRN, Starting on Thu03/22/14 at 1400, Until Thu03/22/14 at 2208, Intra-Operative (Intra-Procedure), Routine 1400 (Given - Provid er: Stephen Renae MD) oxyCODONE-acetaminophen (PERCOCET) 5-325 mg per tablet 1-2 tablet (CANCELED) 1-2 tablet, Oral, EVERY 4 HOURS PRN, Pain, Starting on Thu03/22/14 at 1522, Until Thu03/22/14 at 2208, Maximum dose of acetaminophen is 4000 mg from all sources in 24 hours. 1723 (Given - Provid er: Dilia Jewell RN) documented in this encounter Care Teams Senior Investigator Relationship Specialty Start Date End Date Nissa Wise MD [address] [place] [address] PCP - General 03/17/14 02/14/16 documented as of this encounter
--- OUTSIDE RECORDS SUMMARY | 2024-11-02 01:58 | XMS_ITS | Encounter Summary ---
Author Organization [facility] [place] [place] [address] Care Team Providers Care Bilingual Branch Manager Name Role Phone Nissa Wise MD Primary Care Provider Encounter Details Date Type Department Care Team (Late st Contact Info) Description 03/16/2014 11:56 PM EDT - 03/17/2014 6:04 PM EDT Emergency [address] [place] [id number] Basil Chapa MD Rhynhart, Kurt K, MD [address] [place] [address] [place] [address] Trauma Discharge Disposition: Home Social History Tobacco Use Types Packs/Day Years Used Date Smoking Tobacco: Never Assessed Sex and Gender Information Value Date Recorded Sex Assigned at Not on file Gender Identity Not on file Sexual Orientation Not on file documented as of this encounter Last Filed Vital Signs Vital Sign Reading Time Taken Comments Blood Pressure 106/63 03/17/2014 2:00 PM EDT Pulse 70 03/17/2014 2:00 PM EDT Temperature 36.6 ??C (97.9 ??F) 03/17/2014 2:00 PM ED T Respiratory Rate 18 03/17/2014 2:00 PM EDT Oxygen Saturation 94% 03/17/2014 2:00 PM EDT Inhaled Oxygen Concentration - - Weight 89.6 kg (197 lb 8.5 oz) 03/17/2014 1:46 A M EDT Height 172.7 cm (5' 8) 03/17/2014 1:46 AM EDT Body Mass Index 30.03 03/17/2014 1:46 AM EDT documented in this encounter Discharge Instructions * Discharge Instructions* Ed Adamosn, APRIL - 03/17/2014 5:00 PM EDT Incidental findings: please follow up with your PCP Degenerative endplate spurs at and the disc spaces from C5-C7. There are multiple levels of facet arthropathy, greater on the left. Bilateral calcifications of the carotid arteries at the siphon and vertebral arteries at the foramen magnum Nonspecific 8 mm nodule in the anterior right lung Right lobe liver lesion is probably a hemangioma with calcifications Patient Instructions: Call your doctor if: 1. Monitor your chin laceration for the following signs and symptoms of infection: 2. Redness or swelling, (some mild redness around the incision and the staple sites is normal) 3. Drainage of pus or bleeding 4. Fever over 100.5 F 5. Increased pain or discomfort at the incision site 6. Persistent vomiting or the inability to keep foods or fluids down in a 24 hour period 7. Or any other concern, such as trouble breathing, pain with urination, or new leg pain/swelling. Also, please call with increasing abdominal pain, firmness, stop passing gas for an extended period of time, or bloody bowel movements or vomitus. CALL THE GENERAL SURGERY CLINIC DURING WORKING HOURS AT , OR CALL AFTER CLINIC HOURS, WEEKENDS AND HOLIDAYS: ASK FOR THE SURGERY RESIDENT BULLET CHARGING MACHINE OPERATOR IF ANY OF THE ABOVE OCCUR. Activity level: activity as tolerated by comfort level. Diet: Liquis diet, no solid food, no chewing, Peridex rinses after all oral intake Driving: No driving while still taking opioid pain medications (wait at least 6- 8 hours since last dose). Shower/Bath: You may shower and get laceration wet in 2 day (03/19). Pat dry immediately following. Do not scrub vigorously for the next 2-3 weeks. Do not soak laceration for the next 2 weeks (i.e. soaking in bath or swimming) as this may promote a wound infection. Wound Care: -Gently cleanse wound twice daily with half strength peroxide solution. -Apply bacitracin ointment after cleansing wound Take your antibiotics as instructed until your follow up appointment in the ENT clinic Follow up Appointments: ENT clinic in 5 days Contact numbers: You can reach the ENT clinic at [phone] for appointment questions. The ENT triage nurse is available at [phone] For urgent issues during evenings and weekends the ENT resident classification and treatment director can be reached through the main hospital mill control operator at [phone] n 5-7 days in ENT clinic. Call to make an appointment. Trauma clinic in 2-4 weeks: General Surgery Clinic: [facility] (after business hours): documented in this encounter Medications at Time [...] times daily. 100 mL 0 03/17/2014 04/20/2014 oxyCODONE (ROXICODONE) 5 mg immediate release tablet Take 1-2 tablets by mouth every 3 hours as needed for Pain. 50 tablet 0 03/17/2014 03/22/2014 amoxicillin-clavulanate (AUGMENTIN) 250-125 mg per tablet Take 1 tablet by mouth 3 times daily for 10 days. 30 tablet 0 03/17/2014 03/22/2014 documented as of this encounter Progress Notes * Shannon Baer, RN - 03/17/2014 6:06 PM EDT 63 year old M admitted on 03/16/14 for a s/p blow to face/chest from tree branch is being dischargedhome by private vehicle and significant other. At time of discharge, patient is afebrile, VSS, IV was removed with no signs of infection or inflammation. Abrasion present on chest, chin laceration was cleaned and bacitracin placed. Peridex sent with patient to continue at home. Pt. Left in wheelchair with all personal possessions. Pt demonstrated that he can ambulate independently with steady gait. Pt was cleared by PT today anddid stairs with PT. Discharge summary reviewed with patient and spouse and all questions were answered. Prescriptions sent with patient. * Kandace Miranda - 03/17/2014 11:40 AM EDT Nutrition Services - Initial Note Blas Elizondo : 1950 AGE: 63 y.o. Patient Active Problem List Diagnosis Date Noted ??? 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 Assessment: Spoke with nurse initially to find out if patient actually needed fractured jaw diet instruction. She called the team and found out that he is on this diet because they want him eating through a straw, but they do not believe he will need to have his jaw wired shut. Checked with patientfor any likes/dislikes etc. Explained to patient the type of food to expect while on this diet. Patient wanted to try a shake, offered boost supplements mixed with ice cream, patient agreed to try these. No further questions or concerns at this time. Nutrition Plan: Continue current diet. Boost Plus with ice cream shakes three times per day. Monitor weight. Encourage good po intake. Support and encouragement provided. Nutrition services to follow weekly thru hospital course unless consulted in the interim. KARLA LIM * Nora Reeves - 03/17/2014 9:10 AM EDT [facility] Otolaryngology - Head & Neck Surgery Consult Progress Note Patient Name: Blas Elizondo : [id number] MR#: [id number] Hospital Day: 2 ID: Blas Elizondo, 63 y.o. y/o male with chin laceration and bilateral alveolar ridge fractures extending to maxillary sinuses. Interval Hx: - Admitted to trauma - remains in C-spine precautions - peridex and unasyn ordered Objective: Vitals: Last Value Range last 24 hrs Temperature Temp: 36.8 ??C (98.2 ??F) Temp: [36.7 ??C (98.1 ??F)-36.8 ??C (98.2 ??F)] Heart Rate Heart Rate: 59 Heart Rate: [59-63] Blood Pressure BP: 95/54 mmHg BP: (95-139)/(54-86) Respiratory Resp: 18 Resp: [18-20] SpO2 SpO2: 97 % SpO2: [97 %-98 %] Art BP BP (Arterial Line): -- Physical Exam Gen: well developed. Intelligible speech, normal voice quality Face: facial movements intact and symmetric, no dysmorphic facial features Chin: stellite laceration repaired. Honey colored crusting along incision. No evidence of hematoma or seroma, area tender to palpation. Eyes: Pupils are equal, round Nose: patent anteriorly, no active bleeding, bilateral crusting of blood Oral exam: poor dentition, several missing teeth (baseline), bilateral mucosal laceration on hard palate, no active bleeding. Anterior segment mobile with palpation, dried blood in oral cavity Neck: c-collar in place Respiratory: Breathing comfortably without stridor or grunting, flaring or retractions. Neuro: no gross abnormalities Laboratory: Recent Labs Basename 03/17/14 0654 03/16/14 2135 WBC 15.8* 22.1* HGB 14.1 16.0 HCT 42.4 46.9 PLATELET 192 204 PT -- 13.4 INR -- 1.0 PTT -- 26 Radiology: Mandible intact. Soft tissue laceration on right with air extending posteriorly along body of mandible. Air noted on left body region. Bilateral alveolar ridge fractures extending to anterior maxillary wall. Zygomatic arch appear intact bilaterally. No evidence of YULY fracture. Partially opacified maxillary sinuses, aerated ethmoid, sphenoid, and frontal sinuses. Aerated mastoids bilaterally. No fluid in middle ear, ossicles appear intact and in good position. Pterygoids intact bilaterally. Assessment:Facial Laceration repaired, alveolar ridge fracture with floating segment of anterior palate. Would recommend dental consult for evaluation. Recommendations/Plan: -Antibiotic prophylaxis with unasyn and peridex rinses after all PO intake - fracture jaw diet if cleared by dentist - keep HOB elevated - no nasal instrumentation -Gently cleanse wound twice daily with half strength peroxide solution. -Apply bacitracin ointment after cleansing wound -Avoid getting the wound wet for two days. After that you may get the wound wet and pat dry. -Observe for any signs of infection including increasing redness, pain or swelling, or pus drainingfrom the wound. Contact ENT if these develop. -Return for suture removal in 5-7 days. I will set up follow up as needed. -Please page Nora Reeves ([phone]) with questions or the ENT classification and treatment director resident during nights and weekends. Contact numbers: You can reach the ENT clinic at [phone] for appointment questions. The ENT triage nurse is available at [phone] For urgent issues during evenings and weekends the ENT resident classification and treatment director can be reached through the main hospital mill control operator at [phone] NORA REEVES MD 03/17/2014 * Dax Adamsonl, APRIL - 03/17/2014 6:15 AM EDT TRAUMA & ACUTE SURGICAL CARE SERVICE TERTIARY SURVEY ID/MECHANISM OF INJURY: Blas Elizondo is a 63 y.o. Male s/p cutting tree in front yard when branch hit him in chin. HISTORY OF PRESENT ILLNESS: Blas Elizondo is a 63 y.o. male presents to [facility] s/p hit in chin with tree branch with +LOC while cutting down tree. Description of events leading up to injury includes the patient was cutting a tree for logs with a chainsaw at noon today when a cut segment of tree kicked back after falling on another log, hitting him in the chin and resulting in a loss of consciousness. [facility] revealed a maxillary fractures and clinically he was found to have a submental laceration. He was transferred by ground un-collared and un-boarded with dressing over the 1 cm puncture wound at the chin. Primary survey revealed: intact airway, equal breath sounds/respirations, present 2+ peripheral pulses with stable vital signs and no signs of bleeding, GCS 15 (6 - Follows simple motor commands, 5 -Alert and oriented, 4 - Opens eyes on own), and complete exposure. Secondary survey notable for: Bloody oropharynx, old dried blood on soft palate, gum laceration posterior to tooth 12. 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 Gastric reflux L4-L5 disc herniation with surgical intervention in remote past S/p tonsillectomy Remote nasal fracture HOME MEDICATIONS: Aleve/ ibuprofen PRN Prilosec PRN Vitamin C and E CURRENT MEDICATIONS: sodium chloride 0.9 % flush 5 mL; famotidine (PEPCID) tablet 20 mg; nalOXone (NARCAN) injection 0.2mg; acetaminophen (TYLENOL) tablet 650 mg; oxyCODONE (ROXICODONE) immediate release tablet 5-10 mg;ampicillin-sulbactam (UNASYN) 3 g vial attach to sodium chloride 0.9% 100 mL Mini-Bag Plus; chlorhexidine (PERIDEX) 0.12 % oral solution 15 mL; enoxaparin (LOVENOX) injection 30 mg; [DISCONTINUED] famotidine (PEPCID) 20 mg [DISCONTINUED] lactated ringers infusion 1,000 mL; [DISCONTINUED] heparin (porcine) subcutaneous injection 5,000 Units; [DISCONTINUED] HYDROmorphone (DILAUDID) injection 0.5 mg; [COMPLETED] iohexol (OMNIPAQUE) 350 mg iodine/mL injection 22,750 mg; [DISCONTINUED] fentaNYL 50mcg/mL injection nalOXone, acetaminophen, oxyCODONE, [DISCONTINUED] HYDROmorphone, [COMPLETED] iohexol, [DISCONTINUED] fentaNYL (PF) ALLERGIES: No Known Allergies FAMILY HISTORY: Non-contributory SOCIAL HISTORY: Alcohol: about 2 beers per day Tobacco: smokes 2 cigars and about 2 cigarettes a day Drug: no history of illicit drug use Lives with . Retired. REVIEW OF SYSTEMS: complete 10 system ROS performed with pertinent findings below. Mild intra-oral and chin pain, no vision or hearing changes, no SOB, no CP, no N/V PHYSICAL EXAM: VITALS: Last value Range last 24 hrs Temperature Temp: 36.6 ??C (97.9 ??F) Temp: [36.6 ??C (97.9 ??F)-36.8 ??C (98.2 ??F)] Heart Rate Heart Rate: 70 Heart Rate: [56-70] Blood Pressure BP: 106/63 mmHg BP: (95-107)/(54-69) Respiratory Rate Resp: 18 Resp: [18-20] SpO2 SpO2: 94 % SpO2: [94 %-98 %] I/O last 3 completed shifts: In: 367 [I.V.:367] Out: 600 [Urine:600] GENERAL: alert, appears stated age and cooperative HEAD: R chin laceration-sutured NECK: No cervical spine bony tenderness, crepitance, or stepoff and Normal range of motion LUNG: CTAB no crepitus on both sides CARDIAC: Regular rate and rhythm, S1S2 present or without murmur or extra heart sounds ABDOMEN: soft, non-tender; bowel sounds normal; no masses, no organomegaly PELVIS: stable to AP and/or lateral compression EXTREMITIES: normal and symmetric movement, normal range of motion, no joint swelling SPINE: No tenderness to palpation, no stepoffs, no deformities, no abrasions over CTLS SKIN: chin laceration NEURO: Grossly normal GCS: 15 (6 - Follows simple motor commands, 5 - Alert and oriented, 4 - Opens eyes on own) LABORATORY: Recent Labs Basename 03/17/14 0654 03/16/14 2135 WBC 15.8* 22.1* HGB 14.1 16.0 HCT 42.4 46.9 PLATELET 192 204 PT -- 13.4 INR -- 1.0 PTT -- 26 Recent Labs Basename 03/17/14 0654 03/16/14 2135 NA 141 139 K 4.1 4.2 CL 108* 105 CO2 25 26 BUN 15 16 CREATININE 0.88 1.03 GLUCOSE 95 103 CALCIUM 8.5 8.8 MAGNESIUM -- -- PHOS -- -- RADIOLOGY: CXR - No pulmonary edema. Normal heart size. No mass lesion or pleural effusion. No infiltrates. No significant change compared to films from 10/21/2011 CT Head- Axial and noncontrast images of the head are reviewed in multiple window settings. There air-fluid levels in both maxillary sinuses. No skull fracture is identified. Mastoid air cells are clear. There are bilateral calcifications of the carotid arteries at the siphon and vertebral arteries at the foramen magnum. There is no intracranial hemorrhage or subdural fluid collection. No mass effect or midline shift. No localized edema. Ventricles are normal for age. The brainstem and posterior fossa are negative and there is no abnormality in the region of the sella. There are bilateral fluid levells in the maxillary sinuses. There are also bilateral anterior wall maxilla fractures with extension of the fracture lines complete through the bony alveolar ridge on both sides. The zygomatic arches are intact. There is probably an acute fracture of the junction of the right nasal bone with the maxillary sinus on that side. The mandible is intact. There is a soft tissue laceration inferior to the mandible and to the left side. On the right there is subcutaneous air anterior to the maxilla. No basilar skull fracture is seen and there is no intracranial air. The lateral processes of the orbits are intact. There are bilateral maxillary fractures that extend fromthe alveolar ridges superiorly to include the anterior mane of the maxillary sinuses. CTA: Normal 3 vessel aortic arch with no stenosis at the origins of the left subclavian, brachiocephalic or left common carotid artery. No stenosis at the origins of the internal carotid arteries. There is mild atherosclerotic calcification at the carotid bifurcations, left greater than right. No dissections or hemodynamically significant stenosis seen in the internal carotid arteries. The origins of the external carotid arteries are normal. Mild atherosclerotic calcifications involve the bilateral cavernous and supraclinoid internal carotid arteries. There is moderate narrowing at the origin of the left vertebral artery. The right vertebral artery origin is patent. Above the origins no significant narrowing along the course of the extradural vertebral arteries. Mild atherosclerosis involves the left intradural vertebral artery. Bilateral fractures of the maxillary sinuses extending to the alveolar ridge are partially visualized and better characterized on the sinus CT from earlier today. Extensive subcutaneous air is seen in the right subcutaneous tissues of the face. Air-fluid levels are seen in the maxillary sinuses Impression No evidence for dissection. Impression Air-fluid levels in both maxillary sinuses. The brain is negative CT C-Spine- There are air-fluid levels in both maxillary sinuses and there are bilateral nondisplaced fracturesof the anterior wall shows air cells. There is air within soft tissues anterior to the right maxilla. The mandibular condyles are in appropriate position. There degenerative endplate spurs at and thedisc spaces from C5-C7. There are multiple levels of facet arthropathy, greater on the left. Intactodontoid. No fracture is identified. The no traumatic subluxation. Impression No vertebral fracture or traumatic subluxation. Nondisplaced fractures of the anterior mane of both maxillary sinuses with bilateral air/fluid levels. Air within soft tissues anterior to the right maxilla. CT Chest: The contour of the sternum is smooth, no fracture identified. However, there is soft tissue swelling anterior to the sternum at the sternomanubrial junction. No vertebral or rib fractures are identified. There is normal opacification of the heart and great vessels. No mediastinal hemorrhage is present. There is no pneumothorax or lung contusion. No pleural effusion. There is an 8 mm nonspecific peripheral lung nodule anterior on the right side centered at image number 57 on the axial series. There are calcifications or contrast within a right lobe liver lesion that is possibly a hemangioma. At any rate, this is incidental to the trauma history. There are no lacerations of the spleen, liver, or kidneys and there is no free fluid in the upper abdomen. Impression Soft tissue injury of the anterior mid chest. The underlying sternum and ribs are negative. The lungs also show no evidence of trauma. There is a nonspecific 8 mm nodule in the anterior right lung and a right lobe liver lesion is probably a hemangioma with calcifications, incidental to the trauma history. No solid organ injuries are present in the upper abdomen Incidental Radiographic Findings: Degenerative endplate spurs at and the disc spaces from C5-C7. There are multiple levels of facet arthropathy, greater on the left. Bilateral calcifications of the carotid arteries at the siphon and vertebral arteries at the foramen magnum Nonspecific 8 mm nodule in the anterior right lung Right lobe liver lesion is probably a hemangioma with calcifications ASSESSMENT/SUMMARY OF INJURIES: 63 y.o. male s/p tree cutting injury to the face and chest. Injuries include: Concussion Nondisplaced fractures of the anterior mane of both maxillary sinuses R chin laceration- s/p suture repair Soft tissue injury of the anterior mid chest Injuries identified on Tertiary Survey: 1. None PLAN: ?? NEURO: tylenol and oxycodone PRN for pain ?? PULM: encourage coughing and deep breathing ?? CARDIAC: EKG, telemetry monitoring to r/o blunt myocardial injury ?? FEN/GI: LR@ 100 mL/hr ?? Diet: jaw fx diet ?? NBO: ordered, LBM COOLER MAN ?? RENAL: follow urine output ?? HEME: follow CBC ?? ID: per ENT unasyn while inpatient, Augmentin once discharged, follow WBC and temp ?? PT/OT: ordered ?? PROPHYLAXIS: ?? DVT prophylaxis: SCDs. lovenox ?? GI prophylaxis: nexium (takes Prilosec at home) ?? DISPO/Discharge Planning: floor status ?? CONSULTS: ?? ENT: -Antibiotic prophylaxis with unasyn and peridex rinses after all PO intake - fracture jaw diet if cleared by dentist - keep HOB elevated - no nasal instrumentation -Gently cleanse wound twice daily with half strength peroxide solution. -Apply bacitracin ointment after cleansing wound -Avoid getting the wound wet for two days. After that you may get the wound wet and pat dry. -Observe for any signs of infection including increasing redness, pain or swelling, or pus drainingfrom the wound. Contact ENT if these develop. -Return for suture removal in 5-7 days. I will set up follow up as needed. -Please page Nora Reeves ([phone]) with questions or the ENT classification and treatment director resident during nights and weekends. ED ADAMSON APRN 03/17/2014 * Debbie Harman RN - 03/17/2014 1:59 AM EDT Pt arrived to 503B via stretcher from ED. Pt A & O x 4, pleasant and cooperative. LSTCA on 2LNC. Abdomen rounded, hypoactive BS x 4. Positive pedal pulses bilaterally. [place] J in place, chin sutures intact, AMINAT. Contusion/abrasion noted on chest. Oriented to floor, room and call covarrubias system. Will continue to monitor. documented in this encounter H&P Notes * Juan Luis Saldivar MD - 03/16/2014 9:42 PM EDT TRAUMA & ACUTE SURGICAL CARE ADMISSION HISTORY AND PHYSICAL Patient Name: Blas Elizondo Level of Activation: Trauma Alert MR#: [id number] [ ]Scene Call or [x ]Hospital Transfer : [id number] CC/MECHANISM OF INJURY: 63 y.o. Male s/p cutting tree in front yard when branch hit him in chin w/ +LOC HISTORY OF PRESENT ILLNESS: Blas Elizondo is a 63 y.o. male presents to [facility] s/p hit in chin with tree branch with +LOC while cutting down tree. Description of events leading up to injury includes the patient was cutting a tree for logs with a chainsaw at noon today when a cut segment of tree kicked back after falling on another log, hitting him in the chin and resulting in a loss of consciousness. [facility], where imaging studies revealed a maxillary fractures and clinically he was found to have a submental laceration. He was transferred by ground un-collared and un-boarded with dressing over the 1 cm puncture wound at the chin. Primary survey revealed: intact airway, equal breath sounds/respirations, present 2+ peripheral pulses with stable vital signs and no signs of bleeding, GCS 15 (6 - Follows simple motor commands, 5 -Alert and oriented, 4 - Opens eyes on own), and complete exposure. Secondary survey is as follows. 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 Retired. REVIEW OF SYSTEMS: complete 10 system ROS performed with pertinent findings below. Pertinent items are noted in HPI. PHYSICAL EXAM: VITALS: There were no vitals filed for this visit. GENERAL: awake, alert in mild distress HEAD: Normocephalic, without obvious abnormality, atraumatic FACE: Pupils: 2 mm equal, round, reactive to light, no periorbital ecchymoses; Tympanic Membranes: clear to visualization; Midface: no tenderness, no swelling, no contusions, no lacerations and no abrasions over entire face Oropharynx: bloody oropharynx, old dried blood on soft palate, no new chipped teeth. Maxillary teeth move as a block together. Split in gum posterior to tooth 12. NECK: no tenderness to palpation, trachea midline, no masses, 4 cm X 6 cm laceration extending along body of mandible submental laceration, deep to bone LUNG: equal, clear breath sounds bilaterally and no crepitus. Tenderness over lower left rib cage. Large abrasion over sternum.Bilateral clavicular tenderness CARDIAC: Regular rate and rhythm or without murmur or extra heart sounds ABDOMEN/GI: firm, distended by body habitus, Non-tender. PELVIS: stable to AP and/or lateral compression RECTAL: Sphincter tone normal with no gross blood; Voluntary anal contraction normal EXTREMITIES: normal and symmetric movement, normal range of motion, no joint swelling. Small scratch inferior to R knee, Scratch on R forearm. SPINE: no deformity, no stepoffs, no tenderness to palpation and no abrasions over cervical spine and lumbar spine, upper Thoracic spine tenderness SKIN: no lacerations, abrasions or contusions on complete skin exam except as noted above NEURO: Mental Status: awake and alert, oriented to person, place, city Cranial Nerves: CN II - XII intact Motor: normal 5/5 strength in all tested muscle groups Sensory: no sensory deficits noted LABORATORY: Recent Results (from the past 24 hour(s)) BASIC METABOLIC PANEL (NON-FASTING) Component Value Range Glucose Lvl 103 60 - 199 mg/dL BUN 16 10 - 20 mg/dL Creatinine 1.03 0.80 - 1.50 mg/dL Sodium 139 135 - 145 mmol/L Potassium 4.2 3.5 - 5.0 mmol/L Chloride 105 98 - 107 mmol/L CO2 26 22 - 31 mmol/L Anion Gap 8 5 - 15 mmol/L Calcium 8.8 8.5 - 10.5 mg/dL Estimated GFR >60 >=60 PROTHROMBIN TIME Component Value Range PT 13.4 12.0 - 15.0 sec INR 1.0 0.9 - 1.1 APTT Component Value Range PTT 26 25 - 35 sec ETHANOL LEVEL Component Value Range Ethanol Lvl <100 HEMOGRAM Component Value Range WBC 22.1 (*) 4.0 - 10.0 x10(3)/mcL RBC 4.78 4.63 - 6.08 x10(6)/mcL Hemoglobin 16.0 13.7 - 17.5 gm/dL Hematocrit 46.9 40.0 - 51.0 % MCV 98.1 (*) 79.0 - 92.0 fL MCH 33.5 (*) 25.6 - 32.2 pg MCHC 34.1 32.0 - 36.5 gm/dL Platelets 204 145 - 370 x10(3)/mcL RDWSD 46.9 (*) 35.0 - 46.0 fL RDWCV 13.2 10.9 - 14.4 % MPV 11.5 9.0 - 12.0 fL L-LACTATE2 WHOLE BLOOD Component Value Range Lactate WB 1.4 RADIOLOGY: FAST Scan - negative CXR: No acute findings CT head: Air fluid levels in both maxillary sinuses. The brain is negative. CT Chest and Abdomen: Soft tissue injury of the anterior mid chest. The underlying sternum and ribs are negative. The lungs also show no evidence of trauma. There is a nonspecific 8 mm nodule in the anterior right lung and a right lobe liver lesion is probably a hemangioma with calcifications, incidental to the trauma history. No solid organ injuries are present in the upper abdomen. CT Sinuses w/o contrast: Bilateral maxillary fractures extending from the alveolar ridges superiorly to include the anteriorwalls of the maxillary sinuses CT C-Spine- No vertebral fracture or traumatic subluxation. Nondisplaced fractures of the anterior mane of both maxillary sinuses with bilateral air/ fluid levels. Air within soft tissues anterior to the right maxilla CTA: Negative for carotid dissection. Incidental Radiographic Findings: nonspecific 8 mm nodule in the anterior right lung and a right lobe liver lesion is probably a hemangioma with calcifications, Procedures Performed: Intubation: No Zazueta Cath: No Central Line: No Chest Tube: No Sutures: No Other: Assessment/Summary of Injuries: 63 y.o. male s/p tree cutting injury with branch blunt trauma to face and +LOC. Injuries identifiedon primary and secondary survey include: 1. Submandibular- 4 cm X 6 cm noted extending along body of mandible - sutured in trauma bay by ENT 2. Mild concussion. Plan: ?? Admit to Trauma Surgery Service in good condition, Dr. Saldivar attending ?? NPO ?? IV Fluids: lactated Ringer's at 100 mL/hr ?? Consulting Services and plans: 1. ENT for submandibular laceration and wound care recommendations. ?? Spine status: Full ?? Pain control: dilaudid ENTRY LEVEL SALES CONSULTANT ?? DVT prophylaxis: Mechanical compression ?? GI prophylaxis: Pepcid ?? Tertiary survey in AM ?? DISPO: Floor LOU PURCELL MD 03/16/2014 TRAUMA ATTENDING ADDENDUM Pt seen and examined with the resident staff in the trauma bay in response to a TRAUMA ALERT activation. I agree with the above note and plan with the following additions/modifications. In brief pt is a 63 yo male who was struck in the chest and submental region by the base of a tree he had just cut down. + LOC. Pt awoke and was able to ambulate and then drove himself to local ED. There he was found to have a complex mandibular fracture with overlying laceration for which he was transferred. Onarrival he was not collared with a GCS of 15. Spinal precuations were instituted. Primary intact. Secondary notable for a anterior chest wall contusion, submental laceration, manibular deformity and intraoral blood. CXR and pelvis were negative. FAST negative. OSH images included chest CT, head and face CT along with c-spine CT. Additional imaging here at [facility] included a CTA of the carotids/vertebrals. Initial list of injuries is as follows: concussion Submental laceration Maxillary ridge fracture A/P: 63 yo male with the above listed injuries both hemodynamically and neurologically intact at the present time. Pt to be admitted to the TRAUMA service with facial ENT consultation. Will keep in c-spine precautions until tertiary. Tetanus administered at the OSH. Tertiary in the AM. documented in this encounter Procedure Notes * Provider, Scanning - 03/18/2014 9:51 AM EDTAssociated Order(s): SCAN DOC: MASON APPRENTICE documented in this encounter ED Notes * Basil Chapa MD - 03/16/2014 10:20 PM EDT Emergency Department Blas Elizondo is a 63 y.o. male who presents to [facility] with facial injuries s/p trauma. History of Present Illness / Review of Systems The patient is resting comfortably in the bed. Physical Exam: I reviewed the patient???s vitals as recorded in the electronic medical record and ED nursing notes. The patient was non-toxic appearing and in no obvious distress. Assessment/Plan: This 63 y.o. male was transferred from an outside hospital emergency department to receive specialty care provided by the trauma and facial trauma services for facial injuries and trauma evaluation. I discussed the case with resident/fellow of the accepting service. The patient was deemed to be stable and not requiring significant involvement from the attending emergency physician at this time. The accepting service has assumed further care of the patient. Please see their notes for any furtherclinical details. Basil Chapa MD 03/16/14 2221 documented in this encounter Miscellaneous Notes * Plan of Care - Shannon Baer RN - 03/17/2014 6:09 PM EDT Problem: Fall/Trauma/Injury Risk (Adult, Obstetrics) Goal: Identify Signs and Symptoms and Related Risk Factors Signs and symptoms and related risk factors are identified upon initiation of Human Response Clinical Practice Guideline (CPG) Pt cleared for cervical spine. [place] J removed by CERAMIST at bedside. Pt tolerating a full liquid diet well. Pt rinsing mouth with Peridex solution. Tele report received prior to patient leaving. No events recorded, HR 55-105. Report placed into chart. Problem: Pain, Acute (Adult, Obstetrics) Goal: Acceptable Pain Control/Comfort Level Patient will demonstrate the desired outcomes. Pain managed with PO PRN medications. Will continue to address pain and maintain safety. Call covarrubias is within reach. Problem: Skin Integrity Impairment, Risk/Actual (Adult, Obstetrics) Goal: Identify Signs and Symptoms and Related Risk Factors Signs and symptoms and related risk factors are identified upon initiation of Human Response Clinical Practice Guideline (CPG) Abrasion on chest present. Pt placed on telemetry and EKG obtained per order. Chin laceration cleaned and bacitracin placed. * Miscellaneous - Provider, Chante - 03/17/2014 5:13 PM EDT * Discharge Summary - Ed Adamson APRN - 03/17/2014 4:47 PM EDT Trauma and Acute Care Surgery Discharge Summary Patient Name: Blas Elizondo Patient Age: 63 y.o. : 1950 Attending Physician: Juan Luis Saldivar MD Date of Admission: 03/16/2014 Date of Discharge: 03/17/2014 Primary Diagnosis:S/p blow to face/chest from tree branch on 03/16/14 sustaining the following injuries Injury Intervention Follow-up Concussion Lisa Veronica in 2-4 weeks Maxillary alveolar fracture. Mobile fragment from tooth #4 through 12 Dental consult Liquid diet ENT clinic in 5-7days Nondisplaced fractures of the anterior mane of both maxillary sinuses ENT clinic in 5-7 days R chin laceration S/p suture repair ENT clinic in 5-7 days Soft tissue injury of the anterior mid chest Trauma clinic in 2-4 weeks Other In-hospital Issues: Pain- controlled with oxycodone Leukocytosis- SIRS response Incidental Radiographic Findings: Degenerative endplate spurs at and the disc spaces from C5-C7. There are multiple levels of facet arthropathy, greater on the left. Bilateral calcifications of the carotid arteries at the siphon and vertebral arteries at the foramen magnum Nonspecific 8 mm nodule in the anterior right lung Right lobe liver lesion is probably a hemangioma with calcifications Secondary Diagnosis: Past Medical History Diagnosis Date ??? Arthritis Right shoulder ??? Gastric reflux ??? Herniation of intervertebral disc between L4 and L5 with surgical intervention Allergies: No Known Allergies Operations/Procedures: None Hospital Course: Blas Elizondo is a 63 y.o. male who was struck in face and chest by a tree branch on 03/16/14, sustaining multiple injures as listed above. He was evaluated by the ENT service, his chin lacerationwas repaired and he was started on Unasyn. He was seen by the dentist and cleared for a liquid diet, the decision was made to discharge him home with follow up in ENT clinic in 5-7 days for re-evaluation of plan for alveloar ridge fx/mobile fragment of teeth #4-12. He had an EKG and telemetry monitoring, neither of which showed arrythmia suggestive of blunt myocardial injury. Blas Elizondo's pain was adequately controlled with PRN oxycodone, he was maintaining adequate oxygen saturation on room air, and was hemodynamically stable. He was tolerating a liquid diet without abdominal complaints and voiding adequately. WBC and Hgb were stable. H was ambulating independently. Blas Elizondo was evaluated by the Surgery Team and deemed medically stable for discharge on 03/17/14 . Pending Lab Data at Discharge: None. Pertinent Lab Data: Recent Labs Basename 03/17/14 0654 03/16/14 2135 WBC 15.8* 22.1* HGB 14.1 16.0 HCT 42.4 46.9 PLATELET 192 204 PT -- 13.4 INR -- 1.0 PTT -- 26 Recent Labs Basename 03/17/14 0654 03/16/14 2135 NA 141 139 K 4.1 4.2 CL 108* 105 CO2 25 26 BUN 15 16 CREATININE 0.88 1.03 GLUCOSE 95 103 CALCIUM 8.5 8.8 MAGNESIUM -- -- PHOS -- -- Pertinent Imagin/[address]: There are bilateral fluid levels in the maxillary sinuses. There are also bilateral anterior wall maxilla fractures with extension of the fracture lines complete through the bony alveolar ridge on both sides. The zygomatic arches are intact. There is probably an acute fracture of the junction of the right nasal bone with the maxillary sinus on that side. The mandible is intact. There is a soft tissue laceration inferior to the mandible and to the left side. On the right there is subcutaneous air anterior to the maxilla. No basilar skull fracture is seen and there is no intracranial air. The lateral processes of the orbits are intact. There are bilateral maxillary fractures that extend from the alveolar ridges superiorly to include the anterior mane of the maxillary sinuses. Discharge Physical Examination: Vital Signs: Last value Range last 24hrs Temperature Temp: 36.6 ??C (97.9 ??F) Temp: [36.6 ??C (97.9 ??F)-36.8 ??C (98.2 ??F)] Heart Rate Heart Rate: 70 Heart Rate: [56-70] Blood Pressure BP: 106/63 mmHg BP: (95-139)/(54-86) Respiratory Rate Resp: 18 Resp: [18-20] SpO2 SpO2: 94 % SpO2: [94 %-98 %] Physical Exam: GENERAL: alert, appears stated age and cooperative HEAD: R chin laceration-sutured, approximately 6cm, no erythema or drainage NECK: No cervical spine bony tenderness, crepitance, or stepoff and Normal range of motion LUNG: CTAB no crepitus on both sides CARDIAC: Regular rate and rhythm, S1S2 present or without murmur or extra heart sounds ABDOMEN: soft, non-tender; bowel sounds normal; no masses, no organomegaly PELVIS: stable to AP and/or lateral compression EXTREMITIES: normal and symmetric movement, normal range of motion, no joint swelling SPINE: No tenderness to palpation, no stepoffs, no deformities, no abrasions over CTLS SKIN: chin laceration NEURO: Grossly normal GCS: 15 (6 - Follows simple motor commands, 5 - Alert and oriented, 4 - Opens eyes on own) Current Medications: The following medications have been prescribed for you. If you notice any adverse reactions to yourmedications, please contact your primary care physician immediately or go to the nearest Emergency Department. Your Medications As of 03/17/2014 5:12 PM New Medications Dose Details amoxicillin-clavulanate 250-125 mg per tablet Commonly known as: AUGMENTIN Take 1 tablet by mouth 3 times daily for 10 days. 1 tablet Quantity: 30 tablet Refills: 0 chlorhexidine 0.12 % solution Commonly known as: PERIDEX Take 15 mLs by mouth 4 times daily. 15 mL Quantity: 120 mL Refills: 0 docusate sodium 50 mg/5 mL liquid Commonly known as: COLACE Take 10 mLs by mouth 2 times daily. 100 mg Quantity: 100 mL Refills: 0 oxyCODONE 5 mg immediate release tablet Commonly known as: ROXICODONE Take 1-2 tablets by mouth every 3 hours as needed for Pain. 5-10 mg Quantity: 50 tablet Refills: 0 Continued medications, unchanged Dose Details Ascorbic Acid 500 mg Chew Take by mouth. Refills: 0 ibuprofen 200 mg tablet Commonly known as: ADVIL;MOTRIN Take 200 mg by mouth every 6 hours as needed. 200 mg Refills: 0 omeprazole 10 mg capsule Commonly known as: PRILOSEC Take 10 mg by mouth daily as needed. 10 mg Refills: 0 vitamin E 400 unit capsule Take by mouth. Refills: 0 Disposition: Discharge home Scheduled Appointments: The following appointments have been scheduled on your behalf: Future Appointments Date Time Provider Department Center 04/11/2014 11:00 AM Fallon Villasenor APRN [facility] 04/28/2014 9:00 AM Lucia Martin [facility] Outpatient Services/Studies: No discharge procedures on file. Special Instructions Given to Patient at Discharge:. An After Visit Summary was printed and given to the patient. There are no Patient Instructions on file for this visit. General Instructions Incidental findings: please follow up with your PCP Degenerative endplate spurs at and the disc spaces from C5-C7. There are multiple levels of facet arthropathy, greater on the left. Bilateral calcifications of the carotid arteries at the siphon and vertebral arteries at the foramen magnum Nonspecific 8 mm nodule in the anterior right lung Right lobe liver lesion is probably a hemangioma with calcifications Patient Instructions: Call your doctor if: 1. Monitor your chin laceration for the following signs and symptoms of infection: 2. Redness or swelling, (some mild redness around the incision and the staple sites is normal) 3. Drainage of pus or bleeding 4. Fever over 100.5 F 5. Increased pain or discomfort at the incision site 6. Persistent vomiting or the inability to keep foods or fluids down in a 24 hour period 7. Or any other concern, such as trouble breathing, pain with urination, or new leg pain/swelling. Also, please call with increasing abdominal pain, firmness, stop passing gas for an extended period of time, or bloody bowel movements or vomitus. CALL THE GENERAL SURGERY CLINIC DURING WORKING HOURS AT , OR CALL AFTER CLINIC HOURS, WEEKENDS AND HOLIDAYS: ASK FOR THE SURGERY RESIDENT BULLET CHARGING MACHINE OPERATOR IF ANY OF THE ABOVE OCCUR. Activity level: activity as tolerated by comfort level. Diet: Liquis diet, no solid food, no chewing, Peridex rinses after all oral intake Driving: No driving while still taking opioid pain medications (wait at least 6- 8 hours since last dose). Shower/Bath: You may shower and get laceration wet in 2 day (03/19). Pat dry immediately following. Do not scrub vigorously for the next 2-3 weeks. Do not soak laceration for the next 2 weeks (i.e. soaking in bath or swimming) as this may promote a wound infection. Wound Care: -Gently cleanse wound twice daily with half strength peroxide solution. -Apply bacitracin ointment after cleansing wound Take your antibiotics as instructed until your follow up appointment in the ENT clinic Follow up Appointments: ENT clinic in 5 days Contact numbers: You can reach the ENT clinic at [phone] for appointment questions. The ENT triage nurse is available at [phone] For urgent issues during evenings and weekends the ENT resident classification and treatment director can be reached through the main hospital mill control operator at [phone] n 5-7 days in ENT clinic. Call to make an appointment. Trauma clinic in 2-4 weeks: General Surgery Clinic: [facility] (after business hours): Your care was managed by the Trauma and Acute Care Surgery Team at [facility]. If you have any questions or concerns, please feel free to contact us. Provider Contact Information: General Surgery Clinic: [facility] (after business hours): CC: MD Dilia BURNS APRN Signed: ED ADAMSON APRN Department of Surgery 03/17/2014 * Initial Assessments - Dong Braun RN - 03/17/2014 3:28 PM EDT Office of Care Management/Clinical Quarry Supervisor (CRC)/Initial Assessment CRC Dong Braun RN (pager [phone]) covering for CRC Reagan Rogers RN (pager [phone]) Patient: Blas Elizondo : 1950 (63 y.o.) [place]: [place] [address] LOS: 1 day Care reviewed with Dr. Emmett Millan and Ed Adamson, ALIYAH, and at interdisciplinary discharge rounds. Reviewed record and interviewed patient. Introduced CRC role and services accepted. Patient Active Problem List Diagnosis Code ??? Herniation of intervertebral disc between L4 and L5 722.10 ?? Social/Family situation: Lives with Lucia who appears to be in good health, supportive, andavailable to assist at home. Extended Emergency Contact Information Primary Emergency Contact: Lucia Elizondo Relation: Spouse Secondary Emergency Contact: Nadine Charlton Relation: Parent Father: Ivone Elizondo ?? Code status: Full Code ?? Advance directives: No. Does not wish to discuss at this time. ?? Insurance coverage: [employer] ?? Admission status: 03/16/14 OBSVO Order to Admit is appropriate and waiting to be signed by an attending provider; Dr. Millan notified via pager. ?? Anticipated barriers to discharge: None ?? Financial concerns: None ?? Identified patient/family concerns r/t discharge: None ?? Fine Unhairer referral indicated: No ?? Baseline functional status/mobility: Independent ?? Current home/community services/equipment: None ?? Current functional status/mobility: Independent ?? Anticipated discharge date: Possibly later today, Saturday 03/17 ?? Anticipated discharge place: Home into care of wilson Myers ?? Anticipated discharge needs: None ?? Transportation at discharge: Lucia ?? Family involved in discharge planning: Wilson Myers is at the bedside, supportive, and involved indischarge planning. ?? PCP: NISSA WISE MD, Future Appointments Date Time Provider Department Center 04/11/2014 11:00 AM Fallon Villasenor APRN [facility] 04/28/2014 9:00 AM Lucia Martin APRN [facility] Plan: Care Management will continue to monitor progress, follow for continuity of care, and assist with discharge planning. * Miscellaneous - Chante Amor - 03/17/2014 8:36 AM EDT * Initial Assessments - Charissa Mena, PT - 03/17/2014 8:33 AM EDT Physical Therapy Evaluation Patient profile: Pt. is a 63 y.o. male admitted on 03/16/2014 by Juan Luis Angel MD hit in chin with tree branch with +LOC while cutting down tree. Description of events leading up to injury includes the patient was cutting a tree for logs with a chainsaw at noon today when a cut segment of tree kicked back after falling on another log, hitting him in the chin and resulting in a loss of consciousness. He drove himself to [facility] after waking, where imaging studies revealed a maxillary fractures and clinically he was found to have a submental laceration. PMH: Arthritis in (R) shoulder Gastric reflux L4-L5 disc herniation with surgical intervention in remote past Social History: Patient lives with their spouse in [place], [place] in a single story home. Pt reports that bathroom has grab bars installed in stall shower. Stairs: 2 without a rail to enter. Baseline Mobility: independent without assistive device Equipment at home: none Precautions/Special Considerations: Full code; Spinal precautions (C-spine cleared this AM); Keep HOB >30* at all times; At risk for skin breakdown; At risk to fall Subjective: ???Oh sure I feel great. 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 Objective: Pt seen for evaluation today. Pain: pt had no c/o pain during today's treatment Vital Signs: Last value Range last 8 hrs Temperature Temp: 36.8 ??C (98.2 ??F) Temp: [36.7 ??C (98.1 ??F)-36.8 ??C (98.2 ??F)] Heart Rate Heart Rate: 59 Heart Rate: [59-63] Blood Pressure BP: 95/54 mmHg BP: (95-139)/(54-86) Respiratory Rate Resp: 18 Resp: [18-20] SpO2 SpO2: 97 % SpO2: [97 %-98 %] Mental Status: alert, oriented to person, place, and time Musculoskeletal: ROM: WFL Strength: WFL Sensation: WFL Bed Mobility: Supine to Sit: independent without bed rail and with HOB flat Sit to Supine: independent without bed rail and with HOB flat Transfers: Sit to Stand: independent using no assistive device Stand to Sit: independent using no assistive device Bed to Chair: independent using no assistive device Gait: Distance: 150 Device used: no assistive device Level of assist: independent Gait pattern: widened EZ Pt. to utilize no assistive device and supervision for ambulation with nursing. Stairs: Pt ascended / descended full flight of stairs using one rail independently Balance: Sitting: good Standing: fair (+) Education: patient and significant other have been educated on Bed mobility, Transfers, Stairs, Safety , Precautions/protocol, Gait , Role of therapy, Balance and Discharge planning and verbalize anddemonstrate understanding. Patient status, treatment, and mobility recommendations discussed with nursing. Assessment: Pt performed all functional tasks as noted above with good dynamic stability and safetyawareness. Discussed slowing down the pace of tasks with pt as his injuries cause him to keep a mildly stiff neck and his environmental scanning is resultantly reduced. Pt agreed to pay special attention to maintain dynamic safety as he recovers. Pt is cleared at this time from PT services for discharge home once medically ready. Pt will not require DME or PT upon D/C. Goals: The following goals were achieved today: 1. Pt. to demonstrate knowledge of precautions during functional activities. 2. Pt. to demonstrate understanding of appropriate exercises. 3. Pt. to perform bed mobility with independent without bed rail and with HOB flat. 4. Pt. to perform transfers with independent utilizing a no assistive device. 5. Pt. to ambulate 150 feet with a no assistive device, and independent. 6. Pt. to ambulate up/down 12 step/stairs with independent with increased time, using no assistive device. 7. Family or caregiver to demonstrate understanding of therapeutic interventions to support the care of the patient. Plan: Pt is cleared at this time from PT services for discharge home once medically ready. Pt will not require DME or PT upon D/C. Patient agrees with plan as stated above. Equipment needs: No equipment necessary Discharge Recommendations: Pt is cleared at this time from PT services for discharge home once medically ready. Pt will not require DME or PT upon D/C. No other consults recommended at this time G-Code: Mobility Status Modifier CURRENT CH - 0 percent impaired, limited or restricted PROJECTED CH - 0 percent impaired, limited or restricted DISCHARGE Not Discharged Yet - Ongoing G Code Rationale: This G-Code and these disability modifiers were selected as the primary therapy goal based upon the patient's evaluation including the following functional test(s) No Functional Measure Used. Current ability measures, co-morbidities and clinical judgement were also used to select the disability modifier. This Patient's current G-Code functional level is 0% impaired based upon FOM score of 7.0. Total time spent with patient: 35 minutes for evaluation Total timed interventions: 0 minutes CHARISSA MENA PT 03/17/2014 Pager: [phone] Physical Therapy Inpatient Rehabilitation Department * Consult Note - Nora Reeves - 03/16/2014 10:17 PM EDT [facility] Otolaryngology - Head & Neck Surgery Facial trauma Consult Primary team Attending: Eduard Date: 03/17/2014 ENT Attending: Dr. Kinney Reason for consultation:facial lacerations, facial trauma History present illness: We have been asked to see Blas Elizondo by his primary team. History obtained through patient interview, review of relevant records, and/or discussion with referring provider. Blas Elizondo is a 63 y.o. male with chin laceration and multiple facial fractures. He was splitting wood earlier this evening and the end of a branch ricocheted up and hit him in the chin. He notes epistaxis at the time which has since resolved. Notes malocclusion. Denies hearing changes or vertigo, denies visual changes, denies shortness of breath or respiratory distress. Pain in chin. Blood in mouth at time of incident but now improved. Review of systems: Except as noted in the history above, review of systems is negative for SILVER BUFFER, bone, pulmonary, cardiac, GI, , extremity, neurologic, endocrine, skin, constitutional, emotional, or functional problems. Past medical history: GERD Arthritis Chronic back pain, history of surgery 20 years ago tonsillectomy Remote nasal fracture Social history: ETOH: 2 drinks daily Tobacco: smokes 2 cigars and about 2 cigarettes a day Lives in : [facility] [id number] Family history: No family history on file. Medications: Prior to Admission medications Not on File ibprofen Allergies: Allergies as of 03/16/2014 ??? (No Known Allergies) Exam: Vitals: No data found. Constitutional: NAD, Awake, alert, cooperative with exam Lacerations: ragged stellate chin laceration extneding down to mandible. see below Face: no significant facial swelling, sensation intact, facial movements strong and symmetric Eyes:PERRL, EOMI. No enophthalmos, No vertical dystopia, No hyphema or scleral hematoma, Ears: Pinna well formed, EACs clear, TMs intact Nose: patent anteriorly, no active bleeding, bilateral crusting of blood Oral exam: poor dentition, several missing teeth (baseline), bilateral mucosal laceration on hard palate, no active bleeding. Hard palate non mobile, dried blood in oral cavity Neck: c-collar in place, bilateral clavicular tendernes, no crepitus, no swelling or mass Pulm: symmetric excursion, unlabored, no audible wheeze, sternal abrasion Neuro: CN II-XII intact to bedside testing Radiology: Mandible intact. Soft tissue laceration on right with air extending posteriorly along body of mandible. Mild air noted on right body region. Bilateral alveolar ridge fractures extending to anterior maxillary wall. Zygomatic arch appear intact bilaterally. No evidence of YULY fracture. Partially opacified maxillary sinuses, aerated ethmoid, sphenoid, and frontal sinuses. Aerated mastoids bilaterally. No fluid in middle ear, ossicles appear intact and in good position. Pterygoids intact bilaterally. Facial laceration Procedure Note: Laceration 4 cm X 6 cm noted extending along body of mandible. Description: ragged wound edges, stellite with wooden debris. The wound was copiously irrigated and cleansed of any foreign material or necrotic tissue. The area was prepped and local anesthesia with 1% Lidocaine with Epinephrine was injected. 3.0 and 4.0 vicryl was used deep to the skin to take tension off the wound edges. 4.0 and 5.0 nylonwas used to approximate the skin edges. The wound was then covered with bacitracin. The patient tolerated the procedure well with no immediate complications. Assessment:Facial Laceration repaired, facial fractures as above. Recommendations/Plan: -Antibiotic prophylaxis with unasyn and peridex rinses after all PO intake - fractured jaw diet when safe for PO intake - keep HOB elevated - no nasal instrumentation -Gently cleanse wound twice daily with half strength peroxide solution. -Apply bacitracin ointment after cleansing wound -Avoid getting the wound wet for two days. After that you may get the wound wet and pat dry. -Observe for any signs of infection including increasing redness, pain or swelling, or pus drainingfrom the wound. Contact ENT if these develop. -Return for suture removal in 5-7 days. I will set up follow up as needed. Contact numbers: You can reach the ENT clinic at [phone] for appointment questions. The ENT triage nurse is available at [phone] For urgent issues during evenings and weekends the ENT resident classification and treatment director can be reached through the main hospital mill control operator at [phone] documented in this encounter Plan of Treatment Upcoming Encounters Date Type Department Care Team (Late st Contact Info) Description 11/02/2024 1:00 PM EST Office Visit Hematology/Oncology at [address] [phone] Gloria Beck MD [facility] HEMATOLOGY [place] [address] [address]is[address] APRN [facility] HEMATOLOGY [place] [address] documented as of this encounter Procedures Procedure Name Priority Date/Time Associated Diagnosis Comments MASON APPRENTICE SCAN 03/18/2014 9:51 AM EDT EKG 12-LEAD STAT 03/17/2014 8:05 AM EDT Trauma SCAN, PERIPHERAL BLOOD STAT 03/17/2014 6:54 AM EDT NUCLEATED RED BLOOD CELLS STAT 03/17/2014 6:54 AM EDT HEMOGRAM STAT 03/17/2014 6:54 AM EDT DIFFERENTIAL, AUTOMATED STAT 03/17/2014 6:54 AM EDT CBC (WITH DIFF) STAT 03/17/2014 6:54 AM EDT BASIC METABOLIC PANEL STAT 03/17/2014 6:[address] CAROTIDS W CONTRAST STAT 03/16/2014 10:13 PM EDT L-LACTATE2 WHOLE BLOOD Routine 03/16/2014 9:40 PM EDT SCAN, PERIPHERAL BLOOD STAT 03/16/2014 9:35 PM EDT NUCLEATED RED BLOOD CELLS STAT 03/16/2014 9:35 PM EDT HEMOGRAM STAT 03/16/2014 9:35 PM EDT DIFFERENTIAL, AUTOMATED STAT 03/16/2014 9:35 PM EDT ABO/RH TYPING STAT 03/16/2014 9:35 PM EDT APTT STAT 03/16/2014 9:35 PM EDT PROTHROMBIN TIME STAT 03/16/2014 9:35 PM EDT CBC (WITH DIFF) STAT 03/16/2014 9:35 PM EDT ANTIBODY SCREEN STAT 03/16/2014 9:35 PM EDT TYPE AND SCREEN ([facility]/PATRICIA) STAT 03/16/2014 9:35 PM EDT ETHANOL LEVEL STAT 03/16/2014 9:35 PM EDT BASIC METABOLIC PANEL STAT 03/16/2014 9:35 PM EDT documented in this encounter Results * SCAN DOC: MASON APPRENTICE (03/18/2014 9:51 AM EDT) Anatomical Region Laterality Modality Other Narrative 03/18/2014 9:53 AM EDT Procedure Note Provider, Scanning - 03/18/2014 9:51 AM EDT Scanning Provider MEDIA MGR SCAN EXT O RDR/RSLT * EKG 12 Lead (03/17/2014 8:05 AM EDT) Ventricular rate 59 BPM MUSE SYSTEM Atrial Rate 59 BPM MUSE SYSTEM P-R Interval 182 ms MUSE SYSTEM QRS Duration 88 ms MUSE SYSTEM Q-T Interval 420 ms MUSE SYSTEM QTC Calculated (Bezet) 415 ms MUSE SYSTEM Calculated P [place] -16 degrees MUSE SYSTEM Calculated R [place] -28 degrees MUSE SYSTEM Calculated T [place] -27 degrees MUSE SYSTEM INTERPRETATION Sinus bradycardia Otherwise normal ECG No previous ECGs available I personally reviewed the tracing and edited the fellows interpretation Confirmed by fellow MD Rajiv, Wong Mcclendon ([id number]) on 03/17/2014 11:56:57 AM Confirmed by MD Omer, Carl Mckeon ([id number]) on 03/17/2014 3:19:09 PM MUSE SYSTEM 03/17/2014 8:05 AM EDT 03/17/2014 3:19 PM EDT Juan Luis Saldivar MD ECG ORDERABLES MUSE SYSTEM * Nucleated Red Blood Cells (03/17/2014 6:54 AM EDT) NRBC% auto 0.0 0.0 - 0.2 % CERNER MILLENNIUM NRBC Absolute 0.000 0.000 - 0.012 x10(3)/mcL CERNER MILLENNIUM Blood specimen (specimen) 03/17/2014 6:54 AM EDT 03/17/2014 7:11 AM EDT Narrative Resulting Agency Comment Spec In Lab Juan Luis Saldivar MD HEMATOLOGY ORDERABLE S CERNER MILLENNIUM * Scan, Peripheral Blood (03/17/2014 6:54 AM EDT) Plat estimate Normal CERNER MILLENNIUM RBC Morphology Normal CERNE R MILLENNIUM Blood specimen (specimen) 03/17/2014 6:54 AM EDT 03/17/2014 7:11 AM EDT Narrative Resulting Agency Comment Spec In Lab Juan Luis Saldivar MD HEMATOLOGY ORDERABLE S Performing Organization Address City/[facility]/ZIP Co de Phone Number CERNER MILLENNIUM * (ABNORMAL) Differential, Automated (03/17/2014 6:54 AM EDT) Neutrophil % 48.1 34.0 - 71.0 % CERNER MILLENNIUM Neutrophil Absolute 7.60(H) 1.50 - 6.30 x10(3)/mc L CERNER MILLENNIUM Lymph % 43.2 19.0 - 53.0 % CERNER MILLENNIUM Lymphocytes Abs 6.8(H) 1.0 - 3.6 x10(3)/mc L CERNER MILLENNIUM Monocyte % 7.4 4.0 - 13.0 % CERNER MILLENNIUM Monocyte Abs 1.2(H) 0.2 - 1.0 x10(3)/mc L CERNER MILLENNIUM Eos % 0.8 0.0 - 7.0 % CERNER MILLENNIUM Eosinophils Abs 0.1 0.0 - 0.5 x10(3)/mc L CERNER MILLENNIUM Basophil % 0.3 0.0 - 2.0 % CERNER MILLENNIUM Baso Absolute 0.0 0.0 - 0.2 x10(3)/mc L CERNER MILLENNIUM Immature Gran % 0.20 0.00 - 0.66 % CERNER MILLENNIUM Comment: Immature granulocytes(IG's)percentage and absolute count will include metamyelocytes, myelocytes, and promyelocytes. Blood smears from CBCs yielding IG's will be scanned manually for concordance. If this scan disagrees with the automated IG or if promyelocytes are noted, a manual differential will be performed. Immature Gran Absolute 0.03 0.00 - 0.05 x10(3)/mc L CERNER MILLENNIUM Blood specimen (specimen) 03/17/2014 6:54 AM EDT 03/17/2014 7:11 AM EDT Narrative Resulting Agency Comment Spec In Lab Juan Luis Saldivar MD HEMATOLOGY ORDERABLE S Performing Organization Address [facility] Co de Phone Number CERNER MILLENNIUM * (ABNORMAL) Hemogram (03/17/2014 6:54 AM EDT) White Blood Cell 15.8(H) 4.0 - 10.0 x10(3)/mc L CERNER MILLENNIUM Red Blood Cell 4.33(L) 4.63 - 6.08 x10(6)/mc L CERNER MILLENNIUM Hemoglobin 14.1 13.7 - 17.5 gm/dL CERNER MILLENNIUM Hematocrit 42.4 40.0 - 51.0 % CERNER MILLENNIUM Mean Cell Volume 97.9(H) 79.0 - 92.0 fL CERNER MILLENNIUM Mean Cell Hemoglobin 32.6(H) 25.6 - 32.2 pg CERNER MILLENNIUM Mean Cell Hemoglobin Concentration 33.3 32.0 - 36.5 gm/dL CERNER MILLENNIUM Platelet 192 145 - 370 x10(3)/mc L CERNER MILLENNIUM RDW Standard Deviation 47.8(H) 35.0 - 46.0 fL CERNER MILLENNIUM RDW coefficient of variation 13.4 10.9 - 14.4 % CERNER MILLENNIUM Mean Platelet Volume 10.7 9.0 - 12.0 fL CERNER MILLENNIUM Blood specimen (specimen) 03/17/2014 6:54 AM EDT 03/17/2014 7:11 AM EDT Narrative Resulting Agency Comment Spec In Lab Juan Luis Saldivar MD HEMATOLOGY ORDERABLE S Performing Organization Address City/[facility]/ZIP Co de Phone Number CERNER MILLENNIUM * (ABNORMAL) Basic Metabolic Panel (non-fasting) (03/17/2014 6:54 AM EDT) [facility] Glucose 95 60 - 199 mg/dL CERNER MILLENNIUM Comment:Diabetes: >=200 mg/d L plus symptoms Blood Urea Nitrogen 15 10 - 20 mg/dL CERNER MILLENNIUM Creatinine 0.88 0.80 - 1.50 mg/dL CERNER MILLENNIUM Comment: Please note that the pediatric reference intervals supplied above were not validated at [facility]. Results from pediatric patients should be interpreted in conjunction to the patient's age, height and muscle mass. Sodium 141 135 - 145 mmol/L CERNER MILLENNIUM Potassium 4.1 3.5 - 5.0 mmol/L CERNER MILLENNIUM Comment: Please note: ??Patients with WBC >100,000 may have falsely elevated Potassium levels. ??For accurate Potassium quantification in these patients send serum separator tube (gold top) for subsequent determinations. ??Contact the Clinical Chemistry Laboratory if there are any questions. Chloride 108(H) 98 - 107 mmol/L CERNER MILLENNIUM Carbon Dioxide 25 22 - 31 mmol/L CERNER MILLENNIUM Anion Gap 8 5 - 15 mmol/L CERNER MILLENNIUM Calcium 8.5 8.5 - 10.5 mg/dL CERNER MILLENNIUM Est Glomerular Filtration Rate [...] the following links into your internet browser. [email or web address] Blood specimen (specimen) 03/17/2014 6:54 AM EDT 03/17/2014 7:11 AM EDT Narrative Resulting Agency Comment Spec In Lab Juan Luis Saldivar MD CHEMISTRY ORDERABLES CERNER MILLENNIUM * CT carotids with contrast (03/16/2014 10:13 PM EDT) Anatomical Region Laterality Modality Computed Tomogra phy 03/16/2014 10:1 3 PM EDT Narrative 03/17/2014 8:[address] Carotids With Contrast Clinical History fx of Maxilla ?? Comparison CT head 03/16/2014. Technique CTA carotids is obtained using 65 milliliters of Omnipaque 350. MIP and 3D reconstructed images were obtained on a separate workstation. Findings Normal 3 vessel aortic arch with no stenosis at the origins of the left subclavian, brachiocephalic or left common carotid artery. No stenosis at the origins of the internal carotid arteries. There is mild atherosclerotic calcification at the carotid bifurcations, left greater than right. No dissections or hemodynamically significant stenosis seen in the internal carotid arteries. The origins of the external carotid arteries are normal. Mild atherosclerotic calcifications involve the bilateral cavernous and supraclinoid internal carotid arteries. ?? There is moderate narrowing at the origin of the left vertebral artery. ??The right vertebral artery origin is patent. Above the origins no significant narrowing along the course of the extradural vertebral arteries. ??Mild atherosclerosis involves the left intradural vertebral artery. ?? Bilateral fractures of the maxillary sinuses extending to the alveolar ridge are partially visualized and better characterized on the sinus CT from earlier today. Extensive subcutaneous air is seen in the right subcutaneous tissues of the face. Air-fluid levels are seen in the maxillary sinuses Impression No evidence for dissection. Film and interpretation reviewed by the attending Procedure Note Eric Haley MD - 03/17/[address] Carotids With Contrast Clinical History fx of Maxilla Comparison CT head 03/16/2014. Technique CTA carotids is obtained using 65 milliliters of Omnipaque 350. MIP and 3D reconstructed images were obtained on a separate workstation. Findings Normal 3 vessel aortic arch with no stenosis at the origins of the left subclavian, brachiocephalic or left common carotid artery. No stenosis atthe origins of the internal carotid arteries. There is mild atherosclerotic calcification at the carotid bifurcations, left greater than right. No dissections or hemodynamically significant stenosis seen in the internal carotid arteries. The origins of the external carotid arteries are normal.Mild atherosclerotic calcifications involve the bilateral cavernous andsupraclinoid internal carotid arteries. There is moderate narrowing at the origin of the left vertebral artery.The right vertebral artery origin is patent. Above the origins no significant narrowing along the course of the extradural vertebral arteries. Mild atherosclerosis involves the left intradural vertebral artery. Bilateral fractures of the maxillary sinuses extending to the alveolarridge are partially visualized and [facility] Extensive subcutaneous air is seen in the right subcutaneoustissues of the face. Air-fluid levels are seen in the maxillary sinuses Impression No evidence for dissection. Film and interpretation reviewed by the attending Juan Luis Saldivar MD IMG CT ORDERABLES * L-Lactate2 Whole Blood (03/16/2014 9:40 PM EDT) [facility] Lactate WB 1.4 mmol/L CERNER MILLENNIUM Blood specimen (specimen) 03/16/2014 9:40 PM EDT 03/16/2014 9:40 PM EDT Emergency Dept CHEMISTRY ORDERABLE S BERNIE GREENENNIUM * Nucleated Red Blood Cells (03/16/2014 9:35 PM EDT) [facility] NRBC% auto 0.0 0.0 - 0.2 % CERNER MILLENNIUM NRBC Absolute 0.000 0.000 - 0.012 x10(3)/mcL CERNER MILLENNIUM Blood specimen (specimen) 03/16/2014 9:35 PM EDT 03/16/2014 9:45 PM EDT Narrative Resulting Agency Comment Spec In Lab Juan Luis Saldivar MD HEMATOLOGY ORDERABLE S CERCORRINA GREENENNIUM * Scan, Peripheral Blood (03/16/2014 9:35 PM EDT) Pathologist [facility] Plat estimate Normal CERNER MILLENNIUM RBC Morphology Normal CERNE R MILLENNIUM Smudge cell Present CERNER MILLENNIUM Plat, Giant Less than 1 /HPF CERNER MILLENNIUM Blood specimen (specimen) 03/16/2014 9:35 PM EDT 03/16/2014 9:45 PM EDT Narrative Resulting Agency Comment Spec In Lab Juan Luis Saldivar MD HEMATOLOGY ORDERABLE S CERNER MILLENNIUM * (ABNORMAL) Differential, Automated (03/16/2014 9:35 PM EDT) Neutrophil % 50.5 34.0 - 71.0 % CERNER MILLENNIUM Neutrophil Absolute 11.17(H) 1.50 - 6.30 x10(3)/mc L CERNER MILLENNIUM Lymph % 41.0 19.0 - 53.0 % CERNER MILLENNIUM Lymphocytes Abs 9.1(H) 1.0 - 3.6 x10(3)/mc L CERNER MILLENNIUM Monocyte % 7.1 4.0 - 13.0 % CERNER MILLENNIUM Monocyte Abs 1.6(H) 0.2 - 1.0 x10(3)/mc L CERNER MILLENNIUM Eos % 0.8 0.0 - 7.0 % CERNER MILLENNIUM Eosinophils Abs 0.2 0.0 - 0.5 x10(3)/mc L CERNER MILLENNIUM Basophil % 0.2 0.0 - 2.0 % CERNER MILLENNIUM Baso Absolute 0.0 0.0 - 0.2 x10(3)/mc L CERNER MILLENNIUM Immature Gran % 0.40 0.00 - 0.66 % CERNER MILLENNIUM Comment: Immature granulocytes(IG's)percentage and absolute count will include metamyelocytes, myelocytes, and promyelocytes. Blood smears from CBCs yielding IG's will be scanned manually for concordance. If this scan disagrees with the automated IG or if promyelocytes are noted, a manual differential will be performed. Immature Gran Absolute 0.09(H) 0.00 - 0.05 x10(3)/mc L CERNER MILLENNIUM Blood specimen (specimen) 03/16/2014 9:35 PM EDT 03/16/2014 9:45 PM EDT Narrative Resulting Agency Comment Spec In Lab Juan Luis Saldivar MD HEMATOLOGY ORDERABLE S CERNER MILLENNIUM * (ABNORMAL) Hemogram (03/16/2014 9:35 PM EDT) White Blood Cell 22.1(H) 4.0 - 10.0 x10(3)/mc L CERNER MILLENNIUM Red Blood Cell 4.78 4.63 - 6.08 x10(6)/mc L CERNER MILLENNIUM Hemoglobin 16.0 13.7 - 17.5 gm/dL CERNER MILLENNIUM Hematocrit 46.9 40.0 - 51.0 % CERNER MILLENNIUM Mean Cell Volume 98.1(H) 79.0 - 92.0 fL CERNER MILLENNIUM Mean Cell Hemoglobin 33.5(H) 25.6 - 32.2 pg CERNER MILLENNIUM Mean Cell Hemoglobin Concentration 34.1 32.0 - 36.5 gm/dL CERNER MILLENNIUM Platelet 204 145 - 370 x10(3)/mc L CERNER MILLENNIUM RDW Standard Deviation 46.9(H) 35.0 - 46.0 fL CERNER MILLENNIUM RDW coefficient of variation 13.2 10.9 - 14.4 % CERNER MILLENNIUM Mean Platelet Volume 11.5 9.0 - 12.0 fL CERNER MILLENNIUM Blood specimen (specimen) 03/16/2014 9:35 PM EDT 03/16/2014 9:45 PM EDT Narrative Resulting Agency Comment Spec In Lab Juan Luis Saldivar MD HEMATOLOGY ORDERABLE S CERNER MILLENNIUM * Antibody screen (03/16/2014 9:35 PM EDT) Ab Screen Interp Negative CERNER MILLENNIUM Expires at [id number] on: [id number] CERNER MILLENNIUM Blood specimen (specimen) 03/16/2014 9:35 PM EDT 03/16/2014 9:41 PM EDT Narrative Resulting Agency Comment Spec In Lab Juan Luis Saldivar MD BLOOD BANK LAB ORDER CHASE Performing Organization Address [facility] Co de Phone Number [facility] * ABO/Rh Typing (03/16/2014 9:35 PM EDT) Pathologist [facility] ABORH Type O Neg [facility] Blood specimen (specimen) 03/16/2014 9:35 PM EDT 03/16/2014 9:41 PM EDT Narrative Resulting Agency Comment Spec In Lab Juan Luis Saldivar MD BLOOD BANK LAB ORDER CHASE Performing Organization Address [facility] de Phone Number [facility] * Ethanol Level (03/16/2014 9:35 PM EDT) Pathologist [facility] Ethanol <100 mg/L [facility] Comment: result rechecked- ELL Greater than 800 mg/L (0.08%) should be considered intoxicated. 3400 to 4500 mg/L (0.34 - 0.45%) is considered severe intoxication. Greater than 5500 mg/L (0.55%) is usually fatal. Blood specimen (specimen) 03/16/2014 9:35 PM EDT 03/16/2014 9:45 PM EDT Narrative Resulting Agency Comment Spec In Lab Juan Luis Saldivar MD CHEMISTRY ORDERABLES Performing Organization Address [facility] de Phone Number [facility] * APTT (03/16/2014 9:35 PM EDT) [facility] Partial Thromboplastin Time 26 25 - 35 sec [facility] Comment: Recommended therapeutic PTT range for full dose unfractionated heparin is 80-114 seconds. Blood specimen (specimen) 03/16/2014 9:35 PM EDT 03/16/2014 9:45 PM EDT Narrative Resulting Agency Comment Spec In Lab Juan Luis Saldivar MD HEMATOLOGY ORDERABLE S Performing Organization Address [facility] de Phone Number [facility] * Prothrombin Time (03/16/2014 9:35 PM EDT) Prothrombin Time 13.4 12.0 - 15.0 sec CERNER MILLENNIUM Comment: [facility] Transfusion Committee Guidelines: INR less than 2.0, PTT less than OR equal to 43.5 seconds, or Fibrinogen greater than or equal to 100 mg/dl indicate adequate procoagulant activity for hemostasis in patients without underlying bleeding disorders. International Normalization Ratio 1.0 0.9 - 1.1 CERNER MILLENNIUM Blood specimen (specimen) 03/16/2014 9:35 PM EDT 03/16/2014 9:45 PM EDT Narrative Resulting Agency Comment Spec In Lab Juan Luis Saldivar MD HEMATOLOGY ORDERABLE S CERNER MILLENNIUM * Basic Metabolic Panel (non-fasting) (03/16/2014 9:35 PM EDT) Glucose 103 60 - 199 mg/dL CERNER MILLENNIUM Comment:Diabetes: >=200 mg/d L plus symptoms Blood Urea Nitrogen 16 10 - 20 mg/dL CERNER MILLENNIUM Creatinine 1.03 0.80 - 1.50 mg/dL CERNER MILLENNIUM Comment: Please note that the pediatric reference intervals supplied above were not validated at [facility]. Results from pediatric patients should be interpreted [...] - 107 mmol/L CERNER MILLENNIUM Carbon Dioxide 26 22 - 31 mmol/L CERNER MILLENNIUM Anion Gap 8 5 - 15 mmol/L CERNER MILLENNIUM Calcium 8.8 8.5 - 10.5 mg/dL CERNER MILLENNIUM Est Glomerular Filtration Rate [...] the following links into your internet browser. [email or web address] Blood specimen (specimen) 03/16/2014 9:35 PM EDT 03/16/2014 9:45 PM EDT Narrative Resulting Agency Comment Spec In Lab Juan Luis Saldivar MD CHEMISTRY ORDERABLES Performing Organization Address City/State/[facility] Co ms Phone Number [facility] documented in this encounter Visit Diagnoses Diagnosis Trauma Injury, other and unspecified, unspecified site documented in this encounter Administered Medications Inactive Administered Medications - up to 3 most recent administrations Medication Order MAR Action Action Date Dose Rate Site acetaminophen (TYLENOL) tablet 650 mg 650 mg, Oral, EVERY 4 HOURS PRN, Starting on Thu03/17/14 at 0142, Until Thu03/17/14 at 2007, Pain, for MILD pain, Do not exceed 4,000 mg in 24 hours, Routine Given 03/17/2014 12:45 PM EDT 650 mg Given 03/17/2014 8:26 AM EDT 650 mg ampicillin-sulbactam (UNASYN) 3 g vial attach to sodium chloride 0.9% 100 mL Mini-Bag Plus 3 g, Intravenous, EVERY 6 HOURS SCHEDULED, 28 doses, First dose on Thu03/17/14 at 0045, Last dose on Thu03/23/14 at 1800, Administer over 30 Minutes, Indication for (Active or Suspected): Prophylaxis New Bag 03/17/2014 4:54 PM EDT 3 g 200 mL/ hr New Bag 03/17/2014 11:49 AM EDT 3 g 200 mL/hr New Bag 03/17/2014 5:38 AM EDT 3 g 200 mL/hr chlorhexidine (PERIDEX) 0.12 % oral solution 15 mL 15 mL, Oral, 4 TIMES DAILY, First dose on Thu03/17/14 at 0900, Until Discontinued, Swish and spit, Routine Given 03/17/2014 4:54 PM EDT 15 mLs Given 03/17/2014 12:45 PM EDT 15 mLs Given 03/17/2014 8:16 AM EDT 15 mLs enoxaparin (LOVENOX) injection 30 mg 30 mg, Subcutaneous, EVERY 12 HOURS SCHEDULED (2 times per day), First dose on Thu03/17/14 at 0900, Until Discontinued, Routine Given 03/17/2014 8:16 AM EDT 30 mg esomeprazole (NEXIUM) capsule 40 mg 40 mg, Oral, DAILY, First dose on Thu03/17/14 at 1530, Until Discontinued, Routine Given 03/17/2014 3:54 PM EDT 40 mg famotidine (PEPCID) tablet 20 mg 20 mg, Oral, 2 TIMES DAILY, First dose on Thu03/17/14 at 0900, Until Discontinued, If unable to take PO, may give IV, Routine Given 03/17/2014 8:16 AM EDT 20 m g fentaNYL 50mcg/mL injection 25-50 mcg, Intravenous, PER TRAUMA ANALGESIC PROTOCOL, Starting on Thu03/16/14 at 2123, Until Thu03/17/14 at 0142, Pain, Every 5-15 minutes PRN, STAT Given 03/17/2014 12:50 AM EDT 50 mcg Given 03/16/2014 11:30 PM EDT 50 mcg Given 03/16/2014 10:45 PM EDT 50 mcg heparin (porcine) subcutaneous injection 5,000 Units 5,000 Units, Subcutaneous, EVERY 8 HOURS SCHEDULED, First dose on Thu03/17/14 at 0600, Until Discontinued, Routine Given 03/17/2014 5:38 AM EDT 5,000 Unit s HYDROmorphone (DILAUDID) injection 0.5 mg 0.5 mg, Intravenous, EVERY 4 HOURS PRN, Starting on Thu03/17/14 at 0142, Until Thu03/17/14 at 1459, Pain, pain scale greater than goal or pre-procedure, Routine Given 03/17/2014 5:44 AM EDT 0.5 mg Given 03/17/2014 1:51 AM EDT 0.5 mg iohexol (OMNIPAQUE) 350 mg iodine/mL injection 22,750 mg 22,750 mg (65 mL), Intravenous, ONCE PRN, 1 dose, Starting on Thu03/16/14 at 2211, Until Kami 03/16/14 at 2211, Per Protocol, Routine Given 03/16/2014 10:11 PM EDT 22,750 mg lactated ringers infusion 1,000 mL 1,000 mL, at 100 mL/hr, Intravenous, CONTINUOUS, Starting on Thu03/17/14 at 0200, Until Thu03/17/14 at 1459, Recovery (Recovery-Hospital Unit) New Bag 03/17/2014 1:52 AM EDT 1,000 mLs 100 mL /hr oxyCODONE (ROXICODONE) 5 mg immediate release tablet 1 dose, Starting on Thu03/17/14 at 1547, Until Thu03/17/14 at 1556, ED Gimenez: cabinet override oxyCODONE (ROXICODONE) immediate release tablet 5-10 mg 5-10 mg, Oral, EVERY 4 HOURS PRN, Starting on Thu03/17/14 at 0142, Until Thu03/17/14 at 1534, Pain, May repeat 5 mg in 60 minutes if pain not relieved., Routine Given 03/17/2014 3:56 PM EDT 10 mg Given 03/17/2014 12:45 PM EDT 10 mg Given 03/17/2014 8:26 AM EDT 10 mg sodium chloride 0.9 % flush 5 mL 5 mL, Intravenous, 2 TIMES DAILY, First dose on Thu03/17/14 at 0200, Until Discontinued, Recovery (Recovery-Hospital Unit), Routine Given 03/17/2014 8:16 AM EDT 5 mLs Given 03/17/2014 2:00 AM EDT 5 mLs documented in this encounter Active and Recently Administered Medications Times are shown in EDT. Scheduled Medication Order 03/15/2014 03/16/2014 03/17/2014 ampicillin-sulbactam (UNASYN) 3 g vial attach to sodium chloride 0.9% 100 mL Mini-Bag Plus (CANCELED) 3 g, Intravenous, EVERY 6 HOURS SCHEDULED, 28 doses, First dose on Thu03/17/14 at 0045, Last dose on Thu03/23/14 at 1800, Administer over 30 Minutes, Indication for (Active or Suspected): Prophylaxis 0053 (New Bag - Prov ider: Dedra Corona RN)0538 (New Bag - Provider: Debbie Harman RN)1149 (New Bag - Provider: Shannon Baer RN)1654 (New Bag - Provider: Shannon Baer RN)1800 (Canceled Entry - Provider: Shannon Baer RN - Comment: pt received) chlorhexidine (PERIDEX) 0.12 % oral solution 15 mL 15 mL, Oral, 4 TIMES DAILY, First dose on Thu03/17/14 at 0900, Until Discontinued, Swish and spit, Routine 0816 (Given - Provid er: Shannon Baer RN)1245 (Given - Provider: Shannon Baer RN)1654 (Given - Provider: Shannon Baer RN) docusate sodium (COLACE) oral liquid 100 mg 100 mg, Oral, 2 TIMES DAILY, First dose on Thu03/17/14 at 2100, Until Discontinued, Routine enoxaparin (LOVENOX) injection 30 mg (CANCELED) 30 mg, Subcutaneous, EVERY 12 HOURS SCHEDULED (2 times per day), First dose on Thu03/17/14 at 0900, Until Discontinued, Routine 0816 (Given - Provid er: Shannon Baer RN) esomeprazole (NEXIUM) capsule 40 mg (CANCELED) 40 mg, Oral, DAILY, First dose on Thu03/17/14 at 1530, Until Discontinued, Routine 1554 (Given - Provid er: Ed Gimenez RN) famotidine (PEPCID) tablet 20 mg (CANCELED)(Linked Group 1) 20 mg, Oral, 2 TIMES DAILY, First dose on Thu03/17/14 at 0900, Until Discontinued, If unable to take PO, may give IV, Routine 0816 (Given - Provid er: Shannon Baer RN) heparin (porcine) subcutaneous injection 5,000 Units (CANCELED) 5,000 Units, Subcutaneous, EVERY 8 HOURS SCHEDULED, First dose on Thu03/17/14 at 0600, Until Discontinued, Routine 0538 (Given - Provid er: Debbie Harman RN) oxyCODONE (ROXICODONE) immediate release tablet 5-10 mg 5-10 mg, Oral, EVERY 3 HOURS, First dose (after last modification) on Thu03/17/14 at 1600, Until Discontinued, May repeat 5 mg in 60 minutes if pain not relieved., Routine 1600 (Not Given - Pr ovider: Ed Gimenez RN - Reason: Medication Discontinued) sodium chloride 0.9 % flush 5 mL (CANCELED) 5 mL, Intravenous, 2 TIMES DAILY, First dose on Thu03/17/14 at 0200, Until Discontinued, Recovery (Recovery-Hospital Unit), Routine 0200 (Given - Provid er: Debbie Harman RN)0816 (Given - Provider: Shannon Baer RN) Continuous Medication Order 03/15/2014 03/16/2014 03/17/2014 lactated ringers infusion 1,000 mL (CANCELED) 1,000 mL, at 100 mL/hr, Intravenous, CONTINUOUS, Starting on Thu03/17/14 at 0200, Until Thu03/17/14 at 1459, Recovery (Recovery-Hospital Unit) 0152 (New Bag - Prov ider: Debbie Harman RN) PRN Medication Order 03/15/2014 03/16/2014 03/17/2014 acetaminophen (TYLENOL) tablet 650 mg (CANCELED) 650 mg, Oral, EVERY 4 HOURS PRN, Starting on Thu03/17/14 at 0142, Until Thu03/17/14 at 2007, Pain, for MILD pain, Do not exceed 4,000 mg in 24 hours, Routine 0826 (Given - Provid er: Shannon Baer RN)1245 (Given - Provider: Shannon Baer RN) fentaNYL 50mcg/mL injection (CANCELED) 25-50 mcg, Intravenous, PER TRAUMA ANALGESIC PROTOCOL, Starting on Kami 03/16/14 at 2123, Until Thu03/17/14 at 0142, Pain, Every 5-15 minutes PRN, STAT 0224 (Given - Provider: Dedra Corona RN)2230 (Given - Provider: Dedra Corona RN)2245 (Given - Provider: Dedra Corona RN)2330 (Given - Provider: Dedra Corona RN) 0050 (Given - Provider: Dedra Corona RN) HYDROmorphone (DILAUDID) injection 0.5 mg (CANCELED) 0.5 mg, Intravenous, EVERY 4 HOURS PRN, Starting on Thu03/17/14 at 0142, Until Thu03/17/14 at 1459, Pain, pain scale greater than goal or pre-procedure, Routine 0151 (Given - Provid er: Debbie Harman RN)0544 (Given - Provider: Debbie Harman RN) iohexol (OMNIPAQUE) 350 mg iodine/mL injection 22,750 mg (COMPLETED) 22,750 mg (65 mL), Intravenous, ONCE PRN, 1 dose, Starting on Kami 03/16/14 at 2211, Until Kami 03/16/14 at 2211, Per Protocol, Routine 2211 (Given - Provider: Sunni López) oxyCODONE (ROXICODONE) immediate release tablet 5-10 mg (CANCELED) 5-10 mg, Oral, EVERY 4 HOURS PRN, Starting on Thu03/17/14 at 0142, Until Thu03/17/14 at 1534, Pain, May repeat 5 mg in 60 minutes if pain not relieved., Routine 0826 (Given - Provid er: Shannon Baer RN)1245 (Given - Provider: Shannon Baer, VALDO)1556 (Given - Provider: Ed Gimenez RN) Linked Groups Order Group 1: famotidine (PEPCID) tablet 20 mg (CANCELED)Jump to med 20 mg, Oral, 2 TIMES DAILY, First dose on Thu03/17/14 at 0900, Until Discontinued, If unable to take PO, may give IV, Routine Or famotidine (PEPCID) 20 mg (CANCELED) 20 mg, Intravenous, 2 TIMES DAILY, First dose on Thu03/17/14 at 0900, Until Discontinued, Administer over 30 Minutes documented in this encounter Care Teams Bilingual Branch Manager Relationship Specialty Start Date End Date Nissa Wise MD [address] [place] [address] PCP - General 03/17/14 02/14/16 documented as of this encounter
--- OUTSIDE RECORDS SUMMARY | 2024-11-02 01:58 | XMS_ITS | Referral Summary ---
Author Organization [facility] Address [address] [place] [address] Care Team Providers Care Day Guard Name Role Phone Unavailable Primary Care Provider Unavailabl e Social History Tobacco Use Types Packs/Day Years Used Date Smoking Tobacco: Never Assessed Sex and Gender Information Value Date Recorded Sex Assigned at Not on file Legal Sex Male 17:53 EST Gender Identity Not on file Sexual Orientation Not on file Plan of Treatment Not on file
--- OUTSIDE RECORDS SUMMARY | 2024-11-02 01:58 | XMS_ITS | Encounter Summary ---
Author Organization [facility] Address [facility] [place] [address] Care Team Providers Care Psychiatric Tech Name Role Phone Nissa Wise MD Primary Care Provider [phone] Reason for Visit * Reason Comments Post Hospital Discharge Suture removal f rom chin Encounter Details Date Type Department Care Team (Late st Contact Info) Description 03/22/2014 10:15 AM EDT Office [place] [phone] Stephen Kinney MD [facility] [place]OLARYNG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, with nonunion, subsequent encounter (Primary Dx) Discharge Disposition: Home Social History Tobacco Use Types Packs/Day Years Used Date Smoking Tobacco: Former Cigarettes Cigars Sex and Gender Information Value Date Recorded Sex Assigned at Not on file Gender Identity Not on file Sexual Orientation Not on file documented as of this encounter Last Filed Vital Signs Vital Sign Reading Time Taken Comments Blood Pressure 122/72 03/22/2014 9:57 AM EDT Pulse 61 03/22/2014 9:57 AM EDT Temperature 36.7 ??C (98.1 ??F) 03/22/2014 9:57 AM ED T Respiratory Rate - - Oxygen Saturation - - Inhaled Oxygen Concentration - - Weight 87.5 kg (193 lb) 03/22/2014 9:57 AM EDT Height 172.7 cm (5' 8) 03/22/2014 9:57 AM EDT Body Mass Index 29.35 03/22/2014 9:57 AM EDT documented in this encounter Progress Notes * Stephen Kinney MD - 03/23/2014 3:18 PM EDT The patient's clinical history is reviewed and a complete examination is accomplished. The physicalfindings are confirmed. The resident's assessment and plan was formulated with my guidance and approval. * Nora Reeves - 03/22/2014 11:24 AM EDT Otolaryngology Consultation Progress note Date of Consultation:03/22/2014 Patient: Blas Elizondo ([id number]; 1950 ) Patient Location: Room/bed info not found Admitting Physician: Stephen Kinney MD ID:Blas Elizondo is a 63 y.o. male known to the ENT department with maxillary alveolar ridge fracture. Patient hit in face by tree branch hitting mandible into maxilla now with non healing alveolar ridge fracture. Interval: Liquid diet Taking antibiotics as directed Increased loosing of alveolar ridge, c/o malocclusion Denies fevers Using peroxide and water to wash chin laceration Exam: Temp: [36.7 ??C (98.1 ??F)] Heart Rate: [61] Resp: -- BP: (122)/(72) SpO2: -- Gen: NAD, AAO Face: symmetric Neck: chin laceration with significant crusting, no erythema, mild edema on left OC/OP: increased mobility of maxillary ridge fracture, floating comminuted segment (2 pieces). No posterior dentition, contact of incisors.resp: non labored A/P: 63 year old male with malocclusion from non healing alveolar ridge fracture. Discussed options including continued observation, referral to [facility], or plating of fracture with mini plates. Patient wishes to proceed with plating. Discussed plan with Dr. Figueroa. - Plan for ORIF of alveolar ridge fracture - Consent signed, OR booked documented in this encounter Plan of Treatment Upcoming Encounters Date Type Department Care Team (Late st Contact Info) Description 11/02/2024 1:00 PM EST Office Visit Hematology/Oncology at [address] [phone] Gloria Beck MD [facility] HEMATOLOGY [place] [address] [address] Cisneros APRN [facility] HEMATOLOGY [place] [address] documented as of this encounter Procedures Procedure Name Priority Date/Time Associated Diagnosis Comments OPEN TREATMENT MANDIBULAR\MAXILLARY ALVEOLAR RIDGE FX Routine 03/22/2014 11:23 AM EDT 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
--- OUTSIDE RECORDS SUMMARY | 2024-11-02 01:58 | XMS_ITS | Encounter Summary ---
Author Organization [facility] Address [facility] [place] [address] [place] [address] Care Team Providers Care Still Worker Helper Name Role Phone Nissa Wise MD Primary Care Provider Encounter Details Date Type Department Care Team (Late st Contact Info) Description 03/22/2014 1:29 PM EDT Anesthesia Event [place] [phone] Rocky Tse MD [facility] [place] [address] Magdi Cain MD Anesthesia Record Procedure Summary Procedure Name Responsible Anesthesiologist Anesthesia Start Time Anesthesia Stop Time OPEN TREATMENT MANDIBULAR\MAXILLAR Y ALVEOLAR RIDGE FX (WRVU 6.26) (Bilateral: Face) Rocky Tse MD 03/22/14 1329 03/22/14 1518 Events Date Time Event Comment 03/22/2014 1329 Start 1331 AN Verify 1331 An Start Data 1339 An Induction 1340 An Intubation 1341 Anesthesia Ready 1507 Extubation/LMA Out 1510 an stop data 1518 Stop 1545 Meds Name Total fentaNYL 250 mcg lidocaine IV 40 mg propofol 300 mg Rocuronium 50 mg ondansetron 8 mg dexAMETHasone 4 mg Neostigmine 3 mg Glycopyrrolate 0.6 mg ampicillin-sulbactam (UNASYN ) 3 g vial attach to sodium chloride 0.9% 100 mL Mini-Bag Plus 3 g lactated ringers 800 mL * Agents Name O2 Air N2O Sevoflurane (et) * Blood No blood administrations on file. Lines, Drains, and Airways Type Details Placement Removal Wound chest; abrasion; 05/26/22 (LDA cleanup utility RA#[id number]); 171 (LDA cleanup utility RA#[id number]) 03/17/14 0211 by 05/26/22 1715 by Maribel Dwyer Wound chin; laceration; 05/26/22 (LDA cleanup utility RA#[id number]); 1715 (LDA cleanup utility RA#[id number]) 03/17/14 0212 by 05/26/22 1715 by Maribel Dwyer Incision 03/22/14; other (see comments) (buccal.); 05/26/22 (LDA cleanup utility RA#[id number]); 171 (LDA cleanup utility RA#[id number]) 03/22/14 0000 by Dedra Contreras APRN 05/26/22 1715 by Maribel Dwyer (RETIRED) Peripheral IV Line - Single Lumen 03/22/14; 1226; median cubital vein left (antecubital fossa); no longer indicated, catheter intact; 03/22/14; 192303/22/14 1226 by Selma Lopez RN 03/22/141923 by Dilia Jewell, VALDO ETT Mask Ventilation: Ea sy (1); ETT Type: Cuffed, Oral, LEANDRO; ETT Size: 7.5 mm; Mac Blade: 3; Notes: Asleep, Pre-O2; Attempts: 1; Laryngoscopy Grade: 1; ETT Placement Verified By: Auscultation, Capnometry, Visual; Secured at Teeth: 20 cm; Removal Date: 03/22/14; Removal Time: 1507 03/22/14 1352 by 03/22/14 1507 by Sandra Amaro CRNA documented in this encounter Social History Tobacco Use Types Packs/Day Years Used Date Smoking Tobacco: Former Cigarettes Cigars Sex and Gender Information Value Date Recorded Sex Assigned at Not on file Gender Identity Not on file Sexual Orientation Not on file documented as of this encounter OR Notes * Anesthesia Postprocedure Evaluation - [facility], Rocky June MD - 03/22/2014 3:45 PM EDT Patient: Blas Elizondo Procedure(s) Performed: Procedure(s): OPEN TREATMENT MANDIBULAR\MAXILLARY ALVEOLAR RIDGE FX Actual Anesthetic: No value filed. Patient location: PACU Post-op pain: Adequate analgesia Post-op nausea: no nausea or vomiting Last Vitals: Filed Vitals: 03/22/14 1528 BP: 164/83 Pulse: 58 Temp: Resp: 16 Post-op cardiovascular and respiratory status: is stable Level of consciousness: sedated Complications: no apparent complications and tolerated the procedure well Fluid Status: normal He is doing well early in his postoperative course. Patient states that he does not have pain. * Anesthesia Preprocedure Evaluation - AmaroEric gonsalves - 03/22/2014 1:21 PM EDT Pre-Anesthesia Evaluation for: Blas Elizondo a 63 y.o. male. Procedure(s): OPEN TREATMENT MANDIBULAR\MAXILLARY ALVEOLAR RIDGE FX OPEN TREATMENT MANDIBULAR FX, W/ INTERDENTAL FIXATION Patient Active Problem List Diagnosis ??? Herniation of intervertebral disc between L4 and L5 with surgical intervention Past Medical History Diagnosis Date ??? Arthritis Right shoulder ??? Gastric reflux ??? Herniation of intervertebral disc between L4 and L5 with surgical intervention No past surgical history on file. History Substance Use Topics ??? Smoking status: Former Smoker -- 0.2 packs/day Types: Cigars ??? Smokeless tobacco: Not on file ??? Alcohol Use: Not on file History Drug Use Not on file No Known Allergies Medications: MAR and/or home medications have been reviewed. Physical Exam: There were no vitals filed for this visit. There is no height or weight on file to calculate BMI. Airway Assessment: Mallampati: II TM distance: >3 FB Neck ROM: full Cardiovascular Assessment: Pulmonary Assessment: Dental Assessment: - normal exam Misc Assessment: Anesthesia Plan: ASA 2 general, with a(n) intravenous induction 63 year old male here for ORIF of the mandible s/p a trauma. He was cutting a tree a few weeks ago when he injured his face and chest. Appropriately NPO, no problems with prior anesthetics, no known cardio-pulmonary disease, no GERD, good exercise tolerance. PLAN: GETA Region - Other Informed Consent: Anesthetic plan and risks discussed with patient. Plan discussed with attending and DONOR SERVICES MANAGER. [facility] Assessment: documented in this encounter Plan of Treatment Upcoming Encounters Date Type Department Care Team (Late st Contact Info) Description 11/02/2024 1:00 PM EST Office Visit Hematology/Oncology at [address] [phone] Gloria Beck MD [facility] [place] [address] [address]is[address] APRN [facility] [place] [address] documented as of this encounter Visit Diagnoses Not on filedocumented in this encounter Administered Medications Inactive Administered Medications - up to 3 most recent administrations Medication Order MAR Action Action Date Dose Rate Site ampicillin-sulbactam (UNASYN) 3 g vial attach to sodium chloride 0.9% 100 mL Mini-Bag Plus 3 g, Intravenous, EVERY 6 HOURS SCHEDULED, First dose on Thu03/22/14 at 1230, Until Discontinued, Administer over 30 Minutes, Indication for (Active or Suspected): Prophylaxis Given 03/22/2014 1:43 PM EDT 3 g dexamethasone (DECADRON) injection PRN, Starting on Thu03/22/14 at 1359, Until Thu03/22/14 at 1535, Anesthesia Intra-op, Routine Given 03/22/2014 1:59 PM EDT 4 mg fentaNYL 50mcg/mL injection PRN, Starting on Thu03/22/14 at 1339, Until Thu03/22/14 at 1535, Pain, Anesthesia Intra-op, Routine Given 03/22/2014 3:00 PM EDT 50 mcg Given 03/22/2014 2:44 PM EDT 50 mcg Given 03/22/2014 2:34 PM EDT 50 mcg glycopyrrolate (ROBINUL) injection PRN, Starting on Thu03/22/14 at 1437, Until Thu03/22/14 at 1535, Anesthesia Intra-op, Routine Given 03/22/2014 2:50 PM EDT 0.2 mg Given 03/22/2014 2:37 PM EDT 0.4 mg lactated ringers infusion CONTINUOUS PRN, Starting on Thu03/22/14 at 1329, Until Thu03/22/14 at 1535, Anesthesia Intra-op New Bag 03/22/2014 1:29 PM EDT mL lidocaine (PF) (XYLOCAINE) 100 mg/5 mL (2 %) injection PRN, Starting on Thu03/22/14 at 1339, Until Thu03/22/14 at 1535, Anesthesia Intra-op, Routine Given 03/22/2014 1:39 PM EDT 40 mg neostigmine (PROSTIGMINE) injection PRN, Starting on Thu03/22/14 at 1437, Until Thu03/22/14 at 1535, Anesthesia Intra-op, Routine Given 03/22/2014 2:37 PM EDT 3 mg ondansetron (ZOFRAN) injection PRN, Starting on Thu03/22/14 at 1425, Until Thu03/22/14 at 1535, Nausea, Anesthesia Intra-op, Routine Given 03/22/2014 2:30 PM EDT 4 mg Given 03/22/2014 2:25 PM EDT 4 mg propofol (DIPRIVAN) 10 mg/mL bolus injection (Anesthesia) PRN, Starting on Thu03/22/14 at 1339, Until Thu03/22/14 at 1535, Anesthesia Intra-op Given 03/22/2014 2:52 PM EDT 50 mg Given 03/22/2014 2:45 PM EDT 50 mg Given 03/22/2014 1:39 PM EDT 200 mg rocuronium (ZEMURON) injection PRN, Starting on Thu03/22/14 at 1339, Until Thu03/22/14 at 1535, Anesthesia Intra-op, Routine Given 03/22/2014 1:39 PM EDT 50 mg documented in this encounter Care Teams Still Worker Helper Relationship Specialty Start Date End Date Nissa Wise MD [address] [place] [address] PCP - General 03/17/14 02/14/16 documented as of this encounter
--- OUTSIDE RECORDS SUMMARY | 2024-11-02 01:58 | XMS_ITS | Encounter Summary ---
Author Organization [facility] Address [address] [place] [address] Care Team Providers Care Commutator V Ring Assembler Name Role Phone Unavailable Primary Care Provider Unavailabl e Encounter Details Date Type Department Care Team (Late st Contact Info) Description 10/31/2020 Lab Requisition [facility] Pathology & Laboratory Medicine - [address] [address] Outr Resulting Lab, Provider Social History Tobacco Use Types Packs/Day Years Used Date Smoking Tobacco: Never Assessed Sex and Gender Information Value Date Recorded Sex Assigned at Not on file Legal Sex Male 17:53 EST Gender Identity Not on file Sexual Orientation Not on file documented as of this encounter Plan of Treatment Not on file documented as of this encounter Procedures Procedure Name Priority Date/Time Associated Diagnosis Comments PSA TOTAL, DIAGNOSTIC Routine 10/31/2020 9:30 EST documented in this encounter Results * PSA TOTAL, DIAGNOSTIC (10/31/2020 9:30 EST) PSA 5.6 0.0 - 6.5 ng/mL 10/31/2020 17:48 EST [facility] Blood VENOUS BLOOD / Unknown 10/31/2020 9:30 EST 10/31/2020 16:14 EST Narrative [facility] - 10/31/2020 17:48 EST NOTE: Serum PSA concentration should not be interpreted as absolute evidence for the presence or absence of malignant disease. Assayed on Siemens ADVIA Centaur XPT using chemiluminescent technology.??Values obtained by using different assay methods cannot be used interchangeably. us Provider Outr Resulting Lab CHEMISTRY & BLOOD GA S ORDERABLES Final Result [facility] [address] [place] [address] documented in this encounter Visit Diagnoses Not on filedocumented in this encounter
--- OUTSIDE RECORDS SUMMARY | 2024-11-02 01:58 | XMS_ITS | Encounter Summary ---
Author Organization [facility] Address [address] [place] [address] Care Team Providers Care Logistics System Engineer Name Role Phone Unavailable Primary Care Provider Unavailabl e Encounter Details Date Type Department Care Team (Late st Contact Info) Description 10/31/2020 Lab Requisition [facility] Pathology & [place] [address] Outr Resulting Lab, Provider Social History Tobacco [...] Procedure Name Priority Date/Time Associated Diagnosis Comments IMMUNOGLOBULINS Routine 10/31/2020 9:30 EST documented in this encounter Results * (ABNORMAL) IMMUNOGLOBULINS (10/31/2020 9:30 EST) IgG 428(L) 610-1,616 mg/dL 11/01/2020 9:03 EST [facility] IgA 186 85 - 499 mg/dL 11/01/2020 9:03 EST [facility] IgM 34(L) 35 - 242 mg/dL 11/01/2020 9:03 EST [facility] Blood VENOUS BLOOD / Unknown 10/31/2020 9:30 EST 10/31/2020 16:14 EST us Provider Outr Resulting Lab CHEMISTRY & BLOOD GA S ORDERABLES Final Result [facility] [address] [place] [address] documented in this encounter Visit Diagnoses Not on filedocumented in this encounter
--- OUTSIDE RECORDS SUMMARY | 2024-11-02 01:58 | XMS_ITS | Encounter Summary ---
Author Organization [facility] Address [address] [place] [address] Care Team Providers Care Build Manager Name Role Phone Unavailable Primary Care Provider Unavailabl e Encounter Details Date Type Department Care Team (Late st Contact Info) Description 03/28/2020 Lab Requisition [facility] Pathology & Laboratory Medicine - [facility] [address] [place] [address] Outr Resulting Lab, Provider Social History Tobacco [...] Priority Date/Time Associated Diagnosis Comments IMMUNOGLOBULINS Routine 03/28/2020 11:45 EDT documented in this encounter Results * (ABNORMAL) IMMUNOGLOBULINS (03/28/2020 11:45 EDT) IgG 393(L) 610-1,616 mg/dL 03/29/2020 9:56 EDT [facility] IgA 183 85 - 499 mg/dL 03/29/2020 9:56 EDT [facility] IgM 32(L) 35 - 242 mg/dL 03/29/2020 9:56 EDT [facility] Blood VENOUS BLOOD / Unknown 03/28/2020 11:45 EDT 03/28/2020 16:46 EDT us Provider Outr Resulting Lab CHEMISTRY & BLOOD GA S ORDERABLES Final Result [facility] [address] [place] [address] documented in this encounter Visit Diagnoses Not on filedocumented in this encounter
--- OUTSIDE RECORDS SUMMARY | 2024-11-02 01:58 | XMS_ITS | Encounter Summary ---
Author Organization [facility] [place] [address] [place] [address] Care Team Providers Care Electronic Bench Technician Name Role Phone None Primary Care Provider Unavailabl e Encounter Details Date Type Department Care Team (Late st Contact Info) Description 03/16/2014 Orders [place] [address] Juan Luis Saldivar MD [address] [place] [address] [place] [address] Social History Tobacco Use Types Packs/Day Years [...] PM EST Office Visit Hematology/Oncology at [address] [phone] Gloria Beck MD [facility] [place] [address] [address] Cisner[address] APRN [facility] [place] [address] documented as of this encounter Procedures Procedure Name Priority Date/Time Associated Diagnosis Comments FILM LIBRARY STORAGE ONLY CT HEAD AND SPINE Routine 03/16/2014 9:15 PM EDT documented in this encounter Results * Film Library- Storage only CT Head And Spine (03/16/2014 9:15 PM EDT) Anatomical Region Laterality Modality Head, C-spine, T-spine, L-spine Other 03/16/2014 9:15 PM EDT Narrative 03/16/2014 9:20 PM EDT This is a Non-reportable exam Procedure Note 03/16/2014 This is a Non-reportable exam Juan Luis Saldivar MD IMG FILM LIBRARY ORD ERABLES documented in this encounter Visit Diagnoses Not on filedocumented in this encounter Care Teams Electronic Bench Technician Relationship Specialty Start Date End Date None None PCP - General 11/19/11 03/16/14 documented as of this encounter
--- OUTSIDE RECORDS SUMMARY | 2024-11-02 01:58 | XMS_ITS | Encounter Summary ---
Author Organization [facility] [place] [place] [address] Care Team Providers Care Rn Plastics Name Role Phone Nissa Wise MD Primary Care Provider Encounter Details Date Type Department Care Team (Latest Contact Info) Description 03/22/2014 12:02 PM EDT - 03/22/2014 7:32 PM EDT Hospital Encounter [place] [phone] Stephen Renae MD 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, with nonunion, subsequent encounter Discharge Disposition: Home Social History Tobacco Use Types Packs/Day Years Used Date Smoking Tobacco: Former Cigarettes Cigars Sex and Gender Information Value Date Recorded Sex Assigned at Not on file Gender Identity Not on file Sexual Orientation Not on file documented as of this encounter Last Filed Vital Signs Vital Sign Reading Time Taken Comments Blood Pressure 116/75 03/22/2014 6:53 PM EDT Pulse 71 03/22/2014 6:53 PM EDT Temperature 36.6 ??C (97.9 ??F) 03/22/2014 3:16 PM ED T Respiratory Rate 16 03/22/2014 6:53 PM EDT Oxygen Saturation 90% 03/22/2014 6:53 PM EDT Inhaled Oxygen Concentration - - [...] may be used if needed and are bimw-eyx-qtdfvax (OTC) medications available at most local pharmacies. Prunes or prune juice, taken daily, can also be helpful for constipation treatment or p revention and are available at most [employer]. Driving Restrictions*: - No driving while using [...] Ears, Nose, and Throat Surgery Outpatient [facility]- Utilities Manager 4F. You will recieve a letter in the mail and/or a phone call with information about this appointment. Please call [phone] (clinic number for appointments) to confirm date and time of your appointment, or if you do not receive information about your appointment in a timely manner. For any medical concerns the Otolaryngology nurse can be reached at and can answer any questions you may have during the day. The [facility] concrete hopper operator can be reached at and can connect you with a resident motion picture director if necessary after hours. Future Appointments Date [...] add six more, ice pack to chin. 1709 Tolerated sips of water. Talking about his [...] from the original note were not included. [facility] Operative Note Patient Name: Blas Elizondo : [id number] MR#: [id number] Case Date: 03/22/2014 Surgeon: Surgeon(s) and Role: * Stephen Renae MD - Primary * Nora Reeves MD [...] Hemostasis was achieved with monopolar cautery. A [place] elevator was used to elevate the periostium [...] 1:00 PM EST Office Visit Hematology/Oncology at [address] [phone] Gloria Beck MD [facility] H[place] [address] [address] APRN [facility] [place] [address] documented as of this encounter Procedures Procedure [...] Given 03/22/2014 4:41 PM EDT 0.4 mg oxyCODONE-acetaminophen (PERCOCET) 5-325 mg per tablet 1-2 [...] Concetta Dotson RN)1631 (Given - Provider: Dilia Jewell RN)1641 (Given - Provider: Dilia Jewell RN)1649 (Given - Provider: Dilia Jewell, VALDO)1658 (Given - Provider: Dilia Jewell, RN) lidocaine-EPINEPHrine [...] RN) documented in this encounter Care Teams Rn Plastics Relationship Specialty Start Date End Date Nissa Wise MD [address] [place] [address] PCP - General 03/17/14 02/14/16 documented as of this encounter
[2024-11-02 11:57] LABS: Absolute Monocyte Count 3.23 10^3/uL (0.1-0.8); Basophils % 0.3 %; Eosinophils % 1.4 %; HCT 41.4 % (40.0-50.0); HGB 13.2 g/dL (13.5-17.5); Immature Grans % 0.3 %; MCH 31.4 pg (27.0-33.0); MCHC 31.9 % (32.0-36.0); MCV 99 fL (80-95); MPV 10.4 fL (8.0-11.0); Monocytes % 9.4 %; Neutrophils % 14.5 %; Platelet Count 184 10^3/uL (130-400); RDW 13.9 % (11.8-14.1); RDW-SD 49.1 fL
[2024-11-02 12:00] LABS: Absolute Eosinophil Count 0.48 10^3/uL (0.0-0.7); Absolute Lymphocyte Count 25.49 10^3/uL (1.2-3.4); Absolute Neutrophil Count 4.99 10^3/uL (1.2-6.7)
[2024-11-02 12:14] LABS: Diff Comment Agrees w/ Instrument; Lymphocytes % 74.1 %; RBC Morphology Normal
[2024-11-02 12:15] LABS: ALT 21 U/L (16-63); AST 17 U/L (15-37); Albumin 3.7 g/dL (3.4-5.0); Alkaline Phosphatase 54 U/L (46-116); Anion Gap 6.4 mmol/L (3-11); BUN 16 mg/dL (7-18); Bilirubin, Total 0.61 mg/dL (0.2-1.0); CO2 30.6 mmol/L (21.0-32.0); CREATININE 1.3 mg/dL (0.70-1.30); Calcium 9.1 mg/dL (8.5-10.1); Chloride 107 mmol/L (98-107); Estimated GFR 57.29 (mL/min/1.73m2); Glucose 94 mg/dL (74-106); LDH 185 U/L (85-227); Potassium 4.6 mmol/L (3.5-5.1); Sodium 144 mmol/L (136-145); Total Protein 6.3 g/dL (6.4-8.2)
[2024-11-03 10:23] LABS: IgA 101 mg/dL (85-499); IgG 263 mg/dL (610-1616); IgM 31 mg/dL (35-242)
== END 2024-11-02 01:18 | disposition home or self-care (01) ==
PROVIDERS: PCP Physician Assistant Medical; Visit Provider Nurse Practitioner Adult Health
DX: C91.10 Chronic lymphocytic leukemia of B-cell type not having achieved remission (principal)
CPT/HCPCS: 36415; 80053; 82784; 83615; 85025